=== PATIENT | female | born 1950 | race Caucasian/White ===

== ENCOUNTER → 2016-07-23 | Outpatient (CLI) | payer MEDICARE ==
[~2016-07-23] MED LIST: /CARBXR20T; AMLO10TA2 PO; ATEN50TA2 PO; ATOR1TAB21 PO; BABY81CH; CARB10TAXR; CHLO125TA PO; CIPR500T19; DICY20TA11 PO; EPIT200T PO; FLAG500T; FLUT0.003 EX; FLUT1SPR2; ISOSPOW; LIDOPOW TOP; LISI-538 PO; MIRA3350 PO; PENI250T81; PERC5TAB8; PRAV80TA; PROC2.5C PR; TEGR200T; TOPR200T; TYLENOL ARTHRITIS
[2016-07-23 10:22] LABS: MEAN CORPUSCULAR HEMOGLOBIN 31.4 pg (27.0-33.0); MEAN CORPUSCULAR HGB CONC 33.8 g/dl (32.0-36.5); MEAN CORPUSCULAR VOLUME 92.9 fl (80.0-96.0); RED CELL DISTRIBUTION WIDTH 13.3 % (11.5-14.5); WHITE BLOOD COUNT 7.2 K/mm3 (4.0-10.0)
[2016-07-23 10:58] LABS: ALBUMIN 3.6 GM/DL (3.2-5.2); ALKALINE PHOSPHATASE 120 U/L (45-117); ALT/SGPT 25 U/L (12-78); ANION GAP 7 MEQ/L (8-16); AST/SGOT 16 U/L (15-37); BILIRUBIN,TOTAL 0.3 MG/DL (0.2-1.0); BLOOD UREA NITROGEN 20 MG/DL (7-18); CALCIUM LEVEL 8.8 MG/DL (8.8-10.2); CARBON DIOXIDE LEVEL 28 MEQ/L (21-32); CHLORIDE LEVEL 99 MEQ/L (98-107); CHOLESTEROL LEVEL 199 MG/DL (<200); CREATININE FOR GFR 0.93 MG/DL (0.55-1.02); GLOMERULAR FILTRATION RATE > 60.0 (>45); GLUCOSE, FASTING 140 MG/DL (80-110); POTASSIUM SERUM 3.9 MEQ/L (3.5-5.1); SODIUM LEVEL 134 MEQ/L (136-145); TOTAL PROTEIN 6.6 GM/DL (6.4-8.2); TRIGLYCERIDES LEVEL 210 MG/DL (<150)
== END ==
LOC: M LAB 09:41
PROVIDERS: ATTEND Family Medicine
DX: R73.02 Impaired glucose tolerance (oral) (principal); Z79.899 Other long term (current) drug therapy

== ENCOUNTER → 2016-10-29 | Outpatient (CLI) | payer MEDICARE ==
[~2016-10-29] MED LIST changes: +KEPP1TAB PO
[2016-10-29 12:37] LABS: MEAN CORPUSCULAR HEMOGLOBIN 32.9 pg (27.0-33.0); MEAN CORPUSCULAR HGB CONC 36.1 g/dl (32.0-36.5); MEAN CORPUSCULAR VOLUME 91.1 fl (80.0-96.0); RED CELL DISTRIBUTION WIDTH 13.9 % (11.5-14.5); WHITE BLOOD COUNT 7.7 K/mm3 (4.0-10.0)
[2016-10-29 14:09] LABS: ALBUMIN 3.6 GM/DL (3.2-5.2); ALBUMIN/GLOBULIN RATIO 1.03 (1.00-1.93); ALKALINE PHOSPHATASE 126 U/L (45-117); ALT/SGPT 24 U/L (12-78); ANION GAP 7 MEQ/L (8-16); AST/SGOT 17 U/L (15-37); BILIRUBIN,TOTAL 0.3 MG/DL (0.2-1.0); BLOOD UREA NITROGEN 20 MG/DL (7-18); CALCIUM LEVEL 9.3 MG/DL (8.8-10.2); CARBON DIOXIDE LEVEL 30 MEQ/L (21-32); CHLORIDE LEVEL 90 MEQ/L (98-107); CHOLESTEROL LEVEL 232 MG/DL (<200); CREATININE FOR GFR 0.92 MG/DL (0.55-1.02); GLOMERULAR FILTRATION RATE > 60.0 (>45); GLUCOSE, FASTING 119 MG/DL (80-110); POTASSIUM SERUM 3.8 MEQ/L (3.5-5.1); SODIUM LEVEL 127 MEQ/L (136-145); TOTAL PROTEIN 7.1 GM/DL (6.4-8.2); TRIGLYCERIDES LEVEL 272 MG/DL (<150)
== END ==
LOC: M LAB 11:30
PROVIDERS: ATTEND Family Medicine
DX: R73.02 Impaired glucose tolerance (oral) (principal); Z79.899 Other long term (current) drug therapy

== ENCOUNTER 2016-11-29 12:00 | Emergency (ER) | payer OTHER, MEDICARE ==
[~2016-11-29] VITALS: Ht 157.5 cm; Wt 70.5 kg
[~2016-11-29 12:00] MED LIST changes: -KEPP1TAB PO
--- NOTE | 2016-11-29 12:59 | REP ---
CT of the brain without IV contrast: Comparisons 07/22 2005. There is no subdural or epidural hematoma. There is no subarachnoid or intraparenchymal hemorrhage. There is no edema, mass effect or midline shift. Ventricles are normal size and midline. The cortical stripe is unremarkable. The visualized paranasal sinuses and mastoid air cells are clear. Impression: Essentially negative CT study of the brain. Signed by Broderick Knott MD 11/29/2016 12:49 P
--- NOTE | 2016-11-29 13:03 | REP ---
Maxillofacial CT: Axial images are acquired helical scanning and a reformatted sagittal and coronal projections. There is no nasal bone fracture. No orbit fracture. No zygoma fracture. The ocular lenses and globes are unremarkable. The orbital fat planes are unremarkable. The skull base and sella are unremarkable. The visualized paranasal sinuses are clear except for a small polyp/cyst in the right maxillary sinus and a small polyp/cyst in the left maxillary sinus. The mastoid air cells are clear. There is no mandibular fracture. Impression: No evidence of facial bone fracture. Signed by Broderick Knott MD 11/29/2016 12:54 P
[2016-11-29 13:04] LABS: CARBAMAZEPINE (TEGRETOL) LEVEL 14.4 UG/ML (4.0-10.0)
--- NOTE | 2016-11-29 13:10 | REP ---
CT CERVICAL SPINE WITHOUT CONTRAST: HISTORY: Trauma. There is no acute fracture or subluxation. Disc bulges are present at the C3-4 through C6-7 levels. There is minimal narrowing of the spinal canal. Uncinate process and/or facet hypertrophy are present at the C3-4 and C5-6 through C7-T1 levels. These findings produce minimal narrowing of the neural foramina. The C5-6 and C6-7 intervertebral discs are decreased in height consistent with disc degeneration. IMPRESSION: 1. There is no acute fracture or subluxation. 2. There is cervical spondylosis at the C3-4 through C7-T1 levels. Signed by Armani Franco MD 11/29/2016 01:18 P
[2016-11-29] MEDS ORDERED: levETIRAcetam INJection 500 MG in D5W MINI-BAG PLUS 100 ML IV ONE (13:30)
[2016-11-29 13:43] LABS: ALBUMIN 3.6 GM/DL (3.2-5.2); ALBUMIN/GLOBULIN RATIO 1.06 (1.00-1.93); ALKALINE PHOSPHATASE 123 U/L (45-117); ALT/SGPT 30 U/L (12-78); ANION GAP 12 MEQ/L (8-16); AST/SGOT 30 U/L (15-37); BILIRUBIN,DIRECT 0.1 MG/DL (0.0-0.2); BILIRUBIN,TOTAL 0.4 MG/DL (0.2-1.0); BLOOD UREA NITROGEN 26 MG/DL (7-18); CALCIUM LEVEL 8.6 MG/DL (8.8-10.2); CARBON DIOXIDE LEVEL 25 MEQ/L (21-32); CHLORIDE LEVEL 91 MEQ/L (98-107); GLOMERULAR FILTRATION RATE > 60.0 (>45); GLUCOSE, FASTING 136 MG/DL (80-110); POTASSIUM SERUM 3.6 MEQ/L (3.5-5.1); SODIUM LEVEL 128 MEQ/L (136-145)
[2016-11-29 13:59] LABS: ADD MANUAL DIFFER YES; MEAN CORPUSCULAR HEMOGLOBIN 32.4 pg (27.0-33.0); MEAN CORPUSCULAR VOLUME 90.1 fl (80.0-96.0); PLATELET COUNT, AUTOMATED 270 k/mm3 (150-450); RED CELL DISTRIBUTION WIDTH 13.7 % (11.5-14.5); WHITE BLOOD COUNT 9.2 K/mm3 (4.0-10.0)
[2016-11-29 14:25] LABS: EOSINOPHILS 1 % (0-5)
[2016-11-29 15:31] LABS: METHADONE URINE NEGATIVE (NEGATIVE)
[2016-11-29] MEDS ORDERED: KEPP1TAB PO (15:45)
[2016-11-29 15:51] VITALS: BP 169/82
== END 2016-11-29 15:53 | disposition home or self-care (01) ==
LOC: M ED 12:00
DX: S00.83XA Contusion of other part of head, initial encounter (principal); G40.909 Epilepsy, unspecified, not intractable, without status epilepticus; F12.10 Cannabis abuse, uncomplicated; Z72.0 Tobacco use; V49.40XA Driver injured in collision with unspecified motor vehicles in traffic accident, initial encounter; Y92.410 Unspecified street and highway as the place of occurrence of the external cause; Y93.89 Activity, other specified; Y99.9 Unspecified external cause status
CPT/HCPCS: 70450; 70486; 72125; 80048; 80076; 80156; 80307; 83690; 85025; 96374; 99285; G0480; J1953

== ENCOUNTER → 2016-12-04 | Outpatient (REF) | payer MEDICARE ==
[~2016-12-04] MED LIST changes: +KEPP1TAB PO
[2016-12-05 12:45] LABS: CALCIUM LEVEL 9.4 MG/DL (8.8-10.2); CARBAMAZEPINE (TEGRETOL) LEVEL 8.1 UG/ML (4.0-10.0); CREATININE FOR GFR 1.05 MG/DL (0.55-1.02)
== END ==
LOC: M SFHCLERA 16:30
PROVIDERS: ATTEND Family Medicine
DX: R55 Syncope and collapse (principal)
CPT/HCPCS: 80048; 80156; G0463

== ENCOUNTER → 2017-01-08 | Outpatient (CLI) | payer MEDICARE | LOC: M OUTALCOH 07:37 | PROVIDERS: ATTEND Psychiatry & Neurology Psychiatry | DX: F12.20 Cannabis dependence, uncomplicated (principal) ==

== ENCOUNTER 2017-01-16 13:00 | Outpatient (RCR) | payer MEDICARE, OTHER | END 2017-01-19 | LOC: M OUTALCOH 13:00 | PROVIDERS: ATTEND Psychiatry & Neurology Psychiatry | DX: F12.20 Cannabis dependence, uncomplicated (principal); F17.200 Nicotine dependence, unspecified, uncomplicated ==

== ENCOUNTER → 2017-02-19 | Outpatient (RCR) | payer MEDICARE, OTHER | LOC: M OUTALCOH 01-22 14:59 | PROVIDERS: ATTEND Psychiatry & Neurology Psychiatry | DX: F12.20 Cannabis dependence, uncomplicated (principal); F17.200 Nicotine dependence, unspecified, uncomplicated ==

== ENCOUNTER 2017-03-08 09:00 | Outpatient (RCR) | payer MEDICARE | END 2017-03-21 | LOC: M OUTALCOH 09:00 | PROVIDERS: ATTEND Psychiatry & Neurology Psychiatry | DX: F12.10 Cannabis abuse, uncomplicated (principal); F17.200 Nicotine dependence, unspecified, uncomplicated ==

== ENCOUNTER → 2017-03-13 | Outpatient (REF) | payer MEDICARE ==
[2017-03-13 13:07] LABS: ANION GAP 6 MEQ/L (8-16); BLOOD UREA NITROGEN 21 MG/DL (7-18); CALCIUM LEVEL 9.3 MG/DL (8.8-10.2); CARBON DIOXIDE LEVEL 29 MEQ/L (21-32); CHLORIDE LEVEL 96 MEQ/L (98-107); CREATININE FOR GFR 0.74 MG/DL (0.55-1.02); GLOMERULAR FILTRATION RATE > 60.0 (>45); GLUCOSE, FASTING 111 MG/DL (80-110); POTASSIUM SERUM 4.9 MEQ/L (3.5-5.1); SODIUM LEVEL 131 MEQ/L (136-145)
== END ==
LOC: M SFHCLERA 10:46
PROVIDERS: ATTEND Family Medicine
DX: N18.3 Chronic kidney disease, stage 3 (moderate) (principal); E87.1 Hypo-osmolality and hyponatremia
CPT/HCPCS: 80048; 80156; G0463

== ENCOUNTER → 2017-03-25 | Outpatient (REF) | payer MEDICARE ==
[2017-03-25 19:30] LABS: ANION GAP 7 MEQ/L (8-16); BLOOD UREA NITROGEN 22 MG/DL (7-18); CARBAMAZEPINE (TEGRETOL) LEVEL 8.6 UG/ML (4.0-10.0); CARBON DIOXIDE LEVEL 29 MEQ/L (21-32); CHLORIDE LEVEL 101 MEQ/L (98-107); CREATININE FOR GFR 0.81 MG/DL (0.55-1.02); GLOMERULAR FILTRATION RATE > 60.0 (>45); GLUCOSE, FASTING 90 MG/DL (80-110); POTASSIUM SERUM 4.5 MEQ/L (3.5-5.1); SODIUM LEVEL 137 MEQ/L (136-145)
== END ==
LOC: M SFHCLERA 15:18
PROVIDERS: ATTEND Family Medicine
DX: G40.909 Epilepsy, unspecified, not intractable, without status epilepticus (principal)
CPT/HCPCS: 80048; 80156; G0463

== ENCOUNTER → 2017-07-15 | Outpatient (REF) | payer MEDICARE ==
[2017-07-15 20:53] LABS: HEMATOCRIT 38.8 % (36.0-47.0); HEMOGLOBIN 13.6 g/dl (12.0-16.0); MEAN CORPUSCULAR HEMOGLOBIN 30.6 pg (27.0-33.0); MEAN CORPUSCULAR HGB CONC 35.1 g/dl (32.0-36.5); MEAN CORPUSCULAR VOLUME 87.4 fl (80.0-96.0); PLATELET COUNT, AUTOMATED 288 10^3/uL (150-450); RED BLOOD COUNT 4.44 10^6/uL (4.00-5.40); RED CELL DISTRIBUTION WIDTH 13.5 % (11.5-14.5); WHITE BLOOD COUNT 9.4 10^3/uL (4.0-10.0)
[2017-07-15 21:01] LABS: ANION GAP 7 MEQ/L (8-16); BLOOD UREA NITROGEN 18 MG/DL (7-18); CALCIUM LEVEL 9.3 MG/DL (8.8-10.2); CARBAMAZEPINE (TEGRETOL) LEVEL 9.5 UG/ML (4.0-10.0); CARBON DIOXIDE LEVEL 30 MEQ/L (21-32); CHLORIDE LEVEL 98 MEQ/L (98-107); CREATININE FOR GFR 0.81 MG/DL (0.55-1.30); GLOMERULAR FILTRATION RATE > 60.0 (>45); GLUCOSE, FASTING 97 MG/DL (70-100); POTASSIUM SERUM 4.8 MEQ/L (3.5-5.1); SODIUM LEVEL 135 MEQ/L (136-145)
== END ==
LOC: M SFHCLERA 16:07
DX: I10 Essential (primary) hypertension (principal); R78.89 Finding of other specified substances, not normally found in blood
CPT/HCPCS: 80156

== ENCOUNTER 2017-08-25 11:32 | Emergency (ER) | payer OTHER, MEDICARE ==
[2017-08-25 12:38] LABS: BASO % 0.3 % (0.0-1.0); EOS % 0.2 % (0.0-3.0); HEMATOCRIT 34.7 % (36.0-47.0); HEMOGLOBIN 12.1 g/dl (12.0-15.5); IMMATURE GRANULOCYTE % 0.7 % (0-3.0); LYMPH % 10.1 % (24.0-44.0); MEAN CORPUSCULAR HEMOGLOBIN 31.3 pg (27.0-33.0); MEAN CORPUSCULAR HGB CONC 34.9 g/dl (32.0-36.5); MEAN CORPUSCULAR VOLUME 89.9 fl (80.0-96.0); MONO # 0.2 10^3/uL (0.0-0.8); MONO % 2.2 % (0.0-5.0); NEUTROPHILS # 8.9 10^3/uL (1.8-7.7); NEUTROPHILS % 86.5 % (36.0-66.0); PLATELET COUNT, AUTOMATED 267 10^3/uL (150-450); RED BLOOD COUNT 3.86 10^6/uL (4.00-5.40); RED CELL DISTRIBUTION WIDTH 14.1 % (11.5-14.5); WHITE BLOOD COUNT 10.2 10^3/uL (4.0-10.0)
[2017-08-25] MEDS: GABAPENTIN 300 MG CAP PO (12:48)
[2017-08-25 12:52] LABS: ANION GAP 9 MEQ/L (8-16); BLOOD UREA NITROGEN 27 MG/DL (7-18); CALCIUM LEVEL 8.1 MG/DL (8.8-10.2); CARBAMAZEPINE (TEGRETOL) LEVEL 14.6 UG/ML (4.0-10.0); CARBON DIOXIDE LEVEL 26 MEQ/L (21-32); CHLORIDE LEVEL 96 MEQ/L (98-107); CPK CREATINE PHOSPHOKINASE 130 U/L (26-192); CREATININE FOR GFR 0.97 MG/DL (0.55-1.30); FREE T4 0.81 NG/DL (0.76-1.46); GLOMERULAR FILTRATION RATE > 60.0 (>45); GLUCOSE, FASTING 169 MG/DL (70-100); MAGNESIUM LEVEL 1.5 MG/DL (1.8-2.4); POTASSIUM SERUM 4.3 MEQ/L (3.5-5.1); SODIUM LEVEL 131 MEQ/L (136-145); TROPONIN I < 0.02 NG/ML (< 0.10)
[2017-08-25 12:54] LABS: INR 0.91; PROTHROMBIN TIME 12.3 SECONDS (12.4-14.5)
[2017-08-25 12:55] LABS: PARTIAL THROMBOPLASTIN TIME 25.6 SECONDS (26.8-37.9)
[2017-08-25 12:57] LABS: CK-MB VALUE MASS 3.3 NG/ML (<3.6); MB/CK RELATIVE INDEX 2.53 (< OR =4)
[2017-08-25] MEDS: MAGNESIUM OXIDE 400 MG TAB (MAG-OX) PO (13:35)
[2017-08-26 06:12] LABS: BEDSIDE GLUCOSE 151 MG/DL (80-115)
== END 2017-08-25 16:22 | disposition home or self-care (01) ==
LOC: M ED 11:32
DX: R55 Syncope and collapse (principal); V47.5XXA Car driver injured in collision with fixed or stationary object in traffic accident, initial encounter; Y92.410 Unspecified street and highway as the place of occurrence of the external cause; G40.909 Epilepsy, unspecified, not intractable, without status epilepticus; M79.605 Pain in left leg; I73.9 Peripheral vascular disease, unspecified; M51.9 Unspecified thoracic, thoracolumbar and lumbosacral intervertebral disc disorder; Z86.718 Personal history of other venous thrombosis and embolism; Z86.19 Personal history of other infectious and parasitic diseases; H91.90 Unspecified hearing loss, unspecified ear; F17.210 Nicotine dependence, cigarettes, uncomplicated; Z79.899 Other long term (current) drug therapy; Z79.52 Long term (current) use of systemic steroids
CPT/HCPCS: 71046

== ENCOUNTER → 2017-09-24 | Outpatient (CLI) | payer MEDICARE | LOC: M RAD 10:04 | DX: Z12.2 Encounter for screening for malignant neoplasm of respiratory organs (principal); Z87.891 Personal history of nicotine dependence | CPT/HCPCS: G0297 ==

== ENCOUNTER → 2017-12-03 | Outpatient (CLI) | payer MEDICARE ==
[2017-12-03 07:52] LABS: BASO % 0.3 % (0.0-1.0); EOS # 0.1 10^3/uL (0.0-0.50); EOS % 1.2 % (0.0-3.0); HEMATOCRIT 35.6 % (36.0-47.0); HEMOGLOBIN 12.3 g/dl (12.0-15.5); IMMATURE GRANULOCYTE % 0.5 % (0-3.0); LYMPH # 1.5 10^3/uL (1.5-4.5); LYMPH % 15.4 % (24.0-44.0); MEAN CORPUSCULAR HEMOGLOBIN 31.6 pg (27.0-33.0); MEAN CORPUSCULAR HGB CONC 34.6 g/dl (32.0-36.5); MEAN CORPUSCULAR VOLUME 91.5 fl (80.0-96.0); MONO # 0.8 10^3/uL (0.0-0.8); MONO % 7.8 % (0.0-5.0); NEUTROPHILS # 7.5 10^3/uL (1.8-7.7); NEUTROPHILS % 74.8 % (36.0-66.0); PLATELET COUNT, AUTOMATED 328 10^3/uL (150-450); RED BLOOD COUNT 3.89 10^6/uL (4.00-5.40); RED CELL DISTRIBUTION WIDTH 13.6 % (11.5-14.5)
[2017-12-03 08:17] LABS: ALBUMIN 3.3 GM/DL (3.2-5.2); ALBUMIN/GLOBULIN RATIO 0.97 (1.00-1.93); ALKALINE PHOSPHATASE 112 U/L (45-117); ALT/SGPT 22 U/L (12-78); ANION GAP 8 MEQ/L (8-16); AST/SGOT 14 U/L (7-37); BILIRUBIN,TOTAL 0.3 MG/DL (0.2-1.0); BLOOD UREA NITROGEN 26 MG/DL (7-18); CALCIUM LEVEL 8.6 MG/DL (8.8-10.2); CARBAMAZEPINE (TEGRETOL) LEVEL 10.3 UG/ML (4.0-10.0); CARBON DIOXIDE LEVEL 27 MEQ/L (21-32); CHLORIDE LEVEL 99 MEQ/L (98-107); CREATININE FOR GFR 0.93 MG/DL (0.55-1.30); GLOMERULAR FILTRATION RATE > 60.0 (>45); GLUCOSE, FASTING 146 MG/DL (70-100); POTASSIUM SERUM 3.9 MEQ/L (3.5-5.1); SODIUM LEVEL 134 MEQ/L (136-145); TOTAL PROTEIN 6.7 GM/DL (6.4-8.2)
== END ==
LOC: M LAB 07:35
DX: G40.909 Epilepsy, unspecified, not intractable, without status epilepticus (principal)
CPT/HCPCS: 80156

== ENCOUNTER → 2018-06-03 | Outpatient (REF) | payer MEDICARE ==
[~2018-06-03] MED LIST changes: +ADVA115A INH; +ALCOPAD17 TOP; -AMLO10TA2 PO; +AMLO10TA5 PO; +ASPI81TA85 PO; +ATOR40TA75 PO; +BLOOKIT21 XX; +CARB1TAB20 PO; +CHAN1PAK13 PO; +CHLO50TA PO; +COLA100C5 PO; +COMBAER6 INH; +GABA-843 PO; +GLUC1TES2 XX; +HUMA100I5 SC; +HYDR50TA70; +ISOS30TA4 PO; +LANC30MI XX; +METO1TAB87; +MOME0.1O TOP; +PEN1MIS22 SC; +PRED20TA; +SING10TA32 PO; +TOUJ1.2I SC
== END ==
LOC: M SFHCLERA 13:08
PROVIDERS: ATTEND Nurse Practitioner Family
DX: R30.0 Dysuria (principal)
CPT/HCPCS: 81002; 87086; G0463

== ENCOUNTER 2018-06-19 13:06 | Inpatient (IN) | payer MEDICARE ==
[~2018-06-19] VITALS: Ht 160 cm; Wt 77.2 kg
[~2018-06-19 13:06] MED LIST changes: -ADVA115A INH; -ALCOPAD17 TOP; -ATOR40TA75 PO; -BLOOKIT21 XX; -CARB1TAB20 PO; -CHAN1PAK13 PO; -CHLO50TA PO; -GLUC1TES2 XX; -HUMA100I5 SC; -LANC30MI XX; -PEN1MIS22 SC; -TOUJ1.2I SC
[2018-06-19] MEDS ORDERED: ADVA115A INH (13:59)
[2018-06-19 14:04] LABS: BASO # 0.1 10^3/uL (0.0-0.2); BASO % 0.4 % (0.0-1.0); EOS % 0.1 % (0.0-3.0); HEMATOCRIT 45.4 % (36.0-47.0); HEMOGLOBIN 15.9 g/dl (12.0-15.5); LYMPH % 5.1 % (24.0-44.0); MEAN CORPUSCULAR HEMOGLOBIN 30.9 pg (27.0-33.0); MEAN CORPUSCULAR VOLUME 88.2 fl (80.0-96.0); MONO # 0.6 10^3/uL (0.0-0.8); MONO % 3.2 % (0.0-5.0); NEUTROPHILS # 17.5 10^3/uL (1.8-7.7); NEUTROPHILS % 90.3 % (36.0-66.0); PLATELET COUNT, AUTOMATED 374 10^3/uL (150-450); RED BLOOD COUNT 5.15 10^6/uL (4.00-5.40); WHITE BLOOD COUNT 19.4 10^3/uL (4.0-10.0)
[2018-06-19] MEDS ORDERED: DILUENT IV ONE (14:30)
[2018-06-19] MEDS ORDERED: ONDANSETRON 4MG/2ML VIAL (J2405) IV ONE (14:30)
[2018-06-19] MEDS ORDERED: NS IV ONE (14:30)
[2018-06-19 14:48] LABS: ALBUMIN 4.1 GM/DL (3.2-5.2); BILIRUBIN,DIRECT 0.1 MG/DL (0.0-0.2); BILIRUBIN,TOTAL 0.5 MG/DL (0.2-1.0); CALCIUM LEVEL 10.9 MG/DL (8.8-10.2); CREATININE FOR GFR 1.95 MG/DL (0.55-1.30); GLOMERULAR FILTRATION RATE 27.2 (>45); POTASSIUM SERUM 3.9 MEQ/L (3.5-5.1); TOTAL PROTEIN 8.1 GM/DL (6.4-8.2)
[2018-06-19] MEDS: GASTROGRAFIN SOLUTION 30ML PO SCH ×2 (15:05→15:20)
--- NOTE | 2018-06-19 15:27 | REP ---
Clinical: Abdominal pain with vomiting and elevated lipase levels. Technique: Axial noncontrast images from the lung bases to the pubic symphysis with coronal and sagittal re-formations. Comparison: 11/08/2014. Findings: Evaluation of the pancreas demonstrates a very subtle peripancreatic inflammatory stranding at the tail (images 37-43). Suggesting a mild acute pancreatitis. Liver, spleen, gallbladder, bilateral adrenal glands and kidneys are within normal limits and stable. Small right adrenal nodule consistent with adenoma remains unchanged. The enteric system is without obstruction or acute inflammatory process. Colonic and sigmoid diverticula noted without acute diverticulitis. Pelvis demonstrates normal bladder and age-appropriate uterus/adnexa. Right lower quadrant demonstrates normal terminal ileum and appendix. No ascites. No free air. No adenopathy. Atherosclerotic changes of the aorta and vasculature without aneurysm. Musculoskeletal structures intact. Lung bases clear. Impression: Subtle inflammatory changes involving the pancreatic tail consistent with subtle acute pancreatitis. Electronically Signed by Gilberto Ruiz MD 06/19/2018 03:19 P
[2018-06-19] MEDS ORDERED: INSULIN IV RATE CHANGE DOCUMENTATION ML/HR XX SCH (15:30)
[2018-06-19] MEDS ORDERED: INSULIN HUMAN REGULAR 100 UNITS in NS 99 ML IV SCH ×2 (15:30→16:00)
[2018-06-19 15:58] LABS: VENOUS BASE EXCESS -10.5 (-2.0-2.0); VENOUS HCO3 14.4 MEQ/L (23.0-27.0); VENOUS O2 SATURATION 77.6 % (60.0-80.0); VENOUS PARTIAL PRESSURE CO2 29.7 mmHg (38.0-50.0); VENOUS PARTIAL PRESSURE O2 48.6 mmHg (30.0-50.0); VENOUS PH 7.302 UNITS (7.330-7.430); VENOUS STANDARD HCO3 15.9 MEQ/L; VENOUS TOTAL CO2 15.3 MEQ/L (24.0-28.0)
[2018-06-19] MEDS ORDERED: ATOR40TA75 PO (16:54)
[2018-06-19] MEDS ORDERED: CARB1TAB20 PO ×2 (17:02)
[2018-06-19] MEDS ORDERED: CHAN1PAK13 PO (17:02)
[2018-06-19] MEDS ORDERED: CHLO50TA PO (17:02)
[2018-06-19] MEDS ORDERED: NS 1,000 ML IV SCH (19:00)
[2018-06-19] MEDS ORDERED: D5W 1,000 ML IV SCH (19:00)
[2018-06-19] MEDS ORDERED: ONDANSETRON 4MG/2ML VIAL (J2405) IV PRN (19:00)
[2018-06-19 19:35] LABS: CALCIUM LEVEL 9.2 MG/DL (8.8-10.2); CREATININE FOR GFR 1.63 MG/DL (0.55-1.30); GLOMERULAR FILTRATION RATE 33.5 (>45)
--- NOTE | 2018-06-19 20:08 | HPE ---
DATE OF ADMISSION: 06/19/2018 68-year-old female with a past medical history of hypertension, hyperlipidemia, seizure disorder, peripheral artery disease with claudication in the left lower extremity, status post fem-pop bypass, who presents to the emergency room with weeks of abdominal pain, nausea and vomiting. When she came to the emergency room she was found to be in diabetic ketoacidosis and was started on an insulin drip and fluids were also started since the patient had acute kidney injury. Subsequently, laboratories came back and the patient was found to have acute pancreatitis. CT of the abdomen and pelvis shows that the tail of the pancreas is the site of the inflammation and is otherwise an unremarkable CAT scan. She denies any subjective feeling of fevers, aches or chills. The only complaint she really has is mild nausea after getting Zofran and morphine. She also is extremely thirsty, which is common in patients with diabetic ketoacidosis. She will be admitted for further management. PAST MEDICAL HISTORY: Again, past medical history of: 1. Hypertension. 2. Seizure disorder. 3. Hyperlipidemia. 4. Peripheral artery disease with claudication of the left lower extremity, status post fem-pop bypass on 11/15/2018. ALLERGIES: She has no known drug allergies. FAMILY HISTORY: Noncontributory. SOCIAL HISTORY: The patient denies tobacco, alcohol, or illicit drugs. MEDICATIONS: She takes at home: - albuterol as needed - amlodipine 10 mg by mouth daily - aspirin 81 mg by mouth daily - atorvastatin 40 mg by mouth at bedtime - carbamazepine 400 mg by mouth in the morning - carbamazepine 600 mg by mouth in the evening - chlorthalidone 50 mg by mouth daily - Colace 200 mg by mouth twice a day - gabapentin 600 mg by mouth twice a day - isosorbide mononitrate 30 mg by mouth daily - mometasone as needed - montelukast 10 mg by mouth at bedtime - salmeterol fluticasone two puffs inhaled twice a day - Chantix 1 mg by mouth twice a day REVIEW OF SYSTEMS: Negative for all ten major systems except what is mentioned in the history of present illness. PHYSICAL EXAMINATION: VITAL SIGNS: Blood pressure 132/83, heart rate is 140 and regular, respiratory rate is 18, temperature 98, oxygen saturation is 96% on room air. Head is atraumatic, normocephalic. Neck is supple with no jugular venous distention (JVD). Lungs clear to auscultation. S1, S2 audible. No murmurs appreciated. Abdomen is soft. Positive bowel sounds. No pedal edema. Skin is intact. Neurologic examination, the patient is awake, alert and oriented times three. LABORATORIES: WBC 19.4, hemoglobin 15.9, hematocrit 45.4, platelets 374,000. Sodium 126, potassium 3.9, chloride 79, CO2 is 17, BUN 44, creatinine 1.95, fasting glucose 753, lactic acid is 2.1, lipase 5544. Urinalysis is pending. IMPRESSION: 1. Acute pancreatitis. 2. Diabetic ketoacidosis. 3. Acute kidney injury. PLAN: The patient is to be admitted to the intensive care unit (ICU). We will continue the patient on insulin drip, give her Zofran and morphine for symptomatic relief. The acute kidney injury is likely secondary to dehydration and prerenal azotemia. We will monitor BUN and creatinine and trend. Her hyponatremia is pseudohyponatremia. Her corrected sodium is 134. We will continue all of her other preadmission medications and continue her care in the intensive care unit (ICU). Total critical care time was 35 minutes.
[2018-06-19] MEDS ORDERED: MORPHINE 4 MG/ML 1ML VIAL/SYRINGE (J2270) IV PRN (20:45)
[2018-06-19] MEDS ORDERED: ACETAMINOPHEN TAB 650MG DOSE (2X325MG) PO PRN (20:45)
[2018-06-19] MEDS: INSULIN IV RATE CHANGE DOCUMENTATION ML/HR XX SCH ×3 (20:49→22:10)
[2018-06-19] MEDS: GABAPENTIN 300 MG CAP PO SCH (20:57)
[2018-06-19] MEDS: PERCOCET 5MG/325MG TAB PO PRN (20:57)
[2018-06-19] MEDS: carBAMazepine 200 MG TAB PO SCH (20:58)
[2018-06-19] MEDS: ATORVASTATIN 20 MG TAB PO SCH (20:59)
[2018-06-19] MEDS: DOCUSATE SODIUM 100 MG CAP PO SCH (20:59)
[2018-06-19] MEDS: KCL 40MEQ in NS 1000ML 1,000 ML IV SCH (20:59)
[2018-06-19] MEDS: VARENICLINE 1 MG TABLET PO SCH (20:59)
[2018-06-19 21:00] VITALS: BP 152/70
[2018-06-19] MEDS: MONTELUKAST 10 MG TAB PO SCH (21:00)
[2018-06-19] MEDS ORDERED: POTASSIUM CHLORIDE 10 MEQ SR TABLET PO ONE (21:00)
[2018-06-19 21:27] LABS: CALCIUM LEVEL 9.3 MG/DL (8.8-10.2); CREATININE FOR GFR 1.71 MG/DL (0.55-1.30); GLOMERULAR FILTRATION RATE 31.7 (>45); MAGNESIUM LEVEL 1.5 MG/DL (1.8-2.4); POTASSIUM SERUM 2.9 MEQ/L (3.5-5.1)
[2018-06-19] MEDS: COMBIVENT RESPIMAT 100-20MCG INHALER 4GM INH SCH (21:30)
[2018-06-19] MEDS: ADVAIR HFA 115/21MCG INHALER INH SCH (21:30)
[2018-06-19 22:00] VITALS: BP 115/57
[2018-06-19] MEDS ORDERED: MAG SULF 1GM/100ML (MAG RUN) 1 GM in APPROPRIATE DILUENT 1 EA IV ONE (22:00)
[2018-06-19 23:00] VITALS: BP 156/67
[2018-06-19 23:39] LABS: CREATININE FOR GFR 1.5 MG/DL (0.55-1.30); GLOMERULAR FILTRATION RATE 36.9 (>45); POTASSIUM SERUM 3.3 MEQ/L (3.5-5.1)
[2018-06-20] VITALS (12 sets, daily range): BP systolic 106–187; BP diastolic 52–81
[2018-06-20 01:09] LABS: CREATININE FOR GFR 1.48 MG/DL (0.55-1.30); GLOMERULAR FILTRATION RATE 37.4 (>45); POTASSIUM SERUM 3.7 MEQ/L (3.5-5.1)
[2018-06-20] MEDS: INSULIN IV RATE CHANGE DOCUMENTATION ML/HR XX SCH (01:10)
[2018-06-20 02:29] LABS: HEMOGLOBIN A1c 14.2 %
[2018-06-20 02:33] LABS: CREATININE FOR GFR 1.41 MG/DL (0.55-1.30); GLOMERULAR FILTRATION RATE 39.6 (>45); POTASSIUM SERUM 3.7 MEQ/L (3.5-5.1)
[2018-06-20 04:13] LABS: HEMATOCRIT 35.3 % (36.0-47.0); MEAN CORPUSCULAR HEMOGLOBIN 30.1 pg (27.0-33.0); MEAN CORPUSCULAR VOLUME 88.5 fl (80.0-96.0); RED BLOOD COUNT 3.99 10^6/uL (4.00-5.40)
[2018-06-20 04:23] LABS: PLATELET COUNT, AUTOMATED 265 10^3/uL (150-450)
[2018-06-20] MEDS: KCL 40MEQ in NS 1000ML 1,000 ML IV SCH ×3 (04:45→17:00)
[2018-06-20 04:46] LABS: CALCIUM LEVEL 8.8 MG/DL (8.8-10.2); CREATININE FOR GFR 1.41 MG/DL (0.55-1.30); GLOMERULAR FILTRATION RATE 39.6 (>45); POTASSIUM SERUM 3.6 MEQ/L (3.5-5.1)
[2018-06-20 06:49] LABS: CALCIUM LEVEL 8.6 MG/DL (8.8-10.2); CREATININE FOR GFR 1.23 MG/DL (0.55-1.30); GLOMERULAR FILTRATION RATE 46.4 (>45); POTASSIUM SERUM 3.9 MEQ/L (3.5-5.1)
[2018-06-20] MEDS ORDERED: DEXTROSE 50% 50 ML SYRINGE IV PRN (08:00)
[2018-06-20] MEDS ORDERED: HEPARIN SOD (PORCINE) 5000 UNITS/ML VIAL SQ SCH (08:00)
[2018-06-20] MEDS ORDERED: GLUCOSE 4 GM CHEW TABLET PO PRN (08:00)
[2018-06-20] MEDS ORDERED: LEVEMIR (INSULIN DETEMIR) 1 UNITS/0.01ML SC SCH (08:00)
[2018-06-20] MEDS ORDERED: GLUCAGON FOR INJ 1 MG VIAL (J1610) SC PRN (08:00)
[2018-06-20] MEDS: COMBIVENT RESPIMAT 100-20MCG INHALER 4GM INH SCH ×4 (08:00→20:00)
[2018-06-20 08:42] LABS: MB/CK RELATIVE INDEX 3.07 (< OR =4); TROPONIN I 0.09 NG/ML (< 0.10)
[2018-06-20 08:59] LABS: MB/CK RELATIVE INDEX 3.16 (< OR =4); TROPONIN I 0.11 NG/ML (< 0.10)
[2018-06-20] MEDS ORDERED: ISOSORBIDE MON. (IMDUR) 30 MG XR TAB PO SCH (09:00)
[2018-06-20] MEDS: ADVAIR HFA 115/21MCG INHALER INH SCH ×2 (09:27→20:23)
[2018-06-20] MEDS: amLODIPine 10 MG TAB PO SCH (09:58)
[2018-06-20] MEDS: carBAMazepine 200 MG TAB PO SCH ×2 (09:58→20:34)
[2018-06-20] MEDS: ASPIRIN 81 MG ENTERIC TAB PO SCH (09:59)
[2018-06-20] MEDS: CHLORTHALIDONE 25 MG TAB PO SCH (09:59)
[2018-06-20] MEDS: GABAPENTIN 300 MG CAP PO SCH ×2 (09:59→20:33)
[2018-06-20] MEDS: VARENICLINE 1 MG TABLET PO SCH ×2 (10:01→20:33)
[2018-06-20] MEDS: DOCUSATE SODIUM 100 MG CAP PO SCH ×2 (10:01→20:32)
--- NOTE | 2018-06-20 10:10 | REP ---
Clinical: Pancreatitis. Technique: Real time martinez scale ultrasound examination using curved array transducer. Findings: Liver demonstrates increased echogenicity consistent with fatty infiltration. No focal hepatic lesion identified. Visualized pancreas is unremarkable. The gallbladder is normal and without gallstones, wall thickening, or pericholecystic fluid. Common bile duct is minimally dilated to 8.4 mm but without obvious obstructing calculus. Right kidney is normal in reniform shape without hydronephrosis and measures 11.1 x 6.0 x 6.5 centimeters. No ascites. Impression: 1. Hepatosteatosis. 2. Mild dilatation to the common bile duct without obvious obstructing cause. Electronically Signed by Gilberto Ruiz MD 06/20/2018 10:01 A
[2018-06-20 11:40] LABS: CALCIUM LEVEL 8.7 MG/DL (8.8-10.2); CREATININE FOR GFR 1.15 MG/DL (0.55-1.30); GLOMERULAR FILTRATION RATE 50.1 (>45); PHOSPHORUS LEVEL 1.6 MG/DL (2.5-4.9); POTASSIUM SERUM 3.9 MEQ/L (3.5-5.1)
[2018-06-20] MEDS: HumaLOG INSULIN (NovoLOG) PER UNIT SC SCH ×3 (11:51→20:33)
--- NOTE | 2018-06-20 14:24 | ECGEPIP ---
Stationary ECG Study [facility] Test Date: 2018-06-20 Pat Name: ILAN CAMPA Department: Room: [place] [address] Gender: F [employer] Supervisor: NILESH : 1950 Requested By: FLORIN DENNY Order Number: [id number] Reading MD: Matthew Milton Measurements Intervals Epes Rate: 74 P: 72 AZ: 191 QRS: 9 QRSD: 92 T: 38 QT: 324 QTc: 360 Interpretive Statements SINUS RHYTHM WITH one SUPRAVENTRICULAR PREMATURE COMPLEX Left atrial abnormality. Poor R wave progression, cannot rule out SEPTAL MYOCARDIAL INFARCTION, PROBABLY OLD If present. Electronically Signed On 06-20-2018 14:23:53 EST by Matthew Milton
[2018-06-20 15:40] LABS: CALCIUM LEVEL 8.3 MG/DL (8.8-10.2); CREATININE FOR GFR 1.1 MG/DL (0.55-1.30); GLOMERULAR FILTRATION RATE 52.7 (>45); MAGNESIUM LEVEL 1.7 MG/DL (1.8-2.4); POTASSIUM SERUM 3.9 MEQ/L (3.5-5.1)
[2018-06-20] MEDS ORDERED: PROHANCE 279.3MG/ML 15ML VIAL (A9576) As Ordered ONE (16:46)
[2018-06-20] MEDS: HEPARIN SOD (PORCINE) 5000 UNITS/ML VIAL SQ SCH ×2 (17:53→23:04)
[2018-06-20] MEDS: NEUTRA-PHOS 1.25 GM PACKET PO SCH ×2 (17:53→20:32)
--- NOTE | 2018-06-20 18:43 | IPN ---
DATE: 06/20/2018 Patient admitted yesterday. Currently reported only minimal epigastric pain. Denies any chest pain, pressure or discomfort. Denies any fevers or chills. Reported poor appetite but no nausea or vomiting. VITAL SIGNS: Temperature 97.5, pulse 95, respirations 22, blood pressure 166/75, pulse oximetry 95% on room air. LABORATORY: WBC 10, hemoglobin and hematocrit 12 over 35.3, platelets 265. Chemistry: Sodium 143, potassium 3.9, chloride 110, bicarbonate 24, BUN 28, creatinine 1.1, magnesium 1.7. PHYSICAL EXAMINATION: GENERAL: Patient alert, comfortable, in no acute distress. HEENT: Normocephalic, atraumatic. NECK: Supple. PULMONARY: Bilaterally clear. CARDIAC: Regular, S1, S2. ABDOMEN: Epigastric tenderness. No rebound, no guarding. EXTREMITIES: No edema bilateral lower extremities. NEUROLOGIC: No focal deficit. ASSESSMENT AND PLAN: This is a 68-year-old female patient with underlying medical history of hypertension, dyslipidemia, seizure disorder, peripheral vascular disease with claudication of left lower extremity, status post femoral-popliteal (fem-pop) bypass, presented to the emergency room with one week of abdominal pain, nausea, vomiting, found to have acute pancreatitis and diabetic ketoacidosis (DKA). PROBLEMS: 1. Acute pancreatitis, unknown etiology. Patient does not drink alcohol. Intravenous (IV) fluids, clear liquid diet for now. Pain has improved. CT abdomen appreciated. Followup. Ultrasound of the abdomen appreciated to be negative. Followup MRI pancreas and magnetic resonance cholangiopancreatography (MRCP). Will consider gastrointestinal (GI) consult if any positive finding. Advance diet as tolerated when pain is improved. 2. Diabetic ketoacidosis. Patient newly diagnosed diabetes with A1c of 14.2. Currently bridge off of basal bolus insulin. Patient on a clear liquid diet. Continue IV fluids running. Followup electrolytes. Follow fingersticks every 2 hours and serial basic metabolic panel (BMP) to followup anion gap. Hypoglycemic protocol. Levemir dose 24 units subcu daily with before food (a.c.) coverage. Adjust as needed. Patient will need diabetic teaching going home. Counseling has been provided. 3. Acute kidney injury. Resolved. IV fluids provided. 4. Hypertension. Continue Norvasc, chlorthalidone. Imdur dose has been increased. 5. Smoking. Continue Chantix. 6. Dyslipidemia. Continue statin. 7. Seizure disorder. Continue current medication. 8. Peripheral vascular disease with claudication. Aspirin, statin, continue blood pressure medication. 9. Questionable COPD history. Continue current medication. 10. Deep vein thrombosis (DVT) prophylaxis. Heparin subcu. DISPOSITION: Pending further workup, clinical improvement. [facility]
[2018-06-20] MEDS ORDERED: MAG SULF 1GM/100ML (MAG RUN) 1 GM in APPROPRIATE DILUENT 1 EA IV ONE (18:45)
--- NOTE | 2018-06-20 19:08 | REPVR ---
EXAM: MR Abdomen Without and With Contrast EXAM DATE/TIME: 06/20/2018 5:40 PM CLINICAL HISTORY: 68 years old, female; Signs and symptoms; Other: Pancreatitis; Patient HX: Dka, pancreatitis; Additional info: Pancrease protocol TECHNIQUE: MR of the abdomen without and with intravenous contrast. CONTRAST: Contrast Material: 7 ml of prohance; Contrast Route: iv COMPARISON: Abdomen, limited US 06/20/2018 8:52 AM FINDINGS: Liver: There is diffuse loss of hepatic signal on out of phase images in comparison to in phase images consistent with steatosis. No focal abnormalities demonstrated. Liver size is normal. Gallbladder and bile ducts: Sludge within the lumen of gallbladder. Gallbladder otherwise unremarkable. Pancreas: There is peripancreatic inflammatory stranding and fluid, consistent with acute pancreatitis. Fluid strands from the pancreatic tail region into the left anterior pararenal space and left paracolic gutter. No pseudocyst or phlegmon demonstrated. Spleen: Unremarkable. No splenomegaly. Adrenals: Unremarkable. No mass. Kidneys and ureters: Small subcentimeter cyst left kidney. Stomach and bowel: Unremarkable. Intraperitoneal space: No fluid collection. Soft tissues: Unremarkable. IMPRESSION: 1. There is diffuse loss of hepatic signal on out of phase images in comparison to in phase images consistent with steatosis. No focal abnormalities demonstrated. Liver size is normal. 2. There is peripancreatic inflammatory stranding and fluid, consistent with acute pancreatitis. Fluid strands from the pancreatic tail region into the left anterior pararenal space and left paracolic gutter. No pseudocyst or phlegmon demonstrated. 3. Sludge within the lumen of gallbladder. Gallbladder otherwise unremarkable. COMMENT: Consistent with the [employer] Incidental Findings Committee Report (J Am Mercedes Radiol 2010): Unless the patients specific circumstances suggest otherwise, any liver lesion 0.5 cm or less, any cystic kidney lesion less than 1.0 cm, and/or any adrenal lesion 1.0 cm or less not otherwise characterized in this report as possessing suspicious or indeterminate imaging features is/are highly likely to be benign and do not require follow-up imaging or biopsy. Electronically signed by: Kashif Chu On 06/20/2018 19:08:44 PM
[2018-06-20 19:42] LABS: CALCIUM LEVEL 8.1 MG/DL (8.8-10.2); CREATININE FOR GFR 1.15 MG/DL (0.55-1.30); GLOMERULAR FILTRATION RATE 50.1 (>45); MAGNESIUM LEVEL 1.7 MG/DL (1.8-2.4); PHOSPHORUS LEVEL 1.8 MG/DL (2.5-4.9); POTASSIUM SERUM 4.7 MEQ/L (3.5-5.1)
[2018-06-20] MEDS: MONTELUKAST 10 MG TAB PO SCH (20:33)
[2018-06-20] MEDS: POTASSIUM CHLORIDE INJ 20 MEQ in LR 1,000 ML IV SCH (20:34)
[2018-06-20] MEDS: ATORVASTATIN 20 MG TAB PO SCH (20:34)
[2018-06-20] MEDS: PERCOCET 5MG/325MG TAB PO PRN (20:41)
--- NOTE | 2018-06-20 22:54 | REPVR ---
EXAM: MR Abdomen Without Contrast EXAM DATE/TIME: 06/20/2018 5:40 PM CLINICAL HISTORY: 68 years old, female; Signs and symptoms; Other: Pancreatits; Patient HX: Mrcp; Additional info: Pancreatitis, mri pancrease, mrcp, and mri pancrease TECHNIQUE: MR of the abdomen without contrast. COMPARISON: Abdomen, limited US 06/20/2018 8:52 AM FINDINGS: Liver: No mass. Gallbladder and bile ducts: Normal appearing gallbladder. Normal-sized common bile duct. Pancreas: There is fluid along the tail of the pancreas possibly the result of focal pancreatitis. The pancreatic duct is normal in size Spleen: Unremarkable. No splenomegaly. Kidneys and ureters: There is a small amount of fluid tracking along the anterior surface of the left kidney. Stomach and bowel: Unremarkable. Intraperitoneal space: No fluid collection. Soft tissues: Unremarkable. IMPRESSION: Prominent fluid along the tail of the pancreas probably the result of focal pancreatitis. Fluid extends along gerotas fascia on the left as well. The common bile duct is normal in size with no evidence for obstruction. Electronically signed by: Conor Schuler On 06/20/2018 22:54:10 PM
[2018-06-20 23:49] LABS: BLOOD UREA NITROGEN 19 MG/DL (7-18); CALCIUM LEVEL 7.9 MG/DL (8.8-10.2); CARBON DIOXIDE LEVEL 25 MEQ/L (21-32); CHLORIDE LEVEL 108 MEQ/L (98-107); CREATININE FOR GFR 0.92 MG/DL (0.55-1.30); GLOMERULAR FILTRATION RATE > 60.0 (>45); GLUCOSE, FASTING 202 MG/DL (70-100); POTASSIUM SERUM 3.4 MEQ/L (3.5-5.1); SODIUM LEVEL 139 MEQ/L (136-145)
[2018-06-21] VITALS: BP 146/67
[2018-06-21] MEDS ORDERED: POTASSIUM CHLORIDE 10 MEQ SR TABLET PO ONE (00:30)
[2018-06-21] MEDS: POTASSIUM CHLORIDE INJ 20 MEQ in LR 1,000 ML IV SCH ×3 (02:44→21:17)
[2018-06-21 03:49] LABS: BLOOD UREA NITROGEN 17 MG/DL (7-18); CALCIUM LEVEL 7.8 MG/DL (8.8-10.2); CARBON DIOXIDE LEVEL 26 MEQ/L (21-32); CHLORIDE LEVEL 110 MEQ/L (98-107); CREATININE FOR GFR 0.77 MG/DL (0.55-1.30); GLOMERULAR FILTRATION RATE > 60.0 (>45); GLUCOSE, FASTING 166 MG/DL (70-100); MAGNESIUM LEVEL 1.8 MG/DL (1.8-2.4); PHOSPHORUS LEVEL 2.2 MG/DL (2.5-4.9); POTASSIUM SERUM 3.5 MEQ/L (3.5-5.1); SODIUM LEVEL 142 MEQ/L (136-145)
[2018-06-21 05:00] VITALS: BP 125/58
[2018-06-21 07:19] LABS: HEMATOCRIT 32.5 % (36.0-47.0); MEAN CORPUSCULAR HEMOGLOBIN 29.9 pg (27.0-33.0); MEAN CORPUSCULAR HGB CONC 33.8 g/dl (32.0-36.5); MEAN CORPUSCULAR VOLUME 88.3 fl (80.0-96.0); PLATELET COUNT, AUTOMATED 206 10^3/uL (150-450); RED BLOOD COUNT 3.68 10^6/uL (4.00-5.40); WHITE BLOOD COUNT 8.3 10^3/uL (4.0-10.0)
[2018-06-21 07:59] LABS: ALBUMIN 2.6 GM/DL (3.2-5.2); ALT/SGPT 21 U/L (12-78); BILIRUBIN,TOTAL 0.3 MG/DL (0.2-1.0); BLOOD UREA NITROGEN 15 MG/DL (7-18); CALCIUM LEVEL 7.8 MG/DL (8.8-10.2); CARBON DIOXIDE LEVEL 22 MEQ/L (21-32); CHLORIDE LEVEL 108 MEQ/L (98-107); CREATININE FOR GFR 0.79 MG/DL (0.55-1.30); GLOMERULAR FILTRATION RATE > 60.0 (>45); GLUCOSE, FASTING 182 MG/DL (70-100); LIPASE 508 U/L (73-393); MAGNESIUM LEVEL 1.6 MG/DL (1.8-2.4); POTASSIUM SERUM 3.9 MEQ/L (3.5-5.1); SODIUM LEVEL 140 MEQ/L (136-145); TOTAL PROTEIN 5.7 GM/DL (6.4-8.2)
[2018-06-21 08:00] VITALS: BP 184/84
[2018-06-21] MEDS ORDERED: MAG SULF 1GM/100ML (MAG RUN) 1 GM in APPROPRIATE DILUENT 1 EA IV ONE (08:00)
[2018-06-21] MEDS: LEVEMIR (INSULIN DETEMIR) 1 UNITS/0.01ML SC SCH (09:00)
[2018-06-21] MEDS: HEPARIN SOD (PORCINE) 5000 UNITS/ML VIAL SQ SCH ×2 (09:06→15:54)
[2018-06-21] MEDS: HumaLOG INSULIN (NovoLOG) PER UNIT SC SCH ×4 (09:06→21:17)
[2018-06-21] MEDS: NEUTRA-PHOS 1.25 GM PACKET PO SCH ×3 (09:07→21:16)
[2018-06-21] MEDS: amLODIPine 10 MG TAB PO SCH (09:09)
[2018-06-21] MEDS: DOCUSATE SODIUM 100 MG CAP PO SCH ×2 (09:09→21:15)
[2018-06-21] MEDS: ASPIRIN 81 MG ENTERIC TAB PO SCH (09:10)
[2018-06-21] MEDS: GABAPENTIN 300 MG CAP PO SCH ×2 (09:10→21:15)
[2018-06-21] MEDS: VARENICLINE 1 MG TABLET PO SCH ×2 (09:10→21:16)
[2018-06-21] MEDS: CHLORTHALIDONE 25 MG TAB PO SCH (09:10)
[2018-06-21] MEDS: carBAMazepine 200 MG TAB PO SCH ×2 (09:11→21:16)
[2018-06-21] MEDS: ISOSORBIDE MON. (IMDUR) 30 MG XR TAB PO SCH (09:12)
[2018-06-21 09:30] VITALS: BP 164/74
[2018-06-21] MEDS: COMBIVENT RESPIMAT 100-20MCG INHALER 4GM INH SCH ×4 (09:53→20:36)
[2018-06-21] MEDS: ADVAIR HFA 115/21MCG INHALER INH SCH ×2 (09:54→20:36)
[2018-06-21] MEDS ORDERED: POTASSIUM PHOSPHATE INJ 20 MMOL in D5W 250 ML IV ONE (10:00)
[2018-06-21 14:00] VITALS: BP 130/66
--- NOTE | 2018-06-21 19:39 | IPNPDOC ---
Text Note Date of Service The patient was seen on 06/21/18. NOTE Currently reported only minimal epigastric pain. Denies any chest pain, pressure or discomfort. Denies any fevers or chills. tolerating diet PHYSICAL EXAMINATION: GENERAL: Patient alert, comfortable, in no acute distress. HEENT: Normocephalic, atraumatic. NECK: Supple. PULMONARY: Bilaterally clear. CARDIAC: Regular, S1, S2. ABDOMEN: Epigastric tenderness minimum. No rebound, no guarding. EXTREMITIES: No edema bilateral lower extremities. NEUROLOGIC: No focal deficit. ASSESSMENT AND PLAN: This is a 68-year-old female patient with underlying medical history of hypertension, dyslipidemia, seizure disorder, peripheral vascular disease with claudication of left lower extremity, status post femoral-popliteal (fem-pop) bypass, presented to the emergency room with one week of abdominal pain, nausea, vomiting, found to have acute pancreatitis and diabetic ketoacidosis (DKA). PROBLEMS: 1. Acute pancreatitis, unknown etiology. Patient does not drink alcohol. Intravenous (IV) fluids, advanced diet as tolerated. Pain has improved. CT abdomen appreciated. Followup. Ultrasound of the abdomen appreciated to be negative. MRI pancreas and magnetic resonance cholangiopancreatography (MRCP) appreciated. improved symptoms 2. Diabetic ketoacidosis. Patient newly diagnosed diabetes with A1c of 14.2. Currently bridge off of basal bolus insulin. consistent carb diet. Continue IV fluids running. Followup electrolytes. Hypoglycemic protocol. basal bolus insulin. Patient will need diabetic teaching going home. Counseling has been provided. 3. Acute kidney injury. Resolved. IV fluids provided. 4. Hypertension. Continue Norvasc, chlorthalidone. Imdur dose has been inc reased. 5. Smoking. Continue Chantix. 6. Dyslipidemia. Continue statin. 7. Seizure disorder. Continue current medication. 8. Peripheral vascular disease with claudication. Aspirin, statin, continue blood pressure medication. 9. Questionable COPD history. Continue current medication. 10. Deep vein thrombosis (DVT) prophylaxis. Heparin subcu. DISPOSITION: Pending further workup, clinical improvement. VS,Fishbone, I+O VS, Fishbone, I+O Laboratory Tests 06/20/18 23:01 Calcium Level 7.9 L 06/21/18 02:50 Calcium Level 7.8 L 06/21/18 07:04 Calcium Level 7.8 L, Red Blood Count 3.68 L, Mean Corpuscular Volume 88.3, Mean Corpuscular Hemoglobin 29.9, Mean Corpuscular Hemoglobin Concent 33.8, Red Cell Distribution Width 12.1, Aspartate Amino Transf (AST/SGOT) 21, Alanine Aminotransferase (ALT/SGPT) 21, Alkaline Phosphatase 95, Total Bilirubin 0.3, Total Protein 5.7 #L, Albumin 2.6 #L Vital Signs Date Time Temp Pulse Resp B/P (MAP) Pulse Ox O2 Delivery O2 Flow Rate FiO2 06/21/18 14:00 97.5 81 18 130/66 (87) 94 06/20/18 08:00 1.0 06/19/18 13:07 Room Air I&O- Last 24 Hours up to 6 AM 06/21/18 06:00 Intake Total 6112 ml Output Total 2450 ml Balance 3662 ml FLORIN DENNY MD Jun 21, 2018 19:39
[2018-06-21 21:00] VITALS: BP 158/68
[2018-06-21] MEDS: MONTELUKAST 10 MG TAB PO SCH (21:16)
[2018-06-21] MEDS: ATORVASTATIN 20 MG TAB PO SCH (21:16)
[2018-06-22] MEDS: HEPARIN SOD (PORCINE) 5000 UNITS/ML VIAL SQ SCH ×3 (00:26→16:31)
[2018-06-22 06:00] VITALS: BP 145/78
[2018-06-22] MEDS: ADVAIR HFA 115/21MCG INHALER INH SCH ×2 (07:20→20:02)
[2018-06-22] MEDS: COMBIVENT RESPIMAT 100-20MCG INHALER 4GM INH SCH ×4 (07:20→20:02)
[2018-06-22 07:31] LABS: HEMATOCRIT 31.2 % (36.0-47.0); HEMOGLOBIN 10.8 g/dl (12.0-15.5); MEAN CORPUSCULAR HEMOGLOBIN 30.4 pg (27.0-33.0); MEAN CORPUSCULAR HGB CONC 34.6 g/dl (32.0-36.5); MEAN CORPUSCULAR VOLUME 87.9 fl (80.0-96.0); PLATELET COUNT, AUTOMATED 188 10^3/uL (150-450); RED BLOOD COUNT 3.55 10^6/uL (4.00-5.40); WHITE BLOOD COUNT 6.3 10^3/uL (4.0-10.0)
[2018-06-22 07:54] LABS: ALBUMIN 2.4 GM/DL (3.2-5.2); ALT/SGPT 20 U/L (12-78); BILIRUBIN,TOTAL 0.3 MG/DL (0.2-1.0); BLOOD UREA NITROGEN 13 MG/DL (7-18); CALCIUM LEVEL 7.9 MG/DL (8.8-10.2); CARBON DIOXIDE LEVEL 24 MEQ/L (21-32); CHLORIDE LEVEL 104 MEQ/L (98-107); CREATININE FOR GFR 0.76 MG/DL (0.55-1.30); GLOMERULAR FILTRATION RATE > 60.0 (>45); GLUCOSE, FASTING 168 MG/DL (70-100); LIPASE 374 U/L (73-393); SODIUM LEVEL 136 MEQ/L (136-145); TOTAL PROTEIN 5.8 GM/DL (6.4-8.2)
[2018-06-22] MEDS: HumaLOG INSULIN (NovoLOG) PER UNIT SC SCH ×3 (08:21→21:00)
[2018-06-22] MEDS: LEVEMIR (INSULIN DETEMIR) 1 UNITS/0.01ML SC SCH (08:22)
[2018-06-22] MEDS: POTASSIUM CHLORIDE INJ 20 MEQ in LR 1,000 ML IV SCH ×2 (08:23→16:33)
[2018-06-22] MEDS: GABAPENTIN 300 MG CAP PO SCH ×2 (08:24→21:43)
[2018-06-22] MEDS: amLODIPine 10 MG TAB PO SCH (08:24)
[2018-06-22] MEDS: ISOSORBIDE MON. (IMDUR) 30 MG XR TAB PO SCH (08:25)
[2018-06-22] MEDS: ASPIRIN 81 MG ENTERIC TAB PO SCH (08:25)
[2018-06-22] MEDS: DOCUSATE SODIUM 100 MG CAP PO SCH (08:25)
[2018-06-22] MEDS: VARENICLINE 1 MG TABLET PO SCH ×2 (08:25→21:43)
[2018-06-22] MEDS: NEUTRA-PHOS 1.25 GM PACKET PO SCH (08:25)
[2018-06-22] MEDS: carBAMazepine 200 MG TAB PO SCH ×2 (08:25→21:43)
[2018-06-22] MEDS: CHLORTHALIDONE 25 MG TAB PO SCH (08:26)
[2018-06-22 08:43] LABS: MAGNESIUM LEVEL 1.5 MG/DL (1.8-2.4)
[2018-06-22] MEDS ORDERED: ISOVUE-370 76% 100ML VIAL (Q9967) As Ordered ONE (08:44)
--- NOTE | 2018-06-22 09:49 | REP ---
Clinical: Abdominal pain and distension. Pancreatitis. Technique: Axial contrast enhanced images from the lung bases to the pubic symphysis using 100 ml Isovue 370 intravenous contrast material with coronal and sagittal re-formations. Comparison: 06/19/2018. Findings: Mild peripancreatic inflammatory stranding is again appreciated which has slightly increased from prior examination and again consistent with mild acute pancreatitis no associated drainable collection/abscess or pseudocyst. Pancreatic parenchyma demonstrates normal homogeneous enhancement without evidence for ischemia or necrosis. Mild fatty infiltration to the liver. Spleen, gallbladder, bilateral adrenal glands and kidneys are normal. The enteric system is without obstruction or acute inflammatory process. Sigmoid diverticula noted without acute diverticulitis. Pelvis demonstrates normal bladder and age-appropriate uterus/adnexa. Normal terminal ileum and appendix identified in the right lower quadrant. No significant ascites. No free air. No significant adenopathy. Abdominal aorta without aneurysm or dissection. Musculoskeletal structures demonstrate age-related changes without focal osseous abnormality. Lung bases demonstrate chronic change. Impression: Continued evidence for mild pancreatitis. No further acute abdominopelvic pathology appreciated. Electronically Signed by Gilberto Ruiz MD 06/22/2018 09:39 A
[2018-06-22] MEDS: MAG SULF 1GM/100ML (MAG RUN) 1 GM in APPROPRIATE DILUENT 1 EA IV SCH ×2 (09:59→11:49)
[2018-06-22] MEDS: SENOKOT S TAB PO SCH ×2 (10:00→21:43)
--- NOTE | 2018-06-22 15:55 | IPNPDOC ---
Text Note Date of Service The patient was seen on 06/22/18. NOTE Currently reported only minimal epigastric pain. Denies any chest pain, pressure or discomfort. Denies any fevers or chills. tolerating diet. reported abd bloating. no nausea/vomiting PHYSICAL EXAMINATION: GENERAL: Patient alert, comfortable, in no acute distress. HEENT: Normocephalic, atraumatic. NECK: Supple. PULMONARY: Bilaterally clear. CARDIAC: Regular, S1, S2. ABDOMEN: RLQ tenderness. epigastric pain resolved. abd bloating No rebound, no guarding. EXTREMITIES: No edema bilateral lower extremities. NEUROLOGIC: No focal deficit. ASSESSMENT AND PLAN: This is a 68-year-old female patient with underlying medical history of hypertension, dyslipidemia, seizure disorder, peripheral vascular disease with claudication of left lower extremity, status post femoral-popliteal (fem-pop) bypass, presented to the emergency room with one week of abdominal pain, nausea, vomiting, found to have acute pancreatitis and diabetic ketoacidosis (DKA). PROBLEMS: 1. Acute pancreatitis, unknown etiology. Patient does not drink alcohol. Intravenous (IV) fluids, advanced diet as tolerated. Pain has improved. Ultrasound of the abdomen appreciated to be negative. MRI pancreas and magnetic resonance cholangiopancreatography (MRCP) appreciated. repeat abd CT appreciated. improved symptoms 2. Diabetic ketoacidosis. Patient newly diagnosed diabetes with A1c of 14.2. Currently bridge off of basal bolus insulin. consistent carb diet. Continue IV fluids. Followup electrolytes. Hypoglycemic protocol. basal bolus insulin. Patient will need diabetic teaching going home. Counseling has been provided. 3. Acute kidney injury. Resolved. IV fluids provided. 4. Hypertension. Continue Norvasc, chlorthalidone. Imdur dose has been increased. 5. Smoking. Continue Chantix. 6. Dyslipidemia. Continue statin. 7. Seizure disorder. Continue current medication. 8. Peripheral vascular disease with claudication. Aspirin, statin, continue blood pressure medication. 9. Questionable COPD history. Continue current medication. 10. Deep vein thrombosis (DVT) prophylaxis. Heparin subcu. DISPOSITION: clinical improvement. VS,Fishbone, I+O VS, Fishbone, I+O Laboratory Tests 06/22/18 07:16 Red Blood Count 3.55 L, Mean Corpuscular Volume 87.9, Mean Corpuscular Hemoglobin 30.4, Mean Corpuscular Hemoglobin Concent 34.6, Red Cell Distribution Width 11.9, Calcium Level 7.9 L, Aspartate Amino Transf (AST/SGOT) 21, Alanine Aminotransferase (ALT/SGPT) 20, Alkaline Phosphatase 94, Total Bilirubin 0.3, Total Protein 5.8 L, Albumin 2.4 L Vital Signs Date Time Temp Pulse Resp B/P (MAP) Pulse Ox O2 Delivery O2 Flow Rate FiO2 06/22/18 08:24 75 176/77 06/22/18 06:00 97.2 18 98 06/20/18 08:00 1.0 06/19/18 13:07 Room Air I&O- Last 24 Hours up to 6 AM 06/22/18 06:00 Intake Total 2360 ml Balance 2360 ml FLORIN DENNY MD Jun 22, 2018 15:55
[2018-06-22] MEDS ORDERED: HumaLOG INSULIN (NovoLOG) PER UNIT SC SCH (17:30)
[2018-06-22] MEDS: ATORVASTATIN 20 MG TAB PO SCH (21:44)
[2018-06-22] MEDS: PERCOCET 5MG/325MG TAB PO PRN (21:44)
[2018-06-22] MEDS: MONTELUKAST 10 MG TAB PO SCH (21:44)
[2018-06-22 22:38] VITALS: BP 130/60
[2018-06-23] MEDS: HEPARIN SOD (PORCINE) 5000 UNITS/ML VIAL SQ SCH ×2 (00:29→08:00)
[2018-06-23] MEDS: POTASSIUM CHLORIDE INJ 20 MEQ in LR 1,000 ML IV SCH (03:06)
[2018-06-23 06:00] VITALS: BP 138/62
[2018-06-23 07:09] LABS: HEMATOCRIT 33.5 % (36.0-47.0); HEMOGLOBIN 11.3 g/dl (12.0-15.5); MEAN CORPUSCULAR HEMOGLOBIN 30.5 pg (27.0-33.0); MEAN CORPUSCULAR HGB CONC 33.7 g/dl (32.0-36.5); MEAN CORPUSCULAR VOLUME 90.3 fl (80.0-96.0); PLATELET COUNT, AUTOMATED 192 10^3/uL (150-450); RED BLOOD COUNT 3.71 10^6/uL (4.00-5.40); WHITE BLOOD COUNT 5.5 10^3/uL (4.0-10.0)
[2018-06-23] MEDS: ADVAIR HFA 115/21MCG INHALER INH SCH (07:26)
[2018-06-23] MEDS: COMBIVENT RESPIMAT 100-20MCG INHALER 4GM INH SCH ×2 (07:26→11:58)
[2018-06-23 07:49] LABS: ALBUMIN 2.5 GM/DL (3.2-5.2); ALT/SGPT 19 U/L (12-78); BILIRUBIN,TOTAL 0.3 MG/DL (0.2-1.0); BLOOD UREA NITROGEN 11 MG/DL (7-18); CALCIUM LEVEL 8.3 MG/DL (8.8-10.2); CARBON DIOXIDE LEVEL 24 MEQ/L (21-32); CHLORIDE LEVEL 105 MEQ/L (98-107); CREATININE FOR GFR 0.77 MG/DL (0.55-1.30); GLOMERULAR FILTRATION RATE > 60.0 (>45); GLUCOSE, FASTING 161 MG/DL (70-100); LIPASE 353 U/L (73-393); MAGNESIUM LEVEL 1.8 MG/DL (1.8-2.4); POTASSIUM SERUM 4.9 MEQ/L (3.5-5.1); SODIUM LEVEL 137 MEQ/L (136-145)
[2018-06-23] MEDS ORDERED: PEN1MIS22 SC ×2 (08:36→08:39)
[2018-06-23] MEDS ORDERED: ISOS30TA4 PO (08:36)
[2018-06-23] MEDS ORDERED: HUMA100I5 SC (08:36)
[2018-06-23] MEDS ORDERED: LANC30MI XX (08:36)
[2018-06-23] MEDS ORDERED: BLOOKIT21 XX (08:36)
[2018-06-23] MEDS ORDERED: GLUC1TES2 XX (08:36)
[2018-06-23] MEDS ORDERED: TOUJ1.2I SC (08:36)
[2018-06-23] MEDS ORDERED: ALCOPAD17 TOP (08:36)
[2018-06-23] MEDS: HumaLOG INSULIN (NovoLOG) PER UNIT SC SCH ×2 (08:37→12:24)
[2018-06-23] MEDS: VARENICLINE 1 MG TABLET PO SCH (08:37)
[2018-06-23 08:38] VITALS: BP 138/62
[2018-06-23] MEDS: ISOSORBIDE MON. (IMDUR) 30 MG XR TAB PO SCH (08:38)
[2018-06-23] MEDS: ASPIRIN 81 MG ENTERIC TAB PO SCH (08:38)
[2018-06-23] MEDS: amLODIPine 10 MG TAB PO SCH (08:38)
[2018-06-23] MEDS: carBAMazepine 200 MG TAB PO SCH (08:38)
[2018-06-23] MEDS: LEVEMIR (INSULIN DETEMIR) 1 UNITS/0.01ML SC SCH (08:39)
[2018-06-23] MEDS: SENOKOT S TAB PO SCH (08:39)
[2018-06-23] MEDS: CHLORTHALIDONE 25 MG TAB PO SCH (08:39)
[2018-06-23] MEDS: GABAPENTIN 300 MG CAP PO SCH (08:39)
--- NOTE | 2018-06-23 19:52 | DSES ---
DATE OF ADMISSION: 06/19/2018 DATE OF DISCHARGE: 06/23/2018 PRIMARY CARE PROVIDER: Dr. Tate FINAL DIAGNOSES: 1. Acute pancreatitis. 2. Diabetic ketoacidosis (DKA). 3. Newly diagnosed diabetes. 4. Poorly compliant. 5. Obesity. 6. Acute kidney injury (MINA). 7. Hypertension. 8. Smoking. 9. Dyslipidemia. 10. Seizure disorder. 11. Peripheral vascular disease with history of claudication. 12. History of chronic obstructive pulmonary disease (COPD). HISTORY OF PRESENT ILLNESS: This is a 68-year-old female patient with underlying medical history of hypertension, dyslipidemia, seizure disorder, peripheral vascular disease with claudication in the left lower extremity, status post femoral/popliteal bypass who presented to the emergency department (ED) with a week of abdominal pain, nausea and vomiting. The patient came to the emergency room, was found to be also in diabetic ketoacidosis (DKA), started on an insulin drip and given IV fluid. Also found to be in acute kidney injury (MINA). Subsequently, laboratory studies came back the patient had pancreatitis. CT of the abdomen and pelvis was appreciated. Noted tail of the pancreas with inflammation. The patient denies any subjective feelings of fevers, aches or chills. The only other complaint is nausea, vomiting and abdominal pain. Reported thirst. HOSPITAL COURSE: The patient admitted to the hospital, placed on fluids, insulin drip. The patient was bridged off of insulin drip to basal bolus insulin. Fluids were continued. First diet was advanced to clear and then later advanced to low-fat, low-cholesterol, consistent-carbohydrate diet. Magnetic resonance cholangiopancreatography (MRCP) and MRI of the pancreas was done showing inflammation and no obstructive process. Ultrasound of the abdomen was also appreciated showing only minimal biliary ductal dilatation of 8.4 without any obvious obstructing calculus. The patient's condition gradually improved with resolving lipase. Diabetic teaching was done. Insulin education was also provided. The patient currently is tolerating oral, comfortable, off of IV fluids, in no acute distress. Dietary consultation was also made, physical form, safety evaluation was made. The patient currently is tolerating oral, comfortable, in no acute distress, ready to be discharged for further care as outpatient. VITAL SIGNS: Temperature 98, pulse is 56, respiratory rate 18, blood pressure 138/62, pulse oximetry 98% on room air. LABORATORY DATA: WBC 5.5, hemoglobin and hematocrit 11.3/33.5, platelets 192. Chemistry: Sodium 137, potassium 4.9, chloride 105, bicarbonate 24, BUN 11, creatinine (cut off). GENERAL: Patient alert, comfortable, in no acute distress. HEENT: Normocephalic, atraumatic. NECK: Supple. PULMONARY: Bilaterally clear. CARDIAC: Regular, S1, S2. ABDOMEN: Nontender. Positive bowel sounds. EXTREMITIES: No clubbing, cyanosis, or edema. DISCHARGE MEDICATIONS: - Humalog before meals via scale - Imdur 30 mg by mouth daily - Toujeo 25 units subcutaneous every morning - continue Combivent inhalation four times a day - Norvasc 10 mg by mouth daily - aspirin 81 mg by mouth daily - Lipitor 40 mg by mouth at bedtime - carbamazepine 400 mg by mouth every morning, 600 mg by mouth at bedtime - chlorthalidone 50 mg by mouth daily - Colace 200 mg by mouth twice a day - gabapentin 600 mg by mouth twice a day - Singulair 10 mg by mouth at bedtime - Advair inhalation 115/21 mcg inhalation twice a day - Chantix 1 mg by mouth twice a day - Glucometer glucose test strips, lancets, alcohol pads and pen needle were all prescribed. DISCHARGE INSTRUCTIONS: Consistent-carbohydrate, low-fat, low-cholesterol diet. Activity as tolerated. Please see primary care provider in 5-7 days. Followup fingersticks at home. Improve glucose control. Adjust insulin as per primary care provider. Fingerstick log, diet and exercise encouraged. Consider gastroenterology referral as per primary care provider. Return if symptoms worsen.
== END 2018-06-23 13:25 | disposition home health service (06) | DRG 438 ==
LOC: M ED 13:06 → M ED INP 18:46 → M ICU 20:19 → M MS4PR 06-21 11:54
PROVIDERS: ADMIT Internal Medicine; ATTEND Hospitalist
DX: K85.90 Acute pancreatitis without necrosis or infection, unspecified (principal); E11.10 Type 2 diabetes mellitus with ketoacidosis without coma; N17.9 Acute kidney failure, unspecified; I10 Essential (primary) hypertension; J44.9 Chronic obstructive pulmonary disease, unspecified; E78.5 Hyperlipidemia, unspecified; E66.9 Obesity, unspecified; E86.0 Dehydration; G40.909 Epilepsy, unspecified, not intractable, without status epilepticus; E11.51 Type 2 diabetes mellitus with diabetic peripheral angiopathy without gangrene; Z79.82 Long term (current) use of aspirin; Z79.899 Other long term (current) drug therapy; F17.200 Nicotine dependence, unspecified, uncomplicated; Z68.30 Body mass index [BMI] 30.0-30.9, adult; Z98.62 Peripheral vascular angioplasty status

== ENCOUNTER → 2018-06-26 | Outpatient (REF) | payer MEDICARE ==
[~2018-06-26] MED LIST changes: +ADVA115A INH; +ALCOPAD17 TOP; +ATOR40TA75 PO; +BLOOKIT21 XX; +CARB1TAB20 PO; +CHAN1PAK13 PO; +CHLO50TA PO; +GLUC1TES2 XX; +HUMA100I5 SC; +LANC30MI XX; +PEN1MIS22 SC; +TOUJ1.2I SC
[2018-06-26 17:18] LABS: BLOOD UREA NITROGEN 19 MG/DL (7-18); CALCIUM LEVEL 8.5 MG/DL (8.8-10.2); CARBON DIOXIDE LEVEL 24 MEQ/L (21-32); CHLORIDE LEVEL 98 MEQ/L (98-107); CHOLESTEROL LEVEL 231 MG/DL (<200); CHOLESTEROL RISK RATIO 4.358 (<5); CREATININE FOR GFR 0.89 MG/DL (0.55-1.30); GLOMERULAR FILTRATION RATE > 60.0 (>45); GLUCOSE, FASTING 262 MG/DL (70-100); HDL CHOLESTEROL 53 MG/DL (>40); LDL CHOLESTEROL 128 MG/DL (<100); NON-HDL-C 178 MG/DL; POTASSIUM SERUM 3.8 MEQ/L (3.5-5.1); SODIUM LEVEL 133 MEQ/L (136-145); TRIGLYCERIDES LEVEL 249 MG/DL (<150)
[2018-06-26 17:54] LABS: CREATININE, URINE 79.4 MG/DL; MALB URINE SIEMENS 17.7 MG/L; MAU/CREAT RATIO 22.2 MCG/MG (0.0-30.0)
[2018-06-26 18:00] LABS: HEMOGLOBIN A1c 13.4 %
[2018-06-28 14:09] LABS: C-PEPTIDE 3.3 ng/mL (1.1-4.4)
[2018-07-02 00:07] LABS: ISLET CELL ANTIBODIES Negative (Neg:<1:1)
== END ==
LOC: M SFHCLERA 11:04
PROVIDERS: ATTEND Family Medicine
DX: E13.65 Other specified diabetes mellitus with hyperglycemia (principal); E78.2 Mixed hyperlipidemia
CPT/HCPCS: 80048; 80061; 82043; 83036; 83519; 84681; 86341; G0463

== ENCOUNTER → 2018-08-06 | Outpatient (REF) | payer MEDICARE ==
[~2018-08-06] MED LIST changes: -/CARBXR20T; -CARB10TAXR; +METO200T41; +TEGR100T3; +TEGR1TAB; -TOPR200T
[2018-08-06 11:55] LABS: BLOOD UREA NITROGEN 35 MG/DL (7-18); CALCIUM LEVEL 8.6 MG/DL (8.8-10.2); CARBON DIOXIDE LEVEL 26 MEQ/L (21-32); CHLORIDE LEVEL 96 MEQ/L (98-107); CREATININE FOR GFR 0.96 MG/DL (0.55-1.30); GLOMERULAR FILTRATION RATE > 60.0 (>45); GLUCOSE, FASTING 136 MG/DL (70-100); SODIUM LEVEL 129 MEQ/L (136-145)
== END ==
LOC: M SFHCLERA 09:46
PROVIDERS: ATTEND Family Medicine
DX: I10 Essential (primary) hypertension (principal)

== ENCOUNTER → 2018-08-18 | Outpatient (REF) | payer MEDICARE ==
[2018-08-18 18:29] LABS: BLOOD UREA NITROGEN 26 MG/DL (7-18); CALCIUM LEVEL 8.4 MG/DL (8.8-10.2); CARBON DIOXIDE LEVEL 26 MEQ/L (21-32); CHLORIDE LEVEL 96 MEQ/L (98-107); CREATININE FOR GFR 0.91 MG/DL (0.55-1.30); GLOMERULAR FILTRATION RATE > 60.0 (>45); GLUCOSE, FASTING 101 MG/DL (70-100); POTASSIUM SERUM 4.1 MEQ/L (3.5-5.1); SODIUM LEVEL 130 MEQ/L (136-145)
== END ==
LOC: M SFHCLERA 12:37
PROVIDERS: ATTEND Family Medicine
DX: I10 Essential (primary) hypertension (principal)
CPT/HCPCS: 80048; G0463

== ENCOUNTER → 2018-09-03 | Outpatient (REF) | payer MEDICARE ==
[2018-09-03 11:21] LABS: BLOOD UREA NITROGEN 31 MG/DL (7-18); CALCIUM LEVEL 8.5 MG/DL (8.8-10.2); CARBON DIOXIDE LEVEL 29 MEQ/L (21-32); CHLORIDE LEVEL 100 MEQ/L (98-107); CREATININE FOR GFR 0.82 MG/DL (0.55-1.30); GLOMERULAR FILTRATION RATE > 60.0 (>45); GLUCOSE, FASTING 135 MG/DL (70-100); POTASSIUM SERUM 4.8 MEQ/L (3.5-5.1); SODIUM LEVEL 135 MEQ/L (136-145)
== END ==
LOC: M SFHCLERA 08:39
PROVIDERS: ATTEND Family Medicine
DX: I10 Essential (primary) hypertension (principal)

== ENCOUNTER 2018-09-19 19:37 | Emergency (ER) | payer MEDICARE ==
[2018-09-19 20:07] LABS: HEMATOCRIT 37.4 % (36.0-47.0); HEMOGLOBIN 12.9 g/dl (12.0-15.5); MEAN CORPUSCULAR HGB CONC 34.5 g/dl (32.0-36.5); MEAN CORPUSCULAR VOLUME 89.9 fl (80.0-96.0); PLATELET COUNT, AUTOMATED 248 10^3/uL (150-450); RED BLOOD COUNT 4.16 10^6/uL (4.00-5.40); WHITE BLOOD COUNT 9.2 10^3/uL (4.0-10.0)
[2018-09-19 20:18] LABS: PARTIAL THROMBOPLASTIN TIME 24.1 SECONDS (25.4-37.6); PROTHROMBIN TIME 13.3 SECONDS (12.1-14.4)
[2018-09-19 20:29] LABS: BLOOD UREA NITROGEN 33 MG/DL (7-18); CALCIUM LEVEL 9.5 MG/DL (8.8-10.2); CARBON DIOXIDE LEVEL 26 MEQ/L (21-32); CHLORIDE LEVEL 103 MEQ/L (98-107); CREATININE FOR GFR 0.85 MG/DL (0.55-1.30); GLOMERULAR FILTRATION RATE > 60.0 (>45); GLUCOSE, FASTING 113 MG/DL (70-100); POTASSIUM SERUM 3.8 MEQ/L (3.5-5.1); SODIUM LEVEL 141 MEQ/L (136-145)
[2018-09-19 22:39] VITALS: BP 150/71
== END 2018-09-19 22:39 | disposition home or self-care (01) ==
LOC: M ED 19:37
DX: I97.620 Postprocedural hemorrhage of a circulatory system organ or structure following other procedure (principal); I10 Essential (primary) hypertension; G40.909 Epilepsy, unspecified, not intractable, without status epilepticus; E78.5 Hyperlipidemia, unspecified; I73.9 Peripheral vascular disease, unspecified; Z86.19 Personal history of other infectious and parasitic diseases; Z86.718 Personal history of other venous thrombosis and embolism; Z79.82 Long term (current) use of aspirin; Z79.02 Long term (current) use of antithrombotics/antiplatelets; F17.210 Nicotine dependence, cigarettes, uncomplicated

== ENCOUNTER → 2018-09-22 | Outpatient (REF) | payer MEDICARE ==
[2018-09-22 17:26] LABS: ALBUMIN 3.7 GM/DL (3.2-5.2); ALT/SGPT 37 U/L (12-78); BILIRUBIN,TOTAL 0.3 MG/DL (0.2-1.0); BLOOD UREA NITROGEN 34 MG/DL (7-18); CALCIUM LEVEL 9.2 MG/DL (8.8-10.2); CARBON DIOXIDE LEVEL 26 MEQ/L (21-32); CHLORIDE LEVEL 98 MEQ/L (98-107); CHOLESTEROL LEVEL 179 MG/DL (<200); CHOLESTEROL RISK RATIO 3.254 (<5); CREATININE FOR GFR 0.84 MG/DL (0.55-1.30); GLOMERULAR FILTRATION RATE > 60.0 (>45); GLUCOSE, FASTING 122 MG/DL (70-100); HDL CHOLESTEROL 55 MG/DL (>40); LDL CHOLESTEROL 93 MG/DL (<100); NON-HDL-C 124 MG/DL; POTASSIUM SERUM 4.3 MEQ/L (3.5-5.1); SODIUM LEVEL 134 MEQ/L (136-145); TOTAL PROTEIN 6.8 GM/DL (6.4-8.2); TRIGLYCERIDES LEVEL 153 MG/DL (<150)
[2018-09-22 17:41] LABS: HEMOGLOBIN A1c 7.8 %
== END ==
LOC: M SFHCLERA 11:12
PROVIDERS: ATTEND Family Medicine
DX: E11.42 Type 2 diabetes mellitus with diabetic polyneuropathy (principal); E78.2 Mixed hyperlipidemia; I10 Essential (primary) hypertension; G40.909 Epilepsy, unspecified, not intractable, without status epilepticus
CPT/HCPCS: 80053; 80061; 80156; 83036; G0463

== ENCOUNTER → 2018-10-21 | Outpatient (REF) | payer MEDICARE | LOC: M SFHCLERA 11:02 | PROVIDERS: ATTEND Family Medicine | DX: Z01.818 Encounter for other preprocedural examination (principal); Z53.8 Procedure and treatment not carried out for other reasons ==

== ENCOUNTER → 2018-11-11 | Outpatient (REF) | payer MEDICARE ==
[2018-11-11 11:45] LABS: BASO % 0.4 % (0.0-1.0); EOS # 0.4 10^3/uL (0.0-0.50); EOS % 3.4 % (0.0-3.0); LYMPH % 19.3 % (24.0-44.0); MEAN CORPUSCULAR HEMOGLOBIN 30.8 pg (27.0-33.0); MEAN CORPUSCULAR HGB CONC 33.3 g/dl (32.0-36.5); MEAN CORPUSCULAR VOLUME 92.5 fl (80.0-96.0); MONO % 9.2 % (0.0-5.0); NEUTROPHILS % 66.9 % (36.0-66.0); PLATELET COUNT, AUTOMATED 265 10^3/uL (150-450); RED BLOOD COUNT 3.89 10^6/uL (4.00-5.40); WHITE BLOOD COUNT 10.4 10^3/uL (4.0-10.0)
[2018-11-11 12:10] LABS: BLOOD UREA NITROGEN 28 MG/DL (7-18); CALCIUM LEVEL 8.7 MG/DL (8.8-10.2); CARBON DIOXIDE LEVEL 25 MEQ/L (21-32); CHLORIDE LEVEL 99 MEQ/L (98-107); GLOMERULAR FILTRATION RATE > 60.0 (>45); GLUCOSE, FASTING 121 MG/DL (70-100); POTASSIUM SERUM 4.4 MEQ/L (3.5-5.1); SODIUM LEVEL 132 MEQ/L (136-145)
== END ==
LOC: M SFHCLERA 08:56
PROVIDERS: ATTEND Family Medicine
DX: Z01.818 Encounter for other preprocedural examination (principal)

== ENCOUNTER → 2018-11-18 | Outpatient (REF) | payer MEDICARE ==
[~2018-11-18] MED LIST changes: +EZET10TA21 PO; +HYDR-3715 PO; +LOSA25TA14 PO; +METF500T13 PO; +METF850T4 PO; +METO25TA4 PO; +PLAV1TAB2 PO
== END ==
LOC: M SFHCLERA 11:20
PROVIDERS: ATTEND Family Medicine
DX: E11.9 Type 2 diabetes mellitus without complications (principal)
CPT/HCPCS: 83036; G0463

== ENCOUNTER 2018-12-01 05:54 | Day surgery (SDC) | payer MEDICARE ==
[~2018-12-01] VITALS: Ht 160 cm; Wt 78.9 kg
[~2018-12-01 05:54] MED LIST changes: -HYDR-3715 PO
[2018-12-01] MEDS ORDERED: UNASYN 3 GM VIAL As Ordered ONE ×2 (06:33→06:40)
[2018-12-01] MEDS ORDERED: AMPICILLIN SOD/SULBACTAM SOD 3 GM in D5W MINI-BAG PLUS 100 ML IV ONE (06:45)
[2018-12-01] MEDS ORDERED: ROCURONIUM BROMIDE 50 MG/5 ML VIAL As Ordered ONE ×2 (06:54→08:32)
[2018-12-01] MEDS ORDERED: LIDOCAINE 2% INJ 100 MG/5 ML SDV (FOR ANES.) As Ordered ONE (06:54)
[2018-12-01] MEDS ORDERED: KETOROLAC 60 MG/2 ML VIAL (J1885) As Ordered ONE (06:54)
[2018-12-01] MEDS ORDERED: ONDANSETRON 4MG/2ML VIAL (J2405) As Ordered ONE (06:54)
[2018-12-01] MEDS ORDERED: propofoL 200 MG/20 ML VIAL As Ordered ONE (06:54)
[2018-12-01] MEDS ORDERED: dexameTHASONE 4 MG/ML 1ML VIAL (J1100) As Ordered ONE (06:54)
[2018-12-01] MEDS ORDERED: fentaNYL 250 MCG/5 ML INJECTION (J3010) As Ordered ONE (06:55)
[2018-12-01] MEDS ORDERED: MIDAZOLAM INJ 2 MG/2 ML VIAL (J2250) As Ordered ONE (06:56)
[2018-12-01] MEDS ORDERED: LIDOCAINE 1% SDV INJ 30 ML VIAL As Ordered ONE (07:16)
[2018-12-01] MEDS ORDERED: BUPIVACAINE HCL 0.25% 30 ML VIAL As Ordered ONE (07:16)
[2018-12-01] MEDS ORDERED: ePHEDrine SULFATE 25 MG/5 ML(5MG/ML) SYRINGE As Ordered ONE (08:25)
[2018-12-01] MEDS ORDERED: ACETAMINOPHEN 1000MG 100ML IV BTL (OFIRMEV) (J0131 PER 10MG) As Ordered ONE (08:25)
[2018-12-01] MEDS ORDERED: SUGAMMADEX SODIUM 500 MG/5 ML VIAL (BRIDION) As Ordered ONE (08:27)
[2018-12-01] MEDS ORDERED: HYDR-3715 PO (09:02)
[2018-12-01] MEDS ORDERED: ALBUTEROL SULFATE 2.5 MG/0.5 ML INH NEB SOLN As Ordered ONE (09:04)
--- NOTE | 2018-12-01 09:06 | ROOPDOC ---
[facility] Report Of Operation Report of Operation DATE OF PROCEDURE: 12/01/18 PREPROCEDURE DIAGNOSES: history of gallstone pancreatitis. POSTPROCEDURE DIAGNOSES: same. PROCEDURE: Laparoscopic Cholecystectomy. SURGEON: Jerod Myers MD RN ENTEROSTOMAL: ANESTHESIA: General Anesthesia. ESTIMATED BLOOD LOSS: Approximately 10 mL. COMPLICATIONS: none. REMARKS: slight intrahepatic location, mild hepatomegaly otherwise smooth liver. No noticeable large stones in the gallbladder, thick greenish bile. mild chronically thickened wall, minimal gb distention. Critical view of safety achieved and photographed prior to taking the cystic duct. the cystic artery was not too well defined. DESCRIPTION OF PROCEDURE: Patient was given a dose Unasyn 3 g IV preoperatively for prophylaxis. She was brought to the operating room, laid supine on the table, compression boots placed for DVT prophylaxis. General endotracheal anesthesia started. Her abdomen then prepped and draped in usual sterile fashion. Surgical timeout was performed prior to starting surgery. Entry into the abdomen done through an incision above the umbilicus. A Veress needle was inserted with a controlled fashion. CO2 insufflation started to pressure 15 mmHg. Using the same incision a 5 mm Visiport was placed under direct vision laparoscope. The area underneath the insertion site was inspected and no injury found. She was then placed in steep reverse Trendelenburg. Her right side was tilted up to further expose the gallbladder. Under direct vision a 11 mm epigastric port and 25 mm working ports placed along the right subcostal line. Operative findings: Her liver is noted to be smooth in contour no nodularities or lesions found. Her gallbladder is mildly thickened, moderately distended. This is mainly filled with mud like bile. No acute inflammation found. The fundus of the gallbladder was grasped and the gallbladder was elevated superiorly exposing the neck of the gallbladder. The peritoneum overlying the area was opened up and dissected free both anteriorly and posteriorly to help with retraction of the gallbladder. The hepatocystic triangle was approached and dissected using a [place] and instrument. The cystic duct was identified coming off from the next gallbladder this was circumferentially dissected. The cystic artery was identified in its usual position medially behind a small lymph node of [place]. This was similarly circumferentially dissected off surrounding adipose tissue. We continued posterior dissection proximally at the next gallbladder until a critical view of safety was achieved whereby only the previously identified duct and artery coursing through the neck the gallbladder. At this point the cystic artery was clipped 4 times and divided. After again checking her anatomy and verifying that the previously identified cystic duct, this was also clipped 4 times and divided. The rest of the gallbladder was then dissected free of the gallbladder bed using Bovie cautery. There was minimal bleeding at the lateral gallbladder attachments to the liver capsule this was easily controlled with Bovie cautery. The gallbladder was then placed in an Endo Catch bag and retrieved outside through the epigastric port site. Under insufflation and inspected the clips and noted this to be in place. No further bleeding noted. No bile leakage noted. The abdomen was insufflated all ports were removed. The epigastric fascial defect repaired with 0 Vicryl in a mattress fashion. Rest of the skin incisions closed with 4-0 Monocryl in subcuticular fashion. Steri-Strips and gauze dressings were placed, the wound. Patient was informed they awakened, extubated and brought to recovery room stable JEROD MYERS MD Dec 01, 2018 09:06
[2018-12-01] MEDS ORDERED: KETOROLAC 30 MG/ML VIAL (J1885) IV PRN (09:30)
[2018-12-01] MEDS ORDERED: MEPERIDINE INJ 25 MG/ML VIAL (J2175) IV PRN (09:30)
[2018-12-01] MEDS ORDERED: ONDANSETRON 4MG/2ML VIAL (J2405) IV PRN ×2 (09:30)
[2018-12-01] MEDS ORDERED: NORCO, ANEXSIA 5/325MG TABLET (HYDROcodone/ACETAMINOPHEN) PO PRN ×2 (09:30)
[2018-12-01] MEDS ORDERED: LR 1,000 ML IV SCH (09:30)
[2018-12-01] MEDS ORDERED: fentaNYL 100 MCG/2 ML INJECTION (J3010) IV PRN (09:30)
[2018-12-01] MEDS ORDERED: METOCLOPRAMIDE INJ 10MG/2ML VIAL (J2765) IV PRN (09:30)
[2018-12-01] MEDS ORDERED: oxyCODONE 5MG TAB PO PRN (09:30)
[2018-12-01] MEDS ORDERED: ALBUTEROL SULFATE 2.5 MG/0.5 ML INH NEB SOLN INH ONE (10:15)
[2018-12-01 11:17] VITALS: BP 136/65
== END 2018-12-01 11:20 | disposition home or self-care (01) ==
LOC: M SDC 05:54
PROVIDERS: ATTEND Surgery
DX: K81.1 Chronic cholecystitis (principal); I10 Essential (primary) hypertension; E78.5 Hyperlipidemia, unspecified; J44.9 Chronic obstructive pulmonary disease, unspecified; E11.9 Type 2 diabetes mellitus without complications; Z79.4 Long term (current) use of insulin; Z79.82 Long term (current) use of aspirin; Z79.01 Long term (current) use of anticoagulants; N18.2 Chronic kidney disease, stage 2 (mild); K57.92 Diverticulitis of intestine, part unspecified, without perforation or abscess without bleeding; Z87.891 Personal history of nicotine dependence
CPT/HCPCS: 47562; 88304; J0131; J1100; J1885; J2250; J2405; J3010

== ENCOUNTER → 2019-01-26 | Outpatient (CLI) | payer MEDICARE ==
[~2019-01-26] MED LIST changes: +HYDR-3715 PO
--- NOTE | 2019-01-26 19:35 | REP ---
CT chest without contrast: History: Lung nodule. Right lung nodule noted on abdomen CT images in the June 2018. 6-month follow-up. Comparison chest CT study is also reviewed September 24, 2017. CT findings: CT findings: There is a spiculated nodule in the right lower lobe which it is larger than it was on July 09, 2018. It currently measures 11 mm in greatest dimension by 7 mm by 6 mm. Early bronchogenic malignancy must be suspected. Unfortunately, this would likely not be amendable to percutaneous needle biopsy sampling. Consider PET-CT. No new pulmonary nodule is appreciated. There is some bullous change and fibrosis in the left apex. There are calcified granulomas scattered in the left upper lobe. There is a ill-defined ground-glass opacity in the left upper lobe on page 46 of 108 in series 201 of today's study. This is unchanged from the September 24, 2017 prior study. It measures 15 mm in greatest diameter. There are clips in the gallbladder fossa. There is a small stable low density nodule in the right adrenal gland consistent with a benign adenoma unchanged from the October, prior study. There is vascular calcification. Impression: Enlarging 1.1 cm spiculated nodule in the right lower lobe just above the right hemidiaphragm. Consider PET-CT study. Stable 15 mm ground-glass opacity left upper lobe. Scattered granulomatous changes. Electronically Signed by Issa Mustafa MD 01/26/2019 07:39 P
== END ==
LOC: M RAD 16:50
PROVIDERS: ATTEND Family Medicine
DX: R91.1 Solitary pulmonary nodule (principal)

== ENCOUNTER → 2019-01-30 | Outpatient (REF) | payer MEDICARE ==
[2019-01-30 11:53] LABS: BASO # 0.1 10^3/uL (0.0-0.2); BASO % 0.7 % (0.0-1.0); EOS # 0.3 10^3/uL (0.0-0.5); EOS % 2.9 % (0.0-3.0); HEMATOCRIT 36.8 % (36.0-47.0); HEMOGLOBIN 12.5 g/dl (12.0-15.5); LYMPH # 1.8 10^3/uL (1.5-5.0); LYMPH % 18.4 % (24.0-44.0); MEAN CORPUSCULAR HEMOGLOBIN 30.6 pg (27.0-33.0); MEAN CORPUSCULAR VOLUME 90.2 fl (80.0-96.0); MONO # 0.8 10^3/uL (0.0-0.8); MONO % 8.4 % (0.0-5.0); NEUTROPHILS # 6.7 10^3/uL (1.5-8.5); PLATELET COUNT, AUTOMATED 310 10^3/uL (150-450); RED BLOOD COUNT 4.08 10^6/uL (4.00-5.40); WHITE BLOOD COUNT 9.7 10^3/uL (4.0-10.0)
[2019-01-30 12:10] LABS: BLOOD UREA NITROGEN 24 MG/DL (7-18); CARBON DIOXIDE LEVEL 26 MEQ/L (21-32); CHLORIDE LEVEL 92 MEQ/L (98-107); CHOLESTEROL LEVEL 152 MG/DL (<200); CHOLESTEROL RISK RATIO 2.451 (<5); CREATININE FOR GFR 0.97 MG/DL (0.55-1.30); GLOMERULAR FILTRATION RATE > 60.0 (>45); GLUCOSE, FASTING 118 MG/DL (70-100); HDL CHOLESTEROL 62 MG/DL (>40); LDL CHOLESTEROL 53 MG/DL (<100); NON-HDL-C 90 MG/DL; POTASSIUM SERUM 4.4 MEQ/L (3.5-5.1); SODIUM LEVEL 128 MEQ/L (136-145); TRIGLYCERIDES LEVEL 185 MG/DL (<150)
[2019-01-30 12:28] LABS: HEMOGLOBIN A1c 6.6 %
== END ==
LOC: M SFHCLERA 08:35
PROVIDERS: ATTEND Family Medicine
DX: E11.9 Type 2 diabetes mellitus without complications (principal)

== ENCOUNTER → 2019-02-18 | Outpatient (CLI) | payer MEDICARE ==
--- NOTE | 2019-02-18 19:43 | REP ---
PET/CT: History: Diagnosing lung nodule. Comparisons: Comparison CT study of the chest January 26, 2019. TECHNIQUE: 49 minutes following the intravenous injection of a 8.52 mCi dose of F-18 FDG, three-dimensional PET scintigraphy is acquired from the skull base to the proximal thighs. Triplanar noncontrast CT scanning is acquired through the same anatomic range for attenuation correction, and image registration with scan parameters optimized to minimize radiation exposure to the patient. PET scintigraphy and CT datasets were fused and displayed on a workstation with multiplanar and projection display capability. PET/CT Findings: The 11 mm right lower lobe nodule located just above the dome of the right hemidiaphragm shows visible metabolic activity. Maximum standard uptake value is borderline hypermetabolic at 2.75. It is only a few millimeters from the liver. There is no hilar or mediastinal hypermetabolic uptake. There is subsegmental atelectasis with minimal non hypermetabolic uptake in the right upper lobe and right lower lobe. No other intrathoracic abnormal uptake. Head and neck soft tissues are unremarkable. No abdominal or pelvic hypermetabolic uptake is seen. Impression: There is barely visible borderline hypermetabolic uptake in the right lower lobe pulmonary nodule. No other abnormal hypermetabolic uptake is appreciated. Electronically Signed by Issa Mustafa MD 02/19/2019 08:34 A
== END ==
LOC: M PLARAD 15:19
PROVIDERS: ATTEND Internal Medicine Pulmonary Disease
DX: R91.1 Solitary pulmonary nodule (principal); J98.11 Atelectasis
CPT/HCPCS: 78815; A9552

== ENCOUNTER → 2019-02-19 | Outpatient (REF) | payer MEDICARE ==
[2019-02-19 17:03] LABS: BLOOD UREA NITROGEN 26 MG/DL (7-18); CALCIUM LEVEL 9.4 MG/DL (8.8-10.2); CARBON DIOXIDE LEVEL 26 MEQ/L (21-32); CHLORIDE LEVEL 91 MEQ/L (98-107); CREATININE FOR GFR 0.92 MG/DL (0.55-1.30); GLOMERULAR FILTRATION RATE > 60.0 (>45); GLUCOSE, FASTING 108 MG/DL (70-100); POTASSIUM SERUM 5.3 MEQ/L (3.5-5.1); SODIUM LEVEL 126 MEQ/L (136-145)
== END ==
LOC: M SFHCLERA 10:53
PROVIDERS: ATTEND Family Medicine
DX: I10 Essential (primary) hypertension (principal)
CPT/HCPCS: 80048; G0463

== ENCOUNTER → 2019-02-25 | Outpatient (REF) | payer MEDICARE ==
[2019-02-25 13:22] LABS: ALBUMIN 3.4 GM/DL (3.2-5.2); ALT/SGPT 33 U/L (12-78); BILIRUBIN,TOTAL 0.2 MG/DL (0.2-1.0); BLOOD UREA NITROGEN 21 MG/DL (7-18); CALCIUM LEVEL 8.5 MG/DL (8.8-10.2); CARBON DIOXIDE LEVEL 27 MEQ/L (21-32); CHLORIDE LEVEL 99 MEQ/L (98-107); CREATININE FOR GFR 0.81 MG/DL (0.55-1.30); GLOMERULAR FILTRATION RATE > 60.0 (>45); GLUCOSE, FASTING 76 MG/DL (70-100); POTASSIUM SERUM 5.7 MEQ/L (3.5-5.1); SODIUM LEVEL 133 MEQ/L (136-145); TOTAL PROTEIN 5.9 GM/DL (6.4-8.2)
== END ==
LOC: M SFHCLERA 08:38
PROVIDERS: ATTEND Family Medicine
DX: I10 Essential (primary) hypertension (principal)

== ENCOUNTER → 2019-03-05 | Outpatient (REF) | payer MEDICARE ==
[2019-03-05 12:40] LABS: BLOOD UREA NITROGEN 29 MG/DL (7-18); CALCIUM LEVEL 9.5 MG/DL (8.8-10.2); CARBON DIOXIDE LEVEL 21 MEQ/L (21-32); CHLORIDE LEVEL 108 MEQ/L (98-107); CREATININE FOR GFR 0.96 MG/DL (0.55-1.30); GLOMERULAR FILTRATION RATE > 60.0 (>45); GLUCOSE, FASTING 125 MG/DL (70-100); POTASSIUM SERUM 5.9 MEQ/L (3.5-5.1); SODIUM LEVEL 137 MEQ/L (136-145)
== END ==
LOC: M SFHCLERA 08:38
PROVIDERS: ATTEND Family Medicine
DX: I10 Essential (primary) hypertension (principal)

== ENCOUNTER → 2019-03-06 | Outpatient (CLI) | payer MEDICARE ==
--- NOTE | 2019-03-06 15:30 | REP ---
Left lower extremity arterial Doppler ultrasound: History: Status post fem-pop bypass. Claudication left lower extremity. Findings: The left superficial femoral artery to popliteal artery graft is patent. The [place] superficial femoral artery is occluded from proximal to distal. The increased velocity is noted at the proximal graft anastomosis. Ankle brachial index is 0.8 on the left. Bypass graft arterial velocity chart: Proximal CF A anastomosis 347 cm/S Proximal graft 198 Mid graft 71 Distal graft 85 Knee level 80 Proximal calf 72 Posterior tibial artery and anastomosis 76 Left lower extremity arterial Doppler velocity chart: CF A 126 cm/S Profunda 289 Proximal SFA occluded Mid SFA occluded Distal SFA occluded Popliteal 23 Proximal AT A Tibioperoneal trunk 91 Proximal [employer]ER 48 Distal [employer]SEM[employer]ER 36 Distal [employer]SEM[employer]ER 89 Electronically Signed by Issa Mustafa MD 03/06/2019 03:22 P
== END ==
LOC: M RAD 11:22
PROVIDERS: ATTEND Surgery
DX: Z09 Encounter for follow-up examination after completed treatment for conditions other than malignant neoplasm (principal); Z95.820 Peripheral vascular angioplasty status with implants and grafts; I70.202 Unspecified atherosclerosis of native arteries of extremities, left leg

== ENCOUNTER → 2019-03-10 | Outpatient (REF) | payer MEDICARE ==
[2019-03-10 11:56] LABS: BLOOD UREA NITROGEN 27 MG/DL (7-18); CALCIUM LEVEL 8.5 MG/DL (8.8-10.2); CARBON DIOXIDE LEVEL 25 MEQ/L (21-32); CHLORIDE LEVEL 100 MEQ/L (98-107); GLOMERULAR FILTRATION RATE > 60.0 (>45); GLUCOSE, FASTING 122 MG/DL (70-100); POTASSIUM SERUM 5.3 MEQ/L (3.5-5.1); SODIUM LEVEL 133 MEQ/L (136-145)
== END ==
LOC: M SFHCLERA 08:50
PROVIDERS: ATTEND Family Medicine
DX: I10 Essential (primary) hypertension (principal)

== ENCOUNTER → 2019-03-12 | Outpatient (REF) | payer MEDICARE ==
[2019-03-23 12:25] LABS: BLOOD UREA NITROGEN 19 MG/DL (7-18); CALCIUM LEVEL 8.9 MG/DL (8.8-10.2); CARBON DIOXIDE LEVEL 22 MEQ/L (21-32); CHLORIDE LEVEL 102 MEQ/L (98-107); CREATININE FOR GFR 0.94 MG/DL (0.55-1.30); GLOMERULAR FILTRATION RATE > 60.0 (>45); GLUCOSE, FASTING 129 MG/DL (70-100); POTASSIUM SERUM 4.4 MEQ/L (3.5-5.1); SODIUM LEVEL 135 MEQ/L (136-145)
== END ==
LOC: M SFHCLERA 10:22
PROVIDERS: ATTEND Family Medicine
DX: I10 Essential (primary) hypertension (principal)

== ENCOUNTER → 2019-04-28 | Outpatient (REF) | payer MEDICARE ==
[2019-04-28 16:51] LABS: BLOOD UREA NITROGEN 15 MG/DL (7-18); CALCIUM LEVEL 8.8 MG/DL (8.8-10.2); CARBAMAZEPINE (TEGRETOL) LEVEL 9.6 UG/ML (4.0-10.0); CARBON DIOXIDE LEVEL 23 MEQ/L (21-32); CHLORIDE LEVEL 104 MEQ/L (98-107); CREATININE FOR GFR 0.79 MG/DL (0.55-1.30); GLOMERULAR FILTRATION RATE > 60.0 (>45); GLUCOSE, FASTING 111 MG/DL (70-100); POTASSIUM SERUM 4.9 MEQ/L (3.5-5.1); SODIUM LEVEL 136 MEQ/L (136-145)
== END ==
LOC: M SFHCLERA 10:28
PROVIDERS: ATTEND Family Medicine
DX: I10 Essential (primary) hypertension (principal); G40.909 Epilepsy, unspecified, not intractable, without status epilepticus
CPT/HCPCS: 80048; 80156; G0463

== ENCOUNTER → 2019-07-01 | Outpatient (CLI) | payer MEDICARE ==
--- NOTE | 2019-07-01 12:27 | REP ---
CT of the chest without IV contrast for lung nodule. Followup: There is a nodule in the right lower lobe on image 66 measuring 7 x 11 mm. It is unchanged from 01/26/2019. It was not present on 09/24/2017. On the PET scan dated 02/18/2019 there was borderline hypermetabolic uptake with the maximal standard uptake value of 2.75. The There is a 14 mm faintly visible ground-glass density in the left upper lobe on image 44, unchanged from both prior studies. There is a faintly visible ground-glass density in the anterior segment of the left lower lobe on image 67. This is unchanged from 01/26/2019. This was not definitely present on 09/24/2017. There is a new 5 mm nodule peripherally in the superior segment of the left lower lobe on image 41 adjacent to the major fissure. This is not present on comparison studies. It is located at the inferior margin of a collection of small bulla and fibrous change. The bulla and fibrous change are unchanged from the prior studies. There is no mediastinal or axillary lymph node enlargement. In the absence of IV contrast the study is insensitive for hilar lymph node enlargement. The thoracic aorta is unremarkable. Cardiac size is normal. No other lung masses or nodules are identified. There are no infiltrates or pleural effusions. There is a 14 mm right adrenal nodule. This measures CT density of 26 HU, therefore, is not definitely benign by CT criteria. However, there is no hypermetabolic uptake in this nodule on the comparison PET scan dated 02/18/2019. The left adrenal is unremarkable. The visualized unenhanced upper abdominal contents are otherwise unremarkable. Impression: Lung nodules as described. Ground-glass densities as described. Right adrenal nodule as described. Electronically Signed by Broderick Knott MD 07/01/2019 12:18 P
== END ==
LOC: M RAD 10:12
PROVIDERS: ATTEND Internal Medicine Pulmonary Disease
DX: R91.8 Other nonspecific abnormal finding of lung field (principal)

== ENCOUNTER → 2019-08-05 | Outpatient (REF) | payer MEDICARE ==
[2019-08-05 12:01] LABS: ALBUMIN 3.9 GM/DL (3.2-5.2); ALT/SGPT 37 U/L (12-78); BILIRUBIN,TOTAL 0.3 MG/DL (0.2-1.0); BLOOD UREA NITROGEN 20 MG/DL (7-18); CALCIUM LEVEL 8.8 MG/DL (8.8-10.2); CARBAMAZEPINE (TEGRETOL) LEVEL 10.8 UG/ML (4.0-10.0); CARBON DIOXIDE LEVEL 25 MEQ/L (21-32); CHLORIDE LEVEL 100 MEQ/L (98-107); CHOLESTEROL LEVEL 138 MG/DL (<200); CHOLESTEROL RISK RATIO 2.421 (<5); CREATININE FOR GFR 0.95 MG/DL (0.55-1.30); GLOMERULAR FILTRATION RATE > 60.0 (>45); GLUCOSE, FASTING 106 MG/DL (70-100); HDL CHOLESTEROL 57 MG/DL (>40); LDL CHOLESTEROL 41 MG/DL (<100); NON-HDL-C 81 MG/DL; POTASSIUM SERUM 5.2 MEQ/L (3.5-5.1); SODIUM LEVEL 134 MEQ/L (136-145); TOTAL PROTEIN 6.9 GM/DL (6.4-8.2); TRIGLYCERIDES LEVEL 200 MG/DL (<150)
[2019-08-05 12:28] LABS: MALB URINE SIEMENS 25.3 MG/L; MAU/CREAT RATIO 20.7 MCG/MG (0.0-30.0)
[2019-08-05 12:36] LABS: HEMOGLOBIN A1c 7.2 %
== END ==
LOC: M SFHCLERA 09:46
PROVIDERS: ATTEND Family Medicine
DX: E11.9 Type 2 diabetes mellitus without complications (principal); G40.909 Epilepsy, unspecified, not intractable, without status epilepticus

== ENCOUNTER → 2019-11-10 | Outpatient (REF) | payer MEDICARE ==
[~2019-11-10] MED LIST changes: -AMLO10TA5 PO; +AMLO1TAB25 PO; -ASPI81TA85 PO; +ASPI81TA86 PO
[2019-11-11 11:09] LABS: CALCIUM LEVEL 9.9 MG/DL (8.8-10.2); CREATININE FOR GFR 1.14 MG/DL (0.55-1.30); GLOMERULAR FILTRATION RATE 50.5 (>45); POTASSIUM SERUM 4.7 MEQ/L (3.5-5.1)
[2019-11-11 11:38] LABS: HEMOGLOBIN A1c 6.4 %
== END ==
LOC: M SFHCLERA 14:58
PROVIDERS: ATTEND Family Medicine
DX: E11.9 Type 2 diabetes mellitus without complications (principal); E87.5 Hyperkalemia

== ENCOUNTER → 2020-02-17 | Outpatient (CLI) | payer MEDICARE ==
[2020-02-17 10:27] LABS: BASO # 0.1 10^3/uL (0.0-0.2); BASO % 0.8 % (0.0-1.0); EOS # 0.4 10^3/uL (0.0-0.5); EOS % 3.9 % (0.0-3.0); HEMATOCRIT 40.4 % (36.0-47.0); HEMOGLOBIN 13.1 g/dl (12.0-15.5); LYMPH # 1.3 10^3/uL (1.5-5.0); LYMPH % 13.4 % (24.0-44.0); MEAN CORPUSCULAR HGB CONC 32.4 g/dl (32.0-36.5); MEAN CORPUSCULAR VOLUME 92.7 fl (80.0-96.0); MONO # 0.7 10^3/uL (0.0-0.8); MONO % 7.5 % (0.0-5.0); NEUTROPHILS % 73.7 % (36.0-66.0); PLATELET COUNT, AUTOMATED 293 10^3/uL (150-450); RED BLOOD COUNT 4.36 10^6/uL (4.00-5.40); WHITE BLOOD COUNT 9.5 10^3/uL (4.0-10.0)
[2020-02-17 10:53] LABS: ALBUMIN 3.5 GM/DL (3.2-5.2); ALT/SGPT 35 U/L (12-78); BILIRUBIN,TOTAL 0.2 MG/DL (0.2-1.0); BLOOD UREA NITROGEN 20 MG/DL (7-18); CALCIUM LEVEL 9.1 MG/DL (8.8-10.2); CARBON DIOXIDE LEVEL 26 MEQ/L (21-32); CHLORIDE LEVEL 106 MEQ/L (98-107); CHOLESTEROL LEVEL 138 MG/DL (<200); CHOLESTEROL RISK RATIO 3.066 (<5); CREATININE FOR GFR 0.94 MG/DL (0.55-1.30); GLOMERULAR FILTRATION RATE > 60.0 (>45); GLUCOSE, FASTING 132 MG/DL (70-100); HDL CHOLESTEROL 45 MG/DL (>40); LDL CHOLESTEROL 21 MG/DL (<100); NON-HDL-C 93 MG/DL; POTASSIUM SERUM 4.3 MEQ/L (3.5-5.1); SODIUM LEVEL 140 MEQ/L (136-145); TOTAL PROTEIN 6.4 GM/DL (6.4-8.2); TRIGLYCERIDES LEVEL 360 MG/DL (<150)
[2020-02-17 11:03] LABS: MALB URINE SIEMENS 33.4 MG/L; MAU/CREAT RATIO 31.5 MCG/MG (0.0-30.0)
[2020-02-17 11:19] LABS: VITAMIN B12 LEVEL 315 PG/ML (247-911)
[2020-02-17 12:28] LABS: HEMOGLOBIN A1c 6.9 %
== END ==
LOC: M LAB 09:29
PROVIDERS: ATTEND Family Medicine
DX: E11.9 Type 2 diabetes mellitus without complications (principal); E78.2 Mixed hyperlipidemia

== ENCOUNTER → 2020-04-01 | Outpatient (CLI) | payer MEDICARE ==
--- NOTE | 2020-04-01 17:10 | REP ---
INDICATION: OTHER NON SPECIFIC ABNORMAL FINDING OF LUNG FIELD. COMPARISON: Comparison is made with prior CT studies of the chest from July 01, 2019, January 26, 2019, and September 24, 2017.. TECHNIQUE: Helical scanning is acquired. 3 mm axial images are generated. Coronal and sagittal MPR and coronal MIP images are generated. FINDINGS: There are mild emphysematous changes noted in the upper lobes bilaterally. There are multiple subcentimeter noncalcified pulmonary nodules scattered in the lung belle bilaterally. These are all unchanged from the September 24, 2017 prior study except for a gradually enlarging spiculated nodule in the right lower lobe. This measures 12 mm by 9 mm today,aaaaaaaaaaa it is just above the diaphragm and adjacent to the bottom edge of the major fissure. It appears a thicker in right to left dimension today than it was on July 01, 2019. It is frankly spiculated in its margin. No new pulmonary nodule is seen. No endobronchial disease is seen. Vascular calcification is noted. There is a pretracheal lymph node 10 mm in short axis dimension with intra normal fat which is unchanged from 2018. No mediastinal adenopathy is apparent. No pleural or pericardial effusion is seen. The adrenal glands remain normal. There clips in the gallbladder fossa. No bony destructive lesion is seen. IMPRESSION: Suspicious spiculated 12 mm pulmonary nodule right lower lobe, increased in size from the July 01 2019 prior study. <Electronically signed by Agustín Mustafa > 04/01/20 1440
== END ==
LOC: M RAD 14:05
PROVIDERS: ATTEND Internal Medicine Pulmonary Disease
DX: R91.8 Other nonspecific abnormal finding of lung field (principal)

== ENCOUNTER → 2020-04-28 | Outpatient (CLI) | payer MEDICARE ==
[~2020-04-28] MED LIST changes: +GABA-282 PO; -GABA-843 PO
--- NOTE | 2020-04-28 15:39 | PFTRPT ---
Height: 62.50 Inches Weight: 182.00 Lbs BSA: 1.85 Diagnosis: J44.9 DATE: 04/28/2020 ORDERED BY: Svetlana Dc MD Pre and post bronchodilator studies have excellent technical quality. Forced vital capacity is normal. FEV1 is out of proportion. Obstructive index is therefore reduced. Expiratory limit of the flow-volume loop does suggest some degree of flow rate limitation. No significant bronchodilator response is identified. Total lung capacity is borderline elevated. Residual volume does suggest air trapping. Diffusing capacity is significantly reduced and does not correct for alveolar volume. Hemoglobin reduced at 11.2. Airway resistance and conductance are normal. IMPRESSION: At least mild obstructive ventilatory impairment with underlying air trapping. Significant diffusion capacity impairment complicated by an underlying anemia as well. Please correlate clinically. MTDD
== END ==
LOC: M CARPUL 14:28
PROVIDERS: ATTEND Internal Medicine Pulmonary Disease
DX: J44.9 Chronic obstructive pulmonary disease, unspecified (principal)

== ENCOUNTER → 2020-05-18 | Outpatient (CLI) | payer MEDICARE ==
[~2020-05-18] MED LIST changes: +ISOS1TAB35 PO; -ISOS30TA4 PO; -LISI-538 PO; +LISI20TA33 PO
[2020-05-18 10:07] LABS: BASO # 0.1 10^3/uL (0.0-0.2); BASO % 0.7 % (0.0-1.0); EOS # 0.3 10^3/uL (0.0-0.5); EOS % 3.1 % (0.0-3.0); HEMATOCRIT 39.6 % (36.0-47.0); LYMPH # 1.2 10^3/uL (1.5-5.0); LYMPH % 14.1 % (24.0-44.0); MEAN CORPUSCULAR HEMOGLOBIN 30.4 pg (27.0-33.0); MEAN CORPUSCULAR HGB CONC 32.8 g/dl (32.0-36.5); MEAN CORPUSCULAR VOLUME 92.5 fl (80.0-96.0); MONO # 0.6 10^3/uL (0.0-0.8); MONO % 7.6 % (0.0-5.0); NEUTROPHILS # 6.2 10^3/uL (1.5-8.5); NEUTROPHILS % 73.8 % (36.0-66.0); PLATELET COUNT, AUTOMATED 250 10^3/uL (150-450); RED BLOOD COUNT 4.28 10^6/uL (4.00-5.40); WHITE BLOOD COUNT 8.4 10^3/uL (4.0-10.0)
[2020-05-18 10:28] LABS: ALBUMIN 3.7 GM/DL (3.2-5.2); ALT/SGPT 38 U/L (12-78); BILIRUBIN,TOTAL 0.1 MG/DL (0.2-1.0); BLOOD UREA NITROGEN 30 MG/DL (7-18); CALCIUM LEVEL 9.2 MG/DL (8.8-10.2); CARBAMAZEPINE (TEGRETOL) LEVEL 6.3 UG/ML (4.0-10.0); CARBON DIOXIDE LEVEL 25 MEQ/L (21-32); CHLORIDE LEVEL 103 MEQ/L (98-107); CREATININE FOR GFR 0.88 MG/DL (0.55-1.30); GLOMERULAR FILTRATION RATE > 60.0 (>45); GLUCOSE, FASTING 176 MG/DL (70-100); SODIUM LEVEL 139 MEQ/L (136-145); TOTAL PROTEIN 6.7 GM/DL (6.4-8.2)
== END ==
LOC: M LAB 09:13
PROVIDERS: ATTEND Psychiatry & Neurology Neurology
DX: R56.9 Unspecified convulsions (principal)

== ENCOUNTER → 2020-05-30 | Outpatient (CLI) | payer MEDICARE ==
--- NOTE | 2020-05-31 14:51 | REP ---
INDICATION: R91.8 DIAGNOSING ABNORMAL LUNG SCAN. COMPARISON: Comparison PET-CT study [address] study of the chest 01 April 2020.. TECHNIQUE: Fifty-three minutes following the intravenous injection of a 17.16 mCi dose of F-18 FDG, three-dimensional PET scintigraphy is acquired from the skull base to the proximal thighs. Triplanar noncontrast CT scanning is acquired through the same anatomic range for attenuation correction, and image registration with scan parameters optimized to minimize radiation exposure to the patient. PET scintigraphy and CT datasets were fused and displayed on a workstation with multiplanar and projection display capability. FINDINGS: Head and neck soft tissues are unremarkable. In the abdomen and pelvis, there is normal hepatic, splenic, gastrointestinal, and genitourinary FDG accumulation. No abnormal uptake is seen in the abdomen or pelvis. No adrenal mass is observed. Fairly extensive vascular calcification is seen. With regard to the right lower lobe pulmonary nodule seen just above the right hemidiaphragm, there is similar low level FDG accumulation in the nodule. There is some respiratory motion misregistration. The proximity of the nodule to the liver makes an accurate SUV value difficult to achieve. Believe it is essentially unchanged and borderline, my SUV readings are between 1.84 and 3.29. I note that the nodule is felt of increased somewhat in size. There is no other abnormal hypermetabolic pulmonary parenchymal uptake. No abnormal hilar or mediastinal ashly uptake is seen. IMPRESSION: The right lower lobe pulmonary nodule is again seen to show borderline FDG accumulation. Its avidity is essentially unchanged. SUV value is difficult to accurately poor tray because of the proximity to liver. The lesion does appear larger on today's CT study than it did 18 February 2019. No other abnormal hypermetabolic uptake. <Electronically signed by Agustín Mustafa > 05/31/20 [id number]
== END ==
LOC: M PLARAD 15:26
PROVIDERS: ATTEND Thoracic Surgery (Cardiothoracic Vascular Surgery)
DX: R91.8 Other nonspecific abnormal finding of lung field (principal)
CPT/HCPCS: 78815; A9552

== ENCOUNTER → 2020-06-28 | Outpatient (CLI) | payer MEDICARE ==
[~2020-06-28] MED LIST changes: +ASPI81CH33 PO; +ATOR1TAB19 PO; +FLUTISP; +HYDR-3910 PO; +JARD1TAB PO; +LORA-674 PO; +MONT10TA10 PO; +PREG50CA2 PO; +PROV108A INH; +STIO1AER INH
[2020-06-28 10:18] LABS: ABG BASE EXCESS -6.4 (-2.0-2.0); ABG HCO3 18.1 MEQ/L (22.0-26.0); ABG O2 SATURATION 93.4 % (95.0-99.0); ABG PARTIAL PRESSURE CO2 33.2 mmHg (35.0-45.0); ABG PARTIAL PRESSURE O2 71.8 mmHg (75.0-100.0); ABG STANDARD HCO3 19.2 MEQ/L (22.0-26.0); ABG TOTAL CO2 19.1 MEQ/L (23.0-31.0); ABG pH (ARTERIAL) 7.355 UNITS (7.350-7.450)
[2020-06-28 10:21] LABS: HEMATOCRIT 41.7 % (36.0-47.0); HEMOGLOBIN 13.4 g/dl (12.0-15.5); MEAN CORPUSCULAR HGB CONC 32.1 g/dl (32.0-36.5); MEAN CORPUSCULAR VOLUME 93.5 fl (80.0-96.0); PLATELET COUNT, AUTOMATED 299 10^3/uL (150-450); RED BLOOD COUNT 4.46 10^6/uL (4.00-5.40); WHITE BLOOD COUNT 8.8 10^3/uL (4.0-10.0)
[2020-06-28 10:47] LABS: APPEARANCE, URINE CLEAR (CLEAR); BACTERIA, URINE AUTO NEGATIVE (NEGATIVE); BILIRUBIN, URINE AUTO NEGATIVE (NEGATIVE); BLOOD, URINE BLOOD NEGATIVE (NEGATIVE); COLOR, URINE YELLOW (YELLOW); GLUCOSE, URINE (UA) AUTO 3+ mg/dL (NEGATIVE); KETONE, URINE AUTO NEGATIVE (NEGATIVE); LEUKOCYTE ESTERASE, URINE AUTO NEGATIVE (NEGATIVE); MUCUS, URINE SMALL (NEGATIVE); NITRITE, URINE AUTO NEGATIVE (NEGATIVE); PROTEIN, URINE AUTO NEGATIVE (NEGATIVE); RBC, URINE AUTO 1 /HPF (0-3); SPECIFIC GRAVITY URINE AUTO 1.012 (1.002-1.035); SQUAMOUS EPITHELIAL CELL UR AU 0 /HPF (0-6); UROBILINOGEN, URINE AUTO 0.2 mg/dL (0.0-2.0); WBC, URINE AUTO 3 /HPF (0-3)
[2020-06-28 11:02] LABS: CALCIUM LEVEL 9.5 MG/DL (8.8-10.2); CREATININE FOR GFR 1.02 MG/DL (0.55-1.30); GLOMERULAR FILTRATION RATE 57.2 (>45); POTASSIUM SERUM 5.4 MEQ/L (3.5-5.1)
--- NOTE | 2020-06-28 11:20 | ECGEPIP ---
[facility] Test Date: 2020-06-28 Pat Name: ILAN CAMPA Department: Room: - Gender: Female [employer] Service Agent: rf : [id number] Requested By: Norm Britt Order Number: [id number] Reading MD: Fara Ponce Measurements Intervals [place] Rate: 55 P: 39 AR: 202 QRS: 7 QRSD: 86 T: 48 QT: 440 QTc: 420 Interpretive Statements Sinus bradycardia AND 1ST DEGREE BLOCK NEW PRWP AGAIN 1ST DEGREE BLOCK, RATE SLOWER AND PAC ABSENT C/W 06/20/18 Electronically Signed on 06-28-2020 11:19:43 EST by Fara Ponce
[2020-06-28 11:57] LABS: INR 0.82; PROTHROMBIN TIME 11.5 SECONDS (12.5-14.3)
--- NOTE | 2020-06-28 12:45 | REP ---
INDICATION: PRE OP PAT COMPARISON: 08/25/2017. TECHNIQUE: PA/Lateral FINDINGS: Lungs: Clear, no infiltrate. Heart: Normal in size. Mediastinum: There is calcification of the thoracic aorta. The mediastinal silhouette is unchanged. Pleural angles: Unremarkable.. Bones and soft tissues: There are degenerative changes of the spine without compression deformity. IMPRESSION: No acute pulmonary disease. <Electronically signed by Broderick Knight > 06/28/20 [id number]
== END ==
LOC: M ADMPAT 09:42
PROVIDERS: ATTEND Thoracic Surgery (Cardiothoracic Vascular Surgery)
DX: Z01.818 Encounter for other preprocedural examination (principal); R91.1 Solitary pulmonary nodule; R91.8 Other nonspecific abnormal finding of lung field

== ENCOUNTER → 2020-07-01 | Outpatient (CLI) | payer MEDICARE | LOC: M LABSMTC 11:23 | PROVIDERS: ATTEND Anesthesiology | DX: Z01.812 Encounter for preprocedural laboratory examination (principal); Z20.822 Contact with and (suspected) exposure to COVID-19 ==

== ENCOUNTER 2020-07-06 06:34 | Inpatient (IN) | payer MEDICARE ==
[2020-07-06] VITALS (9 sets, daily range): BP systolic 107–225; BP diastolic 56–85
[~2020-07-06] VITALS: Ht 160 cm; Wt 85.5 kg
[~2020-07-06 06:34] MED LIST changes: -FLUTISP; +FLUTISP NARES
[2020-07-06] MEDS ORDERED: LR 1,000 ML IV ONE (07:00)
[2020-07-06] MEDS ORDERED: MUPIROCIN 2% OINT 22 GM TUBE TOP ONE (07:00)
[2020-07-06] MEDS ORDERED: ceFAZolin SOD 2 GM in IV 1 EA IV ONE (07:00)
[2020-07-06] MEDS ORDERED: fentaNYL 100 MCG/2 ML INJECTION (J3010) IV PRN ×2 (07:01→14:05)
[2020-07-06] MEDS ORDERED: MUPIROCIN 2% OINT 22 GM TUBE As Ordered ONE (07:16)
[2020-07-06] MEDS ORDERED: CETACAINE SPRAY 5GM As Ordered ONE (07:16)
[2020-07-06] MEDS ORDERED: BUPIVACAINE HCL 0.5% 10ML VIAL As Ordered ONE (07:16)
[2020-07-06] MEDS ORDERED: BUPIVACAINE LIPOSOME/PF 1.3% 20ML VIAL (13.3MG/ML)(EXPAREL)(C9290 PER1MG) As Ordered ONE ×2 (07:16→12:37)
[2020-07-06] MEDS ORDERED: ONDANSETRON 4MG/2ML VIAL As Ordered ONE ×3 (07:17→10:00)
[2020-07-06] MEDS ORDERED: ROCURONIUM BROMIDE 50 MG/5 ML VIAL As Ordered ONE ×5 (07:17→11:58)
[2020-07-06] MEDS ORDERED: HYDROmorphone HCL 2 MG/ML 1ML VIAL (J1170) As Ordered ONE (07:17)
[2020-07-06] MEDS ORDERED: KETOROLAC 60MG 2ML VIAL As Ordered ONE (07:17)
[2020-07-06] MEDS ORDERED: SUGAMMADEX SODIUM 500 MG/5 ML VIAL (BRIDION) As Ordered ONE (07:17)
[2020-07-06] MEDS ORDERED: fentaNYL 100 MCG/2 ML INJECTION (J3010) As Ordered ONE ×2 (07:17→07:40)
[2020-07-06] MEDS ORDERED: ACETAMINOPHEN 1000MG 100ML IV BTL (OFIRMEV) (J0131 PER 10MG) As Ordered ONE (07:17)
[2020-07-06] MEDS ORDERED: LIDOCAINE 2% 100MG/5ML SDV (FOR ANES.) As Ordered ONE (07:17)
[2020-07-06] MEDS ORDERED: dexameTHASONE 4 MG/ML 1ML VIAL (J1100 PER 1MG) As Ordered ONE (07:17)
[2020-07-06] MEDS ORDERED: propofoL 200 MG/20 ML VIAL As Ordered ONE (07:17)
[2020-07-06] MEDS ORDERED: MIDAZOLAM INJ 2MG/2ML VIAL (J2250 PER 1MG) As Ordered ONE ×2 (07:18→07:40)
[2020-07-06] MEDS ORDERED: LIDOCAINE 1% MDV 20ML VIAL XX ONE (07:50)
[2020-07-06] MEDS: MIDAZOLAM INJ 2MG/2ML VIAL (J2250 PER 1MG) IV PRN ×2 (07:58→08:17)
[2020-07-06] MEDS ORDERED: GLYCOPYRROLATE INJ 0.2 MG/ML 2 ML VIAL As Ordered ONE (10:09)
[2020-07-06] MEDS ORDERED: THROMBIN SOLN 20,000 UNITS KIT As Ordered ONE (11:42)
[2020-07-06] MEDS ORDERED: EPINEPHrine 1MG/10ML SYRINGE 1.5IN As Ordered ONE (11:44)
[2020-07-06] MEDS ORDERED: NALOXONE INJ 0.4MG/1ML VIAL (J2310 PER 1MG) IV PRN (12:00)
[2020-07-06] MEDS ORDERED: WALLBOXKEY XX PRN (12:00)
[2020-07-06] MEDS ORDERED: ONDANSETRON 4MG/2ML VIAL IV PRN ×3 (12:00→14:05)
[2020-07-06] MEDS ORDERED: METOCLOPRAMIDE INJ 10MG/2ML VIAL (J2765 PER 1) IV PRN ×2 (12:00→14:05)
[2020-07-06] MEDS ORDERED: EPIDURAL/PCA KEYS XX PRN (12:00)
[2020-07-06] MEDS ORDERED: diphenhydrAMINE 50MG/ML VIAL (J1200) IV PRN (12:00)
[2020-07-06] MEDS ORDERED: GLUCOSE 4GM CHEW TABLET PO PRN (12:50)
[2020-07-06] MEDS ORDERED: DEXTROSE 50% 50 ML SYRINGE IV PRN (12:50)
[2020-07-06] MEDS ORDERED: PERCOCET 5MG/325MG TAB PO PRN ×2 (12:50→14:00)
[2020-07-06] MEDS ORDERED: GLUCAGON INJ 1MG VIAL SC PRN (12:50)
[2020-07-06] MEDS ORDERED: BISACODYL 10 MG SUPP PR PRN (12:50)
[2020-07-06] MEDS ORDERED: ISOS1TAB36 PO (13:18)
[2020-07-06] MEDS ORDERED: HUMA100I5 SC (13:18)
[2020-07-06] MEDS ORDERED: METF850T4 PO (13:18)
[2020-07-06 13:20] LABS: ABG BASE EXCESS -6.5 (-2.0-2.0); ABG HCO3 20.5 MEQ/L (22.0-26.0); ABG PARTIAL PRESSURE CO2 46.1 mmHg (35.0-45.0); ABG STANDARD HCO3 19.1 MEQ/L (22.0-26.0); ABG TOTAL CO2 21.9 MEQ/L (23.0-31.0); ABG pH (ARTERIAL) 7.265 UNITS (7.350-7.450)
[2020-07-06 13:25] LABS: BASO % 0.2 % (0.0-1.0); EOS % 0.2 % (0.0-3.0); HEMATOCRIT 40.1 % (36.0-47.0); LYMPH # 0.5 10^3/uL (1.5-5.0); LYMPH % 3.8 % (24.0-44.0); MEAN CORPUSCULAR HGB CONC 32.4 g/dl (32.0-36.5); MEAN CORPUSCULAR VOLUME 92.6 fl (80.0-96.0); MONO # 0.4 10^3/uL (0.0-0.8); MONO % 2.9 % (2.0-8.0); NEUTROPHILS # 13.2 10^3/uL (1.5-8.5); NEUTROPHILS % 92.3 % (36.0-66.0); PLATELET COUNT, AUTOMATED 249 10^3/uL (150-450); RED BLOOD COUNT 4.33 10^6/uL (4.00-5.40); WHITE BLOOD COUNT 14.3 10^3/uL (4.0-10.0)
[2020-07-06] MEDS: FENTANYL/BUPIVACAINE/NACL BAG 250 ML EPIDURAL SCH (13:29)
--- NOTE | 2020-07-06 13:45 | REP ---
INDICATION: sp RLL resection. COMPARISON: PA and lateral chest dated 06/28/[address] dated 04/01/2020. TECHNIQUE: Portable AP chest with the patient upright. FINDINGS: There is elevation of the right hemidiaphragm is interval change, likely related to the right lower lobe resection. There are 2 right hemithorax thoracotomy tubes. There is no pneumothorax or pleural fluid collection. Cardiac size is normal. The interstitium is diffusely coarsened. This is an interval change. There is an epidural catheter. IMPRESSION: There are 2 right thoracotomy tubes. Elevated right hemidiaphragm. No pneumothorax or pleural fluid collection. Diffusely coarsened interstitium bilaterally. Epidural catheter. Cardiac size normal. <Electronically signed by Broderick Knott > 07/06/20 1341
--- NOTE | 2020-07-06 13:53 | RO ---
OPERATIVE NOTE DATE OF OPERATION: 07/06/2020 PREOPERATIVE DIAGNOSIS: POSTOPERATIVE DIAGNOSIS: SURGEON: Dr. Mccarthy PROCEDURES: 1. Right lower lobe wedge resection using video-assisted thoracoscopic surgery (VATS) techniques. 2. Mediastinoscopy. 3. Bronchoscopy. 4. Five-level rib block. FINDINGS: The wedge resection revealed squamous cell carcinoma. The patient tolerated one lung anesthesia poorly. Preoperatively, a lobectomy was not contemplated, even in the presence of a positive cancer diagnosis. Mediastinal node dissection was inconclusive, as I could not find any mediastinal nodes through all the fat, and I did not want to divide the azygous vein. Therefore, mediastinoscopy was undertaken, where the azygous vein node was completely removed, as were other small nodes. These were sent for pathological examination. DESCRIPTION OF PROCEDURE: Under single-lumen tube endotracheal intubation, a bronchoscope was placed in the tracheobronchial tree. She had normal tracheobronchial anatomy, and each segment and subsegment was thoroughly inspected and suction aspirated. There were no endobronchial lesions. Patient was then turned into the left lateral decubitus position and sterilely prepped and draped in the usual fashion. Four thoracoscopy incisions were eventually made in order to locate the lesion in the right lower lobe near the diaphragm. Finding the lesion was actually rather difficult until the lung was completely atelectatic, and then the mass could be seen anteriorly and inferiorly on the right lower lobe. The tumor was grasped and then wedged out with an [place] YENY 4.8 stapler. It was retrieved with an endocatch bag. This was then sent for pathological examination. I personally went to the pathology lab to deliver the specimen and look at it. The margins were clear microscopically, and it was squamous cell carcinoma by frozen section. A mediastinal node dissection was then undertaken with VATS techniques. The mediastinal pleura was incised with the Harmonic scalpel. Patient had copious amounts of adipose tissue all throughout the mediastinum, and I could not find mediastinal nodes. It was clear from the CT scan that the major mediastinal node was an azygous node. I did not want to manipulate or divide the azygous vein. I therefore abandoned the mediastinal node dissection from the chest approach and decided to undertake a mediastinoscopy. Two chest tubes were placed, one posteriorly and one anteriorly, both #24 curved and straight, respectively. A 5-level rib block consisting of Marcaine and Exparel was then instilled, as was the Exparel around the incisions. Incisions were closed with running 0 Vicryl suture for the extrathoracic muscles, running 3-0 Vicryl suture for the subcutaneous tissue, and running 4-0 Monopril suture for the skin subcuticularly. Patient was then turned supine and again sterilely prepped and draped for a mediastinoscopy. A standard mediastinoscopy incision was made just above the sternal notch. The adipose tissue and strap muscles were divided until I could get to the pretracheal fascia, where I could place my finger down onto the trachea underneath the innominate artery. Scope was the inserted, and after a dissection to remove all the adipose tissue and adhesive tissue, a small high mediastinal node was found, and this was removed. Continued dissection revealed the azygous node, and this was removed in pieces for pathological examination. It was noted that I could see my dissection that was done fluoroscopically with the lung poking through into the mediastinum. After achieving adequate hemostasis with Thrombin and Gelfoam, the strap muscles were closed with running 0 Vicryl suture, the subcutaneous tissue with running 3-0 Vicryl suture, and the skin with running 4-0 Monopril subcuticular suture. The patient tolerated the procedure well and left the operating room in satisfactory condition to the recovery room. ALEX
[2020-07-06 13:56] LABS: BLOOD UREA NITROGEN 29 MG/DL (7-18); CALCIUM LEVEL 8.5 MG/DL (8.8-10.2); CARBON DIOXIDE LEVEL 22 MEQ/L (21-32); CHLORIDE LEVEL 109 MEQ/L (98-107); CREATININE FOR GFR 0.85 MG/DL (0.55-1.30); GLOMERULAR FILTRATION RATE > 60.0 (>45); GLUCOSE, FASTING 124 MG/DL (70-100); POTASSIUM SERUM 4.4 MEQ/L (3.5-5.1); SODIUM LEVEL 138 MEQ/L (136-145)
[2020-07-06] MEDS ORDERED: LEVALBUTEROL 1.25 MG/0.5 ML CONCENTRATE NEB NEB PRN (14:00)
[2020-07-06] MEDS ORDERED: NORCO, ANEXSIA 5/325MG TABLET (HYDROcodone/ACETAMINOPHEN) PO PRN (14:00)
[2020-07-06] MEDS ORDERED: ACETAMINOPHEN TAB 650MG DOSE (2X325MG) PO PRN (14:00)
[2020-07-06 14:05] LABS: ABG HCO3 22.7 MEQ/L (22.0-26.0); ABG O2 LITER FLOW 3; ABG O2 SATURATION 84.9 % (95.0-99.0); ABG PARTIAL PRESSURE CO2 43.3 mmHg (35.0-45.0); ABG PARTIAL PRESSURE O2 52.1 mmHg (75.0-100.0); ABG PATIENT RESP RATE 18 /MIN; ABG SITE ART LINE; ABG STANDARD HCO3 21.7 MEQ/L (22.0-26.0); ABG TOTAL CO2 24.1 MEQ/L (23.0-31.0); ABG pH (ARTERIAL) 7.338 UNITS (7.350-7.450)
[2020-07-06] MEDS ORDERED: LR 1,000 ML IV SCH (14:05)
[2020-07-06] MEDS ORDERED: oxyCODONE 5MG TAB PO PRN (14:05)
[2020-07-06] MEDS ORDERED: SODIUM BICARBONATE 8.4% INJ 50 ML SYRINGE IV ONE (14:30)
[2020-07-06] MEDS: KETOROLAC 30 MG/ML 1ML VIAL IV SCH ×2 (14:48→20:29)
[2020-07-06] MEDS: D5W/0.9% SODIUM CHLORIDE 1,000 ML IV SCH (15:35)
[2020-07-06] MEDS ORDERED: HumaLOG INSULIN (NovoLOG) PER UNIT SC SCH (17:30)
[2020-07-06] MEDS: HumaLOG INSULIN (NovoLOG) PER UNIT SC SCH (17:54)
[2020-07-06] MEDS: LEVALBUTEROL 1.25 MG/0.5 ML CONCENTRATE NEB NEB SCH ×2 (18:00→19:49)
[2020-07-06] MEDS: HEPARIN SOD (PORCINE) 5000UNITS/ML 1ML VIAL/SYRINGE SC SCH (20:28)
[2020-07-06] MEDS: carBAMazepine 200MG TABLET PO SCH (20:28)
[2020-07-06] MEDS: DOCUSATE SODIUM 100MG CAPSULE PO SCH (20:28)
[2020-07-06] MEDS: METOPROLOL TART 25 MG TABLET PO SCH (20:29)
[2020-07-07] VITALS (14 sets, daily range): BP systolic 93–232; BP diastolic 50–137
[2020-07-07] MEDS: LEVALBUTEROL 1.25 MG/0.5 ML CONCENTRATE NEB NEB SCH ×4 (01:52→19:38)
[2020-07-07] MEDS: KETOROLAC 30 MG/ML 1ML VIAL IV SCH ×4 (02:57→20:08)
[2020-07-07 04:43] LABS: BLOOD UREA NITROGEN 18 MG/DL (7-18); CALCIUM LEVEL 7.2 MG/DL (8.8-10.2); CARBON DIOXIDE LEVEL 28 MEQ/L (21-32); CHLORIDE LEVEL 110 MEQ/L (98-107); CREATININE FOR GFR 0.75 MG/DL (0.55-1.30); GLOMERULAR FILTRATION RATE > 60.0 (>45); GLUCOSE, FASTING 164 MG/DL (70-100); POTASSIUM SERUM 3.7 MEQ/L (3.5-5.1); SODIUM LEVEL 142 MEQ/L (136-145)
[2020-07-07 04:49] LABS: BASO # 0.1 10^3/uL (0.0-0.2); BASO % 0.6 % (0.0-1.0); EOS # 0.1 10^3/uL (0.0-0.5); EOS % 0.8 % (0.0-3.0); HEMATOCRIT 35.9 % (36.0-47.0); HEMOGLOBIN 11.8 g/dl (12.0-15.5); LYMPH # 1.1 10^3/uL (1.5-5.0); LYMPH % 12.2 % (24.0-44.0); MEAN CORPUSCULAR HEMOGLOBIN 30.6 pg (27.0-33.0); MEAN CORPUSCULAR HGB CONC 32.9 g/dl (32.0-36.5); MONO # 0.7 10^3/uL (0.0-0.8); MONO % 7.6 % (2.0-8.0); NEUTROPHILS # 6.8 10^3/uL (1.5-8.5); NEUTROPHILS % 78.5 % (36.0-66.0); PLATELET COUNT, AUTOMATED 218 10^3/uL (150-450); RED BLOOD COUNT 3.86 10^6/uL (4.00-5.40); WHITE BLOOD COUNT 8.7 10^3/uL (4.0-10.0)
[2020-07-07] MEDS: D5W/0.9% SODIUM CHLORIDE 1,000 ML IV SCH ×2 (04:53→16:40)
[2020-07-07 05:43] LABS: ABG BASE EXCESS -1.9 (-2.0-2.0); ABG HCO3 22.3 MEQ/L (22.0-26.0); ABG O2 SATURATION 96.5 % (95.0-99.0); ABG PARTIAL PRESSURE CO2 36.1 mmHg (35.0-45.0); ABG PARTIAL PRESSURE O2 84.8 mmHg (75.0-100.0); ABG STANDARD HCO3 22.9 MEQ/L (22.0-26.0); ABG TOTAL CO2 23.4 MEQ/L (23.0-31.0); ABG pH (ARTERIAL) 7.409 UNITS (7.350-7.450)
[2020-07-07] MEDS: HumaLOG INSULIN (NovoLOG) PER UNIT SC SCH ×5 (05:43→20:11)
[2020-07-07] MEDS ORDERED: FUROSEMIDE 40MG/4ML VIAL (J1940) IV ONE (06:10)
[2020-07-07] MEDS ORDERED: **hydrALAZINE HCL** 25 MG TAB PO SCH ×2 (06:10→09:00)
--- NOTE | 2020-07-07 08:16 | REP ---
INDICATION: sp RLL resection. COMPARISON: 07/06/2020. TECHNIQUE: Upright PA and lateral chest. FINDINGS: There are 2 right thoracotomy tubes, unchanged. There is no pneumothorax. There is no pleural effusion. There is a tiny volume of subcutaneous emphysema along the right lateral chest wall inferiorly, slightly decreased. The interstitial coarsening identified previously has improved. The epidural catheter is unchanged. Cardiac size is normal. IMPRESSION: The diffuse interstitial coarsening on the comparison study has improved. There is no other significant interval change. <Electronically signed by Broderick Knott > 07/07/20 [id number]
[2020-07-07] MEDS: metFORMIN (GLUCOPHAGE) 500MG TAB PO SCH ×2 (09:11→18:39)
[2020-07-07] MEDS: EZETIMIBE 10 MG TAB (ZETIA) PO SCH (09:12)
[2020-07-07] MEDS: MONTELUKAST 10 MG TAB PO SCH (09:12)
[2020-07-07] MEDS: ASPIRIN 81 MG CHEW TABLET PO SCH (09:12)
[2020-07-07] MEDS: DOCUSATE SODIUM 100MG CAPSULE PO SCH ×2 (09:12→20:09)
[2020-07-07] MEDS: PANTOPRAZOLE 40MG TAB (PROTONIX) PO SCH (09:12)
[2020-07-07] MEDS: ISOSORBIDE MON. (IMDUR) 30 MG XR TAB PO SCH (09:12)
[2020-07-07] MEDS: PREGABALIN 50 MG CAP (LYRICA) PO SCH ×2 (09:13→20:09)
[2020-07-07] MEDS: carBAMazepine 200MG TABLET PO SCH ×2 (09:13→20:07)
[2020-07-07] MEDS: METOPROLOL TART 50 MG TAB PO SCH (09:13)
[2020-07-07] MEDS: MOM 30ML SUSPENSION UDC PO SCH (09:13)
[2020-07-07] MEDS: HEPARIN SOD (PORCINE) 5000UNITS/ML 1ML VIAL/SYRINGE SC SCH ×2 (09:14→20:07)
[2020-07-07] MEDS ORDERED: GLUCAGON INJ 1MG VIAL SC PRN (11:50)
[2020-07-07] MEDS ORDERED: GLUCOSE 4GM CHEW TABLET PO PRN (11:50)
[2020-07-07] MEDS ORDERED: DEXTROSE 50% 50 ML SYRINGE IV PRN (11:50)
[2020-07-07] MEDS: METOCLOPRAMIDE INJ 10MG/2ML VIAL (J2765 PER 1) IV SCH ×2 (13:22→18:38)
[2020-07-07] MEDS: FENTANYL/BUPIVACAINE/NACL BAG 250 ML EPIDURAL SCH (13:29)
--- NOTE | 2020-07-07 15:16 | IPN ---
PROGRESS NOTE DATE: 07/07/2020 SUBJECTIVE: This is the first postoperative day for Mrs. Sidhu who has had a stable night after surgery. She was hypertensive last night. OBJECTIVE: VITAL SIGNS: Now show a T-max of 98.2 with a heart rate that ranges between 82 and 107 in sinus rhythm. Respiratory rate of 18 to 24 without the use of accessory muscles who is 93% to 98% saturated on 4 liters nasal cannula and whose blood pressure is ranging between 146/58 to 191/75. INTAKE AND OUTPUT: Over the past 24 hours has been recorded as 2129 in and 980 out for a positivity of 1149 mL. She put 95 mL out the chest tube. Her weight today is 87.6 kg compared to 81 kg yesterday. RESPIRATORY: She has equal breath sounds on either side. There are some scattered rhonchi most of which clear with coughing. Percussion notes are full to the diaphragm. CARDIAC: Without murmurs, clicks, gallops, or rubs. I cannot feel her PMI. S1 and S2 are normal. ABDOMEN: Soft and nontender. Bowel sounds are positive; however, she is tympanitic and distended. She does not complain of abdominal pain. EXTREMITIES: Show no pretibial edema. No calf tenderness. No differential swelling of the upper extremities. SKIN: Warm, dry, and perfused without cyanosis or mottling, including that of the nail beds and knees. NECK: Supple. There is no jugular venous distention. No subcutaneous emphysema. Trachea is midline. MOUTH: Shows the mucous membranes to be pink and moist. Lips and commisures are without lesions and no thrush. EYES: Show her pupils equal and reactive. Extraocular movements are intact. Sclerae nonicteric. NEUROLOGIC: Shows II through XII intact. Normal gross motor, gross sensation intact. Gait is not tested. PSYCHIATRIC: Shows her to be awake, alert, and oriented x3 with appropriate mood and affect and conversational. LABORATORY DATA: Her white count today is 8.7 with hemoglobin and hematocrit of 11.8 and 35.9 down from 13 and 40.1 yesterday secondary to hemodilution. Platelet count is 218,000 and differential shows 78% neutrophils, 12% lymphocytes, and 6% monocytes. There are no immature forms and no toxic granulations. IMAGING DATA: Her chest x-ray today shows her lungs fully expand to the chest wall. Costophrenic angles are sharp and there are no infiltrates. Chest tube is in a good place. Her film shows no posterior infiltrates. I have informed Mrs. Sidhu of her diagnosis. We are awaiting final pathology of the lymph nodes. IMPRESSION: 1. 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 2. Hypertension. 3. Peripheral vascular disease. 4. Chronic back pain. 5. Chronic obstructive pulmonary disease (COPD). 6. Postoperative day #1 status post wedge resection. PLAN AND DISCUSSION: I will discontinue her chest tube suction today. I will also diurese her. I have started her on Apresoline once again and also her Lyrica. I will keep her in the ICU overnight. If all goes well, I plan to place her in the PCU tomorrow.
[2020-07-07] MEDS: METOPROLOL TART 25 MG TABLET PO SCH (21:00)
[2020-07-08] VITALS (7 sets, daily range): BP systolic 102–157; BP diastolic 51–89; O2SAT 96
[2020-07-08] MEDS: METOCLOPRAMIDE INJ 10MG/2ML VIAL (J2765 PER 1) IV SCH ×4 (00:08→17:33)
[2020-07-08] MEDS: LEVALBUTEROL 1.25 MG/0.5 ML CONCENTRATE NEB NEB SCH ×4 (01:21→20:06)
[2020-07-08] MEDS: KETOROLAC 30 MG/ML 1ML VIAL IV SCH ×4 (02:49→21:07)
[2020-07-08 04:49] LABS: BASO % 0.3 % (0.0-1.0); EOS # 0.2 10^3/uL (0.0-0.5); EOS % 2.5 % (0.0-3.0); HEMATOCRIT 34.8 % (36.0-47.0); HEMOGLOBIN 11.4 g/dl (12.0-15.5); LYMPH % 10.3 % (24.0-44.0); MEAN CORPUSCULAR HEMOGLOBIN 30.2 pg (27.0-33.0); MEAN CORPUSCULAR HGB CONC 32.8 g/dl (32.0-36.5); MEAN CORPUSCULAR VOLUME 92.1 fl (80.0-96.0); MONO # 0.7 10^3/uL (0.0-0.8); MONO % 7.8 % (2.0-8.0); NEUTROPHILS # 7.4 10^3/uL (1.5-8.5); NEUTROPHILS % 78.7 % (36.0-66.0); PLATELET COUNT, AUTOMATED 193 10^3/uL (150-450); RED BLOOD COUNT 3.78 10^6/uL (4.00-5.40); WHITE BLOOD COUNT 9.3 10^3/uL (4.0-10.0)
[2020-07-08 05:18] LABS: CALCIUM LEVEL 7.9 MG/DL (8.8-10.2); CREATININE FOR GFR 0.99 MG/DL (0.55-1.30); GLOMERULAR FILTRATION RATE 59.2 (>45); POTASSIUM SERUM 3.7 MEQ/L (3.5-5.1)
--- NOTE | 2020-07-08 07:55 | REP ---
INDICATION: sp RLL resection. COMPARISON: 07/07/2020 TECHNIQUE: PA and lateral chest FINDINGS: The 2 right thoracotomy tubes are unchanged. There is a small right apical pneumothorax as an interval change. The subcutaneous emphysema along the right lateral chest wall has resolved. The lung belle are clear. Cardiac size is normal. The epidural catheter is unchanged. IMPRESSION: Small right apical pneumothorax. The 2 right thoracotomy tubes are unchanged. The subcutaneous emphysema along the right lateral chest wall has resolved. <Electronically signed by Broderick Knott > 07/08/20 0756
[2020-07-08] MEDS: HumaLOG INSULIN (NovoLOG) PER UNIT SC SCH ×4 (08:03→21:00)
[2020-07-08] MEDS: MOM 30ML SUSPENSION UDC PO SCH (08:03)
[2020-07-08] MEDS: EZETIMIBE 10 MG TAB (ZETIA) PO SCH (08:04)
[2020-07-08] MEDS: HEPARIN SOD (PORCINE) 5000UNITS/ML 1ML VIAL/SYRINGE SC SCH ×2 (08:04→21:06)
[2020-07-08] MEDS: carBAMazepine 200MG TABLET PO SCH ×2 (08:04→21:05)
[2020-07-08] MEDS: DOCUSATE SODIUM 100MG CAPSULE PO SCH ×2 (08:05→21:04)
[2020-07-08] MEDS: ISOSORBIDE MON. (IMDUR) 30 MG XR TAB PO SCH (08:05)
[2020-07-08] MEDS: metFORMIN (GLUCOPHAGE) 500MG TAB PO SCH ×2 (08:06→17:34)
[2020-07-08] MEDS: ASPIRIN 81 MG CHEW TABLET PO SCH (08:06)
[2020-07-08] MEDS: MONTELUKAST 10 MG TAB PO SCH (08:06)
[2020-07-08] MEDS: PANTOPRAZOLE 40MG TAB (PROTONIX) PO SCH (08:07)
[2020-07-08] MEDS: METOPROLOL TART 50 MG TAB PO SCH (08:07)
[2020-07-08] MEDS: PREGABALIN 50 MG CAP (LYRICA) PO SCH ×2 (08:07→21:04)
[2020-07-08] MEDS: **hydrALAZINE HCL** 25 MG TAB PO SCH (08:07)
[2020-07-08] MEDS: FENTANYL/BUPIVACAINE/NACL BAG 250 ML EPIDURAL SCH (11:44)
--- NOTE | 2020-07-08 13:18 | IPN ---
PROGRESS NOTE DATE: 07/08/2020 Ms. Sidhu is doing fairly well with her pain being fairly well controlled, at least at the incision sites, with the epidural. She needed a bolus last night. Her vital signs show a maximum temperature of 97.7 with a heart rate that ranges between 79-107 in a sinus rhythm, respiratory rate of 17-22 without the use of accessory muscles, who is 89%-96% saturated on 2 liters nasal cannula and whose blood pressure is ranging between 151/82 to 109/56. Her intake and output for the past 24 hours has been recorded as 2388 in a 3535 out, for a negativity of 1100 mL. She has put out 260 mL from the chest tube up until midnight. Over the past 24 hours, however, she has put out 190 mL. There is no air leak. PHYSICAL EXAMINATION: Her lungs show equal breath sounds on either side. There is some rhonchi, which clear with coughing. Percussion note is full to the diaphragm. Cardiac exam is without murmurs, clicks, gallops, or rubs. I cannot feel her point of maximal impulse (PMI). S1 and S2 are normal. Abdomen is tympanitic and distended, but she has had a bowel movement, and bowel sounds are positive. Extremities show pretibial edema on the left, which is chronic from her prior surgery, and none on the right. There is no differential swelling of the upper extremities. Skin is warm, dry, and perfused without cyanosis or mottling, including that of the nailbeds and knees. Neck is supple. There is no jugular venous distention. No subcutaneous emphysema. Trachea is midline. Mouth shows the mucous membranes to be pink and moist. Lips and commissures without lesions. No thrush. Eyes show her pupils to be equal and reactive. Extraocular motion intact. Sclerae anicteric. Neurologic shows II-XII intact. Normal gross motor, gross sensation intact. Gait is not tested. Psychiatric shows her to be awake, alert, and oriented times three with appropriate mood and affect and conversational. Her white count today is 9.3 with a hemoglobin and hematocrit of 11.4 and 34.8, respectively. Platelet count is 193. Differential shows 78% neutrophils, 10% lymphocytes, and 7% monocytes. There are no immature forms or toxic granulations. Her electrolytes are normal with a BUN and creatinine of 27 and 0.99, a glucose of 175, and a calcium of 7.9. Her chest x-ray today shows the lung fully expanded to the chest wall. Chest tubes are in good place. There is no subcutaneous emphysema. Costophrenic angles are sharp, and there are no infiltrates, either on the lateral or the posterior film. Her pathology has now been reported back as squamous cell carcinoma with surgical margins free of disease. It measures 1.5 cm. All lymph nodes are negative. This therefore makes her a [id number], or stage IA2. IMPRESSION: 1. Stage IA2 squamous cell carcinoma. 2. Postoperative day #2 status post wedge resection and mediastinoscopy. 3. Hypertension. 4. Peripheral vascular disease. 5. Chronic back pain. 6. Chronic obstructive pulmonary disease. PLAN AND DISCUSSION: I will discontinue her chest tubes today. We will wean her epidural and discontinue her Laird. If all goes well, I will discharge her tomorrow. As she has stage IA2 disease, she will not need adjuvant chemotherapy.
[2020-07-08] MEDS: METOPROLOL TART 25 MG TABLET PO SCH (21:05)
[2020-07-09] VITALS: BP 173/71
[2020-07-09] MEDS: LEVALBUTEROL 1.25 MG/0.5 ML CONCENTRATE NEB NEB SCH ×3 (01:53→14:00)
[2020-07-09 02:00] VITALS: BP 161/71
[2020-07-09] MEDS: KETOROLAC 30 MG/ML 1ML VIAL IV SCH ×2 (02:07→08:21)
[2020-07-09 04:00] VITALS: BP 164/84
[2020-07-09 05:13] LABS: BASO % 0.4 % (0.0-1.0); EOS # 0.5 10^3/uL (0.0-0.5); EOS % 7.1 % (0.0-3.0); HEMATOCRIT 36.8 % (36.0-47.0); HEMOGLOBIN 11.8 g/dl (12.0-15.5); LYMPH # 1.2 10^3/uL (1.5-5.0); LYMPH % 17.5 % (24.0-44.0); MEAN CORPUSCULAR HGB CONC 32.1 g/dl (32.0-36.5); MEAN CORPUSCULAR VOLUME 93.6 fl (80.0-96.0); MONO # 0.6 10^3/uL (0.0-0.8); MONO % 8.9 % (2.0-8.0); NEUTROPHILS # 4.7 10^3/uL (1.5-8.5); NEUTROPHILS % 65.8 % (36.0-66.0); PLATELET COUNT, AUTOMATED 208 10^3/uL (150-450); RED BLOOD COUNT 3.93 10^6/uL (4.00-5.40); WHITE BLOOD COUNT 7.1 10^3/uL (4.0-10.0)
[2020-07-09 05:48] LABS: BLOOD UREA NITROGEN 23 MG/DL (7-18); CALCIUM LEVEL 8.1 MG/DL (8.8-10.2); CARBON DIOXIDE LEVEL 30 MEQ/L (21-32); CHLORIDE LEVEL 108 MEQ/L (98-107); CREATININE FOR GFR 0.71 MG/DL (0.55-1.30); GLOMERULAR FILTRATION RATE > 60.0 (>45); GLUCOSE, FASTING 139 MG/DL (70-100); POTASSIUM SERUM 4.2 MEQ/L (3.5-5.1); SODIUM LEVEL 141 MEQ/L (136-145)
[2020-07-09 06:10] VITALS: BP 192/78
[2020-07-09 07:30] VITALS: BP 155/69
--- NOTE | 2020-07-09 07:52 | REP ---
INDICATION: sp RLL resection. COMPARISON: 07/08/2020 TECHNIQUE: Upright PA and lateral chest. FINDINGS: The 2 right thoracotomy tubes have been removed. The epidural catheter is been removed. The small right apical pneumothorax has resolved. Lung belle are clear. Cardiac size is normal. The rowena, mediastinum, and skeletal structures are unremarkable. IMPRESSION: Essentially negative PA and lateral chest <Electronically signed by Broderick Knott > 07/09/20 0748
[2020-07-09] MEDS: MOM 30ML SUSPENSION UDC PO SCH (08:19)
[2020-07-09] MEDS: carBAMazepine 200MG TABLET PO SCH (08:20)
[2020-07-09] MEDS: DOCUSATE SODIUM 100MG CAPSULE PO SCH (08:21)
[2020-07-09] MEDS: ISOSORBIDE MON. (IMDUR) 30 MG XR TAB PO SCH (08:21)
[2020-07-09] MEDS: PREGABALIN 50 MG CAP (LYRICA) PO SCH (08:22)
[2020-07-09] MEDS: metFORMIN (GLUCOPHAGE) 500MG TAB PO SCH (08:22)
[2020-07-09] MEDS: ASPIRIN 81 MG CHEW TABLET PO SCH (08:22)
[2020-07-09] MEDS: MONTELUKAST 10 MG TAB PO SCH (08:22)
[2020-07-09] MEDS: PANTOPRAZOLE 40MG TAB (PROTONIX) PO SCH (08:22)
[2020-07-09 08:23] VITALS: BP 155/69
[2020-07-09] MEDS: **hydrALAZINE HCL** 25 MG TAB PO SCH (08:23)
[2020-07-09] MEDS: METOPROLOL TART 50 MG TAB PO SCH (08:23)
[2020-07-09] MEDS: EZETIMIBE 10 MG TAB (ZETIA) PO SCH (08:23)
[2020-07-09] MEDS: HEPARIN SOD (PORCINE) 5000UNITS/ML 1ML VIAL/SYRINGE SC SCH (08:24)
[2020-07-09] MEDS: HumaLOG INSULIN (NovoLOG) PER UNIT SC SCH ×2 (08:24→12:00)
[2020-07-09] MEDS ORDERED: FUROSEMIDE 40MG/4ML VIAL (J1940) IV ONE (09:00)
[2020-07-09] MEDS ORDERED: STIO1AER INH (09:33)
--- NOTE | 2020-07-10 17:57 | DSES ---
DISCHARGE SUMMARY DATE OF ADMISSION: 07/06/2020 DATE OF DISCHARGE: 07/09/2020 DISCHARGE DIAGNOSES: 1. Stage IA2 squamous cell carcinoma, left lower lobe. 2. Pelvic pain day #3 status post wedge resection and mediastinoscopy. 3. Hypertension. 4. Peripheral vascular disease. 5. Chronic obstructive pulmonary disease. 6. Chronic back pain. HOSPITAL COURSE: Patient is a 70-year-old white female who was found to have a right lower lobe ground-glass lesion on low dose lung screening exam in 2018, which has been followed and was found to become more solid and grow. Had she not had the CT exam, she would not have known there was something brewing in her chest. She does have known chronic obstructive pulmonary disease (COPD), which is symptomatic with shortness of breath. When initially seeing her in the office, she was so symptomatic with her shortness of breath that she got short of breath walking from her car to the office or even down the alvarez. She had trouble speaking in full sentences. Her pulmonary function tests objectively showed an FEV-1 of 1.57, which is 73% of predicted but with a diffusing capacity for carbon monoxide (DLCO) diffusing capacity of 10.3, which is only 51% of predicted. She was sent for cardiology evaluation, and her left ventricular ejection fraction was 73% with no EKG changes noted on stress testing. Because of her severe symptomatology, I did not think she was clinically a candidate for a lobectomy, and therefore she underwent a wedge resection of the left lower lobe with clear margins, which showed squamous cell carcinoma. A mediastinal node dissection was attempted fluoroscopically but could not be accomplished, as the azygous node was truly beneath the azygous vein, and I did not want to divide that and therefore undertook a mediastinoscopy and removed her azygous node along with other lymph nodes in the mediastinum. These were not sampling procedure but rather extirpative procedures. The entire trachea, including the takeoff of the right and left main bronchi, were clearly seen and evaluated. She had a benign postoperative course with the chest tubes being removed on the second postoperative day. Her pain was well controlled with the epidural. She is being discharged home today on her home medications, which include Proventil two puffs four times a day as needed for wheezing, amlodipine 10 mg daily, aspirin 81 mg daily, carbamazepine 400 mg every morning and 600 mg every night, Plavix 75 mg daily, Jardiance 10 mg daily, ezetimibe 10 mg daily, hydralazine 25 mg daily, her subcutaneous insulin, isosorbide mononitrate extended release 60 mg daily, loratadine 10 mg daily, metformin 850 mg twice a day, metoprolol 25 mg daily and one every morning, 10 mg daily, pregabalin 50 mg twice a day, and Stiolto Respimat two puffs daily. I will see her back in the office in 1 week in postoperative followup. DISCHARGE LABORATORIES: Her discharge hemoglobin and hematocrit are 11.8 and 36.8, respectively with a white count of 7.1, and her electrolytes are normal with a BUN and creatinine of 23 and 0.71. Chest x-ray shows the lung fully expanded to the chest wall.
== END 2020-07-09 15:06 | disposition home or self-care (01) | DRG 165 ==
LOC: M OR 06:34 → M ICU 15:10
PROVIDERS: ADMIT Thoracic Surgery (Cardiothoracic Vascular Surgery); ATTEND Thoracic Surgery (Cardiothoracic Vascular Surgery)
PROC: 0WJC4ZZ Inspection of Mediastinum, Percutaneous Endoscopic Approach (ICD-10-PCS; 2020-07-06)
PROC: 0BBF4ZZ Excision of Right Lower Lung Lobe, Percutaneous Endoscopic Approach (ICD-10-PCS; principal; 2020-07-06 08:30)
DX: C34.31 Malignant neoplasm of lower lobe, right bronchus or lung (principal); I10 Essential (primary) hypertension; J44.9 Chronic obstructive pulmonary disease, unspecified; I73.9 Peripheral vascular disease, unspecified; E11.8 Type 2 diabetes mellitus with unspecified complications; I25.10 Atherosclerotic heart disease of native coronary artery without angina pectoris; Z87.891 Personal history of nicotine dependence

== ENCOUNTER 2020-07-13 15:56 | Inpatient (IN) | payer MEDICARE ==
[~2020-07-13] VITALS: Ht 160 cm; Wt 78.4 kg
[~2020-07-13 15:56] MED LIST changes: +ISOS1TAB36 PO
[2020-07-13] MEDS ORDERED: FUROSEMIDE 40MG/4ML VIAL (J1940) As Ordered ONE (16:24)
[2020-07-13] MEDS ORDERED: dexameTHASONE 20MG/5ML VIAL (J1100 PER 1MG) IV ONE (16:25)
[2020-07-13] MEDS ORDERED: IPRATROPIUM 0.5MG/ALBUTEROL 2.5MG INH SOL UD 3ML (DUONEB) NEB PRN (16:25)
[2020-07-13] MEDS ORDERED: FUROSEMIDE 40MG/4ML VIAL (J1940) IV ONE (16:25)
[2020-07-13] MEDS ORDERED: CEFEPIME HCL 2 GM in D5W MINI-BAG PLUS 50 ML IV ONE (16:35)
--- NOTE | 2020-07-13 16:35 | REP ---
INDICATION: DIFF BREATHING. COMPARISON: PA and lateral chest dated 07/09/2020. TECHNIQUE: Portable AP chest with the patient sitting. FINDINGS: There is no pneumothorax or pleural fluid collection. There is diffuse interstitial coarsening at has increased from the comparison study. Cardiac size is normal. The rowena, mediastinum, and skeletal structures are unremarkable. IMPRESSION: No pneumothorax, focal infiltrate or pleural fluid collection. Diffuse interstitial coarsening that has increased from the prior study. Cardiac size is normal. <Electronically signed by Broderick Knott > 07/13/20 0572
[2020-07-13 16:37] LABS: BASO # 0.1 10^3/uL (0.0-0.2); BASO % 0.8 % (0.0-1.0); EOS # 0.3 10^3/uL (0.0-0.5); HEMOGLOBIN 15.2 g/dl (12.0-15.5); LYMPH # 4.2 10^3/uL (1.5-5.0); MEAN CORPUSCULAR HEMOGLOBIN 30.1 pg (27.0-33.0); MEAN CORPUSCULAR HGB CONC 31.7 g/dl (32.0-36.5); MONO # 1.3 10^3/uL (0.0-0.8); MONO % 7.7 % (2.0-8.0); NEUTROPHILS # 10.7 10^3/uL (1.5-8.5); NEUTROPHILS % 63.8 % (36.0-66.0); PLATELET COUNT, AUTOMATED 504 10^3/uL (150-450); RED BLOOD COUNT 5.05 10^6/uL (4.00-5.40); WHITE BLOOD COUNT 16.8 10^3/uL (4.0-10.0)
[2020-07-13 16:58] LABS: INR 0.8; PARTIAL THROMBOPLASTIN TIME 22.2 SECONDS (24.2-38.5); PROTHROMBIN TIME 11.2 SECONDS (12.5-14.3)
[2020-07-13] MEDS ORDERED: MORPHINE 2 MG/ML 1ML VIAL (J2270) IV ONE (17:05)
[2020-07-13 17:07] LABS: ALBUMIN 3.5 GM/DL (3.2-5.2); ALT/SGPT 40 U/L (12-78); AMYLASE 71 U/L (25-115); BILIRUBIN,DIRECT < 0.1 MG/DL (0.0-0.2); BILIRUBIN,TOTAL 0.2 MG/DL (0.2-1.0); C REACTIVE PROTEIN QUANTITATIV 1.69 MG/DL (0.00-0.30); NT-PRO BNP 7419 PG/ML (<125); TOTAL PROTEIN 7.3 GM/DL (6.4-8.2)
[2020-07-13] MEDS ORDERED: HYDR-3713 PO (17:52)
[2020-07-13] MEDS ORDERED: ATOR80TA59 PO (17:52)
[2020-07-13] MEDS ORDERED: MED REC COMMENT (17:53)
[2020-07-13] MEDS ORDERED: MAALOX 30 ML SUSP *UDC PO PRN (18:00)
[2020-07-13] MEDS ORDERED: DEXTROSE 50% 50 ML SYRINGE IV PRN (18:40)
[2020-07-13] MEDS ORDERED: GLUCOSE 4GM CHEW TABLET PO PRN (18:40)
[2020-07-13] MEDS ORDERED: GLUCAGON INJ 1MG VIAL SC PRN (18:40)
[2020-07-13] MEDS: SYMBICORT 160/4.5MCG INHALER 6GM INH SCH (19:37)
[2020-07-13] MEDS: ALBUTEROL 90 MCG/ACT 8GM HFA INHALER INH SCH (19:37)
[2020-07-13 19:38] LABS: ABG BASE EXCESS -3.1 (-2.0-2.0); ABG HCO3 21.8 MEQ/L (22.0-26.0); ABG O2 SATURATION 94.2 % (95.0-99.0); ABG PARTIAL PRESSURE CO2 38.8 mmHg (35.0-45.0); ABG STANDARD HCO3 21.8 MEQ/L (22.0-26.0); ABG pH (ARTERIAL) 7.368 UNITS (7.350-7.450)
[2020-07-13 20:00] VITALS: BP 146/63
[2020-07-13 21:00] VITALS: BP 143/69
[2020-07-13] MEDS ORDERED: MORPHINE 2 MG/ML 1ML VIAL (J2270) IV PRN (21:00)
[2020-07-13] MEDS: LEVEMIR (INSULIN DETEMIR) 1 UNITS/0.01ML SC SCH (21:00)
[2020-07-13] MEDS: DOCUSATE SODIUM 100MG CAPSULE PO SCH (21:00)
--- NOTE | 2020-07-13 21:21 | ECGEPIP ---
[facility] [place] - ED Test Date: 2020-07-13 Pat Name: ILAN CAMPA Department: Room: - Gender: Female Director Electrical Engineering: quinten : 1950 Requested By: Henry Mcarthur Order Number: [id number] Reading MD: Henry Maria Measurements Intervals [place] Rate: 122 P: 41 VA: 182 QRS: -25 QRSD: 92 T: 144 QT: 342 QTc: 487 Interpretive Statements Sinus tachycardia POOR R WAVE PROGRESSION LVH WITH STRAIN PATTERN RATE CHANGE COMPARED TO 06/28/20 Electronically Signed on 07-13-2020 21:21:08 EDT by Henry Maria
[2020-07-13] MEDS: HumaLOG INSULIN (NovoLOG) PER UNIT SC SCH ×2 (21:30→23:54)
[2020-07-13 21:40] VITALS: BP 149/70
[2020-07-13] MEDS: **hydrALAZINE HCL** 25 MG TAB PO SCH (21:40)
[2020-07-13] MEDS: PREGABALIN 50 MG CAP (LYRICA) PO SCH (21:40)
[2020-07-13] MEDS: carBAMazepine 200MG TABLET PO SCH (21:41)
[2020-07-13] MEDS: FUROSEMIDE 40MG/4ML VIAL (J1940) IV SCH (21:43)
[2020-07-13 22:00] VITALS: BP 135/63
--- NOTE | 2020-07-13 22:21 | HPEPDOC ---
General Date of Admission 07/13/20 Date of Service: Jul 13, 2020 Chief Complaint The patient is a 70-year-old female admitted with a reason for visit of SOB. Source: Patient, RN/MD History of Present Illness 70 year old female with pmh of COPD, smoking, seizure disorder, dm and htn had a right lower lobe wedge resection of the lung for squamous cell cancer and was discharged home on 07/09/20 with home oxygen. Upon returning home she continued to experience episodic SOB inspite of her oxygen. She started using her inhalers more frequently and after discussion with her doctor increased her oxygen from 2 to 3 to 4 liters. Still continued to have periods of severe SOB when she would not be able to catch her breath, have a coughing episode and could not even speak . She was able to break the spells till today when she had such an episode where she was gasping for breath and she could not speak a full sentence. This just continued to worsen even after using her nebs and inhalers and increasing her oxygen so called the EMS. On arrival to ED she was saturating 81% with a nonrebreather. In ED she was found to have pulmonary edema, hypertensive urgency, lacticacidosis. Abg showed acute respiratory failure with hypoxia and hypercarbia. She was very agitated, anxious and getting combative. She was given Morphine 2 mg to calm her down and was put on BIPAP support for acute respiratory failure . On my exam she was calm and quiet on BIPAP was able to talk in short sentences and only in mild distress. She was given a dose of lasix with output of 675 cc. She was also given a dose of dexamethasone, cefepime and nebs. Home Medications Scheduled Amlodipine Besylate (Amlodipine Besylate) 10 Mg Tab, 10 MG PO DAILY, (Reported) Aspirin (Aspirin) 81 Mg Tab.chew, 81 MG PO DAILY, (Reported) Atorvastatin Calcium (Atorvastatin Calcium) 80 Mg Tablet, 80 MG PO DAILY, (Reported) Carbamazepine (Carbamazepine) 200 Mg Tab, 400 MG PO QAM, (Reported) Carbamazepine (Carbamazepine) 200 Mg Tab, 600 MG PO QHS, (Reported) Clopidogrel Bisulfate (Plavix) 75 Mg Tablet, 75 MG PO DAILY, (Reported) Empagliflozin (Jardiance) 10 Mg Tablet, 10 MG PO DAILY, (Reported) Ezetimibe (Ezetimibe) 10 Mg Tablet, 10 MG PO DAILY, (Reported) Hydralazine HCl (Hydralazine HCl) 25 Mg Tablet, 25 MG PO QID, (Reported) Insulin Glargine,Hum.rec.anlog (Toujeo Solostar) 300 Unit/1 Ml Insuln.pen, 20 UNIT SC QPM, (Reported) Insulin Lispro (Humalog Kwikpen U-100) 100 Unit/1 Ml Insuln.pen, 1 DOSE SC AC, (Reported) PER SLIDING SCALE Isosorbide Mononitrate (Isosorbide Mononitrate ER) 60 Mg Tab.er.24h, 60 MG PO DAILY, (Reported) Loratadine (Loratadine) 10 Mg Tablet, 10 MG PO DAILY, (Reported) Metformin HCl (Metformin HCl) 850 Mg Tablet, 850 MG PO BID, (Reported) Metoprolol Tartrate (Metoprolol Tartrate) 25 Mg Tablet, 50 MG PO DAILY, (Reported) Metoprolol Tartrate (Metoprolol Tartrate) 25 Mg Tablet, 25 MG PO QPM, (Reported) Montelukast Sodium (Montelukast Sodium) 10 Mg Tablet, 10 MG PO DAILY, (Reported) Pregabalin (Pregabalin) 50 Mg Capsule, 50 MG PO BID, (Reported) Tiotropium Br/Olodaterol HCl (Stiolto Respimat Inhal Cochrane) 4 Gm Mist.inhal, 2 PUFF INH DAILY, (Reported) Scheduled PRN Albuterol Sulfate (Proventil Hfa) 6.7 Gm Hfa.aer.ad, 2 PUFF INH QID PRN for SOB/WHEEZING, (Reported) Fluticasone Propionate (Fluticasone Propionate) 16 Gm Cochrane.susp, 1 SPRAY NARES DAILY PRN for ALLERGIES, (Reported) Hydrocodone/Acetaminophen (Hydrocodone-Acetamin 5-325 mg) 1 Each Tablet, 1 TAB PO Q6H PRN for PAIN, (Reported) MDD 4 Miscellaneous Medications [Med Rec Comment] , (Reported) UNABLE TO VERIFY WITH PATIENT, LIST OBTAINED FROM [facility] Allergies Coded Allergies: No Known Allergies (Unverified , 11/20/18) Past Medical History Medical History Stage IA2 squamous cell carcinoma, right lower lobe status post wedge resection and mediastinoscopy on 07/06/20 Diabetes Hypertension. Peripheral vascular disease. Chronic obstructive pulmonary disease. Seizure disorder Chronic back pain. 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 SEIZURE DISORDER DVT'S Surgical History FOOT SURGERY 1979 BALLOON Angioplasty LEFT LEG 04/2013 Bilateral FEMORAL ARTERY BYPASS ( right Fem-Fem bypass 2011, Left Fem - pop bypass in 2017) COLONOSCOPY 04/2015 ANGIOGRAM 09/19/18 CHOLECYSTECTOMY 11/2018 Family History FATHER: 62 YRS, [place], HEART DISEASE MOTHER: 94 YRS, STROKE, BROTHER , DM, COLON CANCER METASTATIC TO LIVER, SISTER - , ATRIAL FIB, DIABETES, Social History * Smoker: former Smoker Alcohol: rarely Drugs: denies A-FIB/CHADSVASC A-FIB History Current/History of A-Fib/PAF?: No Review of Systems Constitutional: Reports: Fatigue; Denies: Chills, Fever, Night Sweats Eyes: Denies: Pain, Vision change ENT: Denies: Head Aches, Ear Pain, Dysphagia Skin: Denies: Rash, Lesions, Breakdown Pulmonary: Reports: Dyspnea Cardiovascular: Reports: Orthopnea, Paroxysmal Noc. Dyspnea, Edema Gastrointestinal: Denies: Nausea, Vomiting, Abdominal Pain, Diarrhea Genitourinary: Denies: Dysuria, Frequency, Incontinence, Retention Hematologic: Denies: Bruising, Bleeding Excessively Musculoskeletal: Reports: Back Pain, Leg Pain Physical Examination General Exam: Positive: Alert, Cooperative, Mild Distress Eye Exam: Positive: PERRLA, Conjunctiva & lids normal, EOMI; Negative: Sclera icteric ENT Exam: Positive: Atraumatic, Mucous membr. moist/pink, Pharynx Normal Neck Exam: Positive: Supple, JVD; Negative: thyromegaly Chest Exam: Positive: Diminished (breath sounds bilaterally.), Other (Bilateral crackles. ) Heart Exam: Positive: Tachycardic, Regular Rhythm, Normal S1, Normal S2; Negative: Murmurs, Rubs Abdomen Exam: Positive: Soft, Other (obese); Negative: Tenderness, Hepatospenomegaly Extremity Exam: Positive: Edema, Other (sugical scars both the lower extrem ities. ); Negative: Clubbing, Cyanosis Vital Signs Vital Signs Date Time Temp Pulse Resp B/P (MAP) Pulse Ox O2 Delivery O2 Flow Rate FiO2 07/13/20 17:15 96.6 121 35 169/71 (103) 93 NIPPV (BIPAP/CPAP) 07/13/20 16:40 50 07/13/20 16:02 15.0 Laboratory Data Labs 24H Laboratory Tests 2 07/13/20 16:08: POC Glucose (Misc Panel) 250H, POC Sodium (Misc Panel) 139, POC Potassium (Misc Panel) 3.9, POC Chloride (Misc Panel) 100, POC Total CO2 (Misc Panel) 28.0H, POC Blood Urea Nitrogen (Misc Panel 26, POC Ionized Calcium (Misc Panel) 5.0, POC Creatinine (Misc Panel) 1.2, POC Hematocrit (Misc Panel) 48.0 07/13/20 16:10: POC Troponin I (Misc) 0.10H 07/13/20 16:11: Immature Granulocyte % (Auto) 0.7, Neutrophils (%) (Auto) 63.8, Lymphocytes (%) (Auto) 25.0, Monocytes (%) (Auto) 7.7, Eosinophils (%) (Auto) 2.0, Basophils (%) (Auto) 0.8, Neutrophils # (Auto) 10.7H, Lymphocytes # (Auto) 4.2, Monocytes # (Auto) 1.3H, Eosinophils # (Auto) 0.3, Basophils # (Auto) 0.1, Nucleated Red Blood Cells % (auto) 0.0, Prothrombin Time 11.2L, Prothromb Time International Ratio 0.80, Activated Partial Thromboplast Time 22.2L, Total Bilirubin 0.2, Dir ect Bilirubin < 0.1, Aspartate Amino Transf (AST/SGOT) 35, Alanine Aminotransferase (ALT/SGPT) 40, Alkaline Phosphatase 133H, C-Reactive Protein, Quantitative 1.69H, JD-Grg-N-Type Natriuretic Peptide 7419H, Total Protein 7.3, Albumin 3.5, Albumin/Globulin Ratio 0.9L, Amylase Level 71 07/13/20 16:25: POC Lactate (Misc Panel) 4.12*H 07/13/20 16:29: POC pH (Misc Panel) 7.280L, POC Base Excess (Misc Panel) 0.0, POC Saturated Percent O2 (Misc) 89L, POC pO2 (Misc Panel) 66.0L, POC pCO2 (Misc Panel) 57.8H, POC HCO3 (Misc Panel) 27.2H, POC Total CO2 (Misc Panel) 29.0H CBC/BMP Laboratory Tests 07/13/20 16:11 Microbiology Microbiology 07/13/20 Respiratory Virus Panel (PCR) (JOY), Received Pending 07/13/20 Blood Culture, Received Pending 07/13/20 Blood Culture, Received Pending Assessment/Plan 70 year old female with pmh of COPD, smoking, seizure disorder, dm and htn had a right lower lobe wedge resection of the lung for squamous cell cancer and was discharged home on 07/09/20 with home oxygen. Upon returning home she continued to experience episodic SOB inspite of her oxygen. She started using her inhalers more frequently and after discussion with her doctor increased her oxygen from 2 to 3 to 4 liters. Still continued to have periods of severe SOB when she would not be able to catch her breath, have a coughing episode and could not even speak . She was able to break the spells till today when she had such an episode where she was gasping for breath and she could not speak a full sentence. This just continued to worsen even after using her nebs and inhalers and increasing her oxygen so called the EMS. On arrival to ED she was saturating 81% with a nonrebreather. In ED she was found to have pulmonary edema, hypertensive urgency, lacticacidosis. Abg showed acute respiratory failure with hypoxia and hypercarbia. Acute respiratory failure with hypoxia and hypercarbia due to flash pulmonary edema likely due to diastolic CHF exacerbation we do not have a echo in the system. Will get one from coal [facility] office. Started on BIPAP, IV lasix, NPO diet will continue isosorbide and hydralazine. will wean off BIPAP as soon as ABG improves to reduce the risk of developing pneumothorax as had lung surgery very recently CXR in the am Lacticacidosis due to acute respiratory failure Leucocytosis likely reactive she was given a dose on antibiotic int he ed. If she has fever or wbc continues to be elevated then will order more antibiotics. COPD with exacerbation due to CHF received dexamethasone in the ed will continue with albuterol, symbicort and tiratropium DM with neuropathy levemir and lispro, lyrica. FS q 6 hours. Hypertension metoprolol, amlodipine, hydralazine, isosorbide PAD asa, plavix, statin seizure disorder tegretal. Plan / VTE VTE Prophylaxis Ordered?: Yes HILDA HUTCHISON MD Jul 13, 2020 18:02
[2020-07-13 23:00] VITALS: BP 111/57
[2020-07-13 23:53] LABS: ABG BASE EXCESS 0.4 (-2.0-2.0); ABG HCO3 24.2 MEQ/L (22.0-26.0); ABG O2 SATURATION 97.9 % (95.0-99.0); ABG PARTIAL PRESSURE CO2 36.4 mmHg (35.0-45.0); ABG PARTIAL PRESSURE O2 107.4 mmHg (75.0-100.0); ABG STANDARD HCO3 24.9 MEQ/L (22.0-26.0); ABG TOTAL CO2 25.3 MEQ/L (23.0-31.0); ABG pH (ARTERIAL) 7.441 UNITS (7.350-7.450)
[2020-07-14] VITALS (13 sets, daily range): BP systolic 110–168; BP diastolic 58–77
[2020-07-14] MEDS: ALBUTEROL 90 MCG/ACT 8GM HFA INHALER INH SCH ×6 (00:39→19:30)
[2020-07-14 01:03] LABS: ABG BASE EXCESS -0.4 (-2.0-2.0); ABG HCO3 23.4 MEQ/L (22.0-26.0); ABG O2 SATURATION 93.9 % (95.0-99.0); ABG PARTIAL PRESSURE CO2 35.8 mmHg (35.0-45.0); ABG PARTIAL PRESSURE O2 71.2 mmHg (75.0-100.0); ABG STANDARD HCO3 24.1 MEQ/L (22.0-26.0); ABG TOTAL CO2 24.5 MEQ/L (23.0-31.0); ABG pH (ARTERIAL) 7.433 UNITS (7.350-7.450)
[2020-07-14] MEDS: FUROSEMIDE 40MG/4ML VIAL (J1940) IV SCH ×7 (01:32→23:28)
[2020-07-14 05:18] LABS: BASO % 0.4 % (0.0-1.0); EOS % 0.4 % (0.0-3.0); HEMATOCRIT 38.9 % (36.0-47.0); LYMPH # 1.7 10^3/uL (1.5-5.0); LYMPH % 15.7 % (24.0-44.0); MEAN CORPUSCULAR HEMOGLOBIN 30.4 pg (27.0-33.0); MEAN CORPUSCULAR HGB CONC 33.2 g/dl (32.0-36.5); MEAN CORPUSCULAR VOLUME 91.7 fl (80.0-96.0); MONO # 0.9 10^3/uL (0.0-0.8); MONO % 8.5 % (2.0-8.0); NEUTROPHILS % 74.4 % (36.0-66.0); RED BLOOD COUNT 4.24 10^6/uL (4.00-5.40); WHITE BLOOD COUNT 10.7 10^3/uL (4.0-10.0)
[2020-07-14 05:25] LABS: HEMOGLOBIN 12.9 g/dl (12.0-15.5); PLATELET COUNT, AUTOMATED 361 10^3/uL (150-450)
[2020-07-14 05:44] LABS: CALCIUM LEVEL 8.7 MG/DL (8.8-10.2); CREATININE FOR GFR 1.31 MG/DL (0.55-1.30); GLOMERULAR FILTRATION RATE 42.9 (>45); POTASSIUM SERUM 4.1 MEQ/L (3.5-5.1)
[2020-07-14] MEDS: HumaLOG INSULIN (NovoLOG) PER UNIT SC SCH ×3 (05:49→17:50)
[2020-07-14] MEDS: SYMBICORT 160/4.5MCG INHALER 6GM INH SCH ×2 (07:40→19:30)
[2020-07-14] MEDS: TIOTROPIUM INHALER/CAPSULE (SPIRIVA) INH SCH (07:40)
--- NOTE | 2020-07-14 07:58 | REP ---
INDICATION: SOB. COMPARISON: 07/13/2020. TECHNIQUE: Portable AP chest with the patient semi upright. FINDINGS: The diffuse interstitial coarsening has improved. There are no focal infiltrates. There is mild thickening of the minor fissure, possibly small volume of fluid within the fissure. No other evidence of pleural effusion. Cardiac size is normal. IMPRESSION: The interstitial coarsening has improved. Probable tiny volume of fluid in the minor fissure. <Electronically signed by Broderick Knott > 07/14/20 0754
[2020-07-14] MEDS: MONTELUKAST 10 MG TAB PO SCH (08:54)
[2020-07-14] MEDS: ATORVASTATIN 20 MG TAB PO SCH (08:54)
[2020-07-14] MEDS: **hydrALAZINE HCL** 25 MG TAB PO SCH ×4 (08:54→20:47)
[2020-07-14] MEDS: ASPIRIN 81 MG CHEW TABLET PO SCH (08:54)
[2020-07-14] MEDS: METOPROLOL TART 50 MG TAB PO SCH (08:55)
[2020-07-14] MEDS: ISOSORBIDE MON. (IMDUR) 60 MG XR TAB PO SCH (08:55)
[2020-07-14] MEDS: PREGABALIN 50 MG CAP (LYRICA) PO SCH ×2 (08:55→20:48)
[2020-07-14] MEDS: CLOPIDOGREL 75 MG TAB PO SCH (08:55)
[2020-07-14] MEDS: carBAMazepine 200MG TABLET PO SCH ×2 (08:55→20:47)
[2020-07-14] MEDS: EZETIMIBE 10 MG TAB (ZETIA) PO SCH (08:55)
[2020-07-14] MEDS: DOCUSATE SODIUM 100MG CAPSULE PO SCH ×2 (08:56→20:47)
--- NOTE | 2020-07-14 10:28 | IPNPDOC ---
Subjective Date Seen The patient was seen on 07/14/20. Subjective Chief Complaint/HPI SOB has improved. She is on nasal canula oxygen almost down to home levels. No conversational dyspnea. Objective Physical Examination General Exam: Positive: Alert, Cooperative, No Acute Distress Eye Exam: Positive: PERRLA, Conjunctiva & lids normal, EOMI; Negative: Sclera icteric ENT Exam: Positive: Atraumatic, Mucous membr. moist/pink, Pharynx Normal Neck Exam: Positive: Supple, JVD; Negative: thyromegaly Chest Exam: Positive: Clear to auscultation, Diminished, Other (crackles at the right base) Heart Exam: Positive: Rate Normal, Regular Rhythm, Normal S1, Normal S2; Negative: Murmurs, Rubs Abdomen Exam: Positive: Soft, Other (obese); Negative: Tenderness, Hepatospenomegaly Extremity Exam: Positive: Swelling, Other (sugical scars both the lower extremities. ); Negative: Clubbing, Cyanosis, Edema Assessment /Plan Assessment 70 year old female with pmh of COPD, smoking, seizure disorder, dm and htn had a right lower lobe wedge resection of the lung for squamous cell cancer and was discharged home on 07/09/20 with home oxygen. Upon returning home she continued to experience episodic SOB inspite of her oxygen. She started using her inhalers more frequently and after discussion with her doctor increased her oxygen from 2 to 3 to 4 liters. Still continued to have periods of severe SOB when she would not be able to catch her breath, have a coughing episode and could not even speak . She was able to break the spells till today when she had such an episode where she was gasping for breath and she could not speak a full sentence. This just continued to worsen even after using her nebs and inhalers and increasing her oxygen so called the EMS. On arrival to ED she was saturating 81% with a nonrebreather. In ED she was found to have pulmonary edema, hypertensive urgency, lacticacidosis. Abg showed acute respiratory failure with hypoxia and hypercarbia. Acute respiratory failure with hypoxia and hypercarbia due to flash pulmonary edema likely due to diastolic CHF exacerbation Now resolved. we do not have an echo in the system. Will get one from meter reader chief office. Continue IV lasix, I/o fluid restriction 1.5 liters. will continue isosorbide and hydralazine. Lacticacidosis due to acute respiratory failure resolved Leucocytosis likely reactive she was given a dose on antibiotic in the ed. If she has fever or wbc continues to be elevated then will order more antibiotics. Now improved COPD with exacerbation due to CHF Now resolved received dexamethasone in the ed will continue with albuterol, symbicort and tiratropium DM with neuropathy levemir and lispro, lyrica. FS Ac and HS Hypertension metoprolol, amlodipine, hydralazine, isosorbide PAD asa, plavix, statin seizure disorder tegretal. Plan/VTE VTE Prophylaxis Ordered?: Yes VS, I&O, 24H, Fishbone Vital Signs/I&O Vital Signs Date Time Temp Pulse Resp B/P (MAP) Pulse Ox O2 Delivery O2 Flow Rate FiO2 07/14/20 09:04 88 Nasal Cannula 2.0 07/14/20 08:55 89 07/14/20 08:54 162/70 07/14/20 08:00 98.9 20 07/13/20 21:00 50 I&O- Last 24 Hours up to 6 AM 07/14/20 06:00 Intake Total 140 ml Output Total 2075 ml Balance -1935 ml Laboratory Data 24H LABS Laboratory Tests 2 07/13/20 16:08: POC Glucose (Misc Panel) 250H, POC Sodium (Misc Panel) 139, POC Potassium (Misc Panel) 3.9, POC Chloride (Misc Panel) 100, POC Total CO2 (Misc Panel) 28.0H, POC Blood Urea Nitrogen (Misc Panel 26, POC Ionized Calcium (Misc Panel) 5.0, POC Creatinine (Misc Panel) 1.2, POC Hematocrit (Misc Panel) 48.0 07/13/20 16:10: POC Troponin I (Misc) 0.10H 07/13/20 16:11: Immature Granulocyte % (Auto) 0.7, Neutrophils (%) (Auto) 63.8, Lymphocytes (%) (Auto) 25.0, Monocytes (%) (Auto) 7.7, Eosinophils (%) (Auto) 2.0, Basophils (%) (Auto) 0.8, Neutrophils # (Auto) 10.7H, Lymphocytes # (Auto) 4.2, Monocytes # (Auto) 1.3H, Eosinophils # (Auto) 0.3, Basophils # (Auto) 0.1, Nucleated Red Blood Cells % (auto) 0.0, Prothrombin Time 11.2L, Prothromb Time International Ratio 0.80, Activated Partial Thromboplast Time 22.2L, Total Bilirubin 0.2, Direct Bilirubin < 0.1, Aspartate Amino Transf (AST/SGOT) 35, Alanine Aminotransferase (ALT/SGPT) 40, Alkaline Phosphatase 133H, Troponin I 0.20H, C- Reactive Protein, Quantitative 1.69H, QJ-Csy-J-Type Natriuretic Peptide 7419H, Total Protein 7.3, Albumin 3.5, Albumin/Globulin Ratio 0.9L, Amylase Level 71 07/13/20 16:25: POC Lactate (Misc Panel) 4.12*H 07/13/20 16:29: POC pH (Misc Panel) 7.280L, POC Base Excess (Misc Panel) 0.0, POC Saturated Percent O2 (Misc) 89L, POC pO2 (Misc Panel) 66.0L, POC pCO2 (Misc Panel) 57.8H, POC HCO3 (Misc Panel) 27.2H, POC Total CO2 (Misc Panel) 29.0H 07/13/20 19:20: Blood Gas Bicarbonate Standard 21.8L, Arterial Blood pH 7.368, Arterial Blood Partial Pressure CO2 38.8, Arterial Blood Partial Pressure O2 77.0, Arterial Blood Total CO2 23.0, Arterial Blood HCO3 21.8L, Arterial Blood Base Excess - 3.1L, Arterial Blood Oxygen Saturation 94.2L 07/13/20 20:53: Bedside Glucose (Misc Panel) 171H 07/13/20 21:05: Lactic Acid Followup at 4 Hours 1.9 07/13/20 23:40: Blood Gas Bicarbonate Standard 24.9, Arterial Blood pH 7.441, Arterial Blood Partial Pressure CO2 36.4, Arterial Blood Partial Pressure O2 107.4H, Arterial Blood Total CO2 25.3, Arterial Blood HCO3 24.2, Arterial Blood Base Excess 0.4, Arterial Blood Oxygen Saturation 97.9 07/13/20 23:49: Lactic Acid Level 1.4, Troponin I 0.41#H 07/13/20 23:52: Bedside Glucose (Misc Panel) 155H 07/14/20 00:50: Blood Gas Bicarbonate Standard 24.1, Arterial Blood pH 7.433, Arterial Blood Partial Pressure CO2 35.8, Arterial Blood Partial Pressure O2 71.2L, Arterial Blood Total CO2 24.5, Arterial Blood HCO3 23.4, Arterial Blood Base Excess -0.4, Arterial Blood Oxygen Saturation 93.9L 07/14/20 04:35: Immature Granulocyte % (Auto) 0.6, Neutrophils (%) (Auto) 74.4H, Lymphocytes (%) (Auto) 15.7L, Monocytes (%) (Auto) 8.5H, Eosinophils (%) (Auto) 0.4, Basophils (%) (Auto) 0.4, Neutrophils # (Auto) 8.0, Lymphocytes # (Auto) 1.7, Monocytes # (Auto) 0.9H, Eosinophils # (Auto) 0.0, Basophils # (Auto) 0.0, Nucleated Red Blood Cells % (auto) 0.0, Anion Gap 8, Glomerular Filtration Rate 42.9L, Calcium Level 8.7L 07/14/20 05:46: Bedside Glucose (Misc Panel) 115 CBC/BMP Laboratory Tests 07/13/20 16:11 07/14/20 04:35 Microbiology Microbiology 07/13/20 Respiratory Virus Panel (PCR) (JOY) - Final, Complete 07/13/20 Blood Culture, Received Pending 07/13/20 Blood Culture, Received Pending HILDA HUTCHISON MD Jul 14, 2020 10:28
[2020-07-14] MEDS ORDERED: LORazepam 0.5 MG TAB PO ONE (14:15)
[2020-07-14] MEDS: NORCO, ANEXSIA 5/325MG TABLET (HYDROcodone/ACETAMINOPHEN) PO PRN (20:46)
[2020-07-14] MEDS ORDERED: HumaLOG INSULIN (NovoLOG) PER UNIT SC SCH (21:00)
[2020-07-14] MEDS ORDERED: METOPROLOL TART 25 MG TABLET PO SCH (21:00)
[2020-07-14] MEDS: LEVEMIR (INSULIN DETEMIR) 1 UNITS/0.01ML SC SCH (21:48)
[2020-07-15] VITALS: BP 151/70
[2020-07-15] MEDS: ALBUTEROL 90 MCG/ACT 8GM HFA INHALER INH SCH ×4 (00:19→11:11)
[2020-07-15] MEDS: FUROSEMIDE 40MG/4ML VIAL (J1940) IV SCH (03:45)
[2020-07-15] MEDS: NORCO, ANEXSIA 5/325MG TABLET (HYDROcodone/ACETAMINOPHEN) PO PRN ×2 (03:49→12:54)
[2020-07-15 03:55] VITALS: BP 154/66
[2020-07-15 05:27] LABS: BASO # 0.1 10^3/uL (0.0-0.2); BASO % 0.8 % (0.0-1.0); EOS # 0.3 10^3/uL (0.0-0.5); EOS % 2.4 % (0.0-3.0); HEMATOCRIT 41.6 % (36.0-47.0); HEMOGLOBIN 13.5 g/dl (12.0-15.5); LYMPH # 2.2 10^3/uL (1.5-5.0); LYMPH % 20.1 % (24.0-44.0); MEAN CORPUSCULAR HEMOGLOBIN 29.5 pg (27.0-33.0); MEAN CORPUSCULAR HGB CONC 32.5 g/dl (32.0-36.5); MONO # 0.9 10^3/uL (0.0-0.8); MONO % 8.3 % (2.0-8.0); NEUTROPHILS # 7.4 10^3/uL (1.5-8.5); NEUTROPHILS % 67.9 % (36.0-66.0); PLATELET COUNT, AUTOMATED 436 10^3/uL (150-450); RED BLOOD COUNT 4.57 10^6/uL (4.00-5.40); WHITE BLOOD COUNT 10.9 10^3/uL (4.0-10.0)
[2020-07-15 05:54] LABS: CREATININE FOR GFR 1.68 MG/DL (0.55-1.30); GLOMERULAR FILTRATION RATE 32.2 (>45); POTASSIUM SERUM 3.7 MEQ/L (3.5-5.1)
[2020-07-15] MEDS: HumaLOG INSULIN (NovoLOG) PER UNIT SC SCH ×2 (07:44→12:50)
[2020-07-15] MEDS: TIOTROPIUM INHALER/CAPSULE (SPIRIVA) INH SCH (07:54)
[2020-07-15] MEDS: SYMBICORT 160/4.5MCG INHALER 6GM INH SCH (07:55)
[2020-07-15 08:00] VITALS: BP 142/63
[2020-07-15] MEDS: ATORVASTATIN 20 MG TAB PO SCH (08:22)
[2020-07-15] MEDS: ASPIRIN 81 MG CHEW TABLET PO SCH (08:22)
[2020-07-15] MEDS: CLOPIDOGREL 75 MG TAB PO SCH (08:22)
[2020-07-15] MEDS: METOPROLOL TART 50 MG TAB PO SCH (08:23)
[2020-07-15] MEDS: PREGABALIN 50 MG CAP (LYRICA) PO SCH (08:24)
[2020-07-15] MEDS: **hydrALAZINE HCL** 25 MG TAB PO SCH ×2 (08:24→12:50)
[2020-07-15] MEDS: EZETIMIBE 10 MG TAB (ZETIA) PO SCH (08:24)
[2020-07-15] MEDS: MONTELUKAST 10 MG TAB PO SCH (08:24)
[2020-07-15] MEDS: ISOSORBIDE MON. (IMDUR) 60 MG XR TAB PO SCH (08:24)
[2020-07-15] MEDS: carBAMazepine 200MG TABLET PO SCH (08:25)
[2020-07-15] MEDS: DOCUSATE SODIUM 100MG CAPSULE PO SCH (08:25)
[2020-07-15] MEDS ORDERED: dexameTHASONE 20MG/5ML VIAL (J1100 PER 1MG) IV ONE (08:35)
[2020-07-15] MEDS ORDERED: TORSEMIDE 20 MG TAB PO SCH (09:00)
[2020-07-15 12:00] VITALS: BP 132/63
[2020-07-15] MEDS ORDERED: TORS20TA2 PO (12:24)
[2020-07-15] MEDS ORDERED: PRED20TA PO (12:24)
[2020-07-15 12:50] VITALS: BP 132/63
--- NOTE | 2020-07-26 00:32 | DS.PDOC ---
Discharge Summary General Date of Admission Jul 13, 2020 at 17:57 Date of Discharge 07/15/20 Discharge Summary PROCEDURES PERFORMED DURING STAY: [None]. 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 Chronic respiratory failure on home oxygen after surgery 2 to 3 liters. Diabetes with neuropathy Hypertension. Peripheral vascular disease s/p angioplasties in both legs, now s/p bypasses in both legs. Seizure disorder Chronic back pain. 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 HOSPITAL COURSE: 70 year old female with pmh of COPD, smoking, seizure disorder, dm and htn had a right lower lobe wedge resection of the lung for squamous cell cancer and was discharged home on 07/09/20 with home oxygen. Upon returning home she continued to experience episodic SOB inspite of her oxygen. She started using her inhalers more frequently and after discussion with her doctor increased her oxygen from 2 to 3 to 4 liters. Still continued to have periods of severe SOB when she would not be able to catch her breath, have a coughing adn wheezing and could not even speak . She was able to break the spells till today when she had such an episode where she was gasping for breath and she could not speak a full sentence. However this time it just continued to worsen even after using her nebs and inhalers and increasing her oxygen so called the EMS. On arrival to ED she was saturating 81% with a nonrebreather. In ED she was found to have pulmonary edema, hypertensive urgency, lacticacidosis. Abg showed acute respiratory failure with hypoxia and hypercarbia. Acute respiratory failure with hypoxia and hypercarbia due to flash pulmonary edema likely due to diastolic CHF exacerbation Now resolved. Required BIPAP support for a few hours. will continue isosorbide and hydralazine. Home with oxygen Stridor Noted during hospitalization She did have tracheal instrumentation during her wedge resection of lung 1 week ago She may have been having episodes of stridor at home also. This could have precipitated her acute respiratory failure received Dexamethasone in hospital will dc home with short course of prednisone Lacticacidosis due to acute respiratory failure resolved Leucocytosis likely reactive Now improved COPD with exacerbation due to CHF Now resolved received dexamethasone in the ed will continue with albuterol, symbicort and tiratropium DM with neuropathy levemir and lispro, lyrica. FS Ac and HS Hypertension metoprolol, amlodipine, hydralazine, isosorbide PAD asa, plavix, statin seizure disorder tegretal. DISCHARGE MEDICATIONS: Please see below. ALLERGIES: Please see below. PHYSICAL EXAMINATION ON DISCHARGE: VITAL SIGNS: Please see below. General Exam: Positive: Alert, Cooperative, No Acute Distress Eye Exam: Positive: PERRLA, Conjunctiva & lids normal, EOMI; Negative: Sclera icteric ENT Exam: Positive: Atraumatic, Mucous membr. moist/pink, Pharynx Normal Neck Exam: Positive: Supple, JVD; Negative: thyromegaly Chest Exam: Positive: Clear to auscultation, Diminished, Other (crackles at the right base) Heart Exam: Positive: Rate Normal, Regular Rhythm, Normal S1, Normal S2; Negative: Murmurs, Rubs Abdomen Exam: Positive: Soft, Other (obese); Negative: Tenderness, Hepatosplenomegaly Extremity Exam: Positive: Swelling, Other (surgical scars both the lower extremities. ); Negative: Clubbing, Cyanosis, Edema LABORATORY DATA: Please see below. IMAGING: CXR; No pneumothorax, focal infiltrate or pleural fluid collection. Diffuse interstitial coarsening that has increased from the prior study. Cardiac size is normal. ACTIVITY: [As tolerated]. DIET: Carb consistent diet, fluid restriction 1.8 liters. DISCHARGE PLAN: Home DISPOSITION: 01 Home, Self-Care. DISCHARGE INSTRUCTIONS: Follow up with Dr Mccarthy on 07/18/20 PMD in 2 weeks DISCHARGE CONDITION: [Stable]. TIME SPENT ON DISCHARGE: 40 minutes. Vital Signs/I&Os Vital Signs Label Value Date Time Patient Temperature 97.2 degrees F 07/15/20 1200 Temperature Source Temporal 07/15/20 1200 Pulse 90 07/15/20 0823 Respiratory Rate 22 bpm 07/15/20 1200 Blood Pressure Assessment 132/63 (86) 07/15/20 1200 Bedside Pulse Oximetry 94 % 07/15/20 1200 Item Value Date Time Oxygen Delivery Method Nasal Cannula 07/15/20 1200 Oxygen Flow Rate 2.0 L/min 07/15/20 1200 Oxygen Flow Rate 2.0 L/min 07/15/20 1200 Discharge Medications Scheduled Amlodipine Besylate (Amlodipine Besylate) 10 Mg Tab, 10 MG PO DAILY, (Reported) Aspirin (Aspirin) 81 Mg Tab.chew, 81 MG PO DAILY, (Reported) Atorvastatin Calcium (Atorvastatin Calcium) 80 Mg Tablet, 80 MG PO DAILY, (Reported) Carbamazepine (Carbamazepine) 200 Mg Tab, 400 MG PO QAM, (Reported) Carbamazepine (Carbamazepine) 200 Mg Tab, 600 MG PO QHS, (Reported) Clopidogrel Bisulfate (Plavix) 75 Mg Tablet, 75 MG PO DAILY, (Reported) Empagliflozin (Jardiance) 10 Mg Tablet, 10 MG PO DAILY, (Reported) Ezetimibe (Ezetimibe) 10 Mg Tablet, 10 MG PO DAILY, (Reported) Hydralazine HCl (Hydralazine HCl) 25 Mg Tablet, 25 MG PO QID, (Reported) Insulin Glargine,Hum.rec.anlog (Toujeo Solostar) 300 Unit/1 Ml Insuln.pen, 20 UNIT SC QPM, (Reported) Insulin Lispro (Humalog Kwikpen U-100) 100 Unit/1 Ml Insuln.pen, 1 DOSE SC AC, (Reported) PER SLIDING SCALE Isosorbide Mononitrate (Isosorbide Mononitrate ER) 60 Mg Tab.er.24h, 60 MG PO DAILY, (Reported) Loratadine (Loratadine) 10 Mg Tablet, 10 MG PO DAILY, (Reported) Metformin HCl (Metformin HCl) 850 Mg Tablet, 850 MG PO BID, (Reported) Metoprolol Tartrate (Metoprolol Tartrate) 25 Mg Tablet, 50 MG PO DAILY, (Reported) Metoprolol Tartrate (Metoprolol Tartrate) 25 Mg Tablet, 25 MG PO QPM, (Reported) Montelukast Sodium (Montelukast Sodium) 10 Mg Tablet, 10 MG PO DAILY, (Reported) Prednisone (Prednisone) 20 Mg Tablet, 40 MG PO DAILY Pregabalin (Pregabalin) 50 Mg Capsule, 50 MG PO BID, (Reported) Tiotropium Br/Olodaterol HCl (Stiolto Respimat Inhal [place]) 4 Gm Mist.inhal, 2 PUFF INH DAILY, (Reported) Torsemide (Torsemide) 20 Mg Tablet, 20 MG PO DAILY Scheduled PRN Albuterol Sulfate (Proventil Hfa) 6.7 Gm Hfa.aer.ad, 2 PUFF INH QID PRN for SOB/WHEEZING, (Reported) Fluticasone Propionate (Fluticasone Propionate) 16 Gm [place].susp, 1 SPRAY NARES DAILY PRN for ALLERGIES, (Reported) Hydrocodone/Acetaminophen (Hydrocodone-Acetamin 5-325 mg) 1 Each Tablet, 1 TAB PO Q6H PRN for PAIN, (Reported) MDD 4 Miscellaneous Medications [Med Rec Comment] , (Reported) UNABLE TO VERIFY WITH PATIENT, LIST OBTAINED FROM [facility] Allergies Coded Allergies: No Known Allergies (Unverified , 11/20/18) HILDA HUTCHISON MD Jul 26, 2020 00:32
== END 2020-07-15 15:10 | disposition home or self-care (01) | DRG 291 ==
LOC: M ED 15:56 → M ED INP 17:57 → ENRESERV 18:17 → M ICU 20:07
PROVIDERS: ADMIT Internal Medicine Nephrology; ATTEND Internal Medicine Nephrology
DX: I11.0 Hypertensive heart disease with heart failure (principal); J96.02 Acute respiratory failure with hypercapnia; J96.01 Acute respiratory failure with hypoxia; J81.0 Acute pulmonary edema; C34.31 Malignant neoplasm of lower lobe, right bronchus or lung; J44.1 Chronic obstructive pulmonary disease with (acute) exacerbation; E87.2 Acidosis; I50.33 Acute on chronic diastolic (congestive) heart failure; G40.909 Epilepsy, unspecified, not intractable, without status epilepticus; E11.51 Type 2 diabetes mellitus with diabetic peripheral angiopathy without gangrene; E78.5 Hyperlipidemia, unspecified; H91.91 Unspecified hearing loss, right ear; E11.40 Type 2 diabetes mellitus with diabetic neuropathy, unspecified; Z99.81 Dependence on supplemental oxygen; Z79.82 Long term (current) use of aspirin; Z79.02 Long term (current) use of antithrombotics/antiplatelets; Z79.4 Long term (current) use of insulin; Z79.899 Other long term (current) drug therapy; Z90.2 Acquired absence of lung [part of]; Z87.891 Personal history of nicotine dependence

== ENCOUNTER → 2020-07-18 | Outpatient (CLI) | payer MEDICARE ==
[~2020-07-18] MED LIST changes: +ATOR80TA59 PO; +HYDR-3713 PO; +MED REC COMMENT; +PRED20TA PO; +TORS20TA2 PO
--- NOTE | 2020-07-18 09:00 | REPPI ---
INDICATION: C34.31 MALIGNANT NEOPLASM OF LOWER LOBE, RIGHT BRONCHUS COMPARISON: 07/14/2020 TECHNIQUE: PA and lateral. FINDINGS: The mediastinum and cardiac silhouette are normal. The lung belle demonstrate stable chronic changes. Subtle areas of opacity at the bases cannot be excluded. No effusion. No pneumothorax. Skeletal structures are stable. IMPRESSION: Chronic appearing changes with minimal basilar opacities. <Electronically signed by Gilberto Ruiz > 07/18/20 0856
== END ==
LOC: M PLAIMG 08:27
PROVIDERS: ATTEND Thoracic Surgery (Cardiothoracic Vascular Surgery)
DX: C34.31 Malignant neoplasm of lower lobe, right bronchus or lung (principal)

== ENCOUNTER → 2020-07-28 | Outpatient (CLI) | payer MEDICARE ==
--- NOTE | 2020-07-28 12:32 | REP ---
INDICATION: CAROTID BRUIT. COMPARISON: None. TECHNIQUE: Bilateral carotid artery duplex ultrasound. FINDINGS: Peak flow velocities: Right left Internal carotid artery 227 cm/sec 154 cm/sec Int. Carotid diastolic 25.6 cm/sec 20.3 cm/sec External carotid artery 218 cm/sec 134.4 cm/sec Common carotid artery 90.2 cm/sec 62.9 cm/sec ICA-CCA ratio 2.52 2.45 There is heavy atheromatous plaque in the distal common carotid arteries bilaterally extending into the bulbs and into the internal carotid arteries and external carotid arteries bilaterally. The peak flow velocities in the right and left internal carotid arteries and right and left external carotid arteries are all moderately elevated and compatible with 50-69% narrowing of these vessels. There is biphasic flow in the right vertebral artery and antegrade flow in the left vertebral artery. This suggests early subclavian steal. Consider follow-up CT a or MRA of the aortic arch and brachiocephalic vessels. IMPRESSION: This 50-69% stenosis of the right and left internal carotid arteries and right left external carotid arteries. Probable early subclavian steal. Consider follow-up CTA or MRI of the aortic arch and brachiocephalic vessels. <Electronically signed by Broderick Knott > 07/28/20 1399
== END ==
LOC: M RAD 11:09
PROVIDERS: ATTEND Thoracic Surgery (Cardiothoracic Vascular Surgery)
DX: I65.23 Occlusion and stenosis of bilateral carotid arteries (principal)

== ENCOUNTER → 2020-08-08 | Outpatient (CLI) | payer MEDICARE ==
--- NOTE | 2020-08-08 09:08 | REPPI ---
INDICATION: C34.31 MALIGNANT NEOPLASM OF LOWER LOBE RIGHT J44.9 Z48.813 COMPARISON: 07/18/2020 TECHNIQUE: PA and lateral. FINDINGS: The mediastinum and cardiac silhouette are normal. The lung belle are demonstrate stable chronic changes primarily involving the lower lobes (left greater than right). No obvious focal consolidation, effusion, or pneumothorax. The skeletal structures are intact and normal. IMPRESSION: No acute cardiopulmonary process. Chronic stable changes. <Electronically signed by Gilberto Ruiz > 08/08/20 0904
== END ==
LOC: M PLAIMG 08:45
PROVIDERS: ATTEND Thoracic Surgery (Cardiothoracic Vascular Surgery)
DX: C34.31 Malignant neoplasm of lower lobe, right bronchus or lung (principal); J44.9 Chronic obstructive pulmonary disease, unspecified; Z48.813 Encounter for surgical aftercare following surgery on the respiratory system

== ENCOUNTER → 2020-08-11 | Outpatient (CLI) | payer MEDICARE ==
[2020-08-11 11:31] LABS: BASO # 0.1 10^3/uL (0.0-0.2); BASO % 0.6 % (0.0-1.0); EOS # 0.3 10^3/uL (0.0-0.5); EOS % 3.9 % (0.0-3.0); HEMATOCRIT 37.7 % (36.0-47.0); HEMOGLOBIN 12.2 g/dl (12.0-15.5); LYMPH # 1.8 10^3/uL (1.5-5.0); LYMPH % 20.7 % (24.0-44.0); MEAN CORPUSCULAR HEMOGLOBIN 29.7 pg (27.0-33.0); MEAN CORPUSCULAR HGB CONC 32.4 g/dl (32.0-36.5); MEAN CORPUSCULAR VOLUME 91.7 fl (80.0-96.0); MONO # 0.7 10^3/uL (0.0-0.8); MONO % 8.5 % (2.0-8.0); NEUTROPHILS # 5.6 10^3/uL (1.5-8.5); NEUTROPHILS % 65.4 % (36.0-66.0); PLATELET COUNT, AUTOMATED 306 10^3/uL (150-450); RED BLOOD COUNT 4.11 10^6/uL (4.00-5.40); WHITE BLOOD COUNT 8.5 10^3/uL (4.0-10.0)
[2020-08-11 12:03] LABS: MALB URINE SIEMENS 18.1 MG/L; MAU/CREAT RATIO 15.3 MCG/MG (0.0-30.0)
[2020-08-11 12:06] LABS: CALCIUM LEVEL 9.7 MG/DL (8.8-10.2); CREATININE FOR GFR 1.15 MG/DL (0.55-1.30); GLOMERULAR FILTRATION RATE 49.8 (>45); POTASSIUM SERUM 4.5 MEQ/L (3.5-5.1)
== END ==
LOC: M LAB 10:39
PROVIDERS: ATTEND Family Medicine
DX: R79.89 Other specified abnormal findings of blood chemistry (principal)

== ENCOUNTER → 2020-08-26 | Outpatient (CLI) | payer MEDICARE ==
--- NOTE | 2020-08-26 13:45 | REPMRS ---
Patient History The patient states she has not had a clinical breast exam in over a year. Patient is postmenopausal, has history of other cancer at age 70, and had first child after 31. Family history of colorectal cancer at age 62 in brother. No Hormone Replacement Therapy Indicated problem(s): bilateral large axillary lymph nodes for 2 weeks. Pfizer vaccine 05/21/20 L arm, 06/12/20 L arm. Patient states she noticed enlarged area of tissue in the bilateral in the accessory tissue/ axillary tail. Patient recently under went right lung surgery. Patient has signed MRS History Sheet. Diagnostic Bilateral Mammo: August 26, 2020 - Exam #: [id number] Bilateral CC and MLO view(s) were taken. Technologist: Marah Pop, Technologist FINDINGS: There are scattered fibroglandular densities. Screening. Digital screening (2D) mammography was performed bilaterally. Additionally, breast tomosynthesis (3D) mammography was perfomed bilaterally in the CC and MLO projections. Today's examination is the initial screening examination. By history, the patient has no complaints of a palpable breast abnormality or other significant breast complaints. The breasts are symmetric in size and shape. There are no masses. There is no internal architectural distortion. Benign appearing calcifications are seen. There are no suspicious microcalcific clusters. Skin thickening or nipple retraction is not present. IMPRESSION: BI-RADS Category 2- Benign Findings(s). There is no evidence of malignant alteration of the breasts. Followup examination recommended in one year. The Volpara volumetric breast density category is B, there are scattered areas of fibroglandular density. This mammogram was read with the assistance of [facility],an FDA approved computer aided detection system for mammography. The lifetime Tyrer-Cuzick score is 5.2 % Negative x-ray reports should not delay surgical consultation if a dominant or clinically suspicious mass is present. Not all breast cancers can be identified by mammography. Therefore, we recommend that you continue to perform regular breast self-examination and physical examination and then promptly contact your physician of any concerns or changes. Adenosis and dense breasts may obscure an underlying neoplasm. Assessment: BI-RADS/ACR category 2 mammogram. Benign Findings. Recommendation Routine screening mammogram of both breasts in 1 year. Electronically Signed By: Calixto Suazo DO 08/26/20 1405
== END ==
LOC: M WHC 12:41
PROVIDERS: ATTEND Family Medicine
DX: N63.22 Unspecified lump in the left breast, upper inner quadrant (principal); Z80.0 Family history of malignant neoplasm of digestive organs; Z85.9 Personal history of malignant neoplasm, unspecified
CPT/HCPCS: 77066; G0279

== ENCOUNTER → 2020-08-29 | Outpatient (CLI) | payer MEDICARE ==
--- NOTE | 2020-08-29 11:05 | REPPI ---
INDICATION: C34.31MALIGANT NEOPLASM OF LOWER LOBE Z48.813 SURGICAL AFTCR COMPARISON: 08/08/2020. TECHNIQUE: PA/Lateral FINDINGS: Lungs: There are mild chronic bibasilar interstitial opacities which are unchanged. No acute infiltrate is seen. Heart: Normal in size. Mediastinum: There is mild calcification of the thoracic aorta. The mediastinal silhouette is unchanged. Pleural angles: Unremarkable.. Bones and soft tissues: There is osteopenia with no thoracic vertebral compression fracture. IMPRESSION: No acute pulmonary disease. Stable chronic findings. <Electronically signed by Broderick Knight > 08/29/20 1105
== END ==
LOC: M PLAIMG 09:16
PROVIDERS: ATTEND Thoracic Surgery (Cardiothoracic Vascular Surgery)
DX: C34.31 Malignant neoplasm of lower lobe, right bronchus or lung (principal); Z48.813 Encounter for surgical aftercare following surgery on the respiratory system

== ENCOUNTER → 2020-09-10 | Outpatient (CLI) | payer MEDICARE ==
[2020-09-10 10:57] LABS: HEMOGLOBIN A1c 7.2 %
[2020-09-10 10:58] LABS: CALCIUM LEVEL 9.4 MG/DL (8.8-10.2); CREATININE FOR GFR 1.24 MG/DL (0.55-1.30); GLOMERULAR FILTRATION RATE 45.7 (>45); POTASSIUM SERUM 3.9 MEQ/L (3.5-5.1)
== END ==
LOC: M LAB 09:40
PROVIDERS: ATTEND Family Medicine
DX: E11.9 Type 2 diabetes mellitus without complications (principal)

== ENCOUNTER → 2020-09-21 | Outpatient (CLI) | payer MEDICARE ==
[~2020-09-21] MED LIST changes: +GABA-1171
--- NOTE | 2020-09-21 15:55 | REP ---
INDICATION: LT LEG PAIN AND SWELLING. COMPARISON: None. TECHNIQUE: Multiple ultrasonographic images of the deep venous structures of the left lower extremity were obtained from the inguinal ligament to the ankle, when feasible. Venous compression techniques, color doppler imaging, and augmentation techniques were also obtained where appropriate. FINDINGS: There is no abnormal echogenic material seen within any of the visualized deep venous structures that would suggest acute thrombosis. Coaptation is unremarkable throughout. The peroneal vein was not visualized. Doppler interrogation shows an expected response to respiratory variability and augmentation. The color flow images show what appears to be a normal vascular pattern throughout. IMPRESSION: There is no ultrasonographic evidence of deep venous thrombosis involving any of the visualized deep venous structures of the left lower extremity. Calf vein DVT cannot be ruled out since the peroneal vein could not be visualized. <Electronically signed by Calixto Suazo > 09/21/20 [id number]
== END ==
LOC: M RAD 14:30
PROVIDERS: ATTEND Nurse Practitioner Family
DX: M79.605 Pain in left leg (principal); M25.472 Effusion, left ankle
CPT/HCPCS: 93971; G0463

== ENCOUNTER → 2020-09-29 | Outpatient (REF) | payer MEDICARE ==
[~2020-09-29] MED LIST changes: -GABA-1171
[2020-09-29 18:03] LABS: CREATININE FOR GFR 1.28 MG/DL (0.55-1.30)
== END ==
LOC: M LAB REF 16:38
PROVIDERS: ATTEND Internal Medicine Pulmonary Disease
DX: C34.31 Malignant neoplasm of lower lobe, right bronchus or lung (principal)

== ENCOUNTER → 2020-10-10 | Outpatient (CLI) | payer MEDICARE ==
[~2020-10-10] MED LIST changes: +GABA-1171
--- NOTE | 2020-10-13 01:24 | ECWPNPC ---
PATIENT NAME: ILAN CAMPA : 1950 GENDER: FEMALE VISIT DATE: 10/10/2020 DISCHARGE DATE: 10/10/20 1401 VISIT LOCKED DATE TIME: PHYSICIAN: CLARICE MART PHYSICIAN PAGER NO: ACTIVE RESOURCE: CLARICE MART REASON FOR APPOINTMENT 1. LEG PAIN HISTORY OF PRESENT ILLNESS DEPRESSION SCREENING: PHQ-2 (2015 EDITION) LITTLE INTEREST OR PLEASURE IN DOING THINGS?NOT AT ALL FEELING DOWN, DEPRESSED, OR HOPELESS?NOT AT ALL TOTAL SCORE0 GENERAL: PLEASANT 70-YEAR-OLD FEMALE BEING REFERRED BY PRIMARY CARE FOR PERSISTENT LEFT LEG PAIN. STATES PAIN AND SENSITIVITY OVER HER LEFT LEG MAINLY IN THE ANTERIOR GOLDEN AREA HAS BEEN AN ISSUE FOR 5 YEARS. HISTORY OF VASCULAR SURGERY X2 LAST ONE BEING DONE 5 YEARS AGO WHEN PAIN BEGAN. DESCRIBES PAIN EXTREME HYPERSENSITIVITY TO LIGHT TOUCH. HISTORY OF MULTIPLE COMORBIDITIES TO INCLUDE ADENOCARCINOMA OF THE LUNG REQUIRING SURVEILLANCE AND NO CHEMOTHERAPY OR RADIATION THERAPY AT THIS TIME. THIS WAS DIAGNOSED A FEW MONTHS AGO. HISTORY OF COPD. HISTORY OF 3 PACK A DAY SMOKING FOR GREATER THAN 20 YEARS AND QUIT A FEW YEARS AGO. REPORTS CONSTANT PAIN AND HYPERSENSITIVITY IN LEFT LEG.REPORTING SEVERE DISRUPTION IN SLEEP DUE TO PAIN.DESCRIBES PAIN PINS AND NEEDLE SENSATION. - - -. FALL RISK SCREENING: SCREENING ONE OR TWO FALL LAST YEAR NO MAJOR INJURIES, PATIENT STATED THAT SHE DID NOT GO TO THE ER. PAIN SCREENING: PATIENT HAS A COMPLAINT OF ACUTE OR CHRONIC PAIN :YES LOCATION OF PAIN:LEG(S) LEFT LEG INTENSITY OF PAIN (SCALE OF 1 TO 10):6 WHAT DOES YOUR PAIN FEEL LIKE:OTHER PINS AND NEEDLES DURATION:CONTINOUS, CONSTANT, ALL DAY, AWAKENS FROM SLEEP PAIN IS INCREASED BY:ACTIVITIES PAIN IS DECREASED BY:OTHERS " NOTHING HELPS" NURSING NOTE: - - -. PAIN CENTER INTAKE QUESTIONS: DO YOU HAVE A HISTORY OF MRSA? :NO DO YOU TAKE A BLOOD THINNERS? :NO ASPIR-LOW 81 MG DO YOU HAVE ANY BLEEDING DISORDERS? :NO ANY NEW NUMBNESS OR WEAKNESS IN YOUR LEGS OR ARMS? :NO ANY PACEMAKER,DEFIBRILLATOR, OR DORSAL COLUMN STIMULATOR? :NO DO YOU HAVE ANY RASHES OR OPEN SORES? :NO ARE YOU ALLERGIC TO IV DYE? :NO ARE YOU DIABETIC? :YES ANY NEW PROBLEMS WITH YOUR MEDICATIONS? :NO HAVE YOU RECEIVED A VACCINE IN THE PAST 30 DAYS? :NO 1ST COVID SHOT 05/21/2020 2ND COVID SHOT 06/11/2020 DO YOU PLAN TO RECEIVE A VACCINE IN THE NEXT 21 DAYS? :NO DO YOU NEED ANY PRESCRIPTION? :NO DO YOU TAKE ANY IMMUNOSUPPRESSIVE MEDICATIONS? :NO IS THERE A CHANCE YOU COULD BE ? :NO ARE YOU BREAST FEEDING? :NO CURRENT MEDICATIONS TAKING TORSEMIDE 20 MG TABLET 1 TABLET ORALLY DAILY TAKING PROAIR HFA 108 (90 BASE) MCG/ACT AEROSOL SOLUTION INHALE 1 2 PUFFS BY MOUTH EVERY 6 HOURS NEEDED INHALATION TAKING ASPIR-LOW 81 MG TABLET DELAYED RELEASE 1 TABLET ORALLY ONCE A DAY TAKING HUMALOG KWIKPEN 100 UNIT/ML SOLUTION PEN-INJECTOR SLIDING SCALE ACHS SUBCUTANEOUS DIRECTED, NOTES: SLIDING SCALE: 0-199 = 0U, 200-250=10U,251-300=12U, 301-350=14U, 351-400=16U, 401-450=18, > 450 CALL DOCTOR. MDD 70 TAKING JARDIANCE 10 MG TABLET 1 TABLET ORALLY ONCE A DAY TAKING TOUJEO SOLOSTAR 300 UNIT/ML SOLUTION PEN-INJECTOR 20 UNITS SUBCUTANEOUS DAILY DX: E11.9 TAKING CARBAMAZEPINE 200 MG TABLET 2 TABLETS IN AM, 3 TABLETS IN PM ORALLY TWICE A DAY TAKING EZETIMIBE 10 MG TABLET 1 TABLET ORALLY ONCE A DAY TAKING ATORVASTATIN CALCIUM 80 MG TABLET 1 TABLET ORALLY ONCE A DAY TAKING ALCOHOL PADS 70 % PAD DIRECTED TOPICALLY 7 TIMES A DAY TAKING LANCETS - MISCELLANEOUS E11.9 ONE TOUCH DELICA 33G 7X DAILY TAKING CLOPIDOGREL BISULFATE 75 MG TABLET 1 TABLET ORALLY ONCE A DAY TAKING PEN NEEDLES 32G X 5 MM MISCELLANEOUS DIRECTED SUBCUTANEOUSLY BID DX: E11.9 TAKING HYDRALAZINE HCL 25 MG TABLET 1 TABLET WITH FOOD ORALLY QID TAKING METOPROLOL TARTRATE 25 MG TABLET 1 TAB ORALLY DAILY TAKING FLONASE ALLERGY RELIEF 50 MCG/ACT SUSPENSION 1 SPRAY IN EACH NOSTRIL NASALLY ONCE A DAY TAKING ISOSORBIDE MONONITRATE ER 60 MG TABLET EXTENDED RELEASE 24 HOUR 1 TABLET ORALLY ONCE A DAY TAKING TRULICITY 0.75 MG/0.5ML SOLUTION PEN-INJECTOR DIRECTED SUBCUTANEOUS WEEKLY TAKING BREZTRI AEROSPHERE 160-9-4.8 MCG/ACT AEROSOL 2 PUFFS INHALATION TWICE A DAY TAKING MAY USE GO LO RELEASE 1 CAP ORALLY WITH EACH MEAL TAKING GABAPENTIN 100 MG CAPSULE 1 CAPSULE ORALLY THREE TIMES A DAY, NOTES: CAN INCREASE TO 2 TABLETS THREE TIMES A DAY AFTER A WEEK IF NO IMPROVEMENT TAKING METFORMIN HCL 850 MG TABLET 1 TABLET WITH A MEAL ORALLY BID TAKING ONETOUCH VERIO - STRIP DIRECTED IN VITRO 4 TIMES DAILY AM, DX: E11.9 TAKING MONTELUKAST SODIUM 10 MG TABLET 1 TABLET IN THE EVENING ORALLY ONCE A DAY NOT-TAKING SAXENDA 18 MG/3ML SOLUTION PEN-INJECTOR DIRECTED SUBCUTANEOUS NOT-TAKING STIOLTO RESPIMAT 2.5-2.5 MCG/ACT AEROSOL SOLUTION INHALE 2 PUFFS BY MOUTH DAILY INHALATION NOT-TAKING AMLODIPINE 10MG TABLET 0.5 TAB(S) ORALLY DAILY NOT-TAKING HUMALOG 100 UNIT/ML SOLUTION SLIDING SCALE SUBCUTANEOUS NEEDED, NOTES: SLIDING SCALE 0-199=OU, 200-250=10U, 251-300=12U, 301-350=14U, 351-400=16U, 401-450=18U, >450 CALL DOCTOR. 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, STABLE SINCE 2009 CT AB ([address] CHEST 06/2019) HEMORRHOIDS ADENOMA OF RIGHT ADRENAL GLAND NECROSIS OF TOE FEMORL POPLITEAL BYPASS SURG ALLERGIES SEASONAL IC: SNEEZING SURGICAL HISTORY FOOT SURGERY- RIGHT 1980 FEMORAL ARTERY BIPASS 2011 CLAUDICATION OF LEFT LOWER EXTREMITY 05/27/14 COLONOSCOPY 04/2015 FEMERALA POP 11/15/2017 ANGIOGRAM 09/19/18 GALLBLADDER REMOVED 11/2018 RIGHT LOWER LUNG - LUNG CANCER 06/2020 HEART FAILURE 06/2020 FAMILY HISTORY FATHER: 62 YRS, MS, DIAGNOSED WITH UNSPECIFIED HEART DISEASE MOTHER: 94 YRS, STROKE, UNSPECIFIED CEREBRAL ARTERY OCCLUSION WITH CEREBRAL INFARCTION SIBLINGS: ALIVE, BROTHER , DM, COLON CANCER METATSTATIC TO LIVER, SUPERFICIAL PHLEBITIS - SISTER - , ATRIAL FIB, UNSPECIFIED HEART DISEASE, DIABETES, OTHER MALIGNANT NEOPLASM OF UNSPECIFIED SITE 4 BROTHER(S) , 4 SISTER(S) - HEALTHY. 3 BROTHER PASS AWAY AND 1 SISTER PASS AWAY FROM CANCER. SOCIAL HISTORY GENERAL: TOBACCO USE ARE YOU A:FORMER SMOKER 2 YEARS AGO HOW LONG HAS IT BEEN SINCE YOU LAST SMOKED?1-5 YEARS VAPORNO E-CIGARETTENO LATEX QUESTIONNAIRE LATEX ALLERGY : HAVE YOU EVER DEVELOPED ANY TYPE OF REACTION AFTER HANDLING LATEX PRODUCTS SUCH RUBBER GLOVES, CONDOMS, DIAPHRAGMS, BALLOONS, SOCKS, OR UNDERWEAR?NO LATEX ALLERGY : HAVE YOU EVER DEVELOPED ANY TYPE OF REACTION DURING OR AFTER DENTAL APPOINTMENT, VAGINAL/RECTAL EXAMINATION, SURGICAL PROCEDURE, OR ANY OTHER EXPOSURE?NO LATEX RISK : HAVE YOU EVER HAD ANY DIFFICULTY BREATHING OR HIVES AFTER EATING OR HANDLING ANY FRUITS, OR VEGETABLES; SUCH KIWI, BANANAS, STONE FRUITS, OR CHESTNUTSNO LATEX RISK : DO YOU HAVE A PREVIOUS PERSONAL HISTORY OF MORE THAN NINE SURGERIES, SPINA BIFIDA, OR REPEATED CATHERIZATIONS? NO LATEX RISK : ARE YOU FREQUENTLY EXPOSED TO LATEX PRODUCTS IN YOUR OCCUPATION?NO DATE ASKED : 10/10/2020 ALCOHOL USE: NO. LUNG CANCER SCREENING SMOKING STATUS:FORMER SMOKER IS THE PATIENT BETWEEN THE AGE OF 56 AND 78?YES HAVE YOU QUIT SMOKING WITHIN THE PAST 15 YEARS?YES BMI CARE GOAL FOLLOW-UP ABOVE NORMAL BMI FOLLOW-UPDIETARY MANAGEMENT EDUCATION, GUIDANCE, AND COUNSELING ALCOHOL SCREENING DID YOU HAVE A DRINK CONTAINING ALCOHOL IN THE PAST YEAR?NO POINTS0 INTERPRETATIONNEGATIVE RECREATIONAL DRUG USE DRUG USE?NO STOP SMOKING IT CAFFEINE CAFFEINE USE?YES HOW OFTEN AND HOW MUCH? 3 CUPS DAILY SEXUAL HX HAD SEX IN THE LAST 12 MONTHS (VAGINAL, ORAL, OR ANAL)?NO LMP:2001 HAVE YOU EVER HAD AN STD?NO HIV / HEP-C SCREENING HIV TEST OFFERED TO PATIENT:YES DATE OFFERED:08/10/2020 TEST ACCEPTED:NO HEP-C TEST OFFERED TO PATIENT:YES DATE OFFERED:08/10/2020 REASON:PATIENT DECLINED TEST ACCEPTED:NO REASON:PATIENT DECLINED BROCHURE PROVIDED TO PATIENTYES JUDAISM [id number] NONE LANGUAGE LANGUAGES SPOKEN:NAURUAN EDUCATION LEVEL OF EDUCATION:COLLEGE LEARNING BARRIERS / SPECIAL NEEDS CHANGE FROM LAST VISIT?NO BARRIERS TO LEARNING?NO HEARING IMPAIRED?YES : RIGHT EARING LOST VISION IMPAIRED?YES :CORRECTIVE LENSES COGNITIVELY IMPAIRED?NO READINESS TO LEARN?YES LEARNING PREFERENCES?NO LEARNING CAPABILITIES PRESENT?YES EMOTIONAL BARRIERS?NO SPECIAL DEVICES?YES :CANE, WALKER NEEDED DIRECTOR REGULATORY COMPLIANCE NEEDED?NO DOMESTIC VIOLENCE STATUS:SINGLE OCCUPATION: RETIRED. DIET: REGULAR. EXERCISE: NO REGULAR EXERCISE. MARITAL STATUS: SINGLE. OTHERS AT HOME: PARTNER AND HER SON. HOUSING: HOUSE. HOSPITALIZATION/MAJOR DIAGNOSTIC PROCEDURE [facility] - FEMORAL ARTERY BYPASS 10/2011 [facility] - DIVERTICULITIS 2009 [facility] - [place] INSERTED INTO LEFT LEG 04/2013 [facility] - DM 06/2018 HEART FAILURE REVIEW OF SYSTEMS CONSTITUTIONAL: ANY RECENT FEVER NO . CHILLS NO . WEIGHT CHANGE OF UNKNOWN REASONS NO . GASTROENTEROLOGY: NEW UNEXPLAINABLE CHANGES IN BOWEL CONTROL NO . CONSTIPATION NO . GENITOURINARY: ANY NEW CHANGE IN BLADDER CONTROL? NO . NEUROLOGY: NEW ONSET DIZZINESS OR NEUROLOGICAL CHANGES NOT MENTIONED NO . NEW NUMBNESS OR PAIN PATTERNS NOT MENTIONED AND PERTINENT TO TODAY'S VISIT NO . CARDIOLOGY: NEW CHEST PRESSURE NO . PATIENT DENIES NO . RESPIRATORY: UNEXPLAINABLE COUGH NO . NEW SHORTNESS OF BREATH NO . VITAL SIGNS WT 174.8 LBS, HT 63 IN, BMI 30.96 INDEX, BP 102/57 MM HG, HR 91 /MIN, RR 18 /MIN, TEMP 98.0 F, OXYGEN SAT % 98%, BLOOD GLUCOSE LEVEL 135, SAFE IN ENV? (Y/N) YES, NA INITIALS AW 1259T.JUAN ANTONIO STEVENS. EXAMINATION GENERAL EXAMINATION: GENERALNO ACUTE DISTRESS, WELL NOURISHED AND HYDRATED. PSYCHAPPROPRIATE MOOD AND AFFECT . FACE:UNREMARKABLE. NECK:NO LYMPHADENOPATHY, SUPPLE. LUNGS:CLEAR TO AUSCULTATION BILATERALLY, NO WHEEZES, RHONCHI, RALES. HEART:NO MURMURS, REGULAR RATE AND RHYTHM. EXTREMITIES: WELL HEALED SURGICAL SCARS NOTED OVER LEFT LEG.EXTREME HYPERSENSITIVITY NOTED OVER LEFT THIGH AND ANTERIOR GOLDEN. 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 TAKE 1 GABAPENTIN 100 MG CAPSULE IN THE MORNING, 1 AT MIDDAY AND 2 CAPSULES AT NIGHT X7 DAYS. THEN INCREASE TO 2 CAPSULES IN THE MORNING, 1 MIDDAY AND 2 CAPSULES AT NIGHT TIME 7 DAYS. IF TOLERATED TAKE 2 CAPSULES 3 TIMES DAILY. PLEASE CALL US WITH ANY PROBLEMS. FOLLOW-UP IS SCHEDULED IN 6 WEEKS. PROCEDURE CODES FA211 ESTABILISHED PATIENT [facility] FACILITY CHARGE DISPOSITION & COMMUNICATION FOLLOW UP 6 WEEKS (REASON: MED MGMNT,GABAPENTIN,LEFT LEG NEURALGIA) ELECTRONICALLY SIGNED BY CHELY CRYSTAL ON 10/12/2020 AT 09:06 AM EDT DISCLAIMER : THIS IS A VISIT SUMMARY EXTRACTED FROM THE [employer] CHART. IT IS NOT A COPY OF THE [employer] PROGRESS NOTE. ALEX
== END ==
LOC: M PAIN 13:00
PROVIDERS: ATTEND Nurse Practitioner Family
DX: G57.92 Unspecified mononeuropathy of left lower limb (principal); E11.9 Type 2 diabetes mellitus without complications; G40.909 Epilepsy, unspecified, not intractable, without status epilepticus; Z86.718 Personal history of other venous thrombosis and embolism; Z87.891 Personal history of nicotine dependence; Z79.4 Long term (current) use of insulin; Z79.82 Long term (current) use of aspirin; Z79.899 Other long term (current) drug therapy

== ENCOUNTER 2020-10-12 09:27 | Emergency (ER) | payer MEDICARE ==
[~2020-10-12] VITALS: Ht 160 cm; Wt 79.1 kg
[~2020-10-12 09:27] MED LIST changes: -GABA-1171
[2020-10-12 09:33] VITALS: BP 137/92
--- NOTE | 2020-10-12 10:31 | REP ---
INDICATION: swelling ?fb. COMPARISON: Comparison left great toe series September 04, 2011.. TECHNIQUE: Four views of the left foot are provided. FINDINGS: Four views of the left foot demonstrate Achilles and plantar calcaneal spurring. There is moderate to advanced osteoarthritis at the 1st metatarsophalangeal joint. No opaque foreign body is seen. No fracture is noted.. . There is mild vascular calcification.. IMPRESSION: No fracture or opaque foreign body seen. First MTP joint osteoarthritis. Heel spurs. No fracture seen.. <Electronically signed by Agustín Mustafa > 10/12/20 1024
[2020-10-12] MEDS ORDERED: ACETAMINOPHEN 500 MG TAB PO ONE (11:20)
[2020-10-12] MEDS ORDERED: GABA-1171 (11:31)
--- NOTE | 2020-10-12 13:25 | REP ---
INDICATION: r/o dvt LLE COMPARISON: None. TECHNIQUE: Real time compression and duplex Doppler interrogation of the left lower extremity deep venous system is performed, including the right common femoral vein.Compression of the left peroneal and posterior tibial veins is performed. FINDINGS: The left common femoral, superficial femoral and popliteal veins are fully compressible with transducer pressure and demonstrate normal spontaneous and phasic flow, without evidence of deep venous thrombosis.The right common femoral vein demonstrates no thrombus.The visualized left peroneal and posterior tibial veins demonstrate no thrombus. IMPRESSION: No evidence of deep venous thrombosis of the left lower extremity femoral popliteal venous system.No thrombus in the visualized left peroneal and posterior tibial veins. <Electronically signed by Broderick Knight > 10/12/20 [id number]
--- NOTE | 2020-10-12 13:31 | REP ---
INDICATION: ONLY LLE, L calf pain, h/o PAD s/p fem pop bypass. COMPARISON: 03/06/2019. TECHNIQUE: Real time knight scale and Duplex Doppler evaluation of the left lower extremity arterial vasculature using linear high frequency transducer. FINDINGS: There are findings similar to the prior exam. There is a patent bypass graft extending from the left common femoral artery to the proximal posterior tibial artery. There is somewhat elevated peak systolic velocity at the origin of the graft, 428 centimeters/second, previously 347 centimeter/second. Velocities throughout the remaining bypass graft are less than 100 centimeters/second, at the distal anastomosis 108 centimeters/second. There is occlusion of the [place] superficial femoral artery, with reconstitution of the popliteal artery below the knee. Biphasic waveforms are noted in the common femoral artery, posterior tibial artery and distal anterior tibial artery with monophasic waveforms in the left profunda, popliteal and proximal anterior tibial arteries. PSV(cm/sec) Common femoral artery: 140 cm/s Profunda femoris artery: 98 cm/s Proximal superficial femoral artery: Occluded Mid superficial femoral artery: Occluded Distal superficial femoral artery: Occluded Popliteal artery: 54 cm/s Proximal TASHA: 22 cm/s Tibioperoneal trunk: 120 cm/s Proximal TAILER IN: 128 cm/s Distal TAILER IN: 36 cm/s Distal TASHA: 32 cm/s IMPRESSION: Similar findings compared to the prior study of 03/06/2019. Patent bypass graft extending from common femoral artery to proximal posterior tibial artery, with somewhat elevated peak systolic velocity at the origin of the graft. The [place] SFA is again noted to be occluded with reconstitution of the popliteal artery below the knee. <Electronically signed by Broderick Knight > 10/12/20 [id number]
--- NOTE | 2020-10-13 11:40 | ED PDOC ---
Post-Departure Follow-Up radiology report faxed to Susan Bowens MD Oct 13, 2020 11:40
== END 2020-10-12 14:53 | disposition home or self-care (01) ==
LOC: M ED 09:27
DX: S90.32XA Contusion of left foot, initial encounter (principal); M77.32 Calcaneal spur, left foot; M19.072 Primary osteoarthritis, left ankle and foot; X58.XXXA Exposure to other specified factors, initial encounter; Y92.9 Unspecified place or not applicable; Y93.9 Activity, unspecified; Y99.9 Unspecified external cause status; I50.9 Heart failure, unspecified; E11.9 Type 2 diabetes mellitus without complications; I10 Essential (primary) hypertension; M51.36 Other intervertebral disc degeneration, lumbar region; G40.909 Epilepsy, unspecified, not intractable, without status epilepticus; Z86.19 Personal history of other infectious and parasitic diseases; N18.30 Chronic kidney disease, stage 3 unspecified; E78.5 Hyperlipidemia, unspecified; J44.9 Chronic obstructive pulmonary disease, unspecified; K21.9 Gastro-esophageal reflux disease without esophagitis; K57.32 Diverticulitis of large intestine without perforation or abscess without bleeding; Z87.440 Personal history of urinary (tract) infections; Z86.718 Personal history of other venous thrombosis and embolism; M54.9 Dorsalgia, unspecified; F41.9 Anxiety disorder, unspecified; Z87.891 Personal history of nicotine dependence; Z79.4 Long term (current) use of insulin; Z79.82 Long term (current) use of aspirin; Z79.899 Other long term (current) drug therapy

== ENCOUNTER → 2020-10-19 | Outpatient (CLI) | payer MEDICARE ==
[~2020-10-19] MED LIST changes: +GABA-1171; +ISOVUE-370 76% 100ML VIAL As Ordered ONE
--- NOTE | 2020-10-19 15:31 | REP ---
INDICATION: MAL NEOP RLL COMPARISON: Multiple latest 04/01/2020 TECHNIQUE: Standard helical technique without intravenous contrast FINDINGS: There is a right paratracheal lymph node which has developed since the last exam. This node has a short axis dimension of 1.1 cm, has no fatty hilum, and is not reniform in shape. There are other mediastinal lymph nodes which are stable. No hilar adenopathy has developed. There are no pleural or pericardial effusions. The imaged upper abdomen shows a stable right adrenal gland nodule. There is no significant change in appearance of the imaged upper abdomen. Evaluation of the lung belle shows a stable 1.3 cm sized ground-glass nodule in the left lower lobe antral basal segment it has, however, slowly increase in size and density when compared to an examination as far back as 01/26/2019. The spiculated nodule seen previously in the right lower lobe has been surgically excised. There is a right upper lobe pleural based irregularity which measures 1.5 cm. This represents a change from all priors. Stable chronic emphysematous changes are noted status quo IMPRESSION: 1. Increasing left lower lobe ground-glass nodule as described above. PET-CT is warranted. 2. New right upper lobe pleural based density as described above. This also warrants PET-CT. 3. New right paratracheal lymph node as described above which can also be evaluated with PET-CT. 4. Other findings and chronic changes as described above. <Electronically signed by Calixto Suazo > 10/19/20 [id number]
== END ==
LOC: M RAD 14:02
PROVIDERS: ATTEND Internal Medicine Pulmonary Disease
DX: C34.31 Malignant neoplasm of lower lobe, right bronchus or lung (principal); J43.9 Emphysema, unspecified; R91.1 Solitary pulmonary nodule; R59.0 Localized enlarged lymph nodes
CPT/HCPCS: 71260; Q9967

== ENCOUNTER → 2020-11-07 | Outpatient (CLI) | payer MEDICARE ==
[~2020-11-07] MED LIST changes: -ISOVUE-370 76% 100ML VIAL As Ordered ONE
--- NOTE | 2020-11-08 10:14 | REP ---
INDICATION: RESTAGING MALIGNANT NEOPLASM OF RT LOWER LOBE. 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 COMPARISON: Comparison PET-CT studies February 18, 2019 and May 30, 2020.. Comparison chest CT October 19, 2020. TECHNIQUE: Fifty-two minutes following the intravenous injection of a 8.58 mCi dose of F-18 FDG, three-dimensional PET scintigraphy is acquired from the skull base to the proximal thighs. Triplanar noncontrast CT scanning is acquired through the same anatomic range for attenuation correction, and image registration with scan parameters optimized to minimize radiation exposure to the patient. PET scintigraphy and CT datasets were fused and displayed on a workstation with multiplanar and projection display capability. FINDINGS: Head and neck soft tissues are unremarkable. There is no abnormal hypermetabolic uptake in the abdomen or pelvis. No abnormal adrenal uptake is seen. There is patchy infiltrate in the in the posterior right chest involving right upper lobe. There is some pleural based metabolic activity in a new area of subpleural parenchymal density with maximum standard uptake value 2.18. The area identified on recent chest CT shows maximum standard uptake value 2.65. These changes are nonspecific. There is a subpleural area of slightly increased but non hypermetabolic uptake in the left lower lobe again pleural based. Maximum standard uptake value 2.20. There is a small area of increased uptake in the parenchyma of the left upper lobe posteriorly adjacent to the major fissure where maximum standard uptake values 2.52. There are some associated bullous changes here on accompanying CT study from October 19, 2020. this is a new focus of increased uptake. No other abnormal pulmonary parenchymal hypermetabolic uptake. No abnormal skeletal uptake. IMPRESSION: There are patchy subpleural areas of slightly increased uptake in the right and left chest as described above which are nonspecific. They may be inflammatory, postoperative reaction, or, possibly neoplastic. Close CT follow-up is recommended. The posteromedial focus in the left upper lobe is regarded as the most suspicious. There is also a pretracheal mediastinal lymph node showing some activity. <Electronically signed by Agustín Mustafa > 11/08/20 1010
== END ==
LOC: M PLARAD 15:30
PROVIDERS: ATTEND Internal Medicine Pulmonary Disease
DX: C34.31 Malignant neoplasm of lower lobe, right bronchus or lung (principal)
CPT/HCPCS: 78815; A9552

== ENCOUNTER → 2020-11-14 | Outpatient (REF) | payer MEDICARE | LOC: M SFHCLERA 13:21 | PROVIDERS: ATTEND Nurse Practitioner Family | DX: R30.0 Dysuria (principal) | CPT/HCPCS: 81002; 82948; 87070; 87077; 87086; 87186; G0463 ==

== ENCOUNTER → 2020-11-21 | Outpatient (CLI) | payer MEDICARE ==
--- NOTE | 2020-11-22 02:37 | ECWPNPC ---
PATIENT NAME: ILAN CAMPA : 1950 GENDER: FEMALE VISIT DATE: 11/21/2020 DISCHARGE DATE: 11/21/20 1105 VISIT LOCKED DATE TIME: PHYSICIAN: CLARICE MART PHYSICIAN PAGER NO: ACTIVE RESOURCE: CLARICE MART REASON FOR APPOINTMENT 1. MED MGMNT,GABAPENTIN,LEFT LEG NEURALGIA HISTORY OF PRESENT ILLNESS GENERAL: HERE FOR FOLLOW-UP AFTER INITIAL EVALUATION FOR PERSISTENT LOWER EXTREMITY NEUROPATHY. WE INCREASED GABAPENTIN AT HER INITIAL VISIT AND CURRENTLY SHE IS TAKING 200 MG 3 TIMES A DAY. SHE DOES REPORT THAT THIS IS HELPING. CURRENTLY BEING EVALUATED FOR NEW LEFT LUNG NODULE. 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 DENIES CHEST PAINS OR SHORTNESS OF BREATH. DENIES COUGH. -. FALL RISK SCREENING: SCREENING : NO FALLS REPORTED IN THE LAST YEAR. PAIN SCREENING: PATIENT HAS A COMPLAINT OF ACUTE OR CHRONIC PAIN :YES LOCATION OF PAIN:LEG(S) INTENSITY OF PAIN (SCALE OF 1 TO 10):6 WHAT DOES YOUR PAIN FEEL LIKE:CONTINOUS, TENDER DURATION:CONTINOUS, CONSTANT, ALL DAY PAIN IS INCREASED BY:ACTIVITIES PAIN IS DECREASED BY:SITTING, OTHERS RESTING NURSING NOTE: -. PAIN CENTER INTAKE QUESTIONS: DO YOU HAVE A HISTORY OF MRSA? :NO DO YOU TAKE A BLOOD THINNERS? :NO ASPIR-LOW 81 MG DO YOU HAVE ANY BLEEDING DISORDERS? :NO ANY NEW NUMBNESS OR WEAKNESS IN YOUR LEGS OR ARMS? :NO ANY PACEMAKER,DEFIBRILLATOR, OR DORSAL COLUMN STIMULATOR? :NO DO YOU HAVE ANY RASHES OR OPEN SORES? :NO ARE YOU ALLERGIC TO IV DYE? :NO ARE YOU DIABETIC? :YES ANY NEW PROBLEMS WITH YOUR MEDICATIONS? :NO HAVE YOU RECEIVED A VACCINE IN THE PAST 30 DAYS? :NO 1ST COVID SHOT 05/21/2020 2ND COVID SHOT 06/11/2020 DO YOU PLAN TO RECEIVE A VACCINE IN THE NEXT 21 DAYS? :NO DO YOU NEED ANY PRESCRIPTION? :NO DO YOU TAKE ANY IMMUNOSUPPRESSIVE MEDICATIONS? :NO IS THERE A CHANCE YOU COULD BE ? :NO ARE YOU BREAST FEEDING? :NO CURRENT MEDICATIONS TAKING ASPIR-LOW 81 MG TABLET DELAYED RELEASE 1 TABLET ORALLY ONCE A DAY TAKING HUMALOG KWIKPEN 100 UNIT/ML SOLUTION PEN-INJECTOR SLIDING SCALE ACHS SUBCUTANEOUS DIRECTED, NOTES: SLIDING SCALE: 0-199 = 0U, 200-250=10U,251-300=12U, 301-350=14U, 351-400=16U, 401-450=18, > 450 CALL DOCTOR. MDD 70 TAKING JARDIANCE 10 MG TABLET 1 TABLET ORALLY ONCE A DAY TAKING CARBAMAZEPINE 200 MG TABLET 2 TABLETS IN AM, 3 TABLETS IN PM ORALLY TWICE A DAY TAKING EZETIMIBE 10 MG TABLET 1 TABLET ORALLY ONCE A DAY TAKING ATORVASTATIN CALCIUM 80 MG TABLET 1 TABLET ORALLY ONCE A DAY TAKING ALCOHOL PADS 70 % PAD DIRECTED TOPICALLY 7 TIMES A DAY TAKING LANCETS - MISCELLANEOUS E11.9 ONE TOUCH DELICA 33G 7X DAILY TAKING CLOPIDOGREL BISULFATE 75 MG TABLET 1 TABLET ORALLY ONCE A DAY TAKING PEN NEEDLES 32G X 5 MM MISCELLANEOUS DIRECTED SUBCUTANEOUSLY BID DX: E11.9 TAKING HYDRALAZINE HCL 25 MG TABLET 1 TABLET WITH FOOD ORALLY QID TAKING METOPROLOL TARTRATE 25 MG TABLET 1 TAB ORALLY DAILY TAKING FLONASE ALLERGY RELIEF 50 MCG/ACT SUSPENSION 1 SPRAY IN EACH NOSTRIL NASALLY ONCE A DAY TAKING ISOSORBIDE MONONITRATE ER 60 MG TABLET EXTENDED RELEASE 24 HOUR 1 TABLET ORALLY ONCE A DAY TAKING BREZTRI AEROSPHERE 160-9-4.8 MCG/ACT AEROSOL 2 PUFFS INHALATION TWICE A DAY TAKING MAY USE GO LO RELEASE 1 CAP ORALLY WITH EACH MEAL TAKING METFORMIN HCL 850 MG TABLET 1 TABLET WITH A MEAL ORALLY BID TAKING ONETOUCH VERIO - STRIP DIRECTED IN VITRO 4 TIMES DAILY AM, DX: E11.9 TAKING MONTELUKAST SODIUM 10 MG TABLET 1 TABLET IN THE EVENING ORALLY ONCE A DAY TAKING GABAPENTIN 100 MG CAPSULE 2 CAP ORALLY THREE TIMES A DAY, NOTES: CAN INCREASE TO 2 TABLETS THREE TIMES A DAY AFTER A WEEK IF NO IMPROVEMENT TAKING TOUJEO SOLOSTAR 300 UNIT/ML SOLUTION PEN-INJECTOR 30 UNITS SUBCUTANEOUS DAILY DX: E11.9 TAKING TORSEMIDE 20 MG TABLET 1 TABLET ORALLY DAILY TAKING PROAIR HFA 108 (90 BASE) MCG/ACT AEROSOL SOLUTION INHALE 1 2 PUFFS BY MOUTH EVERY 6 HOURS NEEDED INHALATION TAKING TRULICITY 0.75 MG/0.5ML SOLUTION PEN-INJECTOR DIRECTED SUBCUTANEOUS WEEKLY TAKING DIFLUCAN 150 MG TABLET 1 TABLET ORALLY DAILY, MAY REPEAT IN 3 DAYS TAKING CALMOSEPTINE 0.44-20.6 % OINTMENT APPLY TO EXTERNAL GENITALIA EXTERNALLY BID TAKING CEFDINIR 300 MG CAPSULE 1 CAP ORALLY BID, NOTES: NOT SURE NOT-TAKING SAXENDA 18 MG/3ML SOLUTION PEN-INJECTOR DIRECTED SUBCUTANEOUS NOT-TAKING STIOLTO RESPIMAT 2.5-2.5 MCG/ACT AEROSOL SOLUTION INHALE 2 PUFFS BY MOUTH DAILY INHALATION NOT-TAKING AMLODIPINE 10MG TABLET 0.5 TAB(S) ORALLY DAILY NOT-TAKING HUMALOG 100 UNIT/ML SOLUTION SLIDING SCALE SUBCUTANEOUS NEEDED, NOTES: SLIDING SCALE 0-199=OU, 200-250=10U, 251-300=12U, 301-350=14U, 351-400=16U, 401-450=18U, >450 CALL DOCTOR. 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 3 BROTHER PASS AWAY AND 1 SISTER PASS AWAY FROM CANCERSISTER HAD LICHEN SCLEROSIS. SOCIAL HISTORY GENERAL: TOBACCO USE ARE YOU A:FORMER SMOKER 2 YEARS AGO HOW LONG HAS IT BEEN SINCE YOU LAST SMOKED?1-5 YEARS VAPORNO E-CIGARETTENO LATEX QUESTIONNAIRE LATEX ALLERGY : HAVE YOU EVER DEVELOPED ANY TYPE OF REACTION AFTER HANDLING LATEX PRODUCTS SUCH RUBBER GLOVES, CONDOMS, DIAPHRAGMS, BALLOONS, SOCKS, OR UNDERWEAR?NO LATEX ALLERGY : HAVE YOU EVER DEVELOPED ANY TYPE OF REACTION DURING OR AFTER DENTAL APPOINTMENT, VAGINAL/RECTAL EXAMINATION, SURGICAL PROCEDURE, OR ANY OTHER EXPOSURE?NO LATEX RISK : HAVE YOU EVER HAD ANY DIFFICULTY BREATHING OR HIVES AFTER EATING OR HANDLING ANY FRUITS, OR VEGETABLES; SUCH KIWI, BANANAS, STONE FRUITS, OR CHESTNUTSNO LATEX RISK : DO YOU HAVE A PREVIOUS PERSONAL HISTORY OF MORE THAN NINE SURGERIES, SPINA BIFIDA, OR REPEATED CATHERIZATIONS? NO LATEX RISK : ARE YOU FREQUENTLY EXPOSED TO LATEX PRODUCTS IN YOUR OCCUPATION?NO DATE ASKED : 11/21/2020 ALCOHOL USE: NO. LUNG CANCER SCREENING SMOKING STATUS:FORMER SMOKER IS THE PATIENT BETWEEN THE AGE OF 56 AND 78?YES HAVE YOU QUIT SMOKING WITHIN THE PAST 15 YEARS?YES BMI CARE GOAL FOLLOW-UP ABOVE NORMAL BMI FOLLOW-UPDIETARY MANAGEMENT EDUCATION, GUIDANCE, AND COUNSELING ALCOHOL SCREENING DID YOU HAVE A DRINK CONTAINING ALCOHOL IN THE PAST YEAR?NO POINTS0 INTERPRETATIONNEGATIVE RECREATIONAL DRUG USE DRUG USE?NO STOP SMOKING IT CAFFEINE CAFFEINE USE?YES HOW OFTEN AND HOW MUCH? 3 CUPS DAILY COFFEE SEXUAL HX HAD SEX IN THE LAST 12 MONTHS (VAGINAL, ORAL, OR ANAL)?NO HAVE YOU EVER HAD AN STD?NO LMP:2001 HIV / HEP-C SCREENING HIV TEST OFFERED TO PATIENT:YES DATE OFFERED:08/10/2020 TEST ACCEPTED:NO REASON:PATIENT DECLINED BROCHURE PROVIDED TO PATIENTYES HEP-C TEST OFFERED TO PATIENT:YES DATE OFFERED:08/10/2020 TEST ACCEPTED:NO REASON:PATIENT DECLINED LATTER-DAY [id number] NONE LANGUAGE LANGUAGES SPOKEN:MOZAMBICAN EDUCATION LEVEL OF EDUCATION:COLLEGE LEARNING BARRIERS / SPECIAL NEEDS CHANGE FROM LAST VISIT?NO BARRIERS TO LEARNING?NO HEARING IMPAIRED?YES : RIGHT EARING LOST VISION IMPAIRED?YES :CORRECTIVE LENSES COGNITIVELY IMPAIRED?YES READINESS TO LEARN?YES LEARNING PREFERENCES?NO LEARNING CAPABILITIES PRESENT?YES EMOTIONAL BARRIERS?NO SPECIAL DEVICES?YES :CANE, WALKER NEEDED ASPHALT PATCHER NEEDED?NO DOMESTIC VIOLENCE STATUS:SINGLE OCCUPATION: RETIRED. DIET: NO CONCENTRATED SWEETS., NO ADDED SALT, CARBOHYDRATE CONTROLLED, LOW FAT, LOW CHOLESTEROL. EXERCISE: NO REGULAR EXERCISE. MARITAL STATUS: SINGLE. OTHERS AT HOME: NONE. HOUSING: HOUSE. REVIEW OF SYSTEMS CONSTITUTIONAL: ANY RECENT FEVER NO . CHILLS NO . WEIGHT CHANGE OF UNKNOWN REASONS NO . GASTROENTEROLOGY: NEW UNEXPLAINABLE CHANGES IN BOWEL CONTROL NO . CONSTIPATION NO . GENITOURINARY: ANY NEW CHANGE IN BLADDER CONTROL? NO . NEUROLOGY: NEW ONSET DIZZINESS OR NEUROLOGICAL CHANGES NOT MENTIONED NO . NEW NUMBNESS OR PAIN PATTERNS NOT MENTIONED AND PERTINENT TO TODAY'S VISIT NO . CARDIOLOGY: NEW CHEST PRESSURE NO . PATIENT DENIES NO . RESPIRATORY: UNEXPLAINABLE COUGH NO . NEW SHORTNESS OF BREATH NO . VITAL SIGNS WT 171.8 LBS, WT-KG 77.93 KG, HT 63 IN, BMI 30.43 INDEX, BP 132/62 MM HG, HR 68 /MIN, RR 18 /MIN, TEMP 97.3 F, OXYGEN SAT % 94%, BLOOD GLUCOSE LEVEL 139 THIS AM, SAFE IN ENV? (Y/N) YES, NA INITIALS SC 10:40T.JUAN ANTONIO STEVENS. EXAMINATION GENERAL EXAMINATION: GENERAL AWAKE,ALERT ,PLEASANT . PSYCH AFFECT NORMAL . LUNGS: LUNG SZYMANSKI ARE CLEAR TO AUSCULTATION BILATERALLY. GOOD MOVEMENT OF AIR . HEART: S1, S2 IN A REGULAR RATE AND RHYTHM. NO SIGNIFICANT MURMURS, RUBS OR GALLOPS NOTED . ASSESSMENTS NEURALGIA OF LEFT LOWER EXTREMITY - G57.92 (PRIMARY) TREATMENT NEURALGIA OF LEFT LOWER EXTREMITY CONTINUE GABAPENTIN CAPSULE, 100 MG, 2 CAP, ORALLY, THREE TIMES A DAY, 30 DAYS, 180 CAPSULE, REFILLS 2, NOTES: CAN INCREASE TO 2 TABLETS THREE TIMES A DAY AFTER A WEEK IF NO IMPROVEMENT PROCEDURE CODES FA211 ESTABILISHED PATIENT [facility] CHARGE DISPOSITION & COMMUNICATION FOLLOW UP 3 MONTHS (REASON: 3-MONTH/MEDICATION MANAGEMENT/LEFT LOWER EXTREMITY NEUROPATHY) ELECTRONICALLY SIGNED BY CHELY CRYSTAL ON 11/21/2020 AT 11:24 AM EDT DISCLAIMER : THIS IS A VISIT SUMMARY EXTRACTED FROM THE [employer] CHART. IT IS NOT A COPY OF THE [employer] PROGRESS NOTE. ALEX
== END ==
LOC: M PAIN 10:30
PROVIDERS: ATTEND Nurse Practitioner Family
DX: G57.92 Unspecified mononeuropathy of left lower limb (principal); E11.9 Type 2 diabetes mellitus without complications; G40.909 Epilepsy, unspecified, not intractable, without status epilepticus; Z86.718 Personal history of other venous thrombosis and embolism; Z87.891 Personal history of nicotine dependence; Z79.4 Long term (current) use of insulin; Z79.82 Long term (current) use of aspirin; Z79.899 Other long term (current) drug therapy

== ENCOUNTER → 2020-11-21 | Outpatient (CLI) | payer MEDICARE ==
[~2020-11-21] MED LIST changes: +ALBU8.5H; +AMLO1TAB25; +BUDE10.7 INH; +CAPS0.022 TOP; +CLOP75TA2 PO; -DICY20TA11 PO; +DICY20TA20 PO; +FLON1SPR; +FURO40TA2; -GABA-1171; +GABA-1171 PO; +GO LO PO; +LOSA25TA13 PO; -LOSA25TA14 PO; -MONT10TA10 PO; +MONT10TA97 PO; +PREG50CA2; +TRUL10IN SC
[2020-11-21 12:33] LABS: BASO # 0.1 10^3/uL (0.0-0.2); BASO % 0.6 % (0.0-1.0); EOS # 0.3 10^3/uL (0.0-0.5); EOS % 2.7 % (0.0-3.0); HEMATOCRIT 40.4 % (36.0-47.0); HEMOGLOBIN 13.2 g/dl (12.0-15.5); LYMPH # 1.8 10^3/uL (1.5-5.0); LYMPH % 18.2 % (24.0-44.0); MEAN CORPUSCULAR HEMOGLOBIN 30.3 pg (27.0-33.0); MEAN CORPUSCULAR HGB CONC 32.7 g/dl (32.0-36.5); MEAN CORPUSCULAR VOLUME 92.9 fl (80.0-96.0); MONO # 0.8 10^3/uL (0.0-0.8); MONO % 7.9 % (2.0-8.0); NEUTROPHILS # 6.8 10^3/uL (1.5-8.5); NEUTROPHILS % 70.1 % (36.0-66.0); PLATELET COUNT, AUTOMATED 308 10^3/uL (150-450); RED BLOOD COUNT 4.35 10^6/uL (4.00-5.40); WHITE BLOOD COUNT 9.7 10^3/uL (4.0-10.0)
[2020-11-21 12:52] LABS: INR 0.87; PROTHROMBIN TIME 12.2 SECONDS (12.7-14.5)
[2020-11-21 12:53] LABS: PARTIAL THROMBOPLASTIN TIME 25.5 SECONDS (25.9-37.0)
[2020-11-21 13:00] LABS: BILIRUBIN,TOTAL 0.2 MG/DL (0.2-1.0); CALCIUM LEVEL 9.5 MG/DL (8.8-10.2); CREATININE FOR GFR 1.33 MG/DL (0.55-1.30); GLOMERULAR FILTRATION RATE 42.1 (>45); POTASSIUM SERUM 4.9 MEQ/L (3.5-5.1); TOTAL PROTEIN 7.3 GM/DL (6.4-8.2)
[2020-11-28 00:09] LABS: ASPERGILLUS FLAVUS ABY Negative (Neg:<1:1); ASPERGILLUS FUMIGATUS ABY Negative (Neg:<1:1); ASPERGILLUS NIGER ABY Negative (Neg:<1:1); BLASTOMYCES ANTIBODY LEVEL Negative (Neg:<1:1); CRYPTOCOCCUS ANTIGEN SER Negative (Negative)
== END ==
LOC: M LAB 11:32
PROVIDERS: ATTEND Internal Medicine Pulmonary Disease
DX: C34.31 Malignant neoplasm of lower lobe, right bronchus or lung (principal); G40.909 Epilepsy, unspecified, not intractable, without status epilepticus; I10 Essential (primary) hypertension; E11.51 Type 2 diabetes mellitus with diabetic peripheral angiopathy without gangrene; Z86.718 Personal history of other venous thrombosis and embolism; E78.5 Hyperlipidemia, unspecified; H91.91 Unspecified hearing loss, right ear; K64.8 Other hemorrhoids; G57.92 Unspecified mononeuropathy of left lower limb; Z79.82 Long term (current) use of aspirin; Z79.4 Long term (current) use of insulin; Z79.899 Other long term (current) drug therapy; Z79.02 Long term (current) use of antithrombotics/antiplatelets; Z87.891 Personal history of nicotine dependence
CPT/HCPCS: 36415; 80053; 85025; 85610; 85730; 86606; 86612; 86635; 86698; 87899; G0463

== ENCOUNTER → 2020-11-29 | Outpatient (CLI) | payer MEDICARE ==
[~2020-11-29] MED LIST changes: -ALBU8.5H; -AMLO1TAB25; -BUDE10.7 INH; -CAPS0.022 TOP; -CLOP75TA2 PO; +DICY20TA11 PO; -DICY20TA20 PO; -FLON1SPR; -FURO40TA2; +GABA-1171; -GABA-1171 PO; -GO LO PO; -LOSA25TA13 PO; +LOSA25TA14 PO; +MONT10TA10 PO; -MONT10TA97 PO; -PREG50CA2; -TRUL10IN SC
--- NOTE | 2020-11-29 14:02 | REP ---
INDICATION: ABNORMAL FINDING OF LUNG FIELD COMPARISON: Multiple the latest 10/19/2020 TECHNIQUE: Standard helical technique without intravenous contrast FINDINGS: The enlarged right paratracheal lymph node seen previously has resolved. No mediastinal or hilar adenopathy has developed. There are no pleural or pericardial effusions. There is no change in the imaged upper abdomen or imaged osseous structures. There is a stable right adrenal gland nodule status quo. Evaluation of the lung belle shows an increase in size in the left lower lobe ground-glass opacity which previously measured 1.3 cm today measuring 2.1 cm. Scattered unchanged ground-glass opacities are seen in the posterior segment of the right upper lobe. Asymmetric pleural thickening is also seen bilaterally if this does not appear to have changed significantly. The chronic changes seen previously in the apicoposterior segment of the left upper lobe with scarring and bullous formation is unchanged. Stable postoperative changes are again seen on the right. IMPRESSION: Although there are stable scattered ground-glass opacities bilaterally the ground-glass opacity seen in the antral basal segment of the left lower lobe has again increased in size. This is suspicious. Neoplastic change cannot be ruled out. Consider re-evaluation with PET-CT at this time. Other findings as described above. <Electronically signed by Calixto Suazo > 11/29/20 0580
== END ==
LOC: M PLAIMG 12:41
PROVIDERS: ATTEND Internal Medicine Pulmonary Disease
DX: R91.8 Other nonspecific abnormal finding of lung field (principal)

== ENCOUNTER → 2020-12-23 | Outpatient (CLI) | payer MEDICARE ==
[~2020-12-23] MED LIST changes: +ALBU8.5H; +AMLO1TAB25; +BUDE10.7 INH; +CLOP75TA2 PO; +FLON1SPR; +FURO40TA2; -GABA-1171; +GABA-1171 PO; +GO LO PO; +PREG50CA2; +TRUL10IN
== END ==
LOC: M LABSMTC 11:04
PROVIDERS: ATTEND Anesthesiology
DX: Z01.812 Encounter for preprocedural laboratory examination (principal); Z20.828 Contact with and (suspected) exposure to other viral communicable diseases

== ENCOUNTER 2020-12-28 06:03 | Day surgery (SDC) | payer MEDICARE ==
[~2020-12-28] VITALS: Ht 160 cm; Wt 75.9 kg
[~2020-12-28 06:03] MED LIST changes: +ALBUTEROL SULFATE 2.5 MG/0.5 ML INH NEB SOLN INH ONE; +LIDOCAINE 4% INJ 5ML AMP INH ONE; +LR 1,000 ML IV ONE
[2020-12-28] MEDS ORDERED: CETACAINE SPRAY 5GM As Ordered ONE (07:15)
[2020-12-28] MEDS ORDERED: EPINEPHrine 1MG/10ML SYRINGE 1.5IN As Ordered ONE (07:15)
[2020-12-28] MEDS ORDERED: LIDOCAINE 1% SDV 30ML VIAL As Ordered ONE (07:15)
[2020-12-28] MEDS ORDERED: THROMBIN SOLN 20,000 UNITS KIT As Ordered ONE (07:15)
[2020-12-28] MEDS ORDERED: fentaNYL 100 MCG/2 ML INJECTION (J3010) As Ordered ONE (07:16)
[2020-12-28] MEDS ORDERED: propofoL 200 MG/20 ML VIAL As Ordered ONE (07:16)
[2020-12-28] MEDS ORDERED: LIDOCAINE 2% 100MG/5ML SDV (FOR ANES.) As Ordered ONE (07:16)
[2020-12-28] MEDS ORDERED: ROCURONIUM BROMIDE 50 MG/5 ML VIAL As Ordered ONE ×2 (07:16→08:03)
[2020-12-28] MEDS ORDERED: MIDAZOLAM INJ 2MG/2ML VIAL (J2250 PER 1MG) As Ordered ONE (07:16)
[2020-12-28] MEDS ORDERED: dexameTHASONE 4 MG/ML 1ML VIAL (J1100 PER 1MG) As Ordered ONE (07:50)
[2020-12-28] MEDS ORDERED: ONDANSETRON 4MG/2ML VIAL As Ordered ONE (07:51)
[2020-12-28] MEDS ORDERED: SUGAMMADEX SODIUM 500 MG/5 ML VIAL (BRIDION) As Ordered ONE ×2 (08:09→08:10)
[2020-12-28] MEDS ORDERED: LR 1,000 ML IV SCH (09:20)
[2020-12-28] MEDS ORDERED: fentaNYL 100 MCG/2 ML INJECTION (J3010) IV PRN (09:20)
[2020-12-28] MEDS ORDERED: PERCOCET 5MG/325MG TAB PO PRN (09:20)
[2020-12-28] MEDS ORDERED: ONDANSETRON 4MG/2ML VIAL IV PRN (09:20)
[2020-12-28] MEDS ORDERED: METOCLOPRAMIDE INJ 10MG/2ML VIAL (J2765 PER 1) IV PRN (09:20)
--- NOTE | 2020-12-28 09:25 | ROOR ---
Patient Name: Jennifer Sidhu Procedure Date: 12/28/2020 7:25 AM Date of : 1950 Admit Type: Outpatient Age: 70 Note Status: Finalized Attending MD: Svetlana Dc MD Procedure: Bronchoscopy Indications: Left lower lobe mass, Mediastinal adenopathy Providers: Svetlana Dc MD (Doctor), Juan Pereyra DO (1st Assisting Doctor) Referring MD: 1. NO/Unknown PCP 1. NO/Unknown PCP, Admin. (Referring MD) Requesting Physician: Medicines: General Anesthesia, Lidocaine 4% via nebulizer with Albuterol 2.5 mg, Cetacaine topical Complications: No immediate complications. Estimated blood loss: Minimal Procedure: Pre-Anesthesia Assessment: - Prior to the procedure, a History and Physical was performed, and patient medications and allergies were reviewed. The patient's tolerance of previous anesthesia was also reviewed. The risks and benefits of the procedure and the sedation options and risks were discussed with the patient. All questions were answered, and informed consent was obtained. Prior Anticoagulants: The patient has taken Plavix (clopidogrel), last dose was 7 days prior to procedure. ASA Grade Assessment: III - A patient with severe systemic disease. After reviewing the risks and benefits, the patient was deemed in satisfactory condition to undergo the procedure. - Patient identification and proposed procedure were verified prior to the procedure by the physician, the nurse, the anesthesiologist, the executive director global brand marketing and the service center technician. The procedure was verified in the procedure room. The Bronchoscope was introduced through the mouth, via the endotracheal tube (the patient was intubated for the procedure) and advanced to the tracheobronchial tree of both lungs. The procedure was accomplished without difficulty. The patient tolerated the procedure well. Findings: The endotracheal tube is in good position. The visualized portion of the trachea is of normal caliber. The jen is sharp. The tracheobronchial tree was examined to at least the first subsegmental level. Bronchial mucosa and anatomy are normal; there are no endobronchial lesions, and scant mucoid secretions. [employer] Robotic Electromagnetic navigation bronchoscopy was performed. The CT scan was used for planning purposes. A virtual bronchoscopic image was generated using the planning software. The target in the lateral basal segment of the left lower lobe was marked. An area of ground glass infiltration approx 2 cm in size was found and a pathway was created. After a complete airway exam the robotic navigation phase was then begun to locate the target lesion(s). Positioning was confirmed using fluoroscopy. Unable to confirm target lesion with radial ultrasound probe. No biopsies performed. Bronchoalveolar lavage was performed in the LLL lateral basal segments (B9) of the lung and sent for routine cytology. The return was cellular. Mucous plugs were present in the return fluid. Multiple specimens were obtained and pooled into one specimen, which was sent for analysis. An endobronchial ultrasound endoscope was utilized in order to assist with fine needle aspiration in the right paratracheal area and in the subcarinal area. Transbronchial needle aspirations of lymph nodes were performed in the right paratracheal area and in the subcarinal area using an Olympus EBUS-TBNA 21 gauge needle and sent for routine cytology. The procedure was guided by ultrasound. Impression: - Left lower lobe mass - Mediastinal adenopathy - The airway examination was normal. - Electromagnetic navigation bronchoscopy was performed. Unable to confirm target lesion with radial ultrasound, no biopsy performed - Bronchoalveolar lavage was performed. - Endobronchial ultrasound was performed. - A transbronchial needle aspiration was performed. Recommendation: - Follow up with bronchoscopist as previously scheduled. Procedure Code(s): --- Professional --- 46103, Bronchoscopy, rigid or flexible, including fluoroscopic guidance, when performed; with transbronchial needle aspiration biopsy(s), trachea, main stem and/or lobar bronchus(i) 92716, Bronchoscopy, rigid or flexible, including fluoroscopic guidance, when performed; with bronchial alveolar lavage 08799, Bronchoscopy, rigid or flexible, including fluoroscopic guidance, when performed; with computer-assisted, image-guided navigation (List separately in addition to code for primary procedure[s]) 55728, Bronchoscopy, rigid or flexible, including fluoroscopic guidance, when performed; with transendoscopic endobronchial ultrasound (EBUS) during bronchoscopic diagnostic or therapeutic intervention(s) for peripheral lesion(s) (List separately in addition to code for primary procedure[s]) CPT copyright 2019 [employer]. All rights reserved. The codes documented in this report are preliminary and upon policy service coordinator review may be revised to meet current compliance requirements. Attending Participation: I personally performed the entire procedure. Svetlana Dc MD 12/28/2020 9:25:03 AM Juan Pereyra, DO Number of Addenda: 0 Note Initiated On: 12/28/2020 7:25 AM
--- NOTE | 2020-12-28 09:37 | REP ---
INDICATION: POST OP. COMPARISON: Comparison chest x-ray July 14, 2020. TECHNIQUE: Portable upright AP chest radiograph. Single-view. FINDINGS: EKG electrodes are seen. The lungs are symmetrically aerated. No infiltrate is seen. Pleural angles are sharp. Interstitial markings are prominent suggesting fibrosis. There is no evidence of pneumothorax or hydrothorax. Coarse linear fibrosis is present in the left base. IMPRESSION: No evidence of pneumothorax hydrothorax or other complication seen. <Electronically signed by Agustín Mustafa > 12/28/20 0986
[2020-12-28 10:45] VITALS: BP 159/69
== END 2020-12-28 10:45 | disposition home or self-care (01) ==
LOC: M SDC 06:03
PROVIDERS: ATTEND Internal Medicine Pulmonary Disease
DX: R91.8 Other nonspecific abnormal finding of lung field (principal); R59.0 Localized enlarged lymph nodes; I11.9 Hypertensive heart disease without heart failure; I50.30 Unspecified diastolic (congestive) heart failure; E78.5 Hyperlipidemia, unspecified; E11.42 Type 2 diabetes mellitus with diabetic polyneuropathy; I73.9 Peripheral vascular disease, unspecified; K57.90 Diverticulosis of intestine, part unspecified, without perforation or abscess without bleeding; N18.2 Chronic kidney disease, stage 2 (mild); Z79.4 Long term (current) use of insulin; Z79.84 Long term (current) use of oral hypoglycemic drugs; Z79.82 Long term (current) use of aspirin; Z79.899 Other long term (current) drug therapy; Z79.02 Long term (current) use of antithrombotics/antiplatelets; Z85.118 Personal history of other malignant neoplasm of bronchus and lung; Z86.718 Personal history of other venous thrombosis and embolism; Z87.891 Personal history of nicotine dependence
CPT/HCPCS: 31624; 31627; 31629; 31654; 71045; 76000; 88108; 88173; 88305; 88313; J1100; J2250; J2405; J3010; S2900

== ENCOUNTER → 2021-01-07 | Outpatient (CLI) | payer MEDICARE ==
[~2021-01-07] MED LIST changes: -ALBUTEROL SULFATE 2.5 MG/0.5 ML INH NEB SOLN INH ONE; -LIDOCAINE 4% INJ 5ML AMP INH ONE; -LR 1,000 ML IV ONE
[2021-01-07 11:36] LABS: PLATELET COUNT, AUTOMATED 292 10^3/uL (150-450)
[2021-01-07 11:47] LABS: INR 0.89; PROTHROMBIN TIME 12.4 SECONDS (12.7-14.5)
[2021-01-07 11:48] LABS: PARTIAL THROMBOPLASTIN TIME 25.5 SECONDS (25.9-37.0)
== END ==
LOC: M LAB 11:03
PROVIDERS: ATTEND Internal Medicine Pulmonary Disease
DX: R91.8 Other nonspecific abnormal finding of lung field (principal)

== ENCOUNTER → 2021-01-27 | Outpatient (CLI) | payer MEDICARE ==
[~2021-01-27] MED LIST changes: +LIDOCAINE 1% MDV 20ML VIAL As Ordered ONE; +SODIUM BICARBONATE 8.4% INJ 50MEQ 50 ML VIAL As Ordered ONE; -TRUL10IN; +TRUL10IN SC
--- NOTE | 2021-01-27 13:06 | REP ---
INDICATION: POST LEFT LUNG BX, PA INSPIRATION. COMPARISON: Comparison chest x-ray December 28, 2020. TECHNIQUE: PA chest x-ray. FINDINGS: There is no evidence of pneumothorax or hydrothorax on either side. There is a hazy density in the left lateral pleural angle which was the site of the CT guided needle biopsy just proceed formed. Cardiomediastinal silhouette is unremarkable. IMPRESSION: No evidence of pneumothorax seen. Post biopsy chest x-ray. <Electronically signed by Agustín Mustafa > 01/27/21 3415
[2021-01-27 14:00] VITALS: BP 129/62
--- NOTE | 2021-01-27 16:16 | REP ---
INDICATION: LT LOWER LOBE LUNG NODULE. COMPARISON: None. TECHNIQUE: The procedure is performed by Stephanie Comer [facility], under the direct supervision of Dr. Mustafa. The risks and benefits of the procedure were explained to the patient and informed consent was obtained both orally and written. Directly prior to the start of the procedure, a formal timeout was done in the exam room. The left lobe lung mass was localized using CT guidance. Skin was prepped and draped in the usual sterile fashion. It was extremely difficult for this patient to take consistent breath holds and during this exam, the needle was repositioned at least 5 times before an adequate breath hold in window was visualized. Approximately 15 ml of buffered lidocaine was used as a local anesthetic. FINDINGS: Using CT guidance a 19/20 gauge coaxial needle biopsy system was inserted and advanced into the nodule. Three core biopsy samples were obtained and sent to the lab. Before more sampling could occur the patient experienced quite a bit of hemoptysis and was unable to hold still. CT images obtained directly after the biopsy show no evidence of pneumothorax. After the appropriate amount of monitored convalescence the patient was discharged from the department. IMPRESSION: CT-guided left lung mass biopsy. <Electronically signed by Stephanie Comer > 01/27/21 1533 <Electronically signed by Agustín Mustafa > 01/27/21 1612
== END ==
LOC: M IRPRO 09:47
PROVIDERS: ATTEND Internal Medicine Pulmonary Disease
DX: R91.8 Other nonspecific abnormal finding of lung field (principal)

== ENCOUNTER → 2021-03-08 | Outpatient (CLI) | payer MEDICARE ==
[~2021-03-08] MED LIST changes: -LIDOCAINE 1% MDV 20ML VIAL As Ordered ONE; -SODIUM BICARBONATE 8.4% INJ 50MEQ 50 ML VIAL As Ordered ONE
[2021-03-08 10:55] LABS: HEMOGLOBIN A1c 6.4 %
[2021-03-08 11:05] LABS: ALBUMIN 3.5 GM/DL (3.2-5.2); BILIRUBIN,TOTAL 0.2 MG/DL (0.2-1.0); CALCIUM LEVEL 9.1 MG/DL (8.8-10.2); CARBAMAZEPINE (TEGRETOL) LEVEL 9.1 UG/ML (4.0-10.0); CHOLESTEROL RISK RATIO 2.456 (<5); CREATININE FOR GFR 1.12 MG/DL (0.55-1.30); GLOMERULAR FILTRATION RATE 51.3 (>45); POTASSIUM SERUM 4.7 MEQ/L (3.5-5.1); TOTAL PROTEIN 6.3 GM/DL (6.4-8.2)
[2021-03-08 11:15] LABS: CREATININE, URINE 36.1 MG/DL; MALB URINE SIEMENS < 5.0 MG/L; MAU/CREAT RATIO 13.8 MCG/MG (0.0-30.0)
== END ==
LOC: M LAB 09:37
PROVIDERS: ATTEND Family Medicine
DX: E11.42 Type 2 diabetes mellitus with diabetic polyneuropathy (principal); E78.2 Mixed hyperlipidemia; G40.909 Epilepsy, unspecified, not intractable, without status epilepticus

== ENCOUNTER → 2021-05-23 | Outpatient (CLI) | payer MEDICARE ==
[~2021-05-23] MED LIST changes: -DICY20TA11 PO; +DICY20TA20 PO; +LOSA25TA13 PO; -LOSA25TA14 PO; -MONT10TA10 PO; +MONT10TA97 PO
== END ==
LOC: M PLARAD 09:25
PROVIDERS: ATTEND Internal Medicine Pulmonary Disease
DX: C34.31 Malignant neoplasm of lower lobe, right bronchus or lung (principal); I65.23 Occlusion and stenosis of bilateral carotid arteries; J34.1 Cyst and mucocele of nose and nasal sinus; J43.2 Centrilobular emphysema; I70.0 Atherosclerosis of aorta; I25.10 Atherosclerotic heart disease of native coronary artery without angina pectoris; Z90.49 Acquired absence of other specified parts of digestive tract; K57.90 Diverticulosis of intestine, part unspecified, without perforation or abscess without bleeding; Z90.2 Acquired absence of lung [part of]
CPT/HCPCS: 78815; A9552

== ENCOUNTER 2021-06-11 08:09 | Emergency (ER) | payer MEDICARE ==
[~2021-06-11] VITALS: Ht 160 cm; Wt 72.7 kg
[2021-06-11 08:19] VITALS: BP 99/51
[2021-06-11] MEDS ORDERED: NORCO, ANEXSIA 5/325MG TABLET (HYDROcodone/ACETAMINOPHEN) PO ONE (08:50)
[2021-06-11] MEDS ORDERED: CAPS0.022 TOP (09:53)
[2021-06-11] MEDS ORDERED: HYDR-3713 PO (09:53)
== END 2021-06-11 10:09 | disposition home or self-care (01) ==
LOC: M ED 08:09
DX: S60.932A Unspecified superficial injury of left thumb, initial encounter (principal); W19.XXXA Unspecified fall, initial encounter; Y92.099 Unspecified place in other non-institutional residence as the place of occurrence of the external cause; Y93.89 Activity, other specified; Y99.9 Unspecified external cause status; I50.9 Heart failure, unspecified; E11.9 Type 2 diabetes mellitus without complications; I10 Essential (primary) hypertension; Z86.718 Personal history of other venous thrombosis and embolism; J44.9 Chronic obstructive pulmonary disease, unspecified; F17.200 Nicotine dependence, unspecified, uncomplicated; Z79.01 Long term (current) use of anticoagulants; Z79.4 Long term (current) use of insulin; Z79.82 Long term (current) use of aspirin; Z79.899 Other long term (current) drug therapy

== ENCOUNTER 2021-07-06 17:24 | Emergency (ER) | payer MEDICARE ==
[~2021-07-06] VITALS: Ht 160 cm; Wt 74.7 kg
[~2021-07-06 17:24] MED LIST changes: +CAPS0.022 TOP
[2021-07-06 17:25] VITALS: BP 144/69
== END 2021-07-06 21:37 | disposition left against medical advice (07) ==
LOC: M ED 17:24
DX: Z53.21 Procedure and treatment not carried out due to patient leaving prior to being seen by health care provider (principal)

== ENCOUNTER 2021-07-17 09:19 | Emergency (ER) | payer MEDICARE ==
[~2021-07-17] VITALS: Ht 160 cm; Wt 76.9 kg
[2021-07-17] MEDS ORDERED: AMOX875T2 (09:29)
[2021-07-17] MEDS ORDERED: HYDR10TAB (09:29)
[2021-07-17] MEDS ORDERED: MACR100C43 PO (12:21)
[2021-07-17] MEDS ORDERED: CVS1KIT VA (12:21)
[2021-07-17 12:35] VITALS: BP 127/62
== END 2021-07-17 12:37 | disposition home or self-care (01) ==
LOC: M ED 09:19
DX: N39.0 Urinary tract infection, site not specified (principal); B37.3 Candidiasis of vulva and vagina; K64.9 Unspecified hemorrhoids; E11.9 Type 2 diabetes mellitus without complications; I10 Essential (primary) hypertension; E78.5 Hyperlipidemia, unspecified; I50.9 Heart failure, unspecified; K21.9 Gastro-esophageal reflux disease without esophagitis; R56.9 Unspecified convulsions; M54.9 Dorsalgia, unspecified; F41.9 Anxiety disorder, unspecified; K57.92 Diverticulitis of intestine, part unspecified, without perforation or abscess without bleeding; Z86.718 Personal history of other venous thrombosis and embolism; Z87.891 Personal history of nicotine dependence; Z79.4 Long term (current) use of insulin; Z79.82 Long term (current) use of aspirin; Z79.899 Other long term (current) drug therapy

== ENCOUNTER 2021-08-10 11:36 | Emergency (ER) | payer MEDICARE ==
[~2021-08-10] VITALS: Ht 160 cm; Wt 73.6 kg
[~2021-08-10 11:36] MED LIST changes: +AMOX875T2; +CVS1KIT VA; +HYDR10TAB; +MACR100C43 PO
[2021-08-10 13:23] LABS: BASO # 0.1 10^3/uL (0.0-0.2); BASO % 0.6 % (0.0-1.0); EOS # 0.4 10^3/uL (0.0-0.5); EOS % 3.8 % (0.0-3.0); HEMATOCRIT 39.9 % (36.0-47.0); HEMOGLOBIN 13.3 g/dl (12.0-15.5); LYMPH # 1.9 10^3/uL (1.5-5.0); LYMPH % 18.7 % (24.0-44.0); MEAN CORPUSCULAR HEMOGLOBIN 31.4 pg (27.0-33.0); MEAN CORPUSCULAR HGB CONC 33.3 g/dl (32.0-36.5); MEAN CORPUSCULAR VOLUME 94.3 fl (80.0-96.0); MONO # 0.7 10^3/uL (0.0-0.8); NEUTROPHILS % 69.6 % (36.0-66.0); PLATELET COUNT, AUTOMATED 290 10^3/uL (150-450); RED BLOOD COUNT 4.23 10^6/uL (4.00-5.40)
[2021-08-10 13:37] LABS: INR 0.82; PARTIAL THROMBOPLASTIN TIME 26.4 SECONDS (25.9-37.0); PROTHROMBIN TIME 11.7 SECONDS (12.7-14.5)
[2021-08-10 13:51] LABS: CREATININE FOR GFR 1.23 MG/DL (0.55-1.30); POTASSIUM SERUM 4.6 MEQ/L (3.5-5.1)
[2021-08-10] MEDS ORDERED: OXYMETAZOLINE 0.05% NASAL SPRAY (AFRIN) ONE (14:05)
[2021-08-10 15:21] VITALS: BP 126/77
== END 2021-08-10 15:36 | disposition home or self-care (01) ==
LOC: M ED 11:36
DX: R04.0 Epistaxis (principal); I50.9 Heart failure, unspecified; E11.9 Type 2 diabetes mellitus without complications; I10 Essential (primary) hypertension; Z86.718 Personal history of other venous thrombosis and embolism; R56.9 Unspecified convulsions; K57.92 Diverticulitis of intestine, part unspecified, without perforation or abscess without bleeding; M54.9 Dorsalgia, unspecified; Z87.891 Personal history of nicotine dependence; Z79.01 Long term (current) use of anticoagulants; Z79.82 Long term (current) use of aspirin; Z79.4 Long term (current) use of insulin; Z79.899 Other long term (current) drug therapy

== ENCOUNTER → 2021-08-28 | Outpatient (REF) | payer MEDICARE | LOC: M LAB REF 09:18 | PROVIDERS: ATTEND Otolaryngology | DX: J33.9 Nasal polyp, unspecified (principal) ==

== ENCOUNTER → 2021-11-21 | Outpatient (CLI) | payer MEDICARE ==
[~2021-11-21] MED LIST changes: -MOME0.1O TOP; +MOME0.1O3 TOP
[2021-11-21 11:02] LABS: BASO # 0.1 10^3/uL (0.0-0.2); BASO % 0.6 % (0.0-1.0); EOS # 0.4 10^3/uL (0.0-0.5); EOS % 4.5 % (0.0-3.0); HEMATOCRIT 39.7 % (36.0-47.0); HEMOGLOBIN 12.9 g/dl (12.0-15.5); LYMPH # 1.7 10^3/uL (1.5-5.0); LYMPH % 18.4 % (24.0-44.0); MEAN CORPUSCULAR HEMOGLOBIN 29.6 pg (27.0-33.0); MEAN CORPUSCULAR HGB CONC 32.5 g/dl (32.0-36.5); MEAN CORPUSCULAR VOLUME 91.1 fl (80.0-96.0); MONO # 0.8 10^3/uL (0.0-0.8); MONO % 8.1 % (2.0-8.0); NEUTROPHILS # 6.4 10^3/uL (1.5-8.5); NEUTROPHILS % 67.9 % (36.0-66.0); PLATELET COUNT, AUTOMATED 276 10^3/uL (150-450); RED BLOOD COUNT 4.36 10^6/uL (4.00-5.40); WHITE BLOOD COUNT 9.5 10^3/uL (4.0-10.0)
[2021-11-21 11:37] LABS: CALCIUM LEVEL 9.2 MG/DL (8.8-10.2); CREATININE FOR GFR 1.06 MG/DL (0.55-1.30); GLOMERULAR FILTRATION RATE 54.6 (>39); POTASSIUM SERUM 4.6 MEQ/L (3.5-5.1)
[2021-11-21 16:04] LABS: HEMOGLOBIN A1c 6.7 %
== END ==
LOC: M LAB 10:31
PROVIDERS: ATTEND Family Medicine
DX: E11.9 Type 2 diabetes mellitus without complications (principal); R29.6 Repeated falls

== ENCOUNTER → 2021-12-26 | Outpatient (CLI) | payer MEDICARE ==
[~2021-12-26] MED LIST changes: +ALBU6.7H6 INH; -PROV108A INH
== END ==
LOC: M PLAIMG 09:46
PROVIDERS: ATTEND Internal Medicine Pulmonary Disease
DX: C34.31 Malignant neoplasm of lower lobe, right bronchus or lung (principal)

== ENCOUNTER 2022-01-10 01:03 | Emergency (ER) | payer MEDICARE ==
[~2022-01-10] VITALS: Ht 160 cm; Wt 74.3 kg
[2022-01-10] MEDS ORDERED: BOOSTRIX/ADACEL VACCINE (DIPHTH/PERTUSS/ACELL/TETANUS) 0.5ML SYR IM.IMMUN ONE (01:45)
[2022-01-10 01:49] LABS: BASO % 0.4 % (0.0-1.0); EOS % 0.1 % (0.0-3.0); HEMOGLOBIN 13.2 g/dl (12.0-15.5); LYMPH # 0.8 10^3/uL (1.5-5.0); LYMPH % 7.1 % (24.0-44.0); MEAN CORPUSCULAR HEMOGLOBIN 30.1 pg (27.0-33.0); MEAN CORPUSCULAR HGB CONC 32.2 g/dl (32.0-36.5); MEAN CORPUSCULAR VOLUME 93.4 fl (80.0-96.0); NEUTROPHILS % 82.7 % (36.0-66.0); PLATELET COUNT, AUTOMATED 267 10^3/uL (150-450); RED BLOOD COUNT 4.39 10^6/uL (4.00-5.40); WHITE BLOOD COUNT 10.8 10^3/uL (4.0-10.0)
[2022-01-10 02:18] LABS: CK-MB VALUE MASS 4.5 NG/ML (<3.6); MB/CK RELATIVE INDEX 0.82 (< OR =4)
[2022-01-10 02:22] VITALS: O2SAT 84
[2022-01-10 02:25] LABS: BILIRUBIN,DIRECT 0.1 MG/DL (0.0-0.2); BILIRUBIN,TOTAL 0.3 MG/DL (0.2-1.0); CARBAMAZEPINE (TEGRETOL) LEVEL 15.5 UG/ML (4.0-10.0); CREATININE FOR GFR 1.64 MG/DL (0.55-1.30); ETHYL ALCOHOL (ETHANOL) 0.003 % (0.000-0.010); POTASSIUM SERUM 4.4 MEQ/L (3.5-5.1); THYROID STIMULATING HORMONE 3.48 uIU/ML (0.358-3.740); TOTAL PROTEIN 7.7 GM/DL (6.4-8.2)
[2022-01-10 02:46] LABS: INR 0.87; PROTHROMBIN TIME 12.2 SECONDS (12.7-14.5)
[2022-01-10 02:47] LABS: PARTIAL THROMBOPLASTIN TIME 25.8 SECONDS (25.9-37.0)
[2022-01-10 02:55] LABS: RSV AMPLIFICATION NEGATIVE (NEGATIVE)
[2022-01-10] MEDS ORDERED: TORS20TA2 PO (03:53)
[2022-01-10] MEDS ORDERED: FLUTISP NARES (03:53)
[2022-01-10] MEDS ORDERED: LORA-674 PO (03:57)
[2022-01-10] MEDS ORDERED: HYDR10TAB PO (03:57)
[2022-01-10] MEDS ORDERED: INSU100V2 SQ (04:04)
[2022-01-10] MEDS ORDERED: HOME MED LIST COMPLETE! XX SCH (04:10)
[2022-01-10 08:30] VITALS: BP 139/75
== END 2022-01-10 08:48 | disposition short-term general hospital (02) ==
LOC: M ED 01:03
DX: U07.1 COVID-19 (principal); R55 Syncope and collapse; R93.7 Abnormal findings on diagnostic imaging of other parts of musculoskeletal system; E11.9 Type 2 diabetes mellitus without complications; I10 Essential (primary) hypertension; J44.9 Chronic obstructive pulmonary disease, unspecified; E78.5 Hyperlipidemia, unspecified; G40.909 Epilepsy, unspecified, not intractable, without status epilepticus; Z85.118 Personal history of other malignant neoplasm of bronchus and lung; Z86.19 Personal history of other infectious and parasitic diseases; Z86.718 Personal history of other venous thrombosis and embolism; I73.9 Peripheral vascular disease, unspecified; Z87.891 Personal history of nicotine dependence; Z79.01 Long term (current) use of anticoagulants; Z79.82 Long term (current) use of aspirin; Z79.4 Long term (current) use of insulin; Z79.84 Long term (current) use of oral hypoglycemic drugs; Z79.899 Other long term (current) drug therapy

== ENCOUNTER → 2022-02-14 | Outpatient (CLI) | payer MEDICARE, OTHER ==
[~2022-02-14] MED LIST changes: +HYDR10TAB PO; +INSU100V2 SQ
[2022-02-14 09:30] LABS: HEMATOCRIT 39.5 % (36.0-47.0); HEMOGLOBIN 12.9 g/dl (12.0-15.5); MEAN CORPUSCULAR HEMOGLOBIN 30.7 pg (27.0-33.0); MEAN CORPUSCULAR HGB CONC 32.7 g/dl (32.0-36.5); PLATELET COUNT, AUTOMATED 320 10^3/uL (150-450); WHITE BLOOD COUNT 10.4 10^3/uL (4.0-10.0)
[2022-02-14 10:03] LABS: ALBUMIN 3.8 GM/DL (3.2-5.2); BILIRUBIN,TOTAL 0.3 MG/DL (0.2-1.0); CALCIUM LEVEL 9.5 MG/DL (8.8-10.2); CHOLESTEROL RISK RATIO 3.224 (<5); CREATININE FOR GFR 1.2 MG/DL (0.55-1.30); GLOMERULAR FILTRATION RATE 47.3 (>39); POTASSIUM SERUM 4.6 MEQ/L (3.5-5.1); TOTAL PROTEIN 7.2 GM/DL (6.4-8.2)
== END ==
LOC: M LAB 08:32
PROVIDERS: ATTEND Physician Assistant
DX: I50.32 Chronic diastolic (congestive) heart failure (principal); E78.5 Hyperlipidemia, unspecified; I73.9 Peripheral vascular disease, unspecified; R01.1 Cardiac murmur, unspecified; R56.9 Unspecified convulsions

== ENCOUNTER → 2022-03-28 | Outpatient (CLI) | payer MEDICARE, OTHER ==
[~2022-03-28] MED LIST changes: +CLOP75TA99 PO; -PLAV1TAB2 PO
== END ==
LOC: M RAD 14:37
PROVIDERS: ATTEND Internal Medicine Pulmonary Disease
DX: R91.8 Other nonspecific abnormal finding of lung field (principal); J44.9 Chronic obstructive pulmonary disease, unspecified; D35.01 Benign neoplasm of right adrenal gland

== ENCOUNTER → 2022-04-17 | Outpatient (CLI) | payer MEDICARE | LOC: M PLARAD 10:55 | PROVIDERS: ATTEND Internal Medicine Pulmonary Disease | DX: C34.31 Malignant neoplasm of lower lobe, right bronchus or lung (principal); I65.23 Occlusion and stenosis of bilateral carotid arteries; I70.0 Atherosclerosis of aorta; I25.10 Atherosclerotic heart disease of native coronary artery without angina pectoris; I70.1 Atherosclerosis of renal artery; K55.9 Vascular disorder of intestine, unspecified; K57.90 Diverticulosis of intestine, part unspecified, without perforation or abscess without bleeding | CPT/HCPCS: 78815; A9552 ==

== ENCOUNTER → 2022-04-27 | Outpatient (CLI) | payer MEDICARE | LOC: M RAD 10:23 | PROVIDERS: ATTEND Internal Medicine Pulmonary Disease | DX: R91.8 Other nonspecific abnormal finding of lung field (principal) ==

== ENCOUNTER → 2022-05-05 | Outpatient (CLI) | payer MEDICARE ==
[~2022-05-05] MED LIST changes: +ACET-683 PO; +DULO1CAP4 PO
[2022-05-05 11:02] LABS: PLATELET COUNT, AUTOMATED 354 10^3/uL (150-450)
[2022-05-05 11:12] LABS: INR 0.81; PROTHROMBIN TIME 11.4 SECONDS (12.5-14.5)
[2022-05-05 11:13] LABS: PARTIAL THROMBOPLASTIN TIME 26.2 SECONDS (24.8-34.2)
== END ==
LOC: M LAB 10:19
PROVIDERS: ATTEND Internal Medicine Pulmonary Disease
DX: Z01.812 Encounter for preprocedural laboratory examination (principal)

== ENCOUNTER → 2022-05-06 | Outpatient (CLI) | payer MEDICARE ==
[~2022-05-06] MED LIST changes: -ACET-683 PO
== END ==
LOC: M LABSMTC 10:55
PROVIDERS: ATTEND Anesthesiology
DX: Z01.812 Encounter for preprocedural laboratory examination (principal); Z11.52 Encounter for screening for COVID-19

== ENCOUNTER 2022-05-09 07:26 | Day surgery (SDC) | payer MEDICARE ==
[~2022-05-09] VITALS: Ht 162.6 cm; Wt 74.4 kg
[~2022-05-09 07:26] MED LIST changes: +ALBUTEROL SULFATE 2.5MG/0.5ML INH NEB SOLN INH ONE; +CETACAINE SPRAY 5GM As Ordered ONE; +LIDOCAINE PRES-FREE 2% 10ML AMP INH ONE
[2022-05-09] MEDS ORDERED: LR 1,000 ML IV SCH ×2 (08:00→11:15)
[2022-05-09] MEDS ORDERED: INSULIN LISPRO (NovoLOG) PER UNIT SC PRN ×2 (08:00→11:15)
[2022-05-09] MEDS ORDERED: propofoL 200 MG/20 ML VIAL As Ordered ONE (08:05)
[2022-05-09] MEDS ORDERED: LIDOCAINE 2% 100MG/5ML SDV (FOR ANES.) As Ordered ONE (08:05)
[2022-05-09] MEDS ORDERED: MIDAZOLAM INJ 2MG/2ML VIAL As Ordered ONE (08:05)
[2022-05-09] MEDS ORDERED: ROCURONIUM BROMIDE 50MG/5ML VIAL As Ordered ONE ×4 (08:05→10:44)
[2022-05-09] MEDS ORDERED: fentaNYL 100 MCG/2 ML INJECTION As Ordered ONE ×2 (08:05→10:19)
[2022-05-09] MEDS ORDERED: ONDANSETRON 4MG 2ML VIAL As Ordered ONE (08:06)
[2022-05-09] MEDS ORDERED: ACET-683 PO (08:10)
[2022-05-09] MEDS ORDERED: EPINEPHrine 1MG/10ML SYRINGE 1.5IN As Ordered ONE (08:24)
[2022-05-09] MEDS ORDERED: ePHEDrine SULFATE 25 MG/5 ML(5MG/ML) SYRINGE As Ordered ONE ×2 (10:00→10:16)
[2022-05-09] MEDS ORDERED: ACETAMINOPHEN 1000MG 100ML IV BAG As Ordered ONE (10:06)
[2022-05-09] MEDS ORDERED: SUGAMMADEX SODIUM 500 MG/5 ML VIAL (BRIDION) As Ordered ONE (10:11)
[2022-05-09] MEDS ORDERED: PHENYLephrine 500MCG 5ML (100MCG/ML) SYRINGE As Ordered ONE (11:07)
[2022-05-09] MEDS ORDERED: ALBUTEROL SULFATE 2.5MG/0.5ML INH NEB SOLN INH ONE (11:15)
[2022-05-09] MEDS ORDERED: ONDANSETRON 4MG 2ML VIAL IV PRN (11:15)
[2022-05-09] MEDS ORDERED: oxyCODONE 5MG TAB PO PRN (11:15)
[2022-05-09] MEDS ORDERED: fentaNYL 100 MCG/2 ML INJECTION IV PRN (11:15)
[2022-05-09] MEDS ORDERED: IPRATROPIUM 0.5MG/ALBUTEROL 2.5MG INH SOL UD 3ML (DUONEB) As Ordered ONE (11:25)
[2022-05-09] MEDS ORDERED: IPRATROPIUM 0.5MG/ALBUTEROL 2.5MG INH SOL UD 3ML (DUONEB) NEB ONE (12:00)
[2022-05-09 14:00] VITALS: BP 123/69
== END 2022-05-09 14:25 | disposition home or self-care (01) ==
LOC: M SDC 07:26
PROVIDERS: ATTEND Internal Medicine Pulmonary Disease
DX: R91.8 Other nonspecific abnormal finding of lung field (principal); C34.90 Malignant neoplasm of unspecified part of unspecified bronchus or lung; J44.9 Chronic obstructive pulmonary disease, unspecified; I50.32 Chronic diastolic (congestive) heart failure; E78.5 Hyperlipidemia, unspecified; R01.1 Cardiac murmur, unspecified; I73.9 Peripheral vascular disease, unspecified; E11.51 Type 2 diabetes mellitus with diabetic peripheral angiopathy without gangrene; Z87.891 Personal history of nicotine dependence; Z79.82 Long term (current) use of aspirin; Z79.84 Long term (current) use of oral hypoglycemic drugs; Z79.51 Long term (current) use of inhaled steroids; Z79.899 Other long term (current) drug therapy
CPT/HCPCS: 31623; 31624; 31626; 31627; 31628; 31629; 31654; 71045; 76000; 87070; 87071; 87102; 87116; 87205; 87206; 88104; 88108; 88173; 88305; 88313; A4648; J1100; J2370; J2405; S2900

== ENCOUNTER 2022-05-12 07:46 | Emergency (ER) | payer MEDICARE ==
[~2022-05-12] VITALS: Ht 160 cm; Wt 160.0 kg
[~2022-05-12 07:46] MED LIST changes: +ACET-683 PO; -ALBUTEROL SULFATE 2.5MG/0.5ML INH NEB SOLN INH ONE; -CETACAINE SPRAY 5GM As Ordered ONE; -LIDOCAINE PRES-FREE 2% 10ML AMP INH ONE
[2022-05-12] MEDS ORDERED: LIDOCAINE W/EPINEPHRINE 1% 20ML VIAL As Ordered ONE (07:54)
[2022-05-12] MEDS ORDERED: ONDANSETRON 4MG 2ML VIAL IV ONE (08:10)
[2022-05-12] MEDS ORDERED: MORPHINE 2 MG/ML 1ML VIAL IV PRN (08:10)
[2022-05-12 08:51] LABS: BASO # 0.1 10^3/uL (0.0-0.2); BASO % 0.5 % (0.0-1.0); EOS # 0.3 10^3/uL (0.0-0.5); EOS % 3.4 % (0.0-3.0); HEMATOCRIT 33.5 % (36.0-47.0); HEMOGLOBIN 10.9 g/dl (12.0-15.5); LYMPH # 1.5 10^3/uL (1.5-5.0); LYMPH % 15.7 % (24.0-44.0); MEAN CORPUSCULAR HEMOGLOBIN 30.6 pg (27.0-33.0); MEAN CORPUSCULAR HGB CONC 32.5 g/dl (32.0-36.5); MEAN CORPUSCULAR VOLUME 94.1 fl (80.0-96.0); MONO # 0.8 10^3/uL (0.0-0.8); NEUTROPHILS # 6.8 10^3/uL (1.5-8.5); NEUTROPHILS % 71.8 % (36.0-66.0); PLATELET COUNT, AUTOMATED 256 10^3/uL (150-450); RED BLOOD COUNT 3.56 10^6/uL (4.00-5.40); WHITE BLOOD COUNT 9.5 10^3/uL (4.0-10.0)
[2022-05-12] MEDS ORDERED: ISOVUE-370 76% 100ML VIAL As Ordered ONE (09:07)
[2022-05-12 09:10] LABS: LIPASE 87 U/L (12-53)
[2022-05-12 09:11] LABS: ETHYL ALCOHOL (ETHANOL) 0.003 % (0.000-0.010)
[2022-05-12 09:12] LABS: AMYLASE 100 U/L (30-118); BILIRUBIN,DIRECT < 0.1 MG/DL (<0.4); CPK CREATINE PHOSPHOKINASE 155 U/L (34-145)
[2022-05-12 09:13] LABS: ALBUMIN 3.1 G/DL (3.2-5.2); ALKALINE PHOSPHATASE 122 U/L (46-116); ALT/SGPT 30 U/L (7.0-40); AST/SGOT 22 U/L (<34); BILIRUBIN,TOTAL 0.2 MG/DL (0.3-1.2); BLOOD UREA NITROGEN 33 MG/DL (9-23); CALCIUM LEVEL 8.7 MG/DL (8.3-10.6); CARBON DIOXIDE LEVEL 24 MMOL/L (20-31); CHLORIDE LEVEL 103 MMOL/L (98-107); CK-MB VALUE MASS 1.1 NG/ML (<3.6); CREATININE FOR GFR 1.07 MG/DL (0.55-1.30); GLOMERULAR FILTRATION RATE 53.8 (>39); GLUCOSE, FASTING 166 MG/DL (74-106); POTASSIUM SERUM 4.4 MMOL/L (3.5-5.1); SODIUM LEVEL 134 MMOL/L (136-145); TOTAL PROTEIN 6.3 G/DL (5.7-8.2)
[2022-05-12 09:14] LABS: INR 0.95; PARTIAL THROMBOPLASTIN TIME 26.5 SECONDS (24.8-34.2); PROTHROMBIN TIME 12.9 SECONDS (12.5-14.5)
[2022-05-12 09:15] LABS: FREE T4 1.13 NG/DL (0.89-1.76); THYROID STIMULATING HORMONE 2.879 uIU/ML (0.55-4.78)
[2022-05-12] MEDS ORDERED: NS 500 ML IV ONE (09:15)
[2022-05-12 09:46] LABS: RSV AMPLIFICATION NEGATIVE (NEGATIVE)
[2022-05-12 11:34] LABS: CK-MB VALUE MASS < 1.0 NG/ML (<3.6)
[2022-05-12 11:35] LABS: CPK CREATINE PHOSPHOKINASE 139 U/L (34-145); MB/CK RELATIVE INDEX 0.71 (< OR =4)
[2022-05-12 11:39] VITALS: BP 166/88
== END 2022-05-12 11:43 | disposition short-term general hospital (02) ==
LOC: M ED 07:46 → EDBD 07:46 → M ED 11:43
DX: S01.81XA Laceration without foreign body of other part of head, initial encounter (principal); S30.0XXA Contusion of lower back and pelvis, initial encounter; S06.6XAA Traumatic subarachnoid hemorrhage with loss of consciousness status unknown, initial encounter; S06.36AA Traumatic hemorrhage of cerebrum, unspecified, with loss of consciousness status unknown, initial encounter; R55 Syncope and collapse; W18.30XA Fall on same level, unspecified, initial encounter; Y92.099 Unspecified place in other non-institutional residence as the place of occurrence of the external cause; R91.1 Solitary pulmonary nodule; E27.8 Other specified disorders of adrenal gland; M16.0 Bilateral primary osteoarthritis of hip; M47.816 Spondylosis without myelopathy or radiculopathy, lumbar region; M47.892 Other spondylosis, cervical region; R29.6 Repeated falls; I50.9 Heart failure, unspecified; E11.9 Type 2 diabetes mellitus without complications; J44.9 Chronic obstructive pulmonary disease, unspecified; Z87.891 Personal history of nicotine dependence; Z79.82 Long term (current) use of aspirin; Z79.84 Long term (current) use of oral hypoglycemic drugs; Z79.899 Other long term (current) drug therapy
CPT/HCPCS: 12013; 70450; 70486; 71045; 71260; 72125; 72128; 72131; 72170; 73502; 74177; 80047; 80048; 80076; 80156; 82077; 82150; 82550; 82553; 83605; 83690; 84439; 84443; 84484; 85025; 85610; 85730; 86850; 86900; 86901; 87040; 87077; 87631; 93005; 93041; 94760; 96361; 96374; 96375; 99285; J2405; Q9967

== ENCOUNTER 2022-06-05 10:41 | Inpatient (IN) | payer MEDICARE, OTHER ==
[~2022-06-05] VITALS: Ht 162.6 cm; Wt 71.8 kg
[2022-06-05] MEDS ORDERED: ISOVUE-370 76% 100ML VIAL As Ordered ONE (15:18)
[2022-06-05] MEDS ORDERED: NS 1,000 ML IV ONE (15:35)
[2022-06-05 16:43] LABS: BASO % 0.4 % (0.0-1.0); EOS # 0.1 10^3/uL (0.0-0.5); EOS % 1.3 % (0.0-3.0); HEMATOCRIT 30.9 % (36.0-47.0); LYMPH # 1.5 10^3/uL (1.5-5.0); LYMPH % 15.6 % (24.0-44.0); MEAN CORPUSCULAR HEMOGLOBIN 30.4 pg (27.0-33.0); MEAN CORPUSCULAR HGB CONC 32.4 g/dl (32.0-36.5); MEAN CORPUSCULAR VOLUME 93.9 fl (80.0-96.0); MONO # 0.6 10^3/uL (0.0-0.8); MONO % 6.7 % (2.0-8.0); NEUTROPHILS # 7.2 10^3/uL (1.5-8.5); NEUTROPHILS % 75.6 % (36.0-66.0); PLATELET COUNT, AUTOMATED 240 10^3/uL (150-450); RED BLOOD COUNT 3.29 10^6/uL (4.00-5.40); WHITE BLOOD COUNT 9.6 10^3/uL (4.0-10.0)
[2022-06-05 16:57] LABS: CK-MB VALUE MASS 1.4 NG/ML (<3.6); ETHYL ALCOHOL (ETHANOL) < 0.003 % (0.000-0.010); MAGNESIUM LEVEL 1.7 MG/DL (1.8-2.4)
[2022-06-05 16:58] LABS: CPK CREATINE PHOSPHOKINASE 109 U/L (34-145); MB/CK RELATIVE INDEX 1.28 (< OR =4)
[2022-06-05 17:00] LABS: THYROID STIMULATING HORMONE 2.437 uIU/ML (0.55-4.78)
[2022-06-05 17:01] LABS: FREE T4 1.09 NG/DL (0.89-1.76); RSV AMPLIFICATION NEGATIVE (NEGATIVE)
[2022-06-05 17:06] LABS: INR 0.9; PROTHROMBIN TIME 12.3 SECONDS (12.5-14.5)
[2022-06-05 17:07] LABS: PARTIAL THROMBOPLASTIN TIME 25.5 SECONDS (24.8-34.2)
[2022-06-05] MEDS ORDERED: HOME MED LIST COMPLETE! XX SCH (18:05)
[2022-06-05] MEDS ORDERED: DEXTROSE 50% 50ML SYRINGE IV PRN (18:20)
[2022-06-05] MEDS ORDERED: GLUCAGON INJ 1MG VIAL SC PRN (18:20)
[2022-06-05] MEDS ORDERED: GLUCOSE 4GM CHEW TABLET PO PRN (18:20)
[2022-06-05 18:44] LABS: CK-MB VALUE MASS 1.8 NG/ML (<3.6)
[2022-06-05 18:45] LABS: MB/CK RELATIVE INDEX 1.57 (< OR =4)
[2022-06-05] MEDS ORDERED: ALBU8.5H INH (19:20)
[2022-06-05 20:51] LABS: CK-MB VALUE MASS < 1.0 NG/ML (<3.6)
[2022-06-05 21:00] LABS: CPK CREATINE PHOSPHOKINASE 113 U/L (34-145); MB/CK RELATIVE INDEX 0.88 (< OR =4)
[2022-06-05] MEDS ORDERED: ACETAMINOPHEN 500 MG TAB PO SCH (21:00)
[2022-06-05] MEDS: INSULIN LISPRO (NovoLOG) PER UNIT SC SCH (21:00)
[2022-06-05] MEDS: LORATADINE 10 MG TAB PO SCH (21:23)
[2022-06-05] MEDS: ATORVASTATIN 20 MG TAB PO SCH (21:24)
[2022-06-05] MEDS: DULoxetine 20MG CAP (CYMBALTA) PO SCH (21:24)
[2022-06-05] MEDS: carBAMazepine 200MG TABLET PO SCH (21:25)
[2022-06-05] MEDS: MONTELUKAST 10 MG TAB PO SCH (21:27)
[2022-06-05] MEDS: METOPROLOL TART 25 MG TABLET PO SCH (21:32)
[2022-06-06 01:44] VITALS: BP 114/56
[2022-06-06 04:00] VITALS: BP 100/56
[2022-06-06 04:47] LABS: HEMOGLOBIN 9.8 g/dl (12.0-15.5); MEAN CORPUSCULAR HEMOGLOBIN 30.8 pg (27.0-33.0); MEAN CORPUSCULAR HGB CONC 32.7 g/dl (32.0-36.5); MEAN CORPUSCULAR VOLUME 94.3 fl (80.0-96.0); PLATELET COUNT, AUTOMATED 232 10^3/uL (150-450); RED BLOOD COUNT 3.18 10^6/uL (4.00-5.40)
[2022-06-06 05:13] LABS: ALBUMIN 3.2 G/DL (3.2-5.2); ALKALINE PHOSPHATASE 122 U/L (46-116); ALT/SGPT 21 U/L (7.0-40); AST/SGOT 9 U/L (<34); BILIRUBIN,TOTAL 0.2 MG/DL (0.3-1.2); BLOOD UREA NITROGEN 37 MG/DL (9-23); CALCIUM LEVEL 8.6 MG/DL (8.3-10.6); CARBON DIOXIDE LEVEL 25 MMOL/L (20-31); CHLORIDE LEVEL 108 MMOL/L (98-107); GLOMERULAR FILTRATION RATE > 60.0 (>39); GLUCOSE, FASTING 110 MG/DL (74-106); POTASSIUM SERUM 4.3 MMOL/L (3.5-5.1); SODIUM LEVEL 141 MMOL/L (136-145); TOTAL PROTEIN 5.3 G/DL (5.7-8.2)
[2022-06-06 08:00] VITALS: BP 99/50
[2022-06-06] MEDS: TORSEMIDE 20 MG TAB PO SCH (09:00)
[2022-06-06] MEDS: METOPROLOL TART 25 MG TABLET PO SCH ×2 (09:00→21:00)
[2022-06-06] MEDS: ISOSORBIDE MON. (IMDUR) 60MG XR TAB PO SCH (09:00)
[2022-06-06] MEDS: ASPIRIN 81MG CHEW TABLET PO SCH (09:50)
[2022-06-06] MEDS: CLOPIDOGREL 75 MG TAB PO SCH (09:50)
[2022-06-06] MEDS: EZETIMIBE 10MG TABLET (ZETIA) PO SCH (09:50)
[2022-06-06] MEDS: INSULIN LISPRO (NovoLOG) PER UNIT SC SCH ×4 (09:51→21:00)
[2022-06-06] MEDS: carBAMazepine 200MG TABLET PO SCH ×2 (11:23→21:13)
[2022-06-06] MEDS: DULoxetine 20MG CAP (CYMBALTA) PO SCH ×2 (11:24→21:14)
[2022-06-06 12:15] VITALS: BP 102/56
[2022-06-06] MEDS: ACETAMINOPHEN 500 MG TAB PO PRN (12:23)
[2022-06-06 16:00] VITALS: BP 124/58
[2022-06-06] MEDS ORDERED: ISOVUE-370 76% 100ML VIAL As Ordered ONE (16:37)
[2022-06-06 20:00] VITALS: BP_SYST 101; BP_SYST 96; BP_DIAS 54; BP_DIAS 62
[2022-06-06] MEDS: MONTELUKAST 10 MG TAB PO SCH (21:13)
[2022-06-06] MEDS: LORATADINE 10 MG TAB PO SCH (21:13)
[2022-06-06] MEDS: ATORVASTATIN 20 MG TAB PO SCH (21:13)
[2022-06-07] VITALS: BP 96/62
[2022-06-07 04:00] VITALS: BP 105/59
[2022-06-07 04:49] LABS: HEMATOCRIT 31.1 % (36.0-47.0); HEMOGLOBIN 9.9 g/dl (12.0-15.5); MEAN CORPUSCULAR HEMOGLOBIN 30.4 pg (27.0-33.0); MEAN CORPUSCULAR HGB CONC 31.8 g/dl (32.0-36.5); MEAN CORPUSCULAR VOLUME 95.4 fl (80.0-96.0); PLATELET COUNT, AUTOMATED 239 10^3/uL (150-450); RED BLOOD COUNT 3.26 10^6/uL (4.00-5.40)
[2022-06-07 05:10] LABS: BLOOD UREA NITROGEN 26 MG/DL (9-23); CALCIUM LEVEL 8.4 MG/DL (8.3-10.6); CARBON DIOXIDE LEVEL 24 MMOL/L (20-31); CHLORIDE LEVEL 109 MMOL/L (98-107); CREATININE FOR GFR 0.91 MG/DL (0.55-1.30); GLOMERULAR FILTRATION RATE > 60.0 (>39); GLUCOSE, FASTING 109 MG/DL (74-106); POTASSIUM SERUM 4.4 MMOL/L (3.5-5.1); SODIUM LEVEL 141 MMOL/L (136-145)
[2022-06-07 08:00] VITALS: BP_SYST 133; BP_SYST 152; BP_DIAS 57; BP_DIAS 81
[2022-06-07] MEDS: INSULIN LISPRO (NovoLOG) PER UNIT SC SCH ×2 (08:54→12:00)
[2022-06-07] MEDS: ASPIRIN 81MG CHEW TABLET PO SCH (08:55)
[2022-06-07] MEDS: carBAMazepine 200MG TABLET PO SCH (08:55)
[2022-06-07] MEDS: EZETIMIBE 10MG TABLET (ZETIA) PO SCH (08:55)
[2022-06-07] MEDS: METOPROLOL TART 25 MG TABLET PO SCH (08:55)
[2022-06-07] MEDS: DULoxetine 20MG CAP (CYMBALTA) PO SCH (08:55)
[2022-06-07 08:56] VITALS: BP 152/81
[2022-06-07] MEDS: ISOSORBIDE MON. (IMDUR) 60MG XR TAB PO SCH (08:56)
[2022-06-07] MEDS: TORSEMIDE 20 MG TAB PO SCH (08:56)
[2022-06-07] MEDS: CLOPIDOGREL 75 MG TAB PO SCH (08:56)
[2022-06-07] MEDS: ACETAMINOPHEN 500 MG TAB PO PRN (09:00)
[2022-06-07 12:00] VITALS: BP 144/66
== END 2022-06-07 15:28 | disposition home or self-care (01) | DRG 68 ==
LOC: M ED 10:41 → M ED INP 17:29 → M PCU 06-06 01:40
PROVIDERS: ADMIT Internal Medicine; ATTEND Internal Medicine
DX: I65.22 Occlusion and stenosis of left carotid artery (principal); C34.90 Malignant neoplasm of unspecified part of unspecified bronchus or lung; C79.9 Secondary malignant neoplasm of unspecified site; R26.89 Other abnormalities of gait and mobility; R29.6 Repeated falls; E11.9 Type 2 diabetes mellitus without complications; I10 Essential (primary) hypertension; E78.5 Hyperlipidemia, unspecified; G40.909 Epilepsy, unspecified, not intractable, without status epilepticus; I95.9 Hypotension, unspecified; R55 Syncope and collapse; Z20.822 Contact with and (suspected) exposure to COVID-19; Z79.82 Long term (current) use of aspirin; Z79.84 Long term (current) use of oral hypoglycemic drugs; Z79.899 Other long term (current) drug therapy; Z87.891 Personal history of nicotine dependence

== ENCOUNTER 2022-06-11 20:51 | Inpatient (IN) | payer MEDICARE ==
[~2022-06-11] VITALS: Ht 165.1 cm; Wt 72.6 kg
[~2022-06-11 20:51] MED LIST changes: +ALBU8.5H INH
[2022-06-11 22:45] LABS: CK-MB VALUE MASS 2.6 NG/ML (<3.6)
[2022-06-11 22:47] LABS: MB/CK RELATIVE INDEX 1.45 (< OR =4)
[2022-06-11 22:48] LABS: ALBUMIN 2.9 G/DL (3.2-5.2); BILIRUBIN,DIRECT 0.2 MG/DL (<0.4); BILIRUBIN,TOTAL 0.4 MG/DL (0.3-1.2); CALCIUM LEVEL 8.3 MG/DL (8.3-10.6); CREATININE FOR GFR 1.17 MG/DL (0.55-1.30); GLOMERULAR FILTRATION RATE 48.5 (>39); POTASSIUM SERUM 4.3 MMOL/L (3.5-5.1); TOTAL PROTEIN 5.8 G/DL (5.7-8.2)
[2022-06-11 22:49] LABS: THYROID STIMULATING HORMONE 2.453 uIU/ML (0.55-4.78)
[2022-06-11 22:50] LABS: FREE T4 0.78 NG/DL (0.89-1.76)
[2022-06-11 22:55] LABS: BASO % 0.2 % (0.0-1.0); EOS # 0.1 10^3/uL (0.0-0.5); EOS % 0.5 % (0.0-3.0); LYMPH # 1.3 10^3/uL (1.5-5.0); LYMPH % 11.6 % (24.0-44.0); MEAN CORPUSCULAR HEMOGLOBIN 30.2 pg (27.0-33.0); MEAN CORPUSCULAR HGB CONC 30.7 g/dl (32.0-36.5); MEAN CORPUSCULAR VOLUME 98.4 fl (80.0-96.0); MONO # 0.7 10^3/uL (0.0-0.8); MONO % 6.1 % (2.0-8.0); NEUTROPHILS % 80.9 % (36.0-66.0); PLATELET COUNT, AUTOMATED 283 10^3/uL (150-450); RED BLOOD COUNT 1.92 10^6/uL (4.00-5.40); WHITE BLOOD COUNT 11.1 10^3/uL (4.0-10.0)
[2022-06-11 23:00] LABS: HEMATOCRIT 18.9 % (36.0-47.0); HEMOGLOBIN 5.8 g/dl (12.0-15.5)
[2022-06-12] VITALS (14 sets, daily range): BP systolic 117–185; BP diastolic 54–89; O2SAT 92–96
[2022-06-12 00:24] LABS: CK-MB VALUE MASS 1.9 NG/ML (<3.6)
[2022-06-12 00:25] LABS: MB/CK RELATIVE INDEX 1.25 (< OR =4)
[2022-06-12 00:32] LABS: ALBUMIN 2.6 G/DL (3.2-5.2); BILIRUBIN,DIRECT 0.2 MG/DL (<0.4); BILIRUBIN,TOTAL 0.4 MG/DL (0.3-1.2); CALCIUM LEVEL 7.2 MG/DL (8.3-10.6); CREATININE FOR GFR 1.05 MG/DL (0.55-1.30); POTASSIUM SERUM 3.8 MMOL/L (3.5-5.1); TOTAL PROTEIN 5.1 G/DL (5.7-8.2)
[2022-06-12 00:46] LABS: BASO % 0.2 % (0.0-1.0); EOS # 0.1 10^3/uL (0.0-0.5); EOS % 0.7 % (0.0-3.0); LYMPH # 1.1 10^3/uL (1.5-5.0); LYMPH % 12.2 % (24.0-44.0); MEAN CORPUSCULAR HEMOGLOBIN 31.7 pg (27.0-33.0); MEAN CORPUSCULAR HGB CONC 32.1 g/dl (32.0-36.5); MEAN CORPUSCULAR VOLUME 98.9 fl (80.0-96.0); MONO # 0.6 10^3/uL (0.0-0.8); MONO % 6.2 % (2.0-8.0); NEUTROPHILS # 7.2 10^3/uL (1.5-8.5); NEUTROPHILS % 79.9 % (36.0-66.0); PLATELET COUNT, AUTOMATED 273 10^3/uL (150-450); RED BLOOD COUNT 1.89 10^6/uL (4.00-5.40); WHITE BLOOD COUNT 9.1 10^3/uL (4.0-10.0)
[2022-06-12 00:52] LABS: HEMATOCRIT 18.7 % (36.0-47.0)
[2022-06-12] MEDS ORDERED: GLUCAGON INJ 1MG VIAL SC PRN (04:00)
[2022-06-12] MEDS ORDERED: GLUCOSE 4GM CHEW TABLET PO PRN (04:00)
[2022-06-12] MEDS ORDERED: DEXTROSE 50% 50ML SYRINGE IV PRN (04:00)
[2022-06-12] MEDS ORDERED: ISOS1TAB35 PO (04:24)
[2022-06-12] MEDS ORDERED: HOME MED LIST COMPLETE! XX SCH (04:25)
[2022-06-12] MEDS ORDERED: ALBUTEROL 90 MCG/ACT 8GM HFA INHALER INH PRN (04:35)
[2022-06-12 06:26] LABS: VENOUS BASE EXCESS -6.5 (-2.0-2.0); VENOUS HCO3 18.3 MEQ/L (23.0-27.0); VENOUS O2 SATURATION 96.7 % (60.0-80.0); VENOUS PARTIAL PRESSURE CO2 33.6 mmHg (38.0-50.0); VENOUS PARTIAL PRESSURE O2 98.2 mmHg (30.0-50.0); VENOUS PH 7.354 UNITS (7.330-7.430); VENOUS STANDARD HCO3 19.1 MEQ/L; VENOUS TOTAL CO2 19.3 MEQ/L (24.0-28.0)
[2022-06-12 06:48] LABS: HEMATOCRIT 24.4 % (36.0-47.0); HEMOGLOBIN 7.8 g/dl (12.0-15.5)
[2022-06-12 06:57] LABS: PERCENT SATURATION 66.7 % (13.2-45.0)
[2022-06-12 06:58] LABS: INR 1.04; PARTIAL THROMBOPLASTIN TIME 25.2 SECONDS (24.8-34.2); PROTHROMBIN TIME 13.8 SECONDS (12.5-14.5)
[2022-06-12 07:00] LABS: FERRITIN 104.1 NG/ML (7.3-270.7); FOLATE 10.95 NG/ML (>5.4)
[2022-06-12 07:04] LABS: BILIRUBIN,TOTAL 0.9 MG/DL (0.3-1.2); CALCIUM LEVEL 8.3 MG/DL (8.3-10.6); CREATININE FOR GFR 1.07 MG/DL (0.55-1.30); GLOMERULAR FILTRATION RATE 53.8 (>39); MAGNESIUM LEVEL 2.2 MG/DL (1.8-2.4); POTASSIUM SERUM 3.9 MMOL/L (3.5-5.1)
[2022-06-12 07:29] LABS: APPEARANCE, URINE CLEAR (CLEAR); BACTERIA, URINE AUTO NEGATIVE (NEGATIVE); BILIRUBIN, URINE AUTO NEGATIVE (NEGATIVE); BLOOD, URINE BLOOD NEGATIVE (NEGATIVE); COLOR, URINE YELLOW (YELLOW); GLUCOSE, URINE (UA) AUTO NEGATIVE (NEGATIVE); KETONE, URINE AUTO TRACE mg/dL (NEGATIVE); LEUKOCYTE ESTERASE, URINE AUTO NEGATIVE (NEGATIVE); MUCUS, URINE SMALL (NEGATIVE); NITRITE, URINE AUTO NEGATIVE (NEGATIVE); PROTEIN, URINE AUTO NEGATIVE (NEGATIVE); RBC, URINE AUTO 0 /HPF (0-3); SPECIFIC GRAVITY URINE AUTO 1.014 (1.002-1.035); SQUAMOUS EPITHELIAL CELL UR AU 0 /HPF (0-6); UROBILINOGEN, URINE AUTO 0.2 mg/dL (0.0-2.0); WBC, URINE AUTO 0 /HPF (0-3)
[2022-06-12] MEDS: DULoxetine 20MG CAP (CYMBALTA) PO SCH (07:43)
[2022-06-12] MEDS: INSULIN LISPRO (NovoLOG) PER UNIT SC SCH ×4 (07:43→20:37)
[2022-06-12] MEDS: METOPROLOL TART 25 MG TABLET PO SCH ×2 (07:43→20:42)
[2022-06-12] MEDS: EZETIMIBE 10MG TABLET (ZETIA) PO SCH (07:43)
[2022-06-12] MEDS: ISOSORBIDE MON. (IMDUR) 30MG XR TAB PO SCH (07:44)
[2022-06-12] MEDS: carBAMazepine 200MG TABLET PO SCH ×2 (07:46→20:42)
[2022-06-12] MEDS ORDERED: TORSEMIDE 20 MG TAB PO SCH (09:00)
[2022-06-12] MEDS ORDERED: FUROSEMIDE 40MG/4ML VIAL IV ONE (09:00)
[2022-06-12] MEDS ORDERED: PANTOPRAZOLE 40MG VIAL IV SCH (09:00)
[2022-06-12] MEDS: SYMBICORT 160/4.5MCG INHALER 6GM INH SCH ×2 (09:17→19:10)
[2022-06-12] MEDS ORDERED: ISOVUE-370 76% 100ML VIAL As Ordered ONE (13:09)
[2022-06-12 14:33] LABS: HEMATOCRIT 30.8 % (36.0-47.0)
[2022-06-12] MEDS: FOLIC ACID 1MG TAB PO SCH (15:58)
[2022-06-12] MEDS: ACETAMINOPHEN TAB 650MG DOSE (2X325MG) PO PRN ×2 (15:58→20:43)
[2022-06-12] MEDS: CYANOCOBALAMIN 1,000MCG/ML 1ML VIAL IM SCH (17:32)
[2022-06-12 18:33] LABS: HEMATOCRIT 29.7 % (36.0-47.0); HEMOGLOBIN 9.8 g/dl (12.0-15.5)
[2022-06-12] MEDS: FAMOTIDINE 20 MG TAB PO SCH ×2 (20:41→20:45)
[2022-06-12] MEDS: ATORVASTATIN 20 MG TAB PO SCH (20:41)
[2022-06-12] MEDS: MONTELUKAST 10 MG TAB PO SCH (20:41)
[2022-06-12] MEDS: LORATADINE 10 MG TAB PO SCH (20:42)
[2022-06-13] VITALS (30 sets, daily range): BP systolic 88–189; BP diastolic 50–84; O2SAT 89–98
[2022-06-13 01:00] LABS: HEMATOCRIT 28.2 % (36.0-47.0); HEMOGLOBIN 9.4 g/dl (12.0-15.5)
[2022-06-13] MEDS ORDERED: KETOROLAC 30 MG/ML 1ML VIAL IM ONE (01:00)
[2022-06-13] MEDS: ACETAMINOPHEN TAB 650MG DOSE (2X325MG) PO PRN (03:49)
[2022-06-13 05:02] LABS: BASO % 0.5 % (0.0-1.0); EOS # 0.2 10^3/uL (0.0-0.5); HEMOGLOBIN 9.6 g/dl (12.0-15.5); LYMPH # 1.4 10^3/uL (1.5-5.0); MEAN CORPUSCULAR HEMOGLOBIN 30.2 pg (27.0-33.0); MEAN CORPUSCULAR HGB CONC 33.1 g/dl (32.0-36.5); MEAN CORPUSCULAR VOLUME 91.2 fl (80.0-96.0); MONO # 0.7 10^3/uL (0.0-0.8); MONO % 9.5 % (2.0-8.0); NEUTROPHILS # 5.2 10^3/uL (1.5-8.5); NEUTROPHILS % 68.3 % (36.0-66.0); PLATELET COUNT, AUTOMATED 255 10^3/uL (150-450); RED BLOOD COUNT 3.18 10^6/uL (4.00-5.40); WHITE BLOOD COUNT 7.6 10^3/uL (4.0-10.0)
[2022-06-13 05:25] LABS: CALCIUM LEVEL 8.3 MG/DL (8.3-10.6); CREATININE FOR GFR 0.98 MG/DL (0.55-1.30); GLOMERULAR FILTRATION RATE 59.6 (>39); POTASSIUM SERUM 3.8 MMOL/L (3.5-5.1)
[2022-06-13] MEDS: SYMBICORT 160/4.5MCG INHALER 6GM INH SCH ×2 (06:10→18:12)
[2022-06-13] MEDS ORDERED: NAPROXEN 250 MG TAB PO PRN (07:30)
[2022-06-13] MEDS ORDERED: oxyCODONE 5MG TAB PO PRN (07:30)
[2022-06-13] MEDS: INSULIN LISPRO (NovoLOG) PER UNIT SC SCH ×4 (08:10→21:00)
[2022-06-13] MEDS: FOLIC ACID 1MG TAB PO SCH (08:10)
[2022-06-13] MEDS: OMEPRAZOLE 20MG CAP PO SCH (08:11)
[2022-06-13] MEDS: EZETIMIBE 10MG TABLET (ZETIA) PO SCH (08:11)
[2022-06-13] MEDS: METOPROLOL TART 25 MG TABLET PO SCH ×2 (08:12→21:12)
[2022-06-13] MEDS: ISOSORBIDE MON. (IMDUR) 30MG XR TAB PO SCH (08:12)
[2022-06-13] MEDS: DULoxetine 20MG CAP (CYMBALTA) PO SCH (08:12)
[2022-06-13] MEDS: carBAMazepine 200MG TABLET PO SCH ×2 (08:13→21:11)
[2022-06-13] MEDS ORDERED: ACETAMINOPHEN 500 MG TAB PO SCH (09:00)
[2022-06-13] MEDS: CYANOCOBALAMIN 1,000MCG/ML 1ML VIAL IM SCH (12:16)
[2022-06-13 12:27] LABS: HEMATOCRIT 30.8 % (36.0-47.0); HEMOGLOBIN 10.1 g/dl (12.0-15.5)
[2022-06-13] MEDS: CLOPIDOGREL 75 MG TAB PO SCH (17:10)
[2022-06-13] MEDS: ASPIRIN 81MG CHEW TABLET PO SCH (17:10)
[2022-06-13] MEDS: ATORVASTATIN 20 MG TAB PO SCH (21:12)
[2022-06-13] MEDS: ACETAMINOPHEN 500 MG TAB PO SCH (21:12)
[2022-06-13] MEDS: LORATADINE 10 MG TAB PO SCH (21:13)
[2022-06-13] MEDS: FAMOTIDINE 20 MG TAB PO SCH (21:13)
[2022-06-13] MEDS: MONTELUKAST 10 MG TAB PO SCH (21:13)
[2022-06-14] VITALS (10 sets, daily range): BP systolic 112–180; BP diastolic 44–74; O2SAT 95–99
[2022-06-14 04:38] LABS: BASO % 0.5 % (0.0-1.0); EOS # 0.2 10^3/uL (0.0-0.5); EOS % 3.3 % (0.0-3.0); HEMATOCRIT 28.8 % (36.0-47.0); HEMOGLOBIN 9.4 g/dl (12.0-15.5); LYMPH # 1.2 10^3/uL (1.5-5.0); LYMPH % 18.7 % (24.0-44.0); MEAN CORPUSCULAR HEMOGLOBIN 29.8 pg (27.0-33.0); MEAN CORPUSCULAR HGB CONC 32.6 g/dl (32.0-36.5); MEAN CORPUSCULAR VOLUME 91.4 fl (80.0-96.0); MONO # 0.6 10^3/uL (0.0-0.8); MONO % 9.8 % (2.0-8.0); NEUTROPHILS # 4.2 10^3/uL (1.5-8.5); NEUTROPHILS % 67.1 % (36.0-66.0); PLATELET COUNT, AUTOMATED 292 10^3/uL (150-450); RED BLOOD COUNT 3.15 10^6/uL (4.00-5.40); WHITE BLOOD COUNT 6.3 10^3/uL (4.0-10.0)
[2022-06-14 05:03] LABS: BLOOD UREA NITROGEN 25 MG/DL (9-23); CALCIUM LEVEL 8.5 MG/DL (8.3-10.6); CARBON DIOXIDE LEVEL 24 MMOL/L (20-31); CHLORIDE LEVEL 107 MMOL/L (98-107); CREATININE FOR GFR 0.89 MG/DL (0.55-1.30); GLOMERULAR FILTRATION RATE > 60.0 (>39); GLUCOSE, FASTING 135 MG/DL (74-106); POTASSIUM SERUM 3.8 MMOL/L (3.5-5.1); SODIUM LEVEL 140 MMOL/L (136-145)
[2022-06-14] MEDS: SYMBICORT 160/4.5MCG INHALER 6GM INH SCH (08:12)
[2022-06-14] MEDS ORDERED: CYAN1000VL IM (08:37)
[2022-06-14] MEDS ORDERED: FOLI1TAB11 PO (08:37)
[2022-06-14] MEDS ORDERED: ACET-683 PO (08:37)
[2022-06-14] MEDS: INSULIN LISPRO (NovoLOG) PER UNIT SC SCH (08:53)
[2022-06-14] MEDS: CYANOCOBALAMIN 1,000MCG/ML 1ML VIAL IM SCH (08:53)
[2022-06-14] MEDS: CLOPIDOGREL 75 MG TAB PO SCH (08:53)
[2022-06-14] MEDS: ASPIRIN 81MG CHEW TABLET PO SCH (08:54)
[2022-06-14] MEDS: EZETIMIBE 10MG TABLET (ZETIA) PO SCH (08:54)
[2022-06-14] MEDS: FOLIC ACID 1MG TAB PO SCH (08:55)
[2022-06-14] MEDS: ACETAMINOPHEN 500 MG TAB PO SCH (08:55)
[2022-06-14] MEDS: OMEPRAZOLE 20MG CAP PO SCH (08:55)
[2022-06-14] MEDS: METOPROLOL TART 25 MG TABLET PO SCH (08:56)
[2022-06-14] MEDS: carBAMazepine 200MG TABLET PO SCH (08:56)
[2022-06-14] MEDS: ISOSORBIDE MON. (IMDUR) 30MG XR TAB PO SCH (08:57)
[2022-06-14] MEDS: DULoxetine 20MG CAP (CYMBALTA) PO SCH (08:57)
[2022-06-14] MEDS ORDERED: FERR325T3 PO (10:50)
[2022-06-14] MEDS ORDERED: COLA100C5 PO (10:50)
== END 2022-06-14 11:12 | disposition home or self-care (01) | DRG 812 ==
LOC: M ED 20:51 → M ED INP 06-12 03:19 → M PCU 06-12 14:12
PROVIDERS: ADMIT Family Medicine; ATTEND Family Medicine
PROC: 30233N1 Transfusion of Nonautologous Red Blood Cells into Peripheral Vein, Percutaneous Approach (ICD-10-PCS; principal; 2022-06-12)
DX: D62 Acute posthemorrhagic anemia (principal); J96.12 Chronic respiratory failure with hypercapnia; J96.11 Chronic respiratory failure with hypoxia; I50.32 Chronic diastolic (congestive) heart failure; E55.9 Vitamin D deficiency, unspecified; R29.6 Repeated falls; I95.1 Orthostatic hypotension; E11.42 Type 2 diabetes mellitus with diabetic polyneuropathy; G40.909 Epilepsy, unspecified, not intractable, without status epilepticus; I65.22 Occlusion and stenosis of left carotid artery; Z87.820 Personal history of traumatic brain injury; Z86.718 Personal history of other venous thrombosis and embolism; I73.9 Peripheral vascular disease, unspecified; E78.5 Hyperlipidemia, unspecified; I11.0 Hypertensive heart disease with heart failure; J44.9 Chronic obstructive pulmonary disease, unspecified; E11.51 Type 2 diabetes mellitus with diabetic peripheral angiopathy without gangrene; Z95.5 Presence of coronary angioplasty implant and graft; Z90.49 Acquired absence of other specified parts of digestive tract; Z87.891 Personal history of nicotine dependence; Z79.82 Long term (current) use of aspirin; Z85.118 Personal history of other malignant neoplasm of bronchus and lung; Z79.84 Long term (current) use of oral hypoglycemic drugs; Z79.899 Other long term (current) drug therapy; Z20.822 Contact with and (suspected) exposure to COVID-19; S70.12XA Contusion of left thigh, initial encounter; S70.02XA Contusion of left hip, initial encounter; Z90.2 Acquired absence of lung [part of]; Z99.81 Dependence on supplemental oxygen; W01.0XXA Fall on same level from slipping, tripping and stumbling without subsequent striking against object, initial encounter; Y92.009 Unspecified place in unspecified non-institutional (private) residence as the place of occurrence of the external cause

== ENCOUNTER → 2022-07-24 | Outpatient (CLI) | payer MEDICARE ==
[~2022-07-24] MED LIST changes: +CYAN1000VL IM; +FERR325T3 PO; +FOLI1TAB11 PO; +MONT-5 PO; -SING10TA32 PO
[2022-07-24 14:57] LABS: BASO % 0.3 % (0.0-1.0); EOS # 0.2 10^3/uL (0.0-0.5); EOS % 2.4 % (0.0-3.0); HEMATOCRIT 29.9 % (36.0-47.0); HEMOGLOBIN 9.5 g/dl (12.0-15.5); LYMPH # 1.3 10^3/uL (1.5-5.0); LYMPH % 14.6 % (24.0-44.0); MEAN CORPUSCULAR HEMOGLOBIN 30.4 pg (27.0-33.0); MEAN CORPUSCULAR HGB CONC 31.8 g/dl (32.0-36.5); MEAN CORPUSCULAR VOLUME 95.8 fl (80.0-96.0); MONO # 0.6 10^3/uL (0.0-0.8); MONO % 7.1 % (2.0-8.0); NEUTROPHILS # 6.6 10^3/uL (1.5-8.5); NEUTROPHILS % 75.1 % (36.0-66.0); PLATELET COUNT, AUTOMATED 389 10^3/uL (150-450); RED BLOOD COUNT 3.12 10^6/uL (4.00-5.40); WHITE BLOOD COUNT 8.8 10^3/uL (4.0-10.0)
[2022-07-24 15:30] LABS: FOLATE 10.61 NG/ML (>5.4)
== END ==
LOC: M LAB 14:19
PROVIDERS: ATTEND Family Medicine
DX: E53.8 Deficiency of other specified B group vitamins (principal); D64.9 Anemia, unspecified

== ENCOUNTER → 2022-07-24 | Outpatient (CLI) | payer MEDICARE | LOC: M RAD 07-21 15:10 | DX: S70.02XA Contusion of left hip, initial encounter (principal); X58.XXXA Exposure to other specified factors, initial encounter; Y92.9 Unspecified place or not applicable; Y93.9 Activity, unspecified; E53.8 Deficiency of other specified B group vitamins; D64.9 Anemia, unspecified; M16.0 Bilateral primary osteoarthritis of hip ==

== ENCOUNTER → 2022-08-28 | Outpatient (CLI) | payer MEDICARE ==
[~2022-08-28] MED LIST changes: +FLUT50SP17 NARES; -FLUTISP NARES
== END ==
LOC: M RAD 10:20
PROVIDERS: ATTEND Internal Medicine Pulmonary Disease
DX: R91.8 Other nonspecific abnormal finding of lung field (principal)

== ENCOUNTER → 2022-09-13 | Outpatient (CLI) | payer MEDICARE | LOC: M RAD 12:45 | PROVIDERS: ATTEND Surgery | DX: I73.9 Peripheral vascular disease, unspecified (principal) ==

== ENCOUNTER → 2022-09-14 | Outpatient (CLI) | payer MEDICARE | LOC: M ONCR 13:59 | PROVIDERS: ATTEND General Practice | DX: R91.8 Other nonspecific abnormal finding of lung field (principal); Z87.891 Personal history of nicotine dependence; J44.9 Chronic obstructive pulmonary disease, unspecified; M75.102 Unspecified rotator cuff tear or rupture of left shoulder, not specified as traumatic; Z90.49 Acquired absence of other specified parts of digestive tract; Z79.51 Long term (current) use of inhaled steroids; Z79.85 Long-term (current) use of injectable non-insulin antidiabetic drugs; Z79.84 Long term (current) use of oral hypoglycemic drugs; Z79.82 Long term (current) use of aspirin; Z79.899 Other long term (current) drug therapy; Z80.3 Family history of malignant neoplasm of breast; Z80.0 Family history of malignant neoplasm of digestive organs ==

== ENCOUNTER → 2022-10-04 | Outpatient (CLI) | payer MEDICARE | LOC: M RAD 09:39 | PROVIDERS: ATTEND Student in an Organized Health Care Education/Training Program | DX: M25.511 Pain in right shoulder (principal); M19.011 Primary osteoarthritis, right shoulder; M19.012 Primary osteoarthritis, left shoulder; M25.711 Osteophyte, right shoulder; M25.712 Osteophyte, left shoulder; M77.8 Other enthesopathies, not elsewhere classified ==

== ENCOUNTER 2022-10-12 08:38 | Outpatient (RCR) | payer MEDICARE ==
[~2022-10-12 08:38] MED LIST changes: -INSU100V2 SQ; +INSU100V6 SQ; +LORA-1041 PO; -LORA-674 PO; -PREG50CA2; -PREG50CA2 PO; +PREG50CA3; +PREG50CA3 PO
== END 2022-10-19 ==
LOC: M ONCR 08:38
PROVIDERS: ATTEND General Practice
DX: Z51.0 Encounter for antineoplastic radiation therapy (principal); C34.12 Malignant neoplasm of upper lobe, left bronchus or lung

== ENCOUNTER 2022-11-01 10:07 | Inpatient (IN) | payer MEDICARE ==
[~2022-11-01] VITALS: Ht 162.6 cm; Wt 63.6 kg
[~2022-11-01 10:07] MED LIST changes: -LORA-1041 PO; +LORA-674 PO; +PREG50CA2; +PREG50CA2 PO; -PREG50CA3; -PREG50CA3 PO
[2022-11-01 11:46] LABS: BASO # 0.1 10^3/uL (0.0-0.2); BASO % 0.4 % (0.0-1.0); EOS # 0.1 10^3/uL (0.0-0.5); EOS % 0.6 % (0.0-3.0); HEMATOCRIT 44.9 % (36.0-47.0); HEMOGLOBIN 15.3 g/dl (12.0-15.5); LYMPH # 1.2 10^3/uL (1.5-5.0); LYMPH % 8.5 % (24.0-44.0); MEAN CORPUSCULAR HEMOGLOBIN 29.1 pg (27.0-33.0); MEAN CORPUSCULAR HGB CONC 34.1 g/dl (32.0-36.5); MEAN CORPUSCULAR VOLUME 85.5 fl (80.0-96.0); MONO # 1.2 10^3/uL (0.0-0.8); MONO % 8.8 % (2.0-8.0); NEUTROPHILS # 11.2 10^3/uL (1.5-8.5); PLATELET COUNT, AUTOMATED 375 10^3/uL (150-450); RED BLOOD COUNT 5.25 10^6/uL (4.00-5.40); WHITE BLOOD COUNT 13.8 10^3/uL (4.0-10.0)
[2022-11-01] MEDS ORDERED: ONDANSETRON 4MG 2ML VIAL IV ONE (11:50)
[2022-11-01] MEDS ORDERED: NS 1,000 ML IV ONE ×2 (11:50→20:50)
[2022-11-01 12:14] LABS: ALBUMIN 4.3 G/DL (3.2-5.2); BILIRUBIN,DIRECT 0.1 MG/DL (<0.4); BILIRUBIN,TOTAL 0.4 MG/DL (0.3-1.2); CALCIUM LEVEL 11.1 MG/DL (8.3-10.6); CREATININE FOR GFR 1.9 MG/DL (0.55-1.30); GLOMERULAR FILTRATION RATE 27.7 (>39); POTASSIUM SERUM 5.2 MMOL/L (3.5-5.1); TOTAL PROTEIN 7.8 G/DL (5.7-8.2)
[2022-11-01 12:55] LABS: INR 0.96; PARTIAL THROMBOPLASTIN TIME 25.6 SECONDS (24.8-34.2)
[2022-11-01 13:04] LABS: CK-MB VALUE MASS < 1.0 NG/ML (<3.6)
[2022-11-01 13:05] LABS: CPK CREATINE PHOSPHOKINASE 108 U/L (34-145); MB/CK RELATIVE INDEX 0.92 (< OR =4)
[2022-11-01] MEDS ORDERED: NS 930 ML in IV 1 EA IV ONE (13:05)
[2022-11-01] MEDS ORDERED: PIPERACILLIN/TAZOBACTAM SOD 4.5 GM in D5W MINI-BAG PLUS 50 ML IV ONE (13:05)
[2022-11-01] MEDS ORDERED: MED REC IN PROGRESS XX SCH (15:10)
[2022-11-01] MEDS ORDERED: ACETAMINOPHEN TAB 650MG DOSE (2X325MG) PO PRN (16:10)
[2022-11-01] MEDS ORDERED: GLUCOSE 4GM CHEW TABLET PO PRN (16:15)
[2022-11-01] MEDS ORDERED: ONDANSETRON 4MG 2ML VIAL IV PRN (16:15)
[2022-11-01] MEDS ORDERED: PIPERACILLIN/TAZOBACTAM SOD 3.375 GM in D5W MINI-BAG PLUS 50 ML IV SCH (16:15)
[2022-11-01] MEDS ORDERED: GLUCAGON INJ 1MG VIAL SC PRN (16:15)
[2022-11-01] MEDS ORDERED: LR 1,000 ML IV SCH (16:15)
[2022-11-01] MEDS ORDERED: DEXTROSE 50% 50ML SYRINGE IV PRN (16:15)
[2022-11-01] MEDS ORDERED: CARB1TAB20 PO (16:22)
[2022-11-01 16:30] VITALS: BP 150/68; TEMP 97.3; O2SAT 98
[2022-11-01] MEDS ORDERED: ISOS1TAB36 PO (16:37)
[2022-11-01 16:40] LABS: PROCALCITONIN 0.09 ng/ml
[2022-11-01] MEDS ORDERED: IPRATROPIUM 0.5MG/ALBUTEROL 2.5MG INH SOL UD 3ML (DUONEB) NEB PRN (16:45)
[2022-11-01] MEDS ORDERED: ALBUTEROL 90 MCG/ACT 8GM HFA INHALER INH PRN (16:45)
[2022-11-01] MEDS ORDERED: HOME MED LIST COMPLETE! XX SCH (16:45)
[2022-11-01] MEDS ORDERED: LR 2,000 ML IV SCH (16:50)
[2022-11-01] MEDS: INSULIN LISPRO (NovoLOG) PER UNIT SC SCH ×2 (18:11→22:32)
[2022-11-01] MEDS: PIPERACILLIN/TAZOBACTAM SOD 2.25 GM in D5W MINI-BAG PLUS 50 ML IV SCH (18:12)
[2022-11-01 20:43] LABS: CALCIUM LEVEL 8.1 MG/DL (8.3-10.6); CREATININE FOR GFR 1.69 MG/DL (0.55-1.30); GLOMERULAR FILTRATION RATE 31.8 (>39); POTASSIUM SERUM 3.8 MMOL/L (3.5-5.1)
[2022-11-01] MEDS: MONTELUKAST 10 MG TAB PO SCH (21:37)
[2022-11-01] MEDS: HEPARIN SOD (PORCINE) 5000UNITS/ML 1ML VIAL/SYRINGE SC SCH (21:37)
[2022-11-01] MEDS: carBAMazepine 200MG TABLET PO SCH (21:37)
[2022-11-01] MEDS: ATORVASTATIN 20 MG TAB PO SCH (21:38)
[2022-11-01] MEDS: METOPROLOL TART 25 MG TABLET PO SCH (21:38)
[2022-11-01 22:13] VITALS: BP 164/61; TEMP 97.5; O2SAT 97
[2022-11-02] MEDS: PIPERACILLIN/TAZOBACTAM SOD 2.25 GM in D5W MINI-BAG PLUS 50 ML IV SCH ×4 (01:25→19:22)
[2022-11-02 03:59] VITALS: BP 151/57; TEMP 97.5; O2SAT 95
[2022-11-02 06:30] LABS: BASO # 0.1 10^3/uL (0.0-0.2); BASO % 0.6 % (0.0-1.0); EOS # 0.2 10^3/uL (0.0-0.5); EOS % 2.4 % (0.0-3.0); HEMATOCRIT 33.8 % (36.0-47.0); LYMPH # 0.9 10^3/uL (1.5-5.0); LYMPH % 10.8 % (24.0-44.0); MEAN CORPUSCULAR HEMOGLOBIN 29.5 pg (27.0-33.0); MEAN CORPUSCULAR VOLUME 86.7 fl (80.0-96.0); MONO # 0.8 10^3/uL (0.0-0.8); MONO % 9.3 % (2.0-8.0); NEUTROPHILS # 6.7 10^3/uL (1.5-8.5); NEUTROPHILS % 76.6 % (36.0-66.0); WHITE BLOOD COUNT 8.7 10^3/uL (4.0-10.0)
[2022-11-02 06:45] LABS: ALBUMIN 2.8 G/DL (3.2-5.2); BILIRUBIN,TOTAL 0.3 MG/DL (0.3-1.2); CALCIUM LEVEL 7.7 MG/DL (8.3-10.6); CREATININE FOR GFR 1.45 MG/DL (0.55-1.30); GLOMERULAR FILTRATION RATE 37.9 (>39); MAGNESIUM LEVEL 1.6 MG/DL (1.8-2.4); POTASSIUM SERUM 3.4 MMOL/L (3.5-5.1); TOTAL PROTEIN 5.1 G/DL (5.7-8.2)
[2022-11-02] MEDS: HEPARIN SOD (PORCINE) 5000UNITS/ML 1ML VIAL/SYRINGE SC SCH ×3 (06:51→20:44)
[2022-11-02 06:55] LABS: HEMOGLOBIN 11.5 g/dl (12.0-15.5); PLATELET COUNT, AUTOMATED 213 10^3/uL (150-450)
[2022-11-02] MEDS: MAG SULF 1GM/100ML (MAG RUN) 1 GM in IV 1 EA IV SCH ×2 (08:23→10:00)
[2022-11-02] MEDS: carBAMazepine 200MG TABLET PO SCH ×2 (08:24→20:43)
[2022-11-02] MEDS: EZETIMIBE 10MG TABLET (ZETIA) PO SCH (08:24)
[2022-11-02] MEDS: METOPROLOL TART 25 MG TABLET PO SCH ×2 (08:26→20:43)
[2022-11-02] MEDS: CLOPIDOGREL 75 MG TAB PO SCH (08:27)
[2022-11-02] MEDS: DULoxetine 20MG CAP (CYMBALTA) PO SCH (08:28)
[2022-11-02] MEDS: INSULIN LISPRO (NovoLOG) PER UNIT SC SCH ×4 (08:28→20:32)
[2022-11-02] MEDS: ASPIRIN 81MG CHEW TABLET PO SCH (08:28)
[2022-11-02 08:32] LABS: ACETONE/KETONE 0.43 MMOL/L (0.02-0.27)
[2022-11-02] MEDS ORDERED: ISOSORBIDE MON. (IMDUR) 60MG XR TAB PO SCH (09:00)
[2022-11-02] MEDS ORDERED: POTASSIUM CHLORIDE 10MEQ SR TABLET PO ONE (09:00)
[2022-11-02] MEDS ORDERED: LR 1,000 ML IV SCH (10:50)
[2022-11-02 14:00] VITALS: BP 139/63; TEMP 97.9; O2SAT 97
[2022-11-02] MEDS ORDERED: PROHANCE 279.3MG/ML 5ML VIAL As Ordered ONE (18:00)
[2022-11-02] MEDS: MONTELUKAST 10 MG TAB PO SCH (20:43)
[2022-11-02] MEDS: ATORVASTATIN 20 MG TAB PO SCH (20:43)
[2022-11-02 21:21] VITALS: BP 161/62; TEMP 97.7; O2SAT 94
[2022-11-03] MEDS: PIPERACILLIN/TAZOBACTAM SOD 2.25 GM in D5W MINI-BAG PLUS 50 ML IV SCH ×2 (01:03→06:43)
[2022-11-03 06:00] VITALS: BP 140/71; TEMP 97.9; O2SAT 94
[2022-11-03 06:35] LABS: BASO # 0.1 10^3/uL (0.0-0.2); BASO % 0.8 % (0.0-1.0); EOS # 0.3 10^3/uL (0.0-0.5); EOS % 3.4 % (0.0-3.0); HEMOGLOBIN 12.3 g/dl (12.0-15.5); LYMPH # 0.8 10^3/uL (1.5-5.0); LYMPH % 9.8 % (24.0-44.0); MEAN CORPUSCULAR HEMOGLOBIN 29.5 pg (27.0-33.0); MEAN CORPUSCULAR HGB CONC 31.5 g/dl (32.0-36.5); MEAN CORPUSCULAR VOLUME 93.5 fl (80.0-96.0); MONO # 0.8 10^3/uL (0.0-0.8); MONO % 8.8 % (2.0-8.0); NEUTROPHILS # 6.6 10^3/uL (1.5-8.5); NEUTROPHILS % 76.6 % (36.0-66.0); PLATELET COUNT, AUTOMATED 209 10^3/uL (150-450); RED BLOOD COUNT 4.17 10^6/uL (4.00-5.40); WHITE BLOOD COUNT 8.6 10^3/uL (4.0-10.0)
[2022-11-03] MEDS: HEPARIN SOD (PORCINE) 5000UNITS/ML 1ML VIAL/SYRINGE SC SCH (06:43)
[2022-11-03 07:20] LABS: BILIRUBIN,TOTAL 0.2 MG/DL (0.3-1.2); CALCIUM LEVEL 8.2 MG/DL (8.3-10.6); CREATININE FOR GFR 1.17 MG/DL (0.55-1.30); GLOMERULAR FILTRATION RATE 48.5 (>39); MAGNESIUM LEVEL 1.6 MG/DL (1.8-2.4); POTASSIUM SERUM 3.8 MMOL/L (3.5-5.1); TOTAL PROTEIN 5.6 G/DL (5.7-8.2)
[2022-11-03] MEDS: INSULIN LISPRO (NovoLOG) PER UNIT SC SCH (07:30)
[2022-11-03] MEDS: ASPIRIN 81MG CHEW TABLET PO SCH (08:08)
[2022-11-03] MEDS: DULoxetine 20MG CAP (CYMBALTA) PO SCH (08:09)
[2022-11-03] MEDS: EZETIMIBE 10MG TABLET (ZETIA) PO SCH (08:09)
[2022-11-03] MEDS: CLOPIDOGREL 75 MG TAB PO SCH (08:09)
[2022-11-03] MEDS: carBAMazepine 200MG TABLET PO SCH (08:09)
[2022-11-03 08:10] VITALS: BP 146/66
[2022-11-03] MEDS: METOPROLOL TART 25 MG TABLET PO SCH (08:10)
[2022-11-03] MEDS ORDERED: METR-265 PO (10:34)
[2022-11-03] MEDS ORDERED: CIPR-249 PO (10:34)
[2022-11-03] MEDS ORDERED: PROBCAP14 PO (10:36)
== END 2022-11-03 11:25 | disposition home or self-care (01) | DRG 872 ==
LOC: M ED 10:07 → M ED INP 15:21 → ENRESERV 15:32 → M MS5PR 16:15
PROVIDERS: ADMIT Student in an Organized Health Care Education/Training Program; ATTEND Student in an Organized Health Care Education/Training Program
DX: A41.9 Sepsis, unspecified organism (principal); C34.12 Malignant neoplasm of upper lobe, left bronchus or lung; N17.9 Acute kidney failure, unspecified; E87.20 Acidosis, unspecified; E87.1 Hypo-osmolality and hyponatremia; A09 Infectious gastroenteritis and colitis, unspecified; I50.32 Chronic diastolic (congestive) heart failure; R56.9 Unspecified convulsions; I11.0 Hypertensive heart disease with heart failure; E78.5 Hyperlipidemia, unspecified; E11.51 Type 2 diabetes mellitus with diabetic peripheral angiopathy without gangrene; I73.9 Peripheral vascular disease, unspecified; J44.9 Chronic obstructive pulmonary disease, unspecified; E86.0 Dehydration; K76.9 Liver disease, unspecified; E87.5 Hyperkalemia; G89.29 Other chronic pain; Z20.822 Contact with and (suspected) exposure to COVID-19; Z79.82 Long term (current) use of aspirin; Z79.84 Long term (current) use of oral hypoglycemic drugs; Z87.820 Personal history of traumatic brain injury; Z79.899 Other long term (current) drug therapy; Z90.49 Acquired absence of other specified parts of digestive tract; Z87.891 Personal history of nicotine dependence

== ENCOUNTER → 2022-12-04 | Outpatient (CLI) | payer MEDICARE ==
[~2022-12-04] MED LIST changes: +CIPR-249 PO; +METR-265 PO; +PROBCAP14 PO
== END ==
LOC: M ONCR 14:28
PROVIDERS: ATTEND General Practice
DX: K76.9 Liver disease, unspecified (principal); Z85.118 Personal history of other malignant neoplasm of bronchus and lung

== ENCOUNTER 2022-12-20 09:53 | Emergency (ER) | payer MEDICARE, OTHER ==
[~2022-12-20] VITALS: Ht 160 cm; Wt 69.5 kg
[2022-12-20 11:50] LABS: BASO # 0.1 10^3/uL (0.0-0.2); BASO % 0.5 % (0.0-1.0); EOS # 0.8 10^3/uL (0.0-0.5); EOS % 6.2 % (0.0-3.0); LYMPH # 0.9 10^3/uL (1.5-5.0); LYMPH % 6.9 % (24.0-44.0); MEAN CORPUSCULAR HEMOGLOBIN 29.9 pg (27.0-33.0); MEAN CORPUSCULAR HGB CONC 32.4 g/dl (32.0-36.5); MEAN CORPUSCULAR VOLUME 92.3 fl (80.0-96.0); MONO # 0.9 10^3/uL (0.0-0.8); MONO % 6.6 % (2.0-8.0); NEUTROPHILS # 10.3 10^3/uL (1.5-8.5); PLATELET COUNT, AUTOMATED 370 10^3/uL (150-450); RED BLOOD COUNT 4.01 10^6/uL (4.00-5.40)
[2022-12-20 12:09] LABS: CK-MB VALUE MASS 2.2 NG/ML (<3.6); ETHYL ALCOHOL (ETHANOL) 0.003 % (0.000-0.010)
[2022-12-20 12:10] LABS: ACETAMINOPHEN LEVEL < 2.0 UG/ML (10.0-20.0); CPK CREATINE PHOSPHOKINASE 89 U/L (34-145); MB/CK RELATIVE INDEX 2.47 (< OR =4); SALICYLATE LEVEL < 3.0 MG/DL (<30)
[2022-12-20 12:12] LABS: ALBUMIN 3.4 G/DL (3.2-5.2); ALKALINE PHOSPHATASE 195 U/L (46-116); ALT/SGPT 15 U/L (7.0-40); AST/SGOT 10 U/L (<34); BILIRUBIN,DIRECT < 0.1 MG/DL (<0.4); BILIRUBIN,TOTAL 0.2 MG/DL (0.3-1.2); BLOOD UREA NITROGEN 23 MG/DL (9-23); CALCIUM LEVEL 9.1 MG/DL (8.3-10.6); CARBON DIOXIDE LEVEL 24 MMOL/L (20-31); CHLORIDE LEVEL 102 MMOL/L (98-107); CREATININE FOR GFR 0.78 MG/DL (0.55-1.30); GLOMERULAR FILTRATION RATE > 60.0 (>39); GLUCOSE, FASTING 156 MG/DL (74-106); POTASSIUM SERUM 3.7 MMOL/L (3.5-5.1); SODIUM LEVEL 140 MMOL/L (136-145); THYROID STIMULATING HORMONE 2.656 uIU/ML (0.55-4.78); TOTAL PROTEIN 6.9 G/DL (5.7-8.2)
[2022-12-20] MEDS ORDERED: NS 500 ML IV ONE ×2 (12:25→15:30)
[2022-12-20 13:34] LABS: AMPHETAMINES LEVEL URINE NEGATIVE (NEGATIVE); BARBITURATES URINE NEGATIVE (NEGATIVE); BENZODIAZEPINES URINE NEGATIVE (NEGATIVE); CANNABINOIDS URINE NEGATIVE (NEGATIVE); COCAINE METABOLITE URINE NEGATIVE (NEGATIVE); METHADONE URINE NEGATIVE (NEGATIVE); OPIATES URINE NEGATIVE (NEGATIVE); PHENCYCLIDINE URINE NEGATIVE (NEGATIVE)
[2022-12-20 16:20] VITALS: BP 172/80; TEMP 97.9; O2SAT 95
== END 2022-12-20 16:39 | disposition home or self-care (01) ==
LOC: M ED 09:53
DX: S50.02XA Contusion of left elbow, initial encounter (principal); W19.XXXA Unspecified fall, initial encounter; Y92.238 Other place in hospital as the place of occurrence of the external cause; Y93.01 Activity, walking, marching and hiking; Z91.81 History of falling; E11.9 Type 2 diabetes mellitus without complications; I10 Essential (primary) hypertension; E78.5 Hyperlipidemia, unspecified; Z86.018 Personal history of other benign neoplasm; Z85.118 Personal history of other malignant neoplasm of bronchus and lung; Z87.891 Personal history of nicotine dependence; Z79.82 Long term (current) use of aspirin; Z79.4 Long term (current) use of insulin; Z79.899 Other long term (current) drug therapy; E53.8 Deficiency of other specified B group vitamins; E78.2 Mixed hyperlipidemia; R29.6 Repeated falls

== ENCOUNTER → 2022-12-20 | Outpatient (CLI) | payer MEDICARE ==
[2022-12-20 10:01] LABS: BASO # 0.1 10^3/uL (0.0-0.2); BASO % 0.6 % (0.0-1.0); EOS # 0.9 10^3/uL (0.0-0.5); HEMATOCRIT 34.6 % (36.0-47.0); HEMOGLOBIN 11.3 g/dl (12.0-15.5); LYMPH % 8.4 % (24.0-44.0); MEAN CORPUSCULAR HEMOGLOBIN 30.1 pg (27.0-33.0); MEAN CORPUSCULAR HGB CONC 32.7 g/dl (32.0-36.5); MEAN CORPUSCULAR VOLUME 92.3 fl (80.0-96.0); MONO # 0.9 10^3/uL (0.0-0.8); MONO % 7.3 % (2.0-8.0); NEUTROPHILS # 8.8 10^3/uL (1.5-8.5); NEUTROPHILS % 74.9 % (36.0-66.0); PLATELET COUNT, AUTOMATED 351 10^3/uL (150-450); RED BLOOD COUNT 3.75 10^6/uL (4.00-5.40); WHITE BLOOD COUNT 11.7 10^3/uL (4.0-10.0)
[2022-12-20 10:25] LABS: ALBUMIN 3.2 G/DL (3.2-5.2); ALKALINE PHOSPHATASE 180 U/L (46-116); ALT/SGPT 14 U/L (7.0-40); AST/SGOT 8 U/L (<34); BILIRUBIN,TOTAL 0.2 MG/DL (0.3-1.2); BLOOD UREA NITROGEN 23 MG/DL (9-23); CALCIUM LEVEL 8.9 MG/DL (8.3-10.6); CARBON DIOXIDE LEVEL 27 MMOL/L (20-31); CHLORIDE LEVEL 103 MMOL/L (98-107); CHOLESTEROL LEVEL 135 MG/DL (<200); CHOLESTEROL RISK RATIO 2.69 (<5); CREATININE FOR GFR 0.81 MG/DL (0.55-1.30); GLOMERULAR FILTRATION RATE > 60.0 (>39); GLUCOSE, FASTING 175 MG/DL (74-106); HDL CHOLESTEROL 50.1 MG/DL (>40); LDL CHOLESTEROL 36.9 MG/DL (<100); NON-HDL-C 84.9 MG/DL; POTASSIUM SERUM 3.8 MMOL/L (3.5-5.1); SODIUM LEVEL 140 MMOL/L (136-145); TOTAL PROTEIN 6.3 G/DL (5.7-8.2); TRIGLYCERIDES LEVEL 240 MG/DL (<150)
[2022-12-20 10:26] LABS: FREE T4 0.96 NG/DL (0.89-1.76); THYROID STIMULATING HORMONE 3.145 uIU/ML (0.55-4.78)
[2022-12-20 10:27] LABS: FOLATE 5.4 NG/ML (>5.4); VITAMIN B12 LEVEL 308 PG/ML (211-911)
[2022-12-20 11:34] LABS: HEMOGLOBIN A1c 7.2 % (4.0-6.0)
[2022-12-25 14:08] LABS: HOMOCYST(E)INE SERUM 15.7 umol/L (0.0-19.2); Methylmalonic Acid 171 nmol/L (0-378)
== END ==
LOC: M LAB 09:27
PROVIDERS: ATTEND Family Medicine
DX: E53.8 Deficiency of other specified B group vitamins (principal); I10 Essential (primary) hypertension; E78.2 Mixed hyperlipidemia; R29.6 Repeated falls; E11.9 Type 2 diabetes mellitus without complications

== ENCOUNTER → 2023-01-07 | Outpatient (CLI) | payer MEDICARE ==
[~2023-01-07] MED LIST changes: +ISOVUE-370 76% 100ML VIAL As Ordered ONE; +LORA-1041 PO; -LORA-674 PO; -PREG50CA2; -PREG50CA2 PO; +PREG50CA3; +PREG50CA3 PO
== END ==
LOC: M RAD 10:13
PROVIDERS: ATTEND General Practice
DX: C34.12 Malignant neoplasm of upper lobe, left bronchus or lung (principal); K76.89 Other specified diseases of liver
CPT/HCPCS: 71260; Q9967

== ENCOUNTER 2023-02-15 07:11 | Inpatient (IN) | payer MEDICARE ==
[~2023-02-15] VITALS: Ht 160 cm; Wt 72.0 kg
[~2023-02-15 07:11] MED LIST changes: -ISOVUE-370 76% 100ML VIAL As Ordered ONE
[2023-02-15 08:05] LABS: VENOUS BASE EXCESS -6.4 (-2.0-2.0); VENOUS HCO3 19.6 MMOL/L (23.0-27.0); VENOUS O2 SATURATION 70.8 % (60.0-80.0); VENOUS PARTIAL PRESSURE CO2 40.7 mmHg (38.0-50.0); VENOUS STANDARD HCO3 18.7 MMOL/L; VENOUS TOTAL CO2 20.8 MMOL/L (24.0-28.0)
[2023-02-15 08:12] LABS: BASO # 0.1 10^3/uL (0.0-0.2); BASO % 0.4 % (0.0-1.0); EOS # 0.2 10^3/uL (0.0-0.5); EOS % 1.3 % (0.0-3.0); HEMATOCRIT 36.5 % (36.0-47.0); LYMPH # 0.6 10^3/uL (1.5-5.0); LYMPH % 3.3 % (24.0-44.0); MEAN CORPUSCULAR HEMOGLOBIN 29.9 pg (27.0-33.0); MEAN CORPUSCULAR HGB CONC 32.9 g/dl (32.0-36.5); MONO # 0.8 10^3/uL (0.0-0.8); MONO % 4.4 % (2.0-8.0); NEUTROPHILS # 16.4 10^3/uL (1.5-8.5); NEUTROPHILS % 89.8 % (36.0-66.0); PLATELET COUNT, AUTOMATED 385 10^3/uL (150-450); RED BLOOD COUNT 4.01 10^6/uL (4.00-5.40); WHITE BLOOD COUNT 18.3 10^3/uL (4.0-10.0)
[2023-02-15 08:32] LABS: CK-MB VALUE MASS 1.7 NG/ML (<3.6)
[2023-02-15 08:33] LABS: ETHYL ALCOHOL (ETHANOL) 0.003 % (0.000-0.010)
[2023-02-15 08:35] LABS: ALBUMIN 3.3 G/DL (3.2-5.2); ALKALINE PHOSPHATASE 199 U/L (46-116); ALT/SGPT 19 U/L (7.0-40); AST/SGOT 18 U/L (<34); BILIRUBIN,DIRECT < 0.1 MG/DL (<0.4); BILIRUBIN,TOTAL 0.2 MG/DL (0.3-1.2); BLOOD UREA NITROGEN 48 MG/DL (9-23); CALCIUM LEVEL 8.7 MG/DL (8.3-10.6); CARBON DIOXIDE LEVEL 20 MMOL/L (20-31); CHLORIDE LEVEL 100 MMOL/L (98-107); CREATININE FOR GFR 1.01 MG/DL (0.55-1.30); GLOMERULAR FILTRATION RATE 57.5 (>39); GLUCOSE, FASTING 264 MG/DL (74-106); POTASSIUM SERUM 4.7 MMOL/L (3.5-5.1); SALICYLATE LEVEL < 3.0 MG/DL (<30); SODIUM LEVEL 133 MMOL/L (136-145); TOTAL PROTEIN 6.9 G/DL (5.7-8.2)
[2023-02-15 08:39] LABS: CPK CREATINE PHOSPHOKINASE 128 U/L (34-145); MB/CK RELATIVE INDEX 1.32 (< OR =4)
[2023-02-15] MEDS ORDERED: NS 2,160 ML in IV 1 EA IV ONE (08:40)
[2023-02-15 08:43] LABS: AMPHETAMINES LEVEL URINE NEGATIVE (NEGATIVE); BARBITURATES URINE NEGATIVE (NEGATIVE); BENZODIAZEPINES URINE NEGATIVE (NEGATIVE); CANNABINOIDS URINE NEGATIVE (NEGATIVE); COCAINE METABOLITE URINE NEGATIVE (NEGATIVE); METHADONE URINE NEGATIVE (NEGATIVE); OPIATES URINE NEGATIVE (NEGATIVE); PHENCYCLIDINE URINE NEGATIVE (NEGATIVE)
[2023-02-15] MEDS ORDERED: cefTRIAXone SOD 2 GM in D5W MINI-BAG PLUS 50 ML IV ONE (08:45)
[2023-02-15 09:11] LABS: OSMOLALITY SERUM 302 MOSM/KG (280-301)
[2023-02-15] MEDS ORDERED: MED REC IN PROGRESS XX SCH (09:25)
[2023-02-15] MEDS ORDERED: ALBUTEROL 90 MCG/ACT 8GM HFA INHALER INH PRN (11:15)
[2023-02-15] MEDS: AZITHROMYCIN 250MG TABLET PO SCH (12:02)
[2023-02-15 12:31] LABS: CK-MB VALUE MASS 1.4 NG/ML (<3.6)
[2023-02-15 12:33] LABS: MB/CK RELATIVE INDEX 1.26 (< OR =4)
[2023-02-15] MEDS: IPRATROPIUM 0.5MG/ALBUTEROL 2.5MG INH SOL UD 3ML (DUONEB) INH SCH ×2 (12:35→19:36)
[2023-02-15 12:37] LABS: ABG BASE EXCESS -7.7 (-2.0-2.0); ABG HCO3 15.7 MMOL/L (22.0-26.0); ABG O2 SATURATION 98.2 % (95.0-99.0); ABG PARTIAL PRESSURE CO2 25.9 mmHg (35.0-45.0); ABG PARTIAL PRESSURE O2 131.1 mmHg (75.0-100.0); ABG STANDARD HCO3 18.2 MMOL/L. (22.0-26.0); ABG TOTAL CO2 16.5 MMOL/L (23.0-31.0)
[2023-02-15] MEDS ORDERED: ACET-897 PO (12:39)
[2023-02-15] MEDS ORDERED: ASPI81TA27 PO (12:39)
[2023-02-15] MEDS ORDERED: HOME MED LIST COMPLETE! XX SCH (12:40)
[2023-02-15] MEDS ORDERED: DEXTROSE 50% 50ML SYRINGE IV PRN (12:45)
[2023-02-15] MEDS ORDERED: GLUCAGON INJ 1MG VIAL SC PRN (12:45)
[2023-02-15] MEDS ORDERED: GLUCOSE 4GM CHEW TABLET PO PRN (12:45)
[2023-02-15 13:00] VITALS: BP 120/75; TEMP 97.5; O2SAT 96
[2023-02-15] MEDS ORDERED: ALBUTEROL SULFATE 2.5MG/0.5ML INH NEB SOLN INH SCH (14:00)
[2023-02-15] MEDS: PIPERACILLIN/TAZOBACTAM SOD 3.375 GM in D5W MINI-BAG PLUS 50 ML IV SCH ×2 (15:10→20:19)
[2023-02-15 17:30] VITALS: BP 144/81; TEMP 97.9; O2SAT 93
[2023-02-15] MEDS: INSULIN LISPRO (NovoLOG) PER UNIT SC SCH (18:03)
[2023-02-15] MEDS: ACETAMINOPHEN TAB 650MG DOSE (2X325MG) PO PRN (18:53)
[2023-02-15 21:38] VITALS: BP 139/77; TEMP 97.9; O2SAT 98
[2023-02-16] MEDS: IPRATROPIUM 0.5MG/ALBUTEROL 2.5MG INH SOL UD 3ML (DUONEB) INH SCH ×4 (01:24→19:24)
[2023-02-16 02:00] VITALS: BP 136/76; TEMP 97.6; O2SAT 97
[2023-02-16] MEDS: PIPERACILLIN/TAZOBACTAM SOD 3.375 GM in D5W MINI-BAG PLUS 50 ML IV SCH ×4 (02:03→19:56)
[2023-02-16] MEDS: ACETAMINOPHEN TAB 650MG DOSE (2X325MG) PO PRN ×2 (04:53→08:47)
[2023-02-16 06:00] VITALS: BP 141/81; TEMP 97.9; O2SAT 92
[2023-02-16 06:32] LABS: HEMATOCRIT 30.5 % (36.0-47.0); HEMOGLOBIN 10.6 g/dl (12.0-15.5); MEAN CORPUSCULAR HEMOGLOBIN 30.7 pg (27.0-33.0); MEAN CORPUSCULAR HGB CONC 34.8 g/dl (32.0-36.5); MEAN CORPUSCULAR VOLUME 88.4 fl (80.0-96.0); PLATELET COUNT, AUTOMATED 304 10^3/uL (150-450); RED BLOOD COUNT 3.45 10^6/uL (4.00-5.40); WHITE BLOOD COUNT 11.4 10^3/uL (4.0-10.0)
[2023-02-16 07:00] LABS: ALBUMIN 2.8 G/DL (3.2-5.2); ALKALINE PHOSPHATASE 176 U/L (46-116); ALT/SGPT 16 U/L (7.0-40); AST/SGOT 12 U/L (<34); BILIRUBIN,TOTAL 0.3 MG/DL (0.3-1.2); BLOOD UREA NITROGEN 25 MG/DL (9-23); CALCIUM LEVEL 8.8 MG/DL (8.3-10.6); CARBON DIOXIDE LEVEL 22 MMOL/L (20-31); CHLORIDE LEVEL 105 MMOL/L (98-107); CREATININE FOR GFR 0.84 MG/DL (0.55-1.30); GLOMERULAR FILTRATION RATE > 60.0 (>39); GLUCOSE, FASTING 183 MG/DL (74-106); MAGNESIUM LEVEL 1.5 MG/DL (1.8-2.4); SODIUM LEVEL 138 MMOL/L (136-145); TOTAL PROTEIN 5.9 G/DL (5.7-8.2)
[2023-02-16] MEDS: INSULIN LISPRO (NovoLOG) PER UNIT SC SCH ×3 (08:45→17:41)
[2023-02-16] MEDS: ENOXAPARIN 40MG/0.4ML SYRINGE (J1650 PER 10MG) SC SCH (08:46)
[2023-02-16] MEDS: AZITHROMYCIN 250MG TABLET PO SCH (08:46)
[2023-02-16] MEDS ORDERED: cefTRIAXone SOD 1 GM in D5W MINI-BAG PLUS 50 ML IV SCH (09:00)
[2023-02-16 10:00] VITALS: BP 137/76; TEMP 97.9; O2SAT 97
[2023-02-16] MEDS: METOPROLOL TART 25 MG TABLET PO SCH ×2 (13:20→20:02)
[2023-02-16] MEDS: carBAMazepine 200MG TABLET PO SCH (13:20)
[2023-02-16] MEDS: ISOSORBIDE MON. (IMDUR) 60MG XR TAB PO SCH (13:20)
[2023-02-16] MEDS: ASPIRIN 81MG ENTERIC TABLET PO SCH (13:20)
[2023-02-16] MEDS: DULoxetine 20MG CAP (CYMBALTA) PO SCH (13:21)
[2023-02-16] MEDS: TORSEMIDE 20 MG TAB PO SCH (13:21)
[2023-02-16] MEDS: EZETIMIBE 10MG TABLET (ZETIA) PO SCH (13:21)
[2023-02-16] MEDS: CLOPIDOGREL 75 MG TAB PO SCH (13:22)
[2023-02-16 14:00] VITALS: BP 128/69; TEMP 98.2; O2SAT 95
[2023-02-16 18:00] VITALS: BP 125/75; TEMP 97.9; O2SAT 93
[2023-02-16] MEDS ORDERED: ATORVASTATIN 20 MG TAB PO SCH (21:00)
[2023-02-16] MEDS ORDERED: MONTELUKAST 10 MG TAB PO SCH (21:00)
[2023-02-16] MEDS ORDERED: carBAMazepine 200MG TABLET PO SCH (21:00)
[2023-02-16 21:35] VITALS: BP 116/74; TEMP 96.8; O2SAT 91
[2023-02-17] MEDS: IPRATROPIUM 0.5MG/ALBUTEROL 2.5MG INH SOL UD 3ML (DUONEB) INH SCH ×2 (01:38→07:09)
[2023-02-17 02:00] VITALS: BP 123/68; TEMP 97.4; O2SAT 93
[2023-02-17] MEDS: PIPERACILLIN/TAZOBACTAM SOD 3.375 GM in D5W MINI-BAG PLUS 50 ML IV SCH ×2 (02:28→08:59)
[2023-02-17 06:00] VITALS: BP 116/71; TEMP 97.7; O2SAT 95
[2023-02-17 08:23] LABS: BASO % 0.4 % (0.0-1.0); EOS # 0.3 10^3/uL (0.0-0.5); EOS % 2.9 % (0.0-3.0); HEMATOCRIT 29.6 % (36.0-47.0); HEMOGLOBIN 9.8 g/dl (12.0-15.5); LYMPH # 0.9 10^3/uL (1.5-5.0); LYMPH % 7.8 % (24.0-44.0); MEAN CORPUSCULAR HEMOGLOBIN 29.7 pg (27.0-33.0); MEAN CORPUSCULAR HGB CONC 33.1 g/dl (32.0-36.5); MEAN CORPUSCULAR VOLUME 89.7 fl (80.0-96.0); MONO # 0.9 10^3/uL (0.0-0.8); MONO % 8.1 % (2.0-8.0); NEUTROPHILS # 8.7 10^3/uL (1.5-8.5); NEUTROPHILS % 80.4 % (36.0-66.0); PLATELET COUNT, AUTOMATED 297 10^3/uL (150-450); WHITE BLOOD COUNT 10.9 10^3/uL (4.0-10.0)
[2023-02-17 08:50] LABS: BLOOD UREA NITROGEN 19 MG/DL (9-23); CALCIUM LEVEL 8.5 MG/DL (8.3-10.6); CARBON DIOXIDE LEVEL 23 MMOL/L (20-31); CHLORIDE LEVEL 103 MMOL/L (98-107); CREATININE FOR GFR 0.87 MG/DL (0.55-1.30); GLOMERULAR FILTRATION RATE > 60.0 (>39); GLUCOSE, FASTING 214 MG/DL (74-106); POTASSIUM SERUM 3.4 MMOL/L (3.5-5.1); SODIUM LEVEL 138 MMOL/L (136-145)
[2023-02-17] MEDS: CLOPIDOGREL 75 MG TAB PO SCH (08:59)
[2023-02-17] MEDS: DULoxetine 20MG CAP (CYMBALTA) PO SCH (08:59)
[2023-02-17 09:01] VITALS: BP 117/92
[2023-02-17] MEDS: ISOSORBIDE MON. (IMDUR) 60MG XR TAB PO SCH (09:01)
[2023-02-17] MEDS: TORSEMIDE 20 MG TAB PO SCH (09:02)
[2023-02-17] MEDS: ASPIRIN 81MG ENTERIC TABLET PO SCH (09:02)
[2023-02-17] MEDS: AZITHROMYCIN 250MG TABLET PO SCH (09:02)
[2023-02-17] MEDS: EZETIMIBE 10MG TABLET (ZETIA) PO SCH (09:02)
[2023-02-17] MEDS: METOPROLOL TART 25 MG TABLET PO SCH (09:03)
[2023-02-17] MEDS: carBAMazepine 200MG TABLET PO SCH (09:03)
[2023-02-17] MEDS: ENOXAPARIN 40MG/0.4ML SYRINGE (J1650 PER 10MG) SC SCH (09:04)
[2023-02-17] MEDS: ACETAMINOPHEN TAB 650MG DOSE (2X325MG) PO PRN (09:08)
[2023-02-17] MEDS: INSULIN LISPRO (NovoLOG) PER UNIT SC SCH ×2 (09:08→13:14)
[2023-02-17] MEDS ORDERED: AMOX875T2 PO (11:17)
== END 2023-02-17 13:20 | disposition home or self-care (01) | DRG 194 ==
LOC: M ED 07:11 → EDBD 07:11 → M ED INP 11:13 → ENRESERV 11:41 → M MS5PR 12:51
PROVIDERS: ADMIT Student in an Organized Health Care Education/Training Program; ATTEND Student in an Organized Health Care Education/Training Program
DX: J18.9 Pneumonia, unspecified organism (principal); E87.20 Acidosis, unspecified; J44.0 Chronic obstructive pulmonary disease with (acute) lower respiratory infection; I10 Essential (primary) hypertension; E78.5 Hyperlipidemia, unspecified; E11.9 Type 2 diabetes mellitus without complications; R29.6 Repeated falls; R26.89 Other abnormalities of gait and mobility; E66.9 Obesity, unspecified; S40.011A Contusion of right shoulder, initial encounter; W01.0XXA Fall on same level from slipping, tripping and stumbling without subsequent striking against object, initial encounter; Y92.009 Unspecified place in unspecified non-institutional (private) residence as the place of occurrence of the external cause; Z79.82 Long term (current) use of aspirin; Z79.84 Long term (current) use of oral hypoglycemic drugs; Z79.899 Other long term (current) drug therapy; Z20.822 Contact with and (suspected) exposure to COVID-19; Z85.118 Personal history of other malignant neoplasm of bronchus and lung; Z90.2 Acquired absence of lung [part of]; Z92.3 Personal history of irradiation; Z92.21 Personal history of antineoplastic chemotherapy; D64.9 Anemia, unspecified; E87.6 Hypokalemia; E83.42 Hypomagnesemia

== ENCOUNTER → 2023-02-26 | Outpatient (CLI) | payer MEDICARE ==
[~2023-02-26] MED LIST changes: +ACET-897 PO; +AMOX875T2 PO; +ASPI81TA27 PO
[2023-02-26 10:58] LABS: BASO # 0.1 10^3/uL (0.0-0.2); BASO % 0.4 % (0.0-1.0); EOS # 0.4 10^3/uL (0.0-0.5); EOS % 2.5 % (0.0-3.0); HEMOGLOBIN 10.5 g/dl (12.0-15.5); LYMPH # 1.1 10^3/uL (1.5-5.0); LYMPH % 7.7 % (24.0-44.0); MEAN CORPUSCULAR HEMOGLOBIN 29.7 pg (27.0-33.0); MEAN CORPUSCULAR HGB CONC 32.8 g/dl (32.0-36.5); MEAN CORPUSCULAR VOLUME 90.7 fl (80.0-96.0); MONO # 0.9 10^3/uL (0.0-0.8); MONO % 6.4 % (2.0-8.0); NEUTROPHILS # 11.7 10^3/uL (1.5-8.5); NEUTROPHILS % 82.4 % (36.0-66.0); PLATELET COUNT, AUTOMATED 374 10^3/uL (150-450); RED BLOOD COUNT 3.53 10^6/uL (4.00-5.40); WHITE BLOOD COUNT 14.2 10^3/uL (4.0-10.0)
[2023-02-26 11:32] LABS: BLOOD UREA NITROGEN 29 MG/DL (9-23); CALCIUM LEVEL 8.7 MG/DL (8.3-10.6); CARBON DIOXIDE LEVEL 28 MMOL/L (20-31); CHLORIDE LEVEL 100 MMOL/L (98-107); GLOMERULAR FILTRATION RATE > 60.0 (>39); GLUCOSE, FASTING 152 MG/DL (74-106); IRON (FE) 32 UG/DL (50-170); MAGNESIUM LEVEL 1.4 MG/DL (1.8-2.4); PERCENT SATURATION 12.7 % (13.2-45.0); POTASSIUM SERUM 4.9 MMOL/L (3.5-5.1); SODIUM LEVEL 137 MMOL/L (136-145); TOTAL IRON BINDING CAPACITY 251 UG/DL (250-425)
[2023-02-26 11:33] LABS: FERRITIN 267.6 NG/ML (7.3-270.7)
[2023-02-26 11:34] LABS: FOLATE 6.85 NG/ML (>5.4)
[2023-02-26 11:35] LABS: VITAMIN B12 LEVEL 406 PG/ML (211-911)
== END ==
LOC: M LAB 09:49
PROVIDERS: ATTEND Family Medicine
DX: D64.9 Anemia, unspecified (principal); R79.0 Abnormal level of blood mineral

== ENCOUNTER → 2023-03-12 | Outpatient (CLI) | payer MEDICARE | LOC: M RAD 12:41 | PROVIDERS: ATTEND Orthopaedic Surgery | DX: M25.511 Pain in right shoulder (principal); R93.7 Abnormal findings on diagnostic imaging of other parts of musculoskeletal system ==

== ENCOUNTER → 2023-03-28 | Outpatient (CLI) | payer MEDICARE ==
[~2023-03-28] MED LIST changes: -FLUT50SP17 NARES; +FLUTISP NARES
== END ==
LOC: M RAD 09:20
PROVIDERS: ATTEND Orthopaedic Surgery
DX: M25.511 Pain in right shoulder (principal); M84.411A Pathological fracture, right shoulder, initial encounter for fracture; R91.8 Other nonspecific abnormal finding of lung field
CPT/HCPCS: 73200; 78306; A9503

== ENCOUNTER → 2023-04-05 | Outpatient (CLI) | payer MEDICARE ==
[~2023-04-05] MED LIST changes: +MORP1TAB19 PO; +ONDA-83 PO
== END ==
LOC: M ONCR 12:47
PROVIDERS: ATTEND General Practice
DX: C34.12 Malignant neoplasm of upper lobe, left bronchus or lung (principal); C79.51 Secondary malignant neoplasm of bone; G89.3 Neoplasm related pain (acute) (chronic); R91.8 Other nonspecific abnormal finding of lung field; Z71.2 Person consulting for explanation of examination or test findings; Z74.1 Need for assistance with personal care; Z79.02 Long term (current) use of antithrombotics/antiplatelets; Z79.82 Long term (current) use of aspirin; Z79.84 Long term (current) use of oral hypoglycemic drugs; Z79.85 Long-term (current) use of injectable non-insulin antidiabetic drugs; Z79.891 Long term (current) use of opiate analgesic; Z79.899 Other long term (current) drug therapy; Z87.891 Personal history of nicotine dependence; Z90.2 Acquired absence of lung [part of]

== ENCOUNTER 2023-04-11 10:06 | Outpatient (RCR) | payer MEDICARE | END 2023-04-16 | LOC: M ONCR 10:06 | PROVIDERS: ATTEND General Practice | DX: Z51.0 Encounter for antineoplastic radiation therapy (principal); C79.51 Secondary malignant neoplasm of bone ==

== ENCOUNTER 2023-04-12 17:53 | Inpatient (IN) | payer MEDICARE ==
[2023-04-12 17:30] VITALS: BP 168/78; TEMP 98.6; O2SAT 91
[2023-04-12] MEDS ORDERED: MORPHINE 2 MG/ML 1ML VIAL IV PRN (18:35)
[2023-04-12] MEDS ORDERED: ACETAMINOPHEN 650MG SUPP PR PRN (18:35)
[2023-04-12] MEDS ORDERED: ONDANSETRON 4MG ORAL DISINTEGRATING TAB PO PRN (18:35)
[2023-04-12] MEDS ORDERED: ACETAMINOPHEN TAB 650MG DOSE (2X325MG) PO PRN (18:35)
[2023-04-12] MEDS ORDERED: SCOPOLAMINE 1MG TRANSDERMAL PATCH TOP PRN (18:35)
[2023-04-12] MEDS ORDERED: FLEET ENEMA PR PRN (18:35)
[2023-04-12] MEDS ORDERED: HYOSCYAMINE SULFATE 0.125 MG SUBL TABLET PO PRN (18:35)
[2023-04-12] MEDS ORDERED: LORazepam 2 MG/ML 1ML VIAL IV PRN (18:35)
[2023-04-12] MEDS ORDERED: BISACODYL 10MG SUPP PR PRN (18:35)
[2023-04-12] MEDS ORDERED: ONDANSETRON 4MG 2ML VIAL IV PRN (18:35)
[2023-04-12] MEDS ORDERED: ATROPINE SULFATE 1% OPHTH SOLN 2ML BTL SL PRN (18:35)
[2023-04-12] MEDS: MORPHINE 10MG/0.5ML ORAL CONCENTRATE SOLUTION U/D SL PRN ×2 (19:06→22:27)
[2023-04-12] MEDS ORDERED: MEGESTROL 40MG TAB PO SCH (21:00)
[2023-04-13] MEDS: MORPHINE 10MG/0.5ML ORAL CONCENTRATE SOLUTION U/D SL PRN ×5 (02:55→22:52)
[2023-04-13] MEDS: LORazepam 1 MG TAB PO PRN ×5 (02:56→23:53)
[2023-04-13] MEDS: MEGESTROL 400MG 10ML SUSP ORAL SYRINGE *DRAW UP EXACT DOSE PO SCH ×4 (09:25→22:52)
[2023-04-14] MEDS: MORPHINE 10MG/0.5ML ORAL CONCENTRATE SOLUTION U/D SL PRN ×6 (03:02→22:03)
[2023-04-14] MEDS: LORazepam 1 MG TAB PO PRN ×6 (03:02→22:03)
[2023-04-14] MEDS: MEGESTROL 400MG 10ML SUSP ORAL SYRINGE *DRAW UP EXACT DOSE PO SCH ×4 (09:00→21:00)
[2023-04-15] MEDS: LORazepam 1 MG TAB PO PRN ×4 (02:02→18:11)
[2023-04-15] MEDS: MORPHINE 10MG/0.5ML ORAL CONCENTRATE SOLUTION U/D SL PRN ×3 (02:02→11:39)
[2023-04-15] MEDS: MEGESTROL 400MG 10ML SUSP ORAL SYRINGE *DRAW UP EXACT DOSE PO SCH ×4 (09:10→20:33)
[2023-04-15] MEDS ORDERED: MORPHINE 10MG/0.5ML ORAL CONCENTRATE SOLUTION U/D SL PRN (11:55)
[2023-04-15] MEDS ORDERED: MORPHINE SULF IN 0.9% NACL 100 MG in IV 1 EA IV SCH ×2 (16:00)
[2023-04-16] MEDS: MEGESTROL 400MG 10ML SUSP ORAL SYRINGE *DRAW UP EXACT DOSE PO SCH (07:37)
== END 2023-04-16 12:29 | disposition expired | DRG 951 ==
LOC: M MSPAV 17:54
PROVIDERS: ADMIT Internal Medicine; ATTEND Family Medicine
DX: Z51.5 Encounter for palliative care (principal); C34.91 Malignant neoplasm of unspecified part of right bronchus or lung; Z66 Do not resuscitate; Z90.2 Acquired absence of lung [part of]; I10 Essential (primary) hypertension; E78.5 Hyperlipidemia, unspecified; E11.51 Type 2 diabetes mellitus with diabetic peripheral angiopathy without gangrene; R63.0 Anorexia; I73.9 Peripheral vascular disease, unspecified; R11.2 Nausea with vomiting, unspecified; R62.7 Adult failure to thrive; J44.9 Chronic obstructive pulmonary disease, unspecified; R29.6 Repeated falls; Z79.82 Long term (current) use of aspirin; Z79.84 Long term (current) use of oral hypoglycemic drugs; Z79.899 Other long term (current) drug therapy; Z20.822 Contact with and (suspected) exposure to COVID-19; Z74.1 Need for assistance with personal care; Z92.3 Personal history of irradiation